=== PATIENT | male | born 1945 | race Caucasian/White ===

== ENCOUNTER 2018-05-21 17:07 | Emergency (ER) | payer MEDICARE, MEDICAID ==
[2018-05-21 17:11] VITALS: BMI 23.3
--- NOTE | 2018-05-21 18:11 | C.PDOC ---
History Of Present Illness 72yo male, comes to ER for evaluation of pain to his right anterior tibia, which he noted after dialysis. He denies any injury or contusion to the leg. Patient denies any history of DVT or a sedentary lifestyle. Patient denies any weakness, numbness, and offers no other complaints. Time Seen by Provider: 05/21/18 17:35 Chief Complaint (Nursing): Lower Extremity Problem/Injury History Per: Patient History/Exam Limitations: no limitations Additional History Per: Patient Past Medical History Reviewed: Historical Data, Nursing Documentation, Vital Signs Vital Signs: Last Vital Signs Temp 98.1 F 05/21/18 18:53 Pulse 77 05/21/18 18:53 Resp 16 05/21/18 18:53 BP 159/77 H 05/21/18 18:53 Pulse Ox 99 05/21/18 18:53 - Medical History PMH: HTN, Pneumonia, End Stage Renal Disease Surgical History: No Surg Hx Family History: States: No Known Family Hx - Social History Hx Alcohol Use: No Hx Substance Use: No - Immunization History Hx Tetanus Toxoid Vaccination: Yes Hx Influenza Vaccination: Yes Hx Pneumococcal Vaccination: Yes Review Of Systems Except As Marked, All Systems Reviewed And Found Negative. Constitutional: Negative for: Fever, Chills Cardiovascular: Negative for: Chest Pain Respiratory: Negative for: Shortness of Breath Musculoskeletal: Positive for: Leg Pain (right anterior tibia) Physical Exam - Physical Exam Appears: Non-toxic, No Acute Distress Skin: Warm, Dry, Other (superficial abrasion to superior anterior blade of tibia with mild darkening. no skin breaks or lacerations noted.) Head: Atraumatic, Normacephalic Eye(s): bilateral: Normal Inspection Neck: Normal ROM, Supple Chest: Symmetrical, No Tenderness Cardiovascular: Rhythm Regular Respiratory: Normal Breath Sounds, No Wheezing Extremity: Normal ROM, No Tenderness, No Pedal Edema, No Calf Tenderness, Capillary Refill (< 2 seconds), No Deformity, No Swelling Neurological/Psych: Oriented x3 ED Course And Treatment O2 Sat by Pulse Oximetry: 95 (RA) Pulse Ox Interpretation: Normal - Radiology CXR: Interpreted by Me CXR Interpretation: Yes: No Acute Disease - Other Rad R tib/fib X-Ray: Interpreted by Me (neg) Medical Decision Making Medical Decision Making: mild abrasion to superior anterior aspect of tibia blade with exquisite tenerness but no lac/open wound. ice and NSAIDS much improved, tib/fib film neg. normal CXR for this pt. worse sob prior to HD is typical for this pt. Disposition Doctor Will See Patient In The: Office Counseled Patient/Family Regarding: Studies Performed, Diagnosis - Disposition Referrals: Medhat Hassan [Medical Doctor] - Disposition: HOME/ ROUTINE Disposition Time: 18:11 Condition: GOOD Additional Instructions: sigue con hielo 1/2 hora por hora, nada caliente ibuprofeno 400-600 mg cada 6 horas winnie necessario para dolor Nette dolor dura 1-2 SEMANAS! Sigue con day medico winnie necessario. Instructions: Contusion (DC) Forms: [employer] (Nigerian) Print Language: TOGOLESE - Clinical Impression Clinical Impression: Contusion of tibia - Scribe Statement The provider has reviewed the documentation as recorded by the Scribe (Natalie Garcia) Provider Attestation: All medical record entries made by the Scribe were at my direction and personally dictated by me. I have reviewed the chart and agree that the record accurately reflects my personal performance of the history, physical exam, medical decision making, and the department course for this patient. I have also personally directed, reviewed, and agree with the discharge instructions and disposition.
--- NOTE | 2018-05-21 18:14 | RAD ---
PROCEDURE: Radiographs of the right tibia and fibula. HISTORY: abrasion, anterior blade area, no lac/puncture COMPARISON: None available. TECHNIQUE: Frontal and lateral views obtained. FINDINGS: BONES: No fracture or destructive lesion. JOINT SPACES: Unremarkable. OTHER FINDINGS: None. IMPRESSION: Unremarkable radiographs of the right tibia and fibula.
--- NOTE | 2018-05-21 18:49 | RAD ---
HISTORY: sob/cough COMPARISON: Chest radiograph dated 11/21/2012. TECHNIQUE: Chest PA and lateral FINDINGS: LUNGS: Basilar atelectasis. PLEURA: Small bilateral pleural effusions. No pneumothorax apparent. CARDIOVASCULAR: Normal. OSSEOUS STRUCTURES: Unchanged. VISUALIZED UPPER ABDOMEN: Normal. OTHER FINDINGS: None. IMPRESSION: Small bilateral pleural effusions with bibasilar atelectasis.
[2018-05-21 18:54] VITALS: BP 159/77; PULSE 77; RESP 16; TEMP 98.1
[2018-05-21 19:00] VITALS: O2SAT 95
== END 2018-05-21 19:09 | disposition home or self-care (01) ==
LOC: C.ER 17:07
DX: S80.11XA Contusion of right lower leg, initial encounter (principal); X58.XXXA Exposure to other specified factors, initial encounter

== ENCOUNTER 2018-07-01 07:37 | Day surgery (SDC) | payer MEDICARE, MEDICAID ==
[2018-07-01] MEDS ORDERED: cefTRIAXone 1 gm 1 GM/100 ML BAG IVPB ONE (09:21)
[2018-07-01] MEDS ORDERED: Lidocaine 2% Jelly (Uro-Jet) ONE (09:22)
[2018-07-01] MEDS ORDERED: Propofol 10 mg/ml Inj (20 ML) ONE (09:24)
[2018-07-01 09:30] LABS: CALCIUM 9.1 mg/dl (8.6-10.4)
[2018-07-01] MEDS ORDERED: Albuterol-Ipratrop 3 mg / 0.5 (3 ml) UD INH STA (12:09)
[2018-07-01 12:31] LABS: CALCIUM 8.8 mg/dl (8.6-10.4)
--- NOTE | 2018-07-01 14:03 | CP.PCM.PCO ---
Physician Communication Note - Physician Communication Note Physician Communication Note: Patient is a 73 yo male who came for catheter exchange due to ESRD
[2018-07-01 15:48] VITALS: RESP 16; TEMP 97.6; O2SAT 95
[2018-07-01 16:02] VITALS: BP 144/66; PULSE 84
--- NOTE | 2018-07-01 20:28 | OP ---
Copied To: Neeraj Elizabeth MD Attending MD: Neeraj Elizabeth MD PROCEDURE DATE: 07/01/2018 PREOPERATIVE DIAGNOSES: 1. End-stage renal disease, on dialysis. 2. Chronic indwelling suprapubic tube. 3. Microscopic hematuria. PROCEDURE: Cystoscopy, change of suprapubic tube. SURGEON: Neeraj Elizabeth MD ANESTHESIA: Local anesthesia plus laryngeal mask anesthesia. ANESTHESIOLOGIST: Mago Haas MD DESCRIPTION OF PROCEDURE: The patient's potassium was called in and elevated at 6.3 after the patient was placed under anesthesia. The procedure took less than 10 minutes. Approximately 10 mL of 2% Xylocaine jelly additionally was injected per urethral meatus which came out immediately through his hypospadiac opening just proximal to the urethral meatus on the ventral portion of his penile shaft underlying the urethra. Remaining portion of the lidocaine jelly was injected into the hypospadiac urethra and this was followed by insertion of a #22-Portuguese Storz cystoscope, which was advanced into the bladder under direct vision using the 30-degree lens. Sterile water was used as irrigating solution throughout the entire procedure. The anterior urethra from the hypospadiac meatus was completely normal without any stricture formation, foreign bodies, or suspicious lesion seen. Posterior urethra and prostatic fossa showed a total prostatic fossa measuring about 4 cm in length and the bladder neck to verumontanum measuring about 3 cm in length. The bladder was then examined in all four quadrants. The suprapubic tube was seen coming into the bladder anteriorly and the remaining portion of bladder showed no evidence of any bladder malignancy. The bladder mucosa appeared to be no more than 1+ trabeculated. Both ureteral orifices were in normal location, normal configuration on the trigone with diminished efflux bilaterally. The prostatic fossa showed minimally to moderate occlusive lateral lobe prostatic hypertrophy. At the end of the procedure, the cystoscope was removed and the 24-Portuguese suprapubic tube was changed and connected to leg bag drainage. Plan for this patient will be to maintain the suprapubic tube open while the patient's potassium remains elevated. As soon as this stabilizes, the patient can plug his suprapubic tube and see if he voids urine via his hypospadiac urethral meatus. The patient will be seen in office followup in one week. The patient will need urgent followup with a cut off sawyer regarding his hyperkalemia and elevated PSA of 6.3. Neeraj Elizabeth MD MTDD
== END 2018-07-01 15:50 | disposition home or self-care (01) ==
LOC: C.SDS 07:37 → UNDOADMIN 11:28 → C.9S 11:28 → C.SDS 15:50
PROVIDERS: ATTEND Urology
DX: E11.22 Type 2 diabetes mellitus with diabetic chronic kidney disease (principal); N18.6 End stage renal disease; Z99.2 Dependence on renal dialysis; R31.29 Other microscopic hematuria; Z53.21 Procedure and treatment not carried out due to patient leaving prior to being seen by health care provider
CPT/HCPCS: 36415; 51710; 80048; 82948; J0696

== ENCOUNTER 2018-09-10 17:18 | Inpatient (IN) | payer MEDICARE, MEDICAID ==
[2018-09-10 17:32] VITALS: BMI 24.4
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
[2018-09-10] MEDS ORDERED: cefTRIAXone IV 1 gm in Dextros 50 ML IVPB ONE (17:59)
[2018-09-10] MEDS ORDERED: Azithromycin 500 MG in Sodium Chloride 0.9% 250 ML IVPB STA (18:00)
[2018-09-10] MEDS ORDERED: cefTRIAXone 1 gm 1 GM/100 ML BAG IVPB ONE (18:09)
[2018-09-10] MEDS ORDERED: Azithromycin 500mg/250ML NS 500 MG/250 ML BAG IVPB ONE (18:09)
[2018-09-10 18:47] LABS: BASO # 0.1 K/uL (0.0-0.2); BASO % 0.8 % (0.0-2.0); EOS # 0.1 K/uL (0.0-0.7); EOS % 1.7 % (0.0-4.0); HEMOGLOBIN 11.1 g/dL (12.0-18.0); LYMPH # 1.3 K/uL (1.0-4.3); LYMPH % 17.4 % (20.0-40.0); MEAN CELL VOLUME 93.7 fL (80.0-94.0); MEAN CORPUSCULAR HEMOGLOBIN 31.9 pg (27.0-31.0); MEAN CORPUSCULAR HGB CONC 34.1 g/dL (33.0-37.0); MEAN PLATELET VOLUME 8.7 fL (7.2-11.7); MONO # 0.5 K/uL (0.0-0.8); MONO % 6.7 % (0.0-10.0); NEUT # 5.5 K/uL (1.8-7.0); NEUT % 73.4 % (50.0-75.0); RBC 3.48 Mil/uL (4.40-5.90); RED CELL DISTRIBUTION WIDTH 14.8 % (11.5-14.5); WHITE BLOOD COUNT 7.5 K/uL (4.8-10.8)
[2018-09-10] MEDS ORDERED: guaiFENesin DM 200 mg-20 mg/10 ml UD PO STA (18:48)
[2018-09-10] MEDS ORDERED: Albuterol 0.042% Inhal Sol (1.25 mg/3 mL) UD ONE (19:00)
[2018-09-10 19:13] LABS: ALB/GLOB RATIO 1.2 (1.0-2.1); ALBUMIN 4.2 g/dL (3.5-5.0)
[2018-09-10] MEDS: Albuterol 0.042% Inhal Sol (1.25 mg/3 mL) UD INH SCH (19:35)
[2018-09-10] MEDS ORDERED: guaiFENesin-Codeine 100-10mg/5ml Syrup (10ml) UD ONE (19:45)
[2018-09-10 19:50] LABS: TROPONIN I 0.059 ng/mL (0.00-0.120)
[2018-09-11] MEDS ORDERED: Albuterol-Ipratrop 3 mg / 0.5 (3 ml) UD INH STA (00:27)
[2018-09-11] MEDS: (Novolin R) Insulin Human Regular 100 units/ml vial SC SCH ×4 (08:54→21:43)
[2018-09-11] MEDS: (Lantus) Insulin Glargine, Recombinant SC SCH (09:29)
[2018-09-11] MEDS: Potassium Chloride 20 mEq ER Tab PO SCH (09:36)
--- NOTE | 2018-09-11 10:24 | RAD ---
Date of service: 09/10/2018 PROCEDURE: CHEST RADIOGRAPH, 1 VIEW HISTORY: SOB COMPARISON: Chest radiographs 05/21/2018. FINDINGS: LUNGS: No acute airspace disease bilaterally. COPD suspected. PLEURA: Chronic fibrotic changes are favored over trace pleural effusions blunting the bilateral costophrenic sulci. No pneumothorax bilaterally. CARDIOVASCULAR: Normal. OSSEOUS STRUCTURES: No significant abnormalities. VISUALIZED UPPER ABDOMEN: Normal. OTHER FINDINGS: None. IMPRESSION: No acute airspace disease bilaterally. COPD changes are suspected with fibrotic changes both the bilateral costophrenic sulci favored over trace chronic pleural effusions. No pulmonary vascular congestion appreciable.
[2018-09-11] MEDS: Cilostazol 100 mg Tab UD PO SCH ×2 (10:37→17:57)
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
[2018-09-11] MEDS: MethylPREDNISolone 40 mg Vial IVP SCH ×2 (12:00→17:58)
--- NOTE | 2018-09-11 12:58 | CT ---
Date of service: 09/11/2018 PROCEDURE: CT Chest without contrast HISTORY: persistent cough COMPARISON: None available. TECHNIQUE: Contiguous axial images were obtained through the chest without intravenous contrast enhancement. Sagittal and coronal reconstructions were performed. Radiation dose: Total exam DLP = 393.24 mGy-cm. This CT exam was performed using one or more of the following dose reduction techniques: Automated exposure control, adjustment of the mA and/or kV according to patient size, and/or use of iterative reconstruction technique. FINDINGS: LUNGS: Opacity includes air bronchograms at the right lower lobe in multiple sub segments including the superior subsegment, as well as minimally at the left lower lobe with some nodularity at the left lower lobe infiltrate associated. Linear atelectasis or fibrosis seen at both bases. Mucoid material is identified at the distal segment right mainstem bronchus partially occluding it. There is a small calcified granuloma identified at the left upper lobe subpleural in position. Restrained motion degrades quality exam. No definite COPD changes as suspected on prior chest radiograph 09/10/2018. MEDIASTINUM: Calcific atherosclerotic changes are seen related to the thoracic aorta. Borderline cardiomegaly. Coronary artery atherosclerosis identified. Main pulmonary artery unremarkable. No vascular congestion. Mild lymphadenopathy is appreciated with nearly innumerable subcentimeter no nodes identified in the pretracheal retro vascular space, aortopulmonary window and paratracheal spaces. PLEURA: No pleural fluid. No pneumothorax. BONES: No fracture. No destructive lesion. UPPER ABDOMEN: Cholelithiasis. OTHER FINDINGS: None. IMPRESSION: Findings compatible with [id number] right lower lobe pneumonitis and limited left lower lobe pneumonitis. Follow-up chest CT rim recommended following therapy given limited nodularity of left basilar pneumonitis component. Mild mediastinal lymphadenopathy identified. Incidental cholelithiasis.
[2018-09-11] MEDS: Azithromycin 500 MG in Sodium Chloride 0.9% 250 ML IVPB SCH (17:59)
[2018-09-11] MEDS: Albuterol-Ipratrop 3 mg / 0.5 (3 ml) UD INH SCH (19:24)
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
[2018-09-12] MEDS: MethylPREDNISolone 40 mg Vial IVP SCH ×4 (00:27→17:32)
[2018-09-12] MEDS: Albuterol-Ipratrop 3 mg / 0.5 (3 ml) UD INH SCH ×4 (02:10→20:04)
[2018-09-12] MEDS ORDERED: Dextrose 50% SYRINGE Inj (50 ml) IV PRN (02:27)
[2018-09-12] MEDS ORDERED: Glucagon Recombinant 1 mg Inj IM PRN (02:27)
[2018-09-12] MEDS ORDERED: (Novolin R) Insulin Human Regular 100 units/ml vial SC ONE (02:36)
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
--- NOTE | 2018-09-12 07:19 | HP ---
CHIEF COMPLAINT: Cough x3 days. HISTORY OF PRESENT ILLNESS: This is a 73-year-old male with history of endstage renal disease, on hemodialysis for two years, type 2 diabetes, hypertension, hyperlipidemia. The patient was brought into emergency room by family with two weeks' history of cough, congestion, shortness of breath, pneumonia. Along with that, he is having chest pain upon coughing. He feels chest congestion. He feels body aches, tiredness, chills, rigors. He denies any nausea, vomiting. He denies any history of polyuria, polydipsia, polyphagia. He denies any history of hematuria, pyuria. He has nasal congestion. His sputum is thick, yellow. He denies any hemoptysis. He denies any history of abdominal pain. There is no history of joint pain, hip pain. There is no history of trauma, fall, loss of consciousness. There is no history of sneezing, itchy eyes, itchy nose. PAST MEDICAL HISTORY: Type 2 diabetes, hypertension, hyperlipidemia, CKD, on hemodialysis. SOCIAL HISTORY: Nonsmoker, non-ETOH user. CURRENT MEDICATIONS: At home are Tradjenta, Lantus, Lasix, gabapentin, folic acid, Pletal, Zyrtec, calcium acetate, Tessalon, allopurinol, hydralazine, K-Dur, Singulair, Cozaar. PHYSICAL EXAMINATION: GENERAL: Elderly male, who is in distress with coughing, congestion. HEENT: Atraumatic and normocephalic. Positive pallor. Negative jaundice. Extraocular movements are intact. NECK: Supple. No JVD. No lymph node. No thyromegaly. No carotid bruits. CHEST: Chest wall with bilateral symmetrical expansion. LUNGS: Bilateral inspiratory and expiratory rales and rhonchi. Decreased air entry. CARDIOVASCULAR SYSTEM: S1, S2 plus S3 positive. ABDOMEN: Soft and nontender. Bowel sounds are positive. RECTAL: Enlarged prostate. EXTREMITIES: No clubbing, cyanosis, or edema. [employer]OR: Awake, alert, and oriented x3. Cranial nerves II through XII are normal. Power 5/5 x4. Plantars downgoing. ASSESSMENT: 1. Pneumonia. 2. Congestive heart failure due to fluid overload. 3. Chronic renal failure. 4. Hypertension. PLAN: Admit. Detailed orders written. Seen and examined. Drew Nash MD
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
[2018-09-12] MEDS: (Novolin R) Insulin Human Regular 100 units/ml vial SC SCH ×4 (08:52→21:41)
[2018-09-12] MEDS: (Lantus) Insulin Glargine, Recombinant SC SCH (09:14)
[2018-09-12] MEDS: Potassium Chloride 20 mEq ER Tab PO SCH (09:14)
[2018-09-12] MEDS: Cilostazol 100 mg Tab UD PO SCH ×2 (09:15→17:32)
--- NOTE | 2018-09-12 10:15 | CP.PCM.PN ---
Subjective - Date & Time of Evaluation Date of Evaluation: 09/12/18 Time of Evaluation: 10:10 - Subjective Subjective: Pt staes that he still has lot of cough but breathing is much better. Appears comfortsble in bed Objective - Vital Signs/Intake and Output Vital Signs (last 24 hours): Temp Pulse Resp BP Pulse Ox 97.7 F 90 20 118/60 98 09/12/18 08:14 09/12/18 08:14 09/12/18 08:14 09/12/18 09:13 09/12/18 08:14 Intake and Output: 09/12/18 09/12/18 06:59 18:59 Intake Total 540 Output Total 0 Balance 540 - Medications Medications: Current Medications Albuterol/Ipratropium (Duoneb 3 Mg/0.5 Mg (3 Ml) Ud) 3 ml INH RQ6 [facility] Last Admin: 09/12/18 08:33 Dose: 3 ml Allopurinol (Zyloprim) 100 mg PO BID [facility] Last Admin: 09/12/18 09:13 Dose: 100 mg Benzonatate (Tessalon Perles) 100 mg PO TID [facility] Last Admin: 09/12/18 09:14 Dose: 100 mg Calcium Acetate (Phoslo) 1,334 mg PO BIDCC [facility] Last Admin: 09/12/18 08:57 Dose: 1,334 mg Cilostazol (Pletal) 100 mg PO BID [facility] Last Admin: 09/12/18 09:15 Dose: 100 mg Dextrose (Dextrose 50% Inj) 0 ml IV STAT PRN; Protocol PRN Reason: Hypoglycemia Protocol Dextrose (Glutose 15) 0 gm PO ONCE PRN; Protocol PRN Reason: Hypoglycemia Protocol Folic Acid (Folic Acid) 1 mg PO DAILY [facility] Last Admin: 09/12/18 09:14 Dose: 1 mg Furosemide (Lasix) 40 mg PO DAILY [facility] Last Admin: 09/12/18 09:13 Dose: 40 mg Gabapentin (Neurontin) 300 mg PO TID [facility] Last Admin: 09/12/18 09:13 Dose: 300 mg Glucagon (Glucagen Diagnostic Kit) 0 mg IM STAT PRN; Protocol PRN Reason: Hypoglycemia Protocol Heparin Sodium (Porcine) (Heparin) 5,000 units SC Q8 [facility] Last Admin: 09/12/18 05:17 Dose: 5,000 units Hydralazine HCl (Apresoline) 25 mg PO TID [facility] Last Admin: 09/12/18 09:13 Dose: 25 mg Ceftriaxone Sodium 1 gm/ (Sodium Chloride) 100 mls @ 100 mls/hr IVPB DAILY@1800 [facility]; Protocol Last Admin: 09/11/18 17:59 Dose: 100 mls/hr Azithromycin 500 mg/ Sodium (Chloride) 250 mls @ 250 mls/hr IVPB DAILY@1800 [facility]; Protocol Last Admin: 09/11/18 17:59 Dose: 250 mls/hr Dextrose (Dextrose 5% In Water 1000 Ml) 1,000 mls @ 0 mls/hr IV .Q0M PRN; Protocol PRN Reason: Hypoglycemia Protocol Insulin Glargine (Lantus) 30 unit SC DAILY [facility] Last Admin: 09/12/18 09:14 Dose: 30 units Insulin Human Regular (Novolin R) 0 unit SC ACHS [facility]; Protocol Last Admin: 09/12/18 08:52 Dose: 4 units Methylprednisolone (Solu-Medrol) 40 mg IVP Q6 [facility] Last Admin: 09/12/18 05:17 Dose: 40 mg Montelukast Sodium (Singulair) 10 mg PO DAILY [facility] Last Admin: 09/12/18 09:14 Dose: 10 mg Potassium Chloride (K-Dur 20 Meq Er Tab) 20 meq PO DAILY [facility] Last Admin: 09/12/18 09:14 Dose: Not Given Rosuvastatin Calcium (Crestor) 10 mg PO HS [facility] Last Admin: 09/11/18 21:44 Dose: 10 mg Sevelamer Carbonate (Renvela) 800 mg PO DAILY [facility] Last Admin: 09/12/18 09:14 Dose: 800 mg - Labs Labs: 09/10/18 18:41 09/10/18 18:41 - Constitutional Appears: No Acute Distress - Head Exam Head Exam: NORMAL INSPECTION - Eye Exam Additional comments: Enucleation of lt eye No icterus - ENT Exam ENT Exam: Mucous Membranes Moist - Neck Exam Additional comments: neck is supple - Respiratory Exam Respiratory Exam: NORMAL BREATHING PATTERN Additional comments: Scattered B/L rhonchi but no rales. - Cardiovascular Exam Cardiovascular Exam: REGULAR RHYTHM, +S1, +S2 - GI/Abdominal Exam GI & Abdominal Exam: Soft, Tenderness Additional comments: No tenderness - Extremities Exam Additional comments: No edema or cyanosis + bruit over Lt arm AVF Assessment and Plan - Assessment and Plan (Free Text) Assessment: ESRD on maintenance HD, MWF No signes of fluid overload\ Bronchitis, Hx/o COPD DM with retinopathy HTN,HLD Plan: Pt is scheduled for dialysis tomorrow orders are written Labs in am.
--- NOTE | 2018-09-12 12:25 | CP.PCM.PN ---
Subjective - Date & Time of Evaluation Date of Evaluation: 09/12/18 Time of Evaluation: 12:24 - Subjective Subjective: Pulmonary Evaluation The patient was Seen/interviewed and examined by me at the bedside, Medical records reviewed and Management issues were discussed and formulated with the house staff. Events reviewed 73-year-old male with history of Chronic bronchitis, diabetes, hypertension and end-stage renal disease on dialysis who presented to emergency room with productive cough, shortness of breath and chest congestion for the past 2 weeks. Denies fever chills, denies chest pain. On admission he is Hypoxic to 93% on room air. CXR revealed small bilateral pleural effusion Labs noted for elevated proBNP [id number]. Chest CT scan with [id number] right lower lobe pneumonitis and limited left lower lobe pneumonitis. Admitted with Pneumonia, possible fluid overload, Felling better today, still with productive cough. Objective - Vital Signs/Intake and Output Vital Signs (last 24 hours): Temp Pulse Resp BP Pulse Ox 97.7 F 92 H 20 118/60 98 09/12/18 08:14 09/12/18 11:25 09/12/18 08:14 09/12/18 09:13 09/12/18 08:14 Intake and Output: 09/12/18 09/12/18 06:59 18:59 Intake Total 540 Output Total 0 Balance 540 - Medications Medications: Current Medications Albuterol/Ipratropium (Duoneb 3 Mg/0.5 Mg (3 Ml) Ud) 3 ml INH RQ6 [facility] Last Admin: 09/12/18 08:33 Dose: 3 ml Allopurinol (Zyloprim) 100 mg PO BID [facility] Last Admin: 09/12/18 09:13 Dose: 100 mg Benzonatate (Tessalon Perles) 100 mg PO TID [facility] Last Admin: 09/12/18 09:14 Dose: 100 mg Calcium Acetate (Phoslo) 1,334 mg PO BIDCC [facility] Last Admin: 09/12/18 08:57 Dose: 1,334 mg Cilostazol (Pletal) 100 mg PO BID [facility] Last Admin: 09/12/18 09:15 Dose: 100 mg Dextrose (Dextrose 50% Inj) 0 ml IV STAT PRN; Protocol PRN Reason: Hypoglycemia Protocol Dextrose (Glutose 15) 0 gm PO ONCE PRN; Protocol PRN Reason: Hypoglycemia Protocol Folic Acid (Folic Acid) 1 mg PO DAILY [facility] Last Admin: 09/12/18 09:14 Dose: 1 mg Furosemide (Lasix) 40 mg PO DAILY [facility] Last Admin: 09/12/18 09:13 Dose: 40 mg Gabapentin (Neurontin) 300 mg PO TID [facility] Last Admin: 09/12/18 09:13 Dose: 300 mg Glucagon (Glucagen Diagnostic Kit) 0 mg IM STAT PRN; Protocol PRN Reason: Hypoglycemia Protocol Heparin Sodium (Porcine) (Heparin) 5,000 units SC Q8 [facility] Last Admin: 09/12/18 05:17 Dose: 5,000 units Hydralazine HCl (Apresoline) 25 mg PO TID [facility] Last Admin: 09/12/18 09:13 Dose: 25 mg Ceftriaxone Sodium 1 gm/ (Sodium Chloride) 100 mls @ 100 mls/hr IVPB DAILY@1800 [facility]; Protocol Last Admin: 09/11/18 17:59 Dose: 100 mls/hr Azithromycin 500 mg/ Sodium (Chloride) 250 mls @ 250 mls/hr IVPB DAILY@1800 [facility]; Protocol Last Admin: 09/11/18 17:59 Dose: 250 mls/hr Dextrose (Dextrose 5% In Water 1000 Ml) 1,000 mls @ 0 mls/hr IV .Q0M PRN; Protocol PRN Reason: Hypoglycemia Protocol Insulin Glargine (Lantus) 30 unit SC DAILY [facility] Last Admin: 09/12/18 09:14 Dose: 30 units Insulin Human Regular (Novolin R) 0 unit SC ACHS [facility]; Protocol Last Admin: 09/12/18 12:24 Dose: 4 units Methylprednisolone (Solu-Medrol) 40 mg IVP Q6 [facility] Last Admin: 09/12/18 05:17 Dose: 40 mg Montelukast Sodium (Singulair) 10 mg PO DAILY [facility] Last Admin: 09/12/18 09:14 Dose: 10 mg Potassium Chloride (K-Dur 20 Meq Er Tab) 20 meq PO DAILY [facility] Last Admin: 09/12/18 09:14 Dose: Not Given Rosuvastatin Calcium (Crestor) 10 mg PO HS [facility] Last Admin: 09/11/18 21:44 Dose: 10 mg Sevelamer Carbonate (Renvela) 800 mg PO DAILY [facility] Last Admin: 09/12/18 09:14 Dose: 800 mg - Labs Labs: 09/10/18 18:41 09/12/18 11:18 - Constitutional Appears: Well, Non-toxic - Eye Exam Eye Exam: EOMI, Normal appearance. absent: Conjunctival injection - Neck Exam Neck Exam: Full ROM - Respiratory Exam Respiratory Exam: Decreased Breath Sounds, Rales, Rhonchi, NORMAL BREATHING PATTERN. absent: Accessory Muscle Use, Chest Wall Tenderness - Cardiovascular Exam Cardiovascular Exam: REGULAR RHYTHM, RRR, +S1, +S2. absent: JVD - GI/Abdominal Exam GI & Abdominal Exam: Soft, Normal Bowel Sounds. absent: Distended, Firm, Guarding, Rigid - Extremities Exam Extremities Exam: Full ROM. absent: Calf Tenderness, Normal Inspection (Rt forearm AVF ) - Back Exam Back Exam: absent: CVA tenderness (L), CVA tenderness (R) - Neurological Exam Neurological Exam: Alert, Awake, CN II-XII Intact, Normal Gait, Oriented x3. absent: Motor Sensory Deficit Assessment and Plan (1) Acute exacerbation of chronic bronchitis Status: Acute (2) Pneumonia Status: Acute (3) CHF exacerbation Status: Acute (4) ESRD (end stage renal disease) on dialysis Status: Acute (5) Hypoxia Status: Acute - Assessment and Plan (Free Text) Assessment: Acute respiratory distress from Acute bronchitis, [id number] right lower lobe pneumonitis and limited left lower lobe pneumonitis, small bilateral pleural effusion and possible fluid overload. ESRD on HD every MWF. Continue HD per Pts schedule Continue current Antibiotics Albuterol/Ipratropium (Duoneb) INH RQ6 [facility] May discontinue methylprednisolone (Solu-Medrol) Continue Singulair) 10 mg PO DAILY
[2018-09-12] MEDS: Azithromycin 500 MG in Sodium Chloride 0.9% 250 ML IVPB SCH (17:36)
--- NOTE | 2018-09-12 22:24 | CP.PCM.PN ---
Subjective - Subjective Subjective: dictated Objective - Vital Signs/Intake and Output Vital Signs (last 24 hours): Temp Pulse Resp BP Pulse Ox 97 F L 90 20 110/59 L 97 09/12/18 16:00 09/12/18 16:00 09/12/18 16:00 09/12/18 16:00 09/12/18 16:00 Intake and Output: 09/12/18 09/13/18 18:59 06:59 Intake Total 200 350 Output Total 10 200 Balance 190 150 - Medications Medications: Current Medications Albuterol/Ipratropium (Duoneb 3 Mg/0.5 Mg (3 Ml) Ud) 3 ml INH RQ6 [facility] Last Admin: 09/12/18 20:04 Dose: 3 ml Allopurinol (Zyloprim) 100 mg PO BID [facility] Last Admin: 09/12/18 17:32 Dose: 100 mg Benzonatate (Tessalon Perles) 100 mg PO TID [facility] Last Admin: 09/12/18 17:32 Dose: 100 mg Calcium Acetate (Phoslo) 1,334 mg PO BIDCC [facility] Last Admin: 09/12/18 17:32 Dose: 1,334 mg Cilostazol (Pletal) 100 mg PO BID [facility] Last Admin: 09/12/18 17:32 Dose: 100 mg Dextrose (Dextrose 50% Inj) 0 ml IV STAT PRN; Protocol PRN Reason: Hypoglycemia Protocol Dextrose (Glutose 15) 0 gm PO ONCE PRN; Protocol PRN Reason: Hypoglycemia Protocol Folic Acid (Folic Acid) 1 mg PO DAILY [facility] Last Admin: 09/12/18 09:14 Dose: 1 mg Furosemide (Lasix) 40 mg PO DAILY [facility] Last Admin: 09/12/18 09:13 Dose: 40 mg Gabapentin (Neurontin) 300 mg PO TID [facility] Last Admin: 09/12/18 17:32 Dose: 300 mg Glucagon (Glucagen Diagnostic Kit) 0 mg IM STAT PRN; Protocol PRN Reason: Hypoglycemia Protocol Heparin Sodium (Porcine) (Heparin) 5,000 units SC Q8 [facility] Last Admin: 09/12/18 21:53 Dose: 5,000 units Hydralazine HCl (Apresoline) 25 mg PO TID [facility] Last Admin: 09/12/18 17:43 Dose: Not Given Ceftriaxone Sodium 1 gm/ (Sodium Chloride) 100 mls @ 100 mls/hr IVPB DAILY@1800 [facility]; Protocol Last Admin: 09/12/18 17:33 Dose: 100 mls/hr Azithromycin 500 mg/ Sodium (Chloride) 250 mls @ 250 mls/hr IVPB DAILY@1800 [facility]; Protocol Last Admin: 09/12/18 17:36 Dose: 250 mls/hr Dextrose (Dextrose 5% In Water 1000 Ml) 1,000 mls @ 0 mls/hr IV .Q0M PRN; Protocol PRN Reason: Hypoglycemia Protocol Insulin Glargine (Lantus) 30 unit SC DAILY [facility] Last Admin: 09/12/18 09:14 Dose: 30 units Insulin Human Regular (Novolin R) 0 unit SC ACHS [facility]; Protocol Last Admin: 09/12/18 21:41 Dose: Not Given Methylprednisolone (Solu-Medrol) 40 mg IVP Q6 [facility] Last Admin: 09/12/18 17:32 Dose: 40 mg Montelukast Sodium (Singulair) 10 mg PO DAILY [facility] Last Admin: 09/12/18 09:14 Dose: 10 mg Potassium Chloride (K-Dur 20 Meq Er Tab) 20 meq PO DAILY [facility] Last Admin: 09/12/18 09:14 Dose: Not Given Rosuvastatin Calcium (Crestor) 10 mg PO HS [facility] Last Admin: 09/12/18 21:53 Dose: 10 mg Sevelamer Carbonate (Renvela) 800 mg PO DAILY [facility] Last Admin: 09/12/18 09:14 Dose: 800 mg - Labs Labs: 09/10/18 18:41 09/12/18 11:18
[2018-09-13] MEDS: MethylPREDNISolone 40 mg Vial IVP SCH ×4 (00:42→17:40)
[2018-09-13] MEDS: Albuterol-Ipratrop 3 mg / 0.5 (3 ml) UD INH SCH ×4 (01:35→20:00)
--- NOTE | 2018-09-13 03:24 | PN ---
DATE: 09/12/2018 SUBJECTIVE: The patient, Roshni, has less cough, less shortness of breath, less wheezing. He is on antibiotics. PHYSICAL EXAMINATION: VITAL SIGNS: Blood pressure 110/59, pulse 90, respiratory rate 20, temperature 97. LUNGS: Bilateral crepitations. CARDIOVASCULAR SYSTEM: S1 and S2 are regular. ABDOMEN: Soft and nontender. Bowel sounds are positive. ASSESSMENT: 1. Pneumonia. 2. Congestive heart failure. 3. Chronic kidney disease, on hemodialysis. 4. Diabetes. PLAN: Medical management. Accu-Chek. Sliding scale. Antibiotics. Pulmonary followup. Drew Nash MD
[2018-09-13] MEDS: (Novolin R) Insulin Human Regular 100 units/ml vial SC SCH ×5 (07:00→22:31)
--- NOTE | 2018-09-13 08:03 | CP.PCM.PN ---
Subjective - Date & Time of Evaluation Date of Evaluation: 09/13/18 Time of Evaluation: 08:35 - Subjective Subjective: Chris Mcgovern, PGY-1 History and Physical [address] Dr. Ro, Cardiology Patient seen and evaluated at bedside. Reports no acute events overnight. Eating comfortably, although reports shortness of breath. Denies chest pain, palpitations, leg swelling. Objective - Vital Signs/Intake and Output Vital Signs (last 24 hours): Temp Pulse Resp BP Pulse Ox 98.1 F 107 H 20 119/59 L 93 L 09/12/18 23:15 09/13/18 01:00 09/12/18 23:15 09/12/18 23:15 09/12/18 23:15 Intake and Output: 09/13/18 09/13/18 06:59 18:59 Intake Total 350 Output Total 200 Balance 150 - Medications Medications: Current Medications Albuterol/Ipratropium (Duoneb 3 Mg/0.5 Mg (3 Ml) Ud) 3 ml INH RQ6 [facility] Last Admin: 09/13/18 01:35 Dose: 3 ml Allopurinol (Zyloprim) 100 mg PO BID [facility] Last Admin: 09/12/18 17:32 Dose: 100 mg Benzonatate (Tessalon Perles) 100 mg PO TID [facility] Last Admin: 09/12/18 17:32 Dose: 100 mg Calcium Acetate (Phoslo) 1,334 mg PO BIDCC [facility] Last Admin: 09/12/18 17:32 Dose: 1,334 mg Cilostazol (Pletal) 100 mg PO BID [facility] Last Admin: 09/12/18 17:32 Dose: 100 mg Dextrose (Dextrose 50% Inj) 0 ml IV STAT PRN; Protocol PRN Reason: Hypoglycemia Protocol Dextrose (Glutose 15) 0 gm PO ONCE PRN; Protocol PRN Reason: Hypoglycemia Protocol Folic Acid (Folic Acid) 1 mg PO DAILY [facility] Last Admin: 09/12/18 09:14 Dose: 1 mg Furosemide (Lasix) 40 mg PO DAILY [facility] Last Admin: 09/12/18 09:13 Dose: 40 mg Gabapentin (Neurontin) 300 mg PO TID [facility] Last Admin: 09/12/18 17:32 Dose: 300 mg Glucagon (Glucagen Diagnostic Kit) 0 mg IM STAT PRN; Protocol PRN Reason: Hypoglycemia Protocol Heparin Sodium (Porcine) (Heparin) 5,000 units SC Q8 [facility] Last Admin: 09/13/18 05:48 Dose: 5,000 units Hydralazine HCl (Apresoline) 25 mg PO TID [facility] Last Admin: 09/12/18 17:43 Dose: Not Given Ceftriaxone Sodium 1 gm/ (Sodium Chloride) 100 mls @ 100 mls/hr IVPB DAILY@1800 [facility]; Protocol Last Admin: 09/12/18 17:33 Dose: 100 mls/hr Azithromycin 500 mg/ Sodium (Chloride) 250 mls @ 250 mls/hr IVPB DAILY@1800 [facility]; Protocol Last Admin: 09/12/18 17:36 Dose: 250 mls/hr Dextrose (Dextrose 5% In Water 1000 Ml) 1,000 mls @ 0 mls/hr IV .Q0M PRN; Protocol PRN Reason: Hypoglycemia Protocol Insulin Glargine (Lantus) 30 unit SC DAILY [facility] Last Admin: 09/12/18 09:14 Dose: 30 units Insulin Human Regular (Novolin R) 0 unit SC ACHS [facility]; Protocol Last Admin: 09/13/18 07:00 Dose: 6 units Methylprednisolone (Solu-Medrol) 40 mg IVP Q6 [facility] Last Admin: 09/13/18 05:49 Dose: 40 mg Montelukast Sodium (Singulair) 10 mg PO DAILY [facility] Last Admin: 09/12/18 09:14 Dose: 10 mg Potassium Chloride (K-Dur 20 Meq Er Tab) 20 meq PO DAILY [facility] Last Admin: 09/12/18 09:14 Dose: Not Given Rosuvastatin Calcium (Crestor) 10 mg PO HS [facility] Last Admin: 09/12/18 21:53 Dose: 10 mg Sevelamer Carbonate (Renvela) 800 mg PO DAILY [facility] Last Admin: 09/12/18 09:14 Dose: 800 mg - Labs Labs: 09/10/18 18:41 09/12/18 11:18 - Constitutional Appears: Well, Non-toxic, No Acute Distress - Head Exam Head Exam: ATRAUMATIC, NORMOCEPHALIC - Eye Exam Eye Exam: EOMI, Normal appearance - Respiratory Exam Respiratory Exam: Rales (bilateral). absent: Accessory Muscle Use, Chest Wall Tenderness, Clear to Ausculation Bilateral, Prolonged Expiratory Phase, NORMAL BREATHING PATTERN (tachypneic) - Cardiovascular Exam Cardiovascular Exam: RRR, +S1, +S2 - Extremities Exam Extremities Exam: absent: Calf Tenderness Additional comments: Fistula LUE Assessment and Plan - Assessment and Plan (Free Text) Assessment: 73 M with CHF, HTN, HLD, ESRD on HD who presents with shortness of breath. SOB 2/2 CHF exacerbation vs COPD ESRD to be performed today No LE edema, some bilateral rales Last echo 06/28. F/U repeat Echo BNP [id number] HTN c/w home management HLD c/w home management ESRD HD today Patient seen, case reviewed. Further recs per Dr. Ro. Chris Mcgovern, PGY-1
[2018-09-13 08:42] LABS: HEPATITIS B SURFACE AG Negative (NEGATIVE)
[2018-09-13] MEDS: Potassium Chloride 20 mEq ER Tab PO SCH (09:47)
[2018-09-13] MEDS: Cilostazol 100 mg Tab UD PO SCH ×2 (09:47→18:00)
[2018-09-13] MEDS: (Lantus) Insulin Glargine, Recombinant SC SCH (09:47)
[2018-09-13] MEDS ORDERED: Albumin Human 25% (12.5 gm/50 ml) IV ONE ×2 (10:25→11:32)
--- NOTE | 2018-09-13 12:21 | CP.PCM.PN ---
Subjective - Date & Time of Evaluation Date of Evaluation: 09/13/18 Time of Evaluation: 12:18 - Subjective Subjective: Patient has been followed by my group for several years. Discussed with Dr. Cee, will resume nephrology care with patient starting tod ay. Events noted- being treated for pneuninitis, mild CHF Seen at dialysis- removing 3300ml fluids labs reviewed on IV ABs Objective - Vital Signs/Intake and Output Vital Signs (last 24 hours): Temp Pulse Resp BP Pulse Ox 97.8 F 99 H 18 103/35 L 94 L 09/13/18 10:00 09/13/18 11:49 09/13/18 11:49 09/13/18 11:49 09/13/18 10:00 Intake and Output: 09/13/18 09/13/18 06:59 18:59 Intake Total 350 Output Total 200 Balance 150 - Medications Medications: Current Medications Albuterol/Ipratropium (Duoneb 3 Mg/0.5 Mg (3 Ml) Ud) 3 ml INH RQ6 [facility] Last Admin: 09/13/18 07:40 Dose: 3 ml Allopurinol (Zyloprim) 100 mg PO BID [facility] Last Admin: 09/13/18 09:47 Dose: 100 mg Benzonatate (Tessalon Perles) 100 mg PO TID [facility] Last Admin: 09/13/18 09:47 Dose: 100 mg Calcium Acetate (Phoslo) 1,334 mg PO BIDCC [facility] Last Admin: 09/13/18 08:26 Dose: 1,334 mg Cilostazol (Pletal) 100 mg PO BID [facility] Last Admin: 09/13/18 09:47 Dose: 100 mg Dextrose (Dextrose 50% Inj) 0 ml IV STAT PRN; Protocol PRN Reason: Hypoglycemia Protocol Dextrose (Glutose 15) 0 gm PO ONCE PRN; Protocol PRN Reason: Hypoglycemia Protocol Folic Acid (Folic Acid) 1 mg PO DAILY [facility] Last Admin: 09/13/18 09:47 Dose: 1 mg Furosemide (Lasix) 40 mg PO DAILY [facility] Last Admin: 09/13/18 09:54 Dose: Not Given Gabapentin (Neurontin) 300 mg PO TID [facility] Last Admin: 09/13/18 09:47 Dose: 300 mg Glucagon (Glucagen Diagnostic Kit) 0 mg IM STAT PRN; Protocol PRN Reason: Hypoglycemia Protocol Heparin Sodium (Porcine) (Heparin) 5,000 units SC Q8 [facility] Last Admin: 09/13/18 05:48 Dose: 5,000 units Hydralazine HCl (Apresoline) 25 mg PO TID [facility] Last Admin: 09/13/18 09:53 Dose: Not Given Ceftriaxone Sodium 1 gm/ (Sodium Chloride) 100 mls @ 100 mls/hr IVPB DAILY@1800 [facility]; Protocol Last Admin: 09/12/18 17:33 Dose: 100 mls/hr Azithromycin 500 mg/ Sodium (Chloride) 250 mls @ 250 mls/hr IVPB DAILY@1800 [facility]; Protocol Last Admin: 09/12/18 17:36 Dose: 250 mls/hr Dextrose (Dextrose 5% In Water 1000 Ml) 1,000 mls @ 0 mls/hr IV .Q0M PRN; Protocol PRN Reason: Hypoglycemia Protocol Insulin Glargine (Lantus) 30 unit SC DAILY [facility] Last Admin: 09/13/18 09:47 Dose: 30 units Insulin Human Regular (Novolin R) 0 unit SC ACHS [facility]; Protocol Last Admin: 09/13/18 11:45 Dose: Not Given Methylprednisolone (Solu-Medrol) 40 mg IVP Q6 [facility] Last Admin: 09/13/18 05:49 Dose: 40 mg Montelukast Sodium (Singulair) 10 mg PO DAILY [facility] Last Admin: 09/13/18 09:47 Dose: 10 mg Potassium Chloride (K-Dur 20 Meq Er Tab) 20 meq PO DAILY [facility] Last Admin: 09/13/18 09:47 Dose: 20 meq Rosuvastatin Calcium (Crestor) 10 mg PO HS [facility] Last Admin: 09/12/18 21:53 Dose: 10 mg Sevelamer Carbonate (Renvela) 800 mg PO DAILY [facility] Last Admin: 09/13/18 09:47 Dose: 800 mg - Labs Labs: 09/10/18 18:41 09/12/18 11:18 - Constitutional Appears: No Acute Distress, Chronically Ill - Head Exam Head Exam: ATRAUMATIC, NORMAL INSPECTION - Eye Exam Eye Exam: EOMI, Normal appearance - Neck Exam Neck Exam: Normal Inspection. absent: Tenderness - Respiratory Exam Respiratory Exam: Rhonchi, NORMAL BREATHING PATTERN - Cardiovascular Exam Cardiovascular Exam: REGULAR RHYTHM, +S1 - GI/Abdominal Exam GI & Abdominal Exam: Soft. absent: Tenderness - Extremities Exam Extremities Exam: Normal Inspection. absent: Tenderness - Neurological Exam Neurological Exam: Awake, CN II-XII Intact - Skin Skin Exam: Dry, Warm Assessment and Plan (1) Acute exacerbation of chronic bronchitis Status: Acute (2) Dyspnea Status: Acute (3) ESRD (end stage renal disease) on dialysis Status: Acute (4) Pneumonia Status: Acute - Assessment and Plan (Free Text) Plan: Same pulmonary care, IV ABs Dialysis MWF Increase UF goal
[2018-09-13 12:44] LABS: HEPATITIS B CORE AB NEGATIVE (NEGATIVE)
--- NOTE | 2018-09-13 15:58 | CP.PCM.PN ---
Subjective - Date & Time of Evaluation Date of Evaluation: 09/13/18 Time of Evaluation: 09:30 - Subjective Subjective: Patient was seen and examined at bedside, lying down comfortably. Afebrile and in no acute distress. States he has some chest tightness and throat congestion due to mucous; cough improving with clear phlegm; SOB improving Denies chest pain, fever. CXR (09/10): no acute airspace disease bilaterally; COPD changes are suspected with fibrotic changes both the bilateral costophrenic sulci favored over trace chronic pleural effusions; no pulmonary vascular congestion appreciable. CT chest (09/11): findings compatible with [id number] right lowe rlobe pneumonitis and limited left lower lobe pneumonitis; follow-up chest CT rim re commended following therapy given limited nodularity of left basilar pneumonitis component; mild mediastinal lymphadenopathy identified. Objective - Vital Signs/Intake and Output Vital Signs (last 24 hours): Temp Pulse Resp BP Pulse Ox 97.4 F L 81 18 134/60 96 09/13/18 13:30 09/13/18 13:30 09/13/18 13:30 09/13/18 13:30 09/13/18 13:30 Intake and Output: 09/13/18 09/13/18 06:59 18:59 Intake Total 350 240 Output Total 200 Balance 150 240 - Medications Medications: Current Medications Albuterol/Ipratropium (Duoneb 3 Mg/0.5 Mg (3 Ml) Ud) 3 ml INH RQ6 [facility] Last Admin: 09/13/18 13:35 Dose: 3 ml Allopurinol (Zyloprim) 100 mg PO BID [facility] Last Admin: 09/13/18 09:47 Dose: 100 mg Benzonatate (Tessalon Perles) 100 mg PO TID [facility] Last Admin: 09/13/18 14:24 Dose: 100 mg Calcium Acetate (Phoslo) 1,334 mg PO BIDCC [facility] Last Admin: 09/13/18 08:26 Dose: 1,334 mg Cilostazol (Pletal) 100 mg PO BID [facility] Last Admin: 09/13/18 09:47 Dose: 100 mg Dextrose (Dextrose 50% Inj) 0 ml IV STAT PRN; Protocol PRN Reason: Hypoglycemia Protocol Dextrose (Glutose 15) 0 gm PO ONCE PRN; Protocol PRN Reason: Hypoglycemia Protocol Folic Acid (Folic Acid) 1 mg PO DAILY [facility] Last Admin: 09/13/18 09:47 Dose: 1 mg Furosemide (Lasix) 40 mg PO DAILY [facility] Last Admin: 09/13/18 09:54 Dose: Not Given Gabapentin (Neurontin) 300 mg PO TID [facility] Last Admin: 09/13/18 14:24 Dose: 300 mg Glucagon (Glucagen Diagnostic Kit) 0 mg IM STAT PRN; Protocol PRN Reason: Hypoglycemia Protocol Heparin Sodium (Porcine) (Heparin) 5,000 units SC Q8 [facility] Last Admin: 09/13/18 14:24 Dose: 5,000 units Hydralazine HCl (Apresoline) 25 mg PO TID [facility] Last Admin: 09/13/18 14:23 Dose: 25 mg Ceftriaxone Sodium 1 gm/ (Sodium Chloride) 100 mls @ 100 mls/hr IVPB DAILY@1800 [facility]; Protocol Last Admin: 09/12/18 17:33 Dose: 100 mls/hr Azithromycin 500 mg/ Sodium (Chloride) 250 mls @ 250 mls/hr IVPB DAILY@1800 [facility]; Protocol Last Admin: 09/12/18 17:36 Dose: 250 mls/hr Dextrose (Dextrose 5% In Water 1000 Ml) 1,000 mls @ 0 mls/hr IV .Q0M PRN; Protocol PRN Reason: Hypoglycemia Protocol Insulin Glargine (Lantus) 30 unit SC DAILY [facility] Last Admin: 09/13/18 09:47 Dose: 30 units Insulin Human Regular (Novolin R) 0 unit SC ACHS [facility]; Protocol Last Admin: 09/13/18 11:45 Dose: Not Given Methylprednisolone (Solu-Medrol) 40 mg IVP Q6 [facility] Last Admin: 09/13/18 14:00 Dose: 40 mg Montelukast Sodium (Singulair) 10 mg PO DAILY [facility] Last Admin: 09/13/18 09:47 Dose: 10 mg Potassium Chloride (K-Dur 20 Meq Er Tab) 20 meq PO DAILY [facility] Last Admin: 09/13/18 09:47 Dose: 20 meq Rosuvastatin Calcium (Crestor) 10 mg PO HS [facility] Last Admin: 09/12/18 21:53 Dose: 10 mg Sevelamer Carbonate (Renvela) 800 mg PO DAILY [facility] Last Admin: 09/13/18 09:47 Dose: 800 mg - Labs Labs: 09/10/18 18:41 09/12/18 11:18 Assessment and Plan (1) Bronchitis Status: Acute (2) ESRD (end stage renal disease) on dialysis Status: Acute
--- NOTE | 2018-09-13 17:31 | CARD ---
APPROVED REPORT Date of service: 09/10/2018 EKG Measurement Heart [id number] <Conclusion> Normal sinus rhythm Left axis deviation Right bundle branch block Abnormal ECG
[2018-09-13] MEDS: Azithromycin 500 MG in Sodium Chloride 0.9% 250 ML IVPB SCH (17:41)
--- NOTE | 2018-09-13 22:12 | CP.PCM.PN ---
Subjective - Subjective Subjective: dictated Objective - Vital Signs/Intake and Output Vital Signs (last 24 hours): Temp Pulse Resp BP Pulse Ox 97.8 F 79 20 131/52 L 96 09/13/18 15:19 09/13/18 15:19 09/13/18 15:19 09/13/18 15:19 09/13/18 15:19 Intake and Output: 09/13/18 09/14/18 18:59 06:59 Intake Total 240 Balance 240 - Medications Medications: Current Medications Albuterol/Ipratropium (Duoneb 3 Mg/0.5 Mg (3 Ml) Ud) 3 ml INH RQ6 [facility] Last Admin: 09/13/18 20:00 Dose: 3 ml Allopurinol (Zyloprim) 100 mg PO BID [facility] Last Admin: 09/13/18 17:40 Dose: 100 mg Benzonatate (Tessalon Perles) 100 mg PO TID [facility] Last Admin: 09/13/18 17:40 Dose: 100 mg Calcium Acetate (Phoslo) 1,334 mg PO BIDCC [facility] Last Admin: 09/13/18 17:40 Dose: 1,334 mg Cilostazol (Pletal) 100 mg PO BID [facility] Last Admin: 09/13/18 18:00 Dose: 100 mg Dextrose (Dextrose 50% Inj) 0 ml IV STAT PRN; Protocol PRN Reason: Hypoglycemia Protocol Dextrose (Glutose 15) 0 gm PO ONCE PRN; Protocol PRN Reason: Hypoglycemia Protocol Folic Acid (Folic Acid) 1 mg PO DAILY [facility] Last Admin: 09/13/18 09:47 Dose: 1 mg Furosemide (Lasix) 40 mg PO DAILY [facility] Last Admin: 09/13/18 09:54 Dose: Not Given Gabapentin (Neurontin) 300 mg PO TID [facility] Last Admin: 09/13/18 17:40 Dose: 300 mg Glucagon (Glucagen Diagnostic Kit) 0 mg IM STAT PRN; Protocol PRN Reason: Hypoglycemia Protocol Heparin Sodium (Porcine) (Heparin) 5,000 units SC Q8 [facility] Last Admin: 09/13/18 21:36 Dose: 5,000 units Hydralazine HCl (Apresoline) 25 mg PO TID [facility] Last Admin: 09/13/18 17:40 Dose: 25 mg Ceftriaxone Sodium 1 gm/ (Sodium Chloride) 100 mls @ 100 mls/hr IVPB DAILY@1800 [facility]; Protocol Last Admin: 09/13/18 17:41 Dose: 100 mls/hr Azithromycin 500 mg/ Sodium (Chloride) 250 mls @ 250 mls/hr IVPB DAILY@1800 [facility]; Protocol Last Admin: 09/13/18 17:41 Dose: 250 mls/hr Dextrose (Dextrose 5% In Water 1000 Ml) 1,000 mls @ 0 mls/hr IV .Q0M PRN; Protocol PRN Reason: Hypoglycemia Protocol Insulin Glargine (Lantus) 30 unit SC DAILY [facility] Last Admin: 09/13/18 09:47 Dose: 30 units Insulin Human Regular (Novolin R) 0 unit SC ACHS [facility]; Protocol Last Admin: 09/13/18 18:00 Dose: 3 units Methylprednisolone (Solu-Medrol) 40 mg IVP Q6 [facility] Last Admin: 09/13/18 17:40 Dose: 40 mg Montelukast Sodium (Singulair) 10 mg PO DAILY [facility] Last Admin: 09/13/18 09:47 Dose: 10 mg Potassium Chloride (K-Dur 20 Meq Er Tab) 20 meq PO DAILY [facility] Last Admin: 09/13/18 09:47 Dose: 20 meq Rosuvastatin Calcium (Crestor) 10 mg PO HS [facility] Last Admin: 09/13/18 21:36 Dose: 10 mg Sevelamer Carbonate (Renvela) 800 mg PO DAILY [facility] Last Admin: 09/13/18 09:47 Dose: 800 mg - Labs Labs: 09/10/18 18:41 09/12/18 11:18
[2018-09-14] MEDS: MethylPREDNISolone 40 mg Vial IVP SCH ×3 (00:40→21:26)
[2018-09-14] MEDS: Albuterol-Ipratrop 3 mg / 0.5 (3 ml) UD INH SCH ×4 (01:38→19:21)
--- NOTE | 2018-09-14 05:00 | PN ---
DATE: 09/13/2018 SUBJECTIVE: The patient, Roshni, is feeling much better according to him. He has his cough, congestion, and fever for long time, and he is improving. He feels much better. His blood pressure and sugar are fluctuating. He has no fever. His WBC has gone down. He denies any nausea, vomiting, or diarrhea. PHYSICAL EXAMINATION VITAL SIGNS: BP 131/52, pulse 79, respiratory rate 20, and temperature 97.8. LUNGS: Bilateral basal crepitation. Decreased air entry. CARDIOVASCULAR SYSTEM: S1 and S2 regular. ABDOMEN: Soft. ASSESSMENT: 1. Bilateral pneumonia. 2. Chronic kidney disease, on hemodialysis. 3. Hypertension. 4. Type 2 diabetes. PLAN: Continue current medications and antibiotics. Monitor the patient. Drew Nash MD
[2018-09-14] MEDS: (Novolin R) Insulin Human Regular 100 units/ml vial SC SCH ×4 (07:15→21:22)
--- NOTE | 2018-09-14 08:58 | CP.PCM.PN ---
Subjective - Date & Time of Evaluation Date of Evaluation: 09/14/18 Time of Evaluation: 07:40 - Subjective Subjective: Chris Mcgovern, PGY-[address] Ro Patient seen and evaluated at bedside. States he has not moved his bowels in a few days. Reports improved SOB and productive cough for bilateral lower lobe pneumonitis. Denies CP, palpitations, leg swelling, nausea, vomiting. States tolerated HD session yesterday well. Objective - Vital Signs/Intake and Output Vital Signs (last 24 hours): Temp Pulse Resp BP Pulse Ox 98.9 F 107 H 20 139/58 L 94 L 09/14/18 07:00 09/14/18 07:44 09/14/18 07:00 09/14/18 07:00 09/14/18 07:00 Intake and Output: 09/14/18 09/14/18 06:59 18:59 Intake Total 20 Output Total 25 Balance -5 - Medications Medications: Current Medications Albuterol/Ipratropium (Duoneb 3 Mg/0.5 Mg (3 Ml) Ud) 3 ml INH RQ6 [facility] Last Admin: 09/14/18 07:11 Dose: 3 ml Allopurinol (Zyloprim) 100 mg PO BID [facility] Last Admin: 09/13/18 17:40 Dose: 100 mg Benzonatate (Tessalon Perles) 100 mg PO TID [facility] Last Admin: 09/13/18 17:40 Dose: 100 mg Calcium Acetate (Phoslo) 1,334 mg PO BIDCC [facility] Last Admin: 09/13/18 17:40 Dose: 1,334 mg Cilostazol (Pletal) 100 mg PO BID [facility] Last Admin: 09/13/18 18:00 Dose: 100 mg Dextrose (Dextrose 50% Inj) 0 ml IV STAT PRN; Protocol PRN Reason: Hypoglycemia Protocol Dextrose (Glutose 15) 0 gm PO ONCE PRN; Protocol PRN Reason: Hypoglycemia Protocol Folic Acid (Folic Acid) 1 mg PO DAILY [facility] Last Admin: 09/13/18 09:47 Dose: 1 mg Furosemide (Lasix) 40 mg PO DAILY [facility] Last Admin: 09/13/18 09:54 Dose: Not Given Gabapentin (Neurontin) 300 mg PO TID [facility] Last Admin: 09/13/18 17:40 Dose: 300 mg Glucagon (Glucagen Diagnostic Kit) 0 mg IM STAT PRN; Protocol PRN Reason: Hypoglycemia Protocol Hydralazine HCl (Apresoline) 25 mg PO TID [facility] Last Admin: 09/13/18 17:40 Dose: 25 mg Ceftriaxone Sodium 1 gm/ (Sodium Chloride) 100 mls @ 100 mls/hr IVPB DAILY@1800 [facility]; Protocol Last Admin: 09/13/18 17:41 Dose: 100 mls/hr Azithromycin 500 mg/ Sodium (Chloride) 250 mls @ 250 mls/hr IVPB DAILY@1800 [facility]; Protocol Last Admin: 09/13/18 17:41 Dose: 250 mls/hr Dextrose (Dextrose 5% In Water 1000 Ml) 1,000 mls @ 0 mls/hr IV .Q0M PRN; Protocol PRN Reason: Hypoglycemia Protocol Insulin Aspart (Novolog Mix 70/30 (70/30 Units/Ml)) 24 units SC ACB [facility] Insulin Aspart (Novolog Mix 70/30 (70/30 Units/Ml)) 16 units SC ACD [facility] Insulin Human Regular (Novolin R) 0 unit SC ACHS [facility]; Protocol Last Admin: 09/14/18 07:15 Dose: 6 units Methylprednisolone (Solu-Medrol) 40 mg IVP Q6 [facility] Last Admin: 09/14/18 05:44 Dose: 40 mg Montelukast Sodium (Singulair) 10 mg PO DAILY [facility] Last Admin: 09/13/18 09:47 Dose: 10 mg Potassium Chloride (K-Dur 20 Meq Er Tab) 20 meq PO DAILY [facility] Last Admin: 09/13/18 09:47 Dose: 20 meq Rosuvastatin Calcium (Crestor) 10 mg PO HS [facility] Last Admin: 09/13/18 21:36 Dose: 10 mg Sevelamer Carbonate (Renvela) 800 mg PO DAILY [facility] Last Admin: 09/13/18 09:47 Dose: 800 mg - Labs Labs: 09/10/18 18:41 09/12/18 11:18 - Additional Findings Additional findings: - Constitutional Appears: Well, Non-toxic, No Acute Distress - Head Exam Head Exam: ATRAUMATIC, NORMOCEPHALIC - Eye Exam Eye Exam: EOMI, Normal appearance - Respiratory Exam Respiratory Exam: Rales (bilateral). absent: Accessory Muscle Use, Chest Wall Tenderness, Clear to Ausculation Bilateral, Prolonged Expiratory Phase, NORMAL BREATHING PATTERN (tachypneic) - Cardiovascular Exam Cardiovascular Exam: RRR, +S1, +S2 - Extremities Exam Extremities Exam: absent: Calf Tenderness Additional comments: Fistula LUE Assessment and Plan - Assessment and Plan (Free Text) Assessment: Assessment: 73 M with CHF, HTN, HLD, ESRD on HD who presents with shortness of breath and bilateral pneumonitis. SOB 2/2 CHF exacerbation vs COPD ESRD - HD performed yesterday No LE edema, some bilateral rales F/U repeat Echo result- may require stress test to r/o ischemic trigger of dyspnea HTN c/w home management HLD c/w home management Patient seen, case reviewed. Further recs per Dr. Ro. Chris Mcgovern, PGY-1
[2018-09-14] MEDS: (Novolog Mix 70/30) Insulin Aspart/Insulin Aspar 100 units/ml SC SCH ×2 (09:00→17:09)
[2018-09-14] MEDS: Cilostazol 100 mg Tab UD PO SCH (10:40)
[2018-09-14] MEDS: Potassium Chloride 20 mEq ER Tab PO SCH (10:42)
--- NOTE | 2018-09-14 10:50 | CP.PCM.PN ---
Subjective - Date & Time of Evaluation Date of Evaluation: 09/14/18 Time of Evaluation: 10:47 - Subjective Subjective: seen and examined chronic cough and sob, improved. whitish phlegm chest ct w/ b/l pneumonitis pending echo report hd yesterday, unremarkable Objective - Vital Signs/Intake and Output Vital Signs (last 24 hours): Temp Pulse Resp BP Pulse Ox 98.9 F 107 H 20 124/63 94 L 09/14/18 07:00 09/14/18 07:44 09/14/18 07:00 09/14/18 10:39 09/14/18 07:00 Intake and Output: 09/14/18 09/14/18 06:59 18:59 Intake Total 20 Output Total 25 Balance -5 - Medications Medications: Current Medications Albuterol/Ipratropium (Duoneb 3 Mg/0.5 Mg (3 Ml) Ud) 3 ml INH RQ6 [facility] Last Admin: 09/14/18 07:11 Dose: 3 ml Allopurinol (Zyloprim) 100 mg PO BID [facility] Last Admin: 09/14/18 10:41 Dose: 100 mg Benzonatate (Tessalon Perles) 100 mg PO TID [facility] Last Admin: 09/14/18 10:40 Dose: 100 mg Calcium Acetate (Phoslo) 1,334 mg PO BIDCC [facility] Last Admin: 09/14/18 09:05 Dose: 1,334 mg Cilostazol (Pletal) 100 mg PO BID [facility] Last Admin: 09/14/18 10:40 Dose: 100 mg Dextrose (Dextrose 50% Inj) 0 ml IV STAT PRN; Protocol PRN Reason: Hypoglycemia Protocol Dextrose (Glutose 15) 0 gm PO ONCE PRN; Protocol PRN Reason: Hypoglycemia Protocol Folic Acid (Folic Acid) 1 mg PO DAILY [facility] Last Admin: 09/14/18 10:39 Dose: 1 mg Furosemide (Lasix) 40 mg PO DAILY [facility] Last Admin: 09/14/18 10:39 Dose: 40 mg Gabapentin (Neurontin) 300 mg PO TID [facility] Last Admin: 09/14/18 10:41 Dose: 300 mg Glucagon (Glucagen Diagnostic Kit) 0 mg IM STAT PRN; Protocol PRN Reason: Hypoglycemia Protocol Hydralazine HCl (Apresoline) 25 mg PO TID [facility] Last Admin: 09/14/18 10:38 Dose: 25 mg Ceftriaxone Sodium 1 gm/ (Sodium Chloride) 100 mls @ 100 mls/hr IVPB DAILY@1800 [facility]; Protocol Last Admin: 09/13/18 17:41 Dose: 100 mls/hr Azithromycin 500 mg/ Sodium (Chloride) 250 mls @ 250 mls/hr IVPB DAILY@1800 [facility]; Protocol Last Admin: 09/13/18 17:41 Dose: 250 mls/hr Dextrose (Dextrose 5% In Water 1000 Ml) 1,000 mls @ 0 mls/hr IV .Q0M PRN; Protocol PRN Reason: Hypoglycemia Protocol Insulin Aspart (Novolog Mix 70/30 (70/30 Units/Ml)) 24 units SC ACB [facility] Last Admin: 09/14/18 09:00 Dose: 24 units Insulin Aspart (Novolog Mix 70/30 (70/30 Units/Ml)) 16 units SC ACD [facility] Insulin Human Regular (Novolin R) 0 unit SC ACHS [facility]; Protocol Last Admin: 09/14/18 07:15 Dose: 6 units Methylprednisolone (Solu-Medrol) 40 mg IVP Q6 [facility] Last Admin: 09/14/18 05:44 Dose: 40 mg Montelukast Sodium (Singulair) 10 mg PO DAILY [facility] Last Admin: 09/14/18 10:41 Dose: 10 mg Potassium Chloride (K-Dur 20 Meq Er Tab) 20 meq PO DAILY [facility] Last Admin: 09/14/18 10:42 Dose: 20 meq Rosuvastatin Calcium (Crestor) 10 mg PO HS [facility] Last Admin: 09/13/18 21:36 Dose: 10 mg Sevelamer Carbonate (Renvela) 800 mg PO DAILY [facility] Last Admin: 09/14/18 10:42 Dose: 800 mg - Labs Labs: 09/10/18 18:41 09/12/18 11:18 - Constitutional Appears: No Acute Distress, Chronically Ill - Head Exam Head Exam: NORMAL INSPECTION, NORMOCEPHALIC - Eye Exam Eye Exam: Normal appearance, PERRL - ENT Exam ENT Exam: Mucous Membranes Moist, Normal Exam - Neck Exam Neck Exam: Full ROM, Normal Inspection - Respiratory Exam Respiratory Exam: Decreased Breath Sounds, Rhonchi (diffuse) - Cardiovascular Exam Cardiovascular Exam: REGULAR RHYTHM, RRR - GI/Abdominal Exam GI & Abdominal Exam: Distended, Soft - Extremities Exam Extremities Exam: Full ROM (lue avf), Normal Inspection - Neurological Exam Neurological Exam: Alert, Awake, Oriented x3 - Psychiatric Exam Psychiatric exam: Normal Affect, Normal Mood - Skin Skin Exam: Dry, Intact Assessment and Plan (1) Acute exacerbation of chronic bronchitis Status: Acute (2) Bronchitis Status: Acute (3) Dyspnea Status: Acute (4) ESRD (end stage renal disease) on dialysis Status: Acute - Assessment and Plan (Free Text) Assessment: hd mwf dc lasix taper gabapentin dose pulmonary management
[2018-09-14] MEDS: Metoprolol Succinate 25 mg XL Tab PO SCH (13:22)
--- NOTE | 2018-09-14 14:45 | CARD ---
APPROVED REPORT Date of service: 09/14/2018 EXAM: Two-dimensional and M-mode echocardiogram with Doppler and color Doppler. Other Information Quality : GoodRhythm : INDICATION Syncope Congestive Heart Failure COPD ERSD RISK FACTORS Hypertension Hyperlipidemia Diabetes 2D DIMENSIONS IVSd1.1 (0.7-1.1cm)LVDd5.1 (3.9-5.9cm) LVOT Diameter2.4 (1.8-2.4cm)PWd1.2 (0.7-1.1cm) LA Ndbfta74 (18-58mL)LVDs3.1 (2.5-4.0cm) FS (%) 38.8 %LVEF (%)68.9 (>50%) LVEF (Boucher's)55.47 % M-Mode DIMENSIONS Left Atrium (MM)3.69 (2.5-4.0cm)IVSd1.02 (0.7-1.1cm) Aortic Root3.22 (2.2-3.7cm)LVDd5.02 (4.0-5.6cm) Aortic Cusp Exc.1.91 (1.5-2.0cm)PWd0.73 (0.7-1.1cm) FS (%) 39 %LVDs3.07 (2.0-3.8cm) LVEF (%)69 (>50%) Aortic Valve AoV Peak Nmhtidfz761.2cm/sAoV VTI34.0cmAO Peak GR.21mmHg LVOT Peak Stfunhhq639.1cm/sLVOT VTI24.59cmAO Mean GR.13mmHg FERNANDA (VMAX)2.11dx7ENQ (VTI)3.14cm2 Mitral Valve MV E Djpdlupm503.8cm/sMV A Wjdnbpuc733.8cm/sE/A ratio0.8 TDI Lateral E' Peak V12.17cm/sMedial E' Peak V10.02cm/sE/Lateral E'10.0 E/Medial E'12.2 Tricuspid Valve TR Peak Qgtxlvxh591do/sTR Peak Gr.39aiFiFJZL45hvRf LEFT VENTRICLE The left ventricle is normal size. There is normal left ventricular wall thickness. The left ventricular function is normal. The left ventricular ejection fraction is within the normal range. No regional wall motion abnormalities noted. Transmitral Doppler flow pattern is Grade I-abnormal relaxation pattern.LV filling pressures are normal No left ventricle thrombus noted on this study. There is no ventricular septal defect visualized. There is no left ventricular aneurysm. There is no mass noted in the left ventricle. RIGHT VENTRICLE The right ventricle is normal size. There is normal right ventricular wall thickness. The right ventricular systolic function is normal. ATRIA The left atrium size is normal. The right atrium size is normal. The interatrial septum is intact with no evidence for an atrial septal defect. AORTIC VALVE The aortic valve is mildly to moderately thickened. No aortic regurgitation is present. There is mild valvular aortic stenosis. There is no aortic valvular vegetation. MITRAL VALVE The mitral valve is normal in structure and function. There is no evidence of mitral valve prolapse. There is no mitral valve stenosis. There is no mitral valve regurgitation noted. TRICUSPID VALVE The tricuspid valve is normal in structure and function. There is mild tricuspid regurgitation. Right ventricular systolic pressure is estimated at less than 30 mmHg. There is no tricuspid valve prolapse or vegetation. There is no tricuspid valve stenosis. PULMONIC VALVE The pulmonary valve is normal in structure and function. There is no pulmonic valvular regurgitation. There is no pulmonic valvular stenosis. GREAT VESSELS The aortic root is normal in size. The ascending aorta is normal in size. The pulmonary artery is normal. The IVC is normal in size and collapses >50% with inspiration. PERICARDIAL EFFUSION The pericardium appears normal. There is no pleural effusion. <Conclusion> The left ventricular function is normal. The left ventricular ejection fraction is within the normal range. No regional wall motion abnormalities noted. There is mild valvular aortic stenosis.
--- NOTE | 2018-09-14 16:53 | CP.PCM.PN ---
Subjective - Date & Time of Evaluation Date of Evaluation: 09/14/18 Time of Evaluation: 13:15 - Subjective Subjective: Patient seen and examined, family at bedside. Patient OOB and sitting comfortably in chair. Patient states that he is feeling much better today, and his shortness of breath and cough have improved a lot. Patient admits to some white phlegm production, but states that he is feeling much better today. Objective - Vital Signs/Intake and Output Vital Signs (last 24 hours): Temp Pulse Resp BP Pulse Ox 97.5 F L 90 20 132/50 L 96 09/14/18 15:00 09/14/18 15:00 09/14/18 15:00 09/14/18 15:00 09/14/18 15:00 Intake and Output: 09/14/18 09/14/18 06:59 18:59 Intake Total 20 600 Output Total 25 50 Balance -5 550 - Medications Medications: Current Medications Albuterol/Ipratropium (Duoneb 3 Mg/0.5 Mg (3 Ml) Ud) 3 ml INH RQ6 [facility] Last Admin: 09/14/18 13:10 Dose: 3 ml Allopurinol (Zyloprim) 100 mg PO BID [facility] Last Admin: 09/14/18 10:41 Dose: 100 mg Benzonatate (Tessalon Perles) 100 mg PO TID [facility] Last Admin: 09/14/18 13:04 Dose: 100 mg Calcium Acetate (Phoslo) 1,334 mg PO BIDCC [facility] Last Admin: 09/14/18 09:05 Dose: 1,334 mg Cilostazol (Pletal) 50 mg PO BID [facility] Dextrose (Dextrose 50% Inj) 0 ml IV STAT PRN; Protocol PRN Reason: Hypoglycemia Protocol Dextrose (Glutose 15) 0 gm PO ONCE PRN; Protocol PRN Reason: Hypoglycemia Protocol Folic Acid (Folic Acid) 1 mg PO DAILY [facility] Last Admin: 09/14/18 10:39 Dose: 1 mg Gabapentin (Neurontin) 300 mg PO DAILY [facility] Glucagon (Glucagen Diagnostic Kit) 0 mg IM STAT PRN; Protocol PRN Reason: Hypoglycemia Protocol Heparin Sodium (Porcine) (Heparin) 5,000 units SC Q12 [facility] Hydralazine HCl (Apresoline) 25 mg PO TID [facility] Last Admin: 09/14/18 13:04 Dose: 25 mg Ceftriaxone Sodium 1 gm/ (Sodium Chloride) 100 mls @ 100 mls/hr IVPB DAILY@1800 [facility]; Protocol Last Admin: 09/13/18 17:41 Dose: 100 mls/hr Azithromycin 500 mg/ Sodium (Chloride) 250 mls @ 250 mls/hr IVPB DAILY@1800 [facility]; Protocol Last Admin: 09/13/18 17:41 Dose: 250 mls/hr Dextrose (Dextrose 5% In Water 1000 Ml) 1,000 mls @ 0 mls/hr IV .Q0M PRN; Protocol PRN Reason: Hypoglycemia Protocol Insulin Aspart (Novolog Mix 70/30 (70/30 Units/Ml)) 24 units SC ACB [facility] Last Admin: 09/14/18 09:00 Dose: 24 units Insulin Aspart (Novolog Mix 70/30 (70/30 Units/Ml)) 16 units SC ACD [facility] Insulin Human Regular (Novolin R) 0 unit SC ACHS [facility]; Protocol Last Admin: 09/14/18 12:20 Dose: Not Given Methylprednisolone (Solu-Medrol) 40 mg IVP Q12 [facility] Metoprolol Succinate (Toprol Xl) 25 mg PO DAILY [facility] Last Admin: 09/14/18 13:22 Dose: 25 mg Montelukast Sodium (Singulair) 10 mg PO DAILY [facility] Last Admin: 09/14/18 10:41 Dose: 10 mg Potassium Chloride (K-Dur 20 Meq Er Tab) 20 meq PO DAILY [facility] Last Admin: 09/14/18 10:42 Dose: 20 meq Rosuvastatin Calcium (Crestor) 10 mg PO HS [facility] Last Admin: 09/13/18 21:36 Dose: 10 mg Sevelamer Carbonate (Renvela) 800 mg PO DAILY [facility] Last Admin: 09/14/18 10:42 Dose: 800 mg - Labs Labs: 09/10/18 18:41 09/12/18 11:18 Assessment and Plan (1) Bronchitis Status: Acute (2) ESRD (end stage renal disease) on dialysis Status: Acute
[2018-09-14] MEDS: Azithromycin 500 MG in Sodium Chloride 0.9% 250 ML IVPB SCH (17:10)
[2018-09-14] MEDS: Cilostazol 50 mg Tab UD PO SCH (17:22)
--- NOTE | 2018-09-14 22:34 | CP.PCM.PN ---
Subjective - Subjective Subjective: dictated Objective - Vital Signs/Intake and Output Vital Signs (last 24 hours): Temp Pulse Resp BP Pulse Ox 97.5 F L 90 20 132/50 L 96 09/14/18 15:00 09/14/18 15:00 09/14/18 15:00 09/14/18 15:00 09/14/18 15:00 Intake and Output: 09/14/18 09/15/18 18:59 06:59 Intake Total 600 Output Total 50 Balance 550 - Medications Medications: Current Medications Albuterol/Ipratropium (Duoneb 3 Mg/0.5 Mg (3 Ml) Ud) 3 ml INH RQ6 [facility] Last Admin: 09/14/18 19:21 Dose: 3 ml Allopurinol (Zyloprim) 100 mg PO BID [facility] Last Admin: 09/14/18 17:08 Dose: 100 mg Benzonatate (Tessalon Perles) 100 mg PO TID [facility] Last Admin: 09/14/18 17:08 Dose: 100 mg Calcium Acetate (Phoslo) 1,334 mg PO BIDCC [facility] Last Admin: 09/14/18 17:08 Dose: 1,334 mg Cilostazol (Pletal) 50 mg PO BID [facility] Last Admin: 09/14/18 17:22 Dose: 50 mg Dextrose (Dextrose 50% Inj) 0 ml IV STAT PRN; Protocol PRN Reason: Hypoglycemia Protocol Dextrose (Glutose 15) 0 gm PO ONCE PRN; Protocol PRN Reason: Hypoglycemia Protocol Folic Acid (Folic Acid) 1 mg PO DAILY [facility] Last Admin: 09/14/18 10:39 Dose: 1 mg Gabapentin (Neurontin) 300 mg PO DAILY [facility] Glucagon (Glucagen Diagnostic Kit) 0 mg IM STAT PRN; Protocol PRN Reason: Hypoglycemia Protocol Heparin Sodium (Porcine) (Heparin) 5,000 units SC Q12 [facility] Last Admin: 09/14/18 21:25 Dose: 5,000 units Hydralazine HCl (Apresoline) 25 mg PO TID [facility] Last Admin: 09/14/18 17:08 Dose: 25 mg Dextrose (Dextrose 5% In Water 1000 Ml) 1,000 mls @ 0 mls/hr IV .Q0M PRN; Protocol PRN Reason: Hypoglycemia Protocol Insulin Aspart (Novolog Mix 70/30 (70/30 Units/Ml)) 24 units SC ACB [facility] Last Admin: 09/14/18 09:00 Dose: 24 units Insulin Aspart (Novolog Mix 70/30 (70/30 Units/Ml)) 16 units SC ACD [facility] Last Admin: 09/14/18 17:09 Dose: 16 units Insulin Human Regular (Novolin R) 0 unit SC ACHS [facility]; Protocol Last Admin: 09/14/18 21:22 Dose: Not Given Methylprednisolone (Solu-Medrol) 40 mg IVP Q12 [facility] Last Admin: 09/14/18 21:26 Dose: 40 mg Metoprolol Succinate (Toprol Xl) 25 mg PO DAILY [facility] Last Admin: 09/14/18 13:22 Dose: 25 mg Montelukast Sodium (Singulair) 10 mg PO DAILY [facility] Last Admin: 09/14/18 10:41 Dose: 10 mg Potassium Chloride (K-Dur 20 Meq Er Tab) 20 meq PO DAILY [facility] Last Admin: 09/14/18 10:42 Dose: 20 meq Rosuvastatin Calcium (Crestor) 10 mg PO HS [facility] Last Admin: 09/14/18 21:25 Dose: 10 mg Sevelamer Carbonate (Renvela) 800 mg PO DAILY [facility] Last Admin: 09/14/18 10:42 Dose: 800 mg - Labs Labs: 09/10/18 18:41 09/12/18 11:18
[2018-09-15] MEDS: Albuterol-Ipratrop 3 mg / 0.5 (3 ml) UD INH SCH ×4 (01:14→19:28)
--- NOTE | 2018-09-15 03:04 | PN ---
DATE: 09/14/2018 SUBJECTIVE: The patient is less shortness of breath, less cough, less wheezing. He feels much better. Case is discussed with Cardiology. The patient is for exercise stress test. PHYSICAL EXAMINATION: VITAL SIGNS: BP 132/59, pulse 90, respiratory rate 20, temperature 97.5. LUNGS: Bilateral scattered rales. CARDIOVASCULAR SYSTEM: S1 and S2 are regular. ABDOMEN: Soft. ASSESSMENT: 1. Pneumonia. 2. Rule out coronary artery disease. 3. Congestive heart failure with fluid overload. 4. Chronic kidney disease, on hemodialysis. PLAN: Stress test. Monitor the patient. Drew Nash MD
--- NOTE | 2018-09-15 07:44 | CP.PCM.PN ---
Subjective - Date & Time of Evaluation Date of Evaluation: 09/15/18 Time of Evaluation: 07:47 - Subjective Subjective: Chris Mcgovern, PGY-[address] Ro Patient seen and evaluated at bedside. Patient reports no acute events overnight. Patient using nebulizer currently and reports improved shortness of breath with some white sputum production. Denies CP, dizziness, headaches, and palpitations. Patient NPO and set to go to stress test later this morning. Objective - Vital Signs/Intake and Output Vital Signs (last 24 hours): Temp Pulse Resp BP Pulse Ox 97.8 F 88 20 119/61 96 09/14/18 23:10 09/15/18 03:55 09/14/18 23:10 09/14/18 23:10 09/14/18 23:10 - Medications Medications: Current Medications Albuterol/Ipratropium (Duoneb 3 Mg/0.5 Mg (3 Ml) Ud) 3 ml INH RQ6 [facility] Last Admin: 09/15/18 01:14 Dose: 3 ml Allopurinol (Zyloprim) 100 mg PO BID [facility] Last Admin: 09/14/18 17:08 Dose: 100 mg Benzonatate (Tessalon Perles) 100 mg PO TID [facility] Last Admin: 09/14/18 17:08 Dose: 100 mg Calcium Acetate (Phoslo) 1,334 mg PO BIDCC [facility] Last Admin: 09/14/18 17:08 Dose: 1,334 mg Cilostazol (Pletal) 50 mg PO BID [facility] Last Admin: 09/14/18 17:22 Dose: 50 mg Dextrose (Dextrose 50% Inj) 0 ml IV STAT PRN; Protocol PRN Reason: Hypoglycemia Protocol Dextrose (Glutose 15) 0 gm PO ONCE PRN; Protocol PRN Reason: Hypoglycemia Protocol Folic Acid (Folic Acid) 1 mg PO DAILY [facility] Last Admin: 09/14/18 10:39 Dose: 1 mg Gabapentin (Neurontin) 300 mg PO DAILY [facility] Glucagon (Glucagen Diagnostic Kit) 0 mg IM STAT PRN; Protocol PRN Reason: Hypoglycemia Protocol Heparin Sodium (Porcine) (Heparin) 5,000 units SC Q12 [facility] Last Admin: 09/14/18 21:25 Dose: 5,000 units Hydralazine HCl (Apresoline) 25 mg PO TID [facility] Last Admin: 09/14/18 17:08 Dose: 25 mg Insulin Aspart (Novolog Mix 70/30 (70/30 Units/Ml)) 24 units SC ACB [facility] Last Admin: 09/14/18 09:00 Dose: 24 units Insulin Aspart (Novolog Mix 70/30 (70/30 Units/Ml)) 16 units SC ACD [facility] Last Admin: 09/14/18 17:09 Dose: 16 units Insulin Human Regular (Novolin R) 0 unit SC ACHS [facility]; Protocol Last Admin: 09/14/18 21:22 Dose: Not Given Methylprednisolone (Solu-Medrol) 40 mg IVP Q12 [facility] Last Admin: 09/14/18 21:26 Dose: 40 mg Metoprolol Succinate (Toprol Xl) 25 mg PO DAILY [facility] Last Admin: 09/14/18 13:22 Dose: 25 mg Montelukast Sodium (Singulair) 10 mg PO DAILY [facility] Last Admin: 09/14/18 10:41 Dose: 10 mg Potassium Chloride (K-Dur 20 Meq Er Tab) 20 meq PO DAILY [facility] Last Admin: 09/14/18 10:42 Dose: 20 meq Rosuvastatin Calcium (Crestor) 10 mg PO HS [facility] Last Admin: 09/14/18 21:25 Dose: 10 mg Sevelamer Carbonate (Renvela) 800 mg PO DAILY [facility] Last Admin: 09/14/18 10:42 Dose: 800 mg - Labs Labs: 09/10/18 18:41 09/12/18 11:18 - Additional Findings Additional findings: - Constitutional Appears: Well, Non-toxic, No Acute Distress - Head Exam Head Exam: ATRAUMATIC, NORMOCEPHALIC - Eye Exam Eye Exam: EOMI, Normal appearance - Respiratory Exam Respiratory Exam: Improved Rales (bilateral). absent: Accessory Muscle Use, [address] Wall Tenderness, Clear to Ausculation Bilateral, Prolonged Expiratory Phase, NORMAL BREATHING PATTERN (tachypneic) - Cardiovascular Exam Cardiovascular Exam: RRR, +S1, +S2 - Extremities Exam Extremities Exam: absent: Calf Tenderness Additional comments: Fistula LUE Assessment and Plan - Assessment and Plan (Free Text) Assessment: Assessment: 73 M with CHF, HTN, HLD, ESRD on HD who presents with shortness of breath and bi lateral pneumonitis. SOB 2/2 CHF exacerbation vs COPD No LE edema, improved bilateral rales. Pro BNP [id number] on 09/10 Echo 09/13 result: mild valvular . LVEF 65-70% F/U results of stress test this morning to r/o ischemic trigger of dyspnea. HD scheduled today after stress Heparin SC HTN c/w home management HLD c/w home management Patient seen, case reviewed. Further recs per Dr. Ro. Chris Mcgovern, PGY-1
[2018-09-15] MEDS: (Novolin R) Insulin Human Regular 100 units/ml vial SC SCH ×4 (08:23→22:08)
[2018-09-15] MEDS: (Novolog Mix 70/30) Insulin Aspart/Insulin Aspar 100 units/ml SC SCH ×2 (08:24→16:41)
[2018-09-15] MEDS: Cilostazol 50 mg Tab UD PO SCH ×2 (10:13→21:59)
[2018-09-15] MEDS: Potassium Chloride 20 mEq ER Tab PO SCH ×2 (10:13→12:05)
[2018-09-15] MEDS: MethylPREDNISolone 40 mg Vial IVP SCH ×2 (10:17→22:00)
[2018-09-15] MEDS: Metoprolol Succinate 25 mg XL Tab PO SCH (10:20)
--- NOTE | 2018-09-15 14:52 | CP.PCM.PN ---
Subjective - Date & Time of Evaluation Date of Evaluation: 09/15/18 Time of Evaluation: 14:49 - Subjective Subjective: s/p dialysis 09/14 s/o stress test now Feels better BP controlled Less cough and dyspea Objective - Vital Signs/Intake and Output Vital Signs (last 24 hours): Temp Pulse Resp BP Pulse Ox 98.7 F 96 H 20 140/67 94 L 09/15/18 07:00 09/15/18 14:38 09/15/18 07:00 09/15/18 14:39 09/15/18 07:00 - Medications Medications: Current Medications Albuterol/Ipratropium (Duoneb 3 Mg/0.5 Mg (3 Ml) Ud) 3 ml INH RQ6 [facility] Last Admin: 09/15/18 13:10 Dose: Not Given Allopurinol (Zyloprim) 100 mg PO BID [facility] Last Admin: 09/15/18 10:13 Dose: 100 mg Benzonatate (Tessalon Perles) 100 mg PO TID [facility] Last Admin: 09/15/18 14:31 Dose: 100 mg Calcium Acetate (Phoslo) 1,334 mg PO BIDCC [facility] Last Admin: 09/15/18 07:52 Dose: 1,334 mg Cilostazol (Pletal) 50 mg PO BID [facility] Last Admin: 09/15/18 10:13 Dose: 50 mg Dextrose (Dextrose 50% Inj) 0 ml IV STAT PRN; Protocol PRN Reason: Hypoglycemia Protocol Dextrose (Glutose 15) 0 gm PO ONCE PRN; Protocol PRN Reason: Hypoglycemia Protocol Folic Acid (Folic Acid) 1 mg PO DAILY [facility] Last Admin: 09/15/18 10:13 Dose: 1 mg Gabapentin (Neurontin) 300 mg PO DAILY [facility] Last Admin: 09/15/18 10:14 Dose: 300 mg Glucagon (Glucagen Diagnostic Kit) 0 mg IM STAT PRN; Protocol PRN Reason: Hypoglycemia Protocol Heparin Sodium (Porcine) (Heparin) 5,000 units SC Q12 [facility] Last Admin: 09/15/18 10:16 Dose: 5,000 units Hydralazine HCl (Apresoline) 25 mg PO TID [facility] Last Admin: 09/15/18 14:34 Dose: Not Given Insulin Aspart (Novolog Mix 70/30 (70/30 Units/Ml)) 24 units SC ACB [facility] Last Admin: 09/15/18 08:24 Dose: Not Given Insulin Aspart (Novolog Mix 70/30 (70/30 Units/Ml)) 16 units SC ACD [facility] Last Admin: 09/14/18 17:09 Dose: 16 units Insulin Human Regular (Novolin R) 0 unit SC ACHS [facility]; Protocol Last Admin: 09/15/18 14:31 Dose: 3 units Methylprednisolone (Solu-Medrol) 40 mg IVP Q12 [facility] Last Admin: 09/15/18 10:17 Dose: 40 mg Metoprolol Succinate (Toprol Xl) 25 mg PO DAILY [facility] Last Admin: 09/15/18 10:20 Dose: Not Given Montelukast Sodium (Singulair) 10 mg PO DAILY [facility] Last Admin: 09/15/18 10:13 Dose: 10 mg Potassium Chloride (K-Dur 20 Meq Er Tab) 20 meq PO DAILY [facility] Last Admin: 09/15/18 12:05 Dose: Not Given Rosuvastatin Calcium (Crestor) 10 mg PO HS [facility] Last Admin: 09/14/18 21:25 Dose: 10 mg Sevelamer Carbonate (Renvela) 800 mg PO DAILY [facility] Last Admin: 09/15/18 10:45 Dose: Not Given - Labs Labs: 09/10/18 18:41 09/12/18 11:18 - Constitutional Appears: No Acute Distress, Chronically Ill - Head Exam Head Exam: ATRAUMATIC, NORMAL INSPECTION - Eye Exam Eye Exam: EOMI, Normal appearance - Neck Exam Neck Exam: Normal Inspection. absent: Tenderness - Respiratory Exam Respiratory Exam: Clear to Ausculation Bilateral, NORMAL BREATHING PATTERN - Cardiovascular Exam Cardiovascular Exam: REGULAR RHYTHM, +S1 - GI/Abdominal Exam GI & Abdominal Exam: Soft. absent: Tenderness - Extremities Exam Extremities Exam: Normal Inspection. absent: Tenderness - Neurological Exam Neurological Exam: Awake, CN II-XII Intact - Skin Skin Exam: Dry, Warm Assessment and Plan (1) Acute exacerbation of chronic bronchitis Status: Acute (2) Dyspnea Status: Acute (3) ESRD (end stage renal disease) on dialysis Status: Acute (4) Pneumonia Status: Acute - Assessment and Plan (Free Text) Plan: IV ABs Check stress test results Increase UF goal Adjust phos binders
--- NOTE | 2018-09-15 17:07 | CP.PCM.PN ---
Objective - Vital Signs/Intake and Output Vital Signs (last 24 hours): Temp Pulse Resp BP Pulse Ox 97.3 F L 94 H 20 123/59 L 95 09/15/18 15:00 09/15/18 15:00 09/15/18 15:00 09/15/18 15:00 09/15/18 15:00 Intake and Output: 09/15/18 09/15/18 06:59 18:59 Intake Total 600 Output Total 50 Balance 550 - Medications Medications: Current Medications Albuterol/Ipratropium (Duoneb 3 Mg/0.5 Mg (3 Ml) Ud) 3 ml INH RQ6 [facility] Last Admin: 09/15/18 13:10 Dose: Not Given Allopurinol (Zyloprim) 100 mg PO BID [facility] Last Admin: 09/15/18 10:13 Dose: 100 mg Benzonatate (Tessalon Perles) 100 mg PO TID [facility] Last Admin: 09/15/18 14:31 Dose: 100 mg Calcium Acetate (Phoslo) 1,334 mg PO TIDCC [facility] Cilostazol (Pletal) 50 mg PO BID [facility] Last Admin: 09/15/18 10:13 Dose: 50 mg Dextrose (Dextrose 50% Inj) 0 ml IV STAT PRN; Protocol PRN Reason: Hypoglycemia Protocol Dextrose (Glutose 15) 0 gm PO ONCE PRN; Protocol PRN Reason: Hypoglycemia Protocol Folic Acid (Folic Acid) 1 mg PO DAILY [facility] Last Admin: 09/15/18 10:13 Dose: 1 mg Gabapentin (Neurontin) 300 mg PO DAILY [facility] Last Admin: 09/15/18 10:14 Dose: 300 mg Glucagon (Glucagen Diagnostic Kit) 0 mg IM STAT PRN; Protocol PRN Reason: Hypoglycemia Protocol Heparin Sodium (Porcine) (Heparin) 5,000 units SC Q12 [facility] Last Admin: 09/15/18 10:16 Dose: 5,000 units Hydralazine HCl (Apresoline) 25 mg PO TID [facility] Last Admin: 09/15/18 14:34 Dose: Not Given Insulin Aspart (Novolog Mix 70/30 (70/30 Units/Ml)) 24 units SC ACB [facility] Last Admin: 09/15/18 08:24 Dose: Not Given Insulin Aspart (Novolog Mix 70/30 (70/30 Units/Ml)) 16 units SC ACD [facility] Last Admin: 09/15/18 16:41 Dose: 16 units Insulin Human Regular (Novolin R) 0 unit SC ACHS [facility]; Protocol Last Admin: 09/15/18 16:42 Dose: 4 units Methylprednisolone (Solu-Medrol) 40 mg IVP Q12 [facility] Last Admin: 09/15/18 10:17 Dose: 40 mg Metoprolol Succinate (Toprol Xl) 25 mg PO DAILY [facility] Last Admin: 09/15/18 10:20 Dose: Not Given Montelukast Sodium (Singulair) 10 mg PO DAILY [facility] Last Admin: 09/15/18 10:13 Dose: 10 mg Rosuvastatin Calcium (Crestor) 10 mg PO HS [facility] Last Admin: 09/14/18 21:25 Dose: 10 mg - Labs Labs: 09/10/18 18:41 09/12/18 11:18 Assessment and Plan (1) Bronchitis Status: Acute (2) ESRD (end stage renal disease) on dialysis Status: Acute
[2018-09-15 18:18] LABS: MEAN CELL VOLUME 93.4 fL (80.0-94.0); MEAN CORPUSCULAR HEMOGLOBIN 31.3 pg (27.0-31.0); MEAN CORPUSCULAR HGB CONC 33.6 g/dL (33.0-37.0); MEAN PLATELET VOLUME 9.3 fL (7.2-11.7); RBC 2.76 Mil/uL (4.40-5.90); RED CELL DISTRIBUTION WIDTH 14.5 % (11.5-14.5); WHITE BLOOD COUNT 7.7 K/uL (4.8-10.8)
[2018-09-15 18:20] LABS: HEMOGLOBIN 8.6 g/dL (12.0-18.0)
[2018-09-15 18:49] LABS: ALB/GLOB RATIO 1.3 (1.0-2.1); ALBUMIN 3.4 g/dL (3.5-5.0); CALCIUM 8.5 mg/dl (8.6-10.4)
--- NOTE | 2018-09-15 21:34 | CP.PCM.PN ---
Subjective - Subjective Subjective: dictated Objective - Vital Signs/Intake and Output Vital Signs (last 24 hours): Temp Pulse Resp BP Pulse Ox 97.7 F 85 16 109/50 L 93 L 09/15/18 21:05 09/15/18 21:05 09/15/18 21:05 09/15/18 21:05 09/15/18 21:05 Intake and Output: 09/15/18 09/16/18 18:59 06:59 Intake Total 600 Output Total 50 Balance 550 - Medications Medications: Current Medications Albuterol/Ipratropium (Duoneb 3 Mg/0.5 Mg (3 Ml) Ud) 3 ml INH RQ6 [facility] Last Admin: 09/15/18 19:28 Dose: Not Given Allopurinol (Zyloprim) 100 mg PO BID [facility] Last Admin: 09/15/18 10:13 Dose: 100 mg Benzonatate (Tessalon Perles) 100 mg PO TID [facility] Last Admin: 09/15/18 14:31 Dose: 100 mg Calcium Acetate (Phoslo) 1,334 mg PO TIDCC [facility] Cilostazol (Pletal) 50 mg PO BID [facility] Last Admin: 09/15/18 10:13 Dose: 50 mg Dextrose (Dextrose 50% Inj) 0 ml IV STAT PRN; Protocol PRN Reason: Hypoglycemia Protocol Dextrose (Glutose 15) 0 gm PO ONCE PRN; Protocol PRN Reason: Hypoglycemia Protocol Folic Acid (Folic Acid) 1 mg PO DAILY [facility] Last Admin: 09/15/18 10:13 Dose: 1 mg Gabapentin (Neurontin) 300 mg PO DAILY [facility] Last Admin: 09/15/18 10:14 Dose: 300 mg Glucagon (Glucagen Diagnostic Kit) 0 mg IM STAT PRN; Protocol PRN Reason: Hypoglycemia Protocol Heparin Sodium (Porcine) (Heparin) 5,000 units SC Q12 [facility] Last Admin: 09/15/18 10:16 Dose: 5,000 units Hydralazine HCl (Apresoline) 25 mg PO TID [facility] Last Admin: 09/15/18 14:34 Dose: Not Given Insulin Aspart (Novolog Mix 70/30 (70/30 Units/Ml)) 24 units SC ACB [facility] Last Admin: 09/15/18 08:24 Dose: Not Given Insulin Aspart (Novolog Mix 70/30 (70/30 Units/Ml)) 16 units SC ACD [facility] Last Admin: 09/15/18 16:41 Dose: 16 units Insulin Human Regular (Novolin R) 0 unit SC ACHS [facility]; Protocol Last Admin: 09/15/18 16:42 Dose: 4 units Methylprednisolone (Solu-Medrol) 40 mg IVP Q12 [facility] Last Admin: 09/15/18 10:17 Dose: 40 mg Metoprolol Succinate (Toprol Xl) 25 mg PO DAILY [facility] Last Admin: 09/15/18 10:20 Dose: Not Given Montelukast Sodium (Singulair) 10 mg PO DAILY [facility] Last Admin: 09/15/18 10:13 Dose: 10 mg Rosuvastatin Calcium (Crestor) 10 mg PO HS [facility] Last Admin: 09/14/18 21:25 Dose: 10 mg - Labs Labs: 09/15/18 18:14 09/15/18 18:14
[2018-09-16 00:27] VITALS: RESP 20
[2018-09-16] MEDS: Albuterol-Ipratrop 3 mg / 0.5 (3 ml) UD INH SCH ×3 (01:10→13:10)
--- NOTE | 2018-09-16 02:21 | PN ---
DATE: 09/15/2018 SUBJECTIVE: The patient still with some cough. He was seen while on dialysis. He is feeling a lot better. No fever. He is on antibiotics. Seen by Pulmonary. PHYSICAL EXAMINATION VITAL SIGNS: Blood pressure 109/50, pulse 85, respiratory rate 16, temperature 97.7. LUNGS: Bilateral basal rales. Few rhonchi. CARDIOVASCULAR SYSTEM: S1 and S2, regular. ABDOMEN: Soft. ASSESSMENT: 1. Pneumonia. 2. Fluid overload with chronic kidney disease. 3. Rule out coronary artery disease. The patient's exercise stress test is negative. 4. Diabetes. The patient's blood sugars are relatively better controlled with NovoLog 70/30. PLAN: We will continue to monitor the patient. Continue current medications. Drew Nash MD
[2018-09-16] MEDS: (Novolog Mix 70/30) Insulin Aspart/Insulin Aspar 100 units/ml SC SCH (08:19)
[2018-09-16] MEDS: (Novolin R) Insulin Human Regular 100 units/ml vial SC SCH ×2 (08:20→12:14)
[2018-09-16] MEDS: Metoprolol Succinate 25 mg XL Tab PO SCH (09:37)
[2018-09-16] MEDS: MethylPREDNISolone 40 mg Vial IVP SCH (09:37)
[2018-09-16] MEDS: Cilostazol 50 mg Tab UD PO SCH (09:47)
--- NOTE | 2018-09-16 10:07 | CP.PCM.PN ---
Subjective - Date & Time of Evaluation Date of Evaluation: 09/16/18 Time of Evaluation: 10:04 - Subjective Subjective: Feels better Less cough BUN increased- due to steroids Hg dropped- 8.6 Will need to start EPO and check iron stores Objective - Vital Signs/Intake and Output Vital Signs (last 24 hours): Temp Pulse Resp BP Pulse Ox 98.1 F 88 20 143/72 97 09/16/18 08:34 09/16/18 08:34 09/16/18 08:34 09/16/18 08:34 09/16/18 08:34 Intake and Output: 09/16/18 09/16/18 06:59 18:59 Intake Total 120 Output Total 50 Balance 70 - Medications Medications: Current Medications Albuterol/Ipratropium (Duoneb 3 Mg/0.5 Mg (3 Ml) Ud) 3 ml INH RQ6 [facility] Last Admin: 09/16/18 07:10 Dose: 3 ml Allopurinol (Zyloprim) 100 mg PO BID [facility] Last Admin: 09/16/18 09:37 Dose: 100 mg Benzonatate (Tessalon Perles) 100 mg PO TID [facility] Last Admin: 09/16/18 09:37 Dose: 100 mg Calcium Acetate (Phoslo) 1,334 mg PO TIDCC [facility] Last Admin: 09/16/18 08:19 Dose: 1,334 mg Cilostazol (Pletal) 50 mg PO BID [facility] Last Admin: 09/16/18 09:47 Dose: 50 mg Dextrose (Dextrose 50% Inj) 0 ml IV STAT PRN; Protocol PRN Reason: Hypoglycemia Protocol Dextrose (Glutose 15) 0 gm PO ONCE PRN; Protocol PRN Reason: Hypoglycemia Protocol Epoetin Fredi (Procrit) 10,000 unit IV MWF [facility] Folic Acid (Folic Acid) 1 mg PO DAILY [facility] Last Admin: 09/16/18 09:37 Dose: 1 mg Gabapentin (Neurontin) 300 mg PO DAILY [facility] Last Admin: 09/16/18 09:37 Dose: 300 mg Glucagon (Glucagen Diagnostic Kit) 0 mg IM STAT PRN; Protocol PRN Reason: Hypoglycemia Protocol Heparin Sodium (Porcine) (Heparin) 5,000 units SC Q12 [facility] Last Admin: 09/16/18 09:37 Dose: 5,000 units Hydralazine HCl (Apresoline) 25 mg PO TID [facility] Last Admin: 09/16/18 09:37 Dose: 25 mg Insulin Aspart (Novolog Mix 70/30 (70/30 Units/Ml)) 24 units SC ACB [facility] Last Admin: 09/16/18 08:19 Dose: 24 units Insulin Aspart (Novolog Mix 70/30 (70/30 Units/Ml)) 16 units SC ACD [facility] Last Admin: 09/15/18 16:41 Dose: 16 units Insulin Human Regular (Novolin R) 0 unit SC ACHS [facility]; Protocol Last Admin: 09/16/18 08:20 Dose: 2 units Methylprednisolone (Solu-Medrol) 40 mg IVP Q12 [facility] Last Admin: 09/16/18 09:37 Dose: 40 mg Metoprolol Succinate (Toprol Xl) 25 mg PO DAILY [facility] Last Admin: 09/16/18 09:37 Dose: 25 mg Montelukast Sodium (Singulair) 10 mg PO DAILY [facility] Last Admin: 09/16/18 09:37 Dose: 10 mg Rosuvastatin Calcium (Crestor) 10 mg PO HS [facility] Last Admin: 09/15/18 22:11 Dose: 10 mg - Labs Labs: 09/15/18 18:14 09/15/18 18:14 - Constitutional Appears: No Acute Distress, Chronically Ill - Head Exam Head Exam: ATRAUMATIC, NORMAL INSPECTION - Eye Exam Eye Exam: EOMI, Normal appearance - Neck Exam Neck Exam: Normal Inspection. absent: Tenderness - Respiratory Exam Respiratory Exam: Clear to Ausculation Bilateral, NORMAL BREATHING PATTERN - Cardiovascular Exam Cardiovascular Exam: REGULAR RHYTHM, +S1 - GI/Abdominal Exam GI & Abdominal Exam: Soft. absent: Tenderness - Extremities Exam Extremities Exam: Normal Inspection. absent: Tenderness - Neurological Exam Neurological Exam: Alert, CN II-XII Intact - Skin Skin Exam: Dry, Warm Assessment and Plan (1) Acute exacerbation of chronic bronchitis Status: Acute (2) Dyspnea Status: Acute (3) ESRD (end stage renal disease) on dialysis Status: Acute (4) Pneumonia Status: Acute - Assessment and Plan (Free Text) Plan: Dialysis MWF Adequate UF Would taper steroids- as per medicine Add EPO Check iron stores
--- NOTE | 2018-09-16 11:29 | CP.PCM.PN ---
Subjective - Date & Time of Evaluation Date of Evaluation: 09/16/18 Time of Evaluation: 11:29 - Subjective Subjective: Chris Mcgovern, PGY-[address] Ro Patient seen and evaluated at bedside. No acute events or complaints overnight. Patient states shortness of breath has improved. No complaints of CP, SOB, palpitations, dizziness, fatigue, or leg swelling. Objective - Vital Signs/Intake and Output Vital Signs (last 24 hours): Temp Pulse Resp BP Pulse Ox 98.1 F 85 20 143/72 97 09/16/18 08:34 09/16/18 10:00 09/16/18 08:34 09/16/18 08:34 09/16/18 08:34 Intake and Output: 09/16/18 09/16/18 06:59 18:59 Intake Total 120 Output Total 50 Balance 70 - Medications Medications: Current Medications Albuterol/Ipratropium (Duoneb 3 Mg/0.5 Mg (3 Ml) Ud) 3 ml INH RQ6 [facility] Last Admin: 09/16/18 07:10 Dose: 3 ml Allopurinol (Zyloprim) 100 mg PO BID [facility] Last Admin: 09/16/18 09:37 Dose: 100 mg Benzonatate (Tessalon Perles) 100 mg PO TID [facility] Last Admin: 09/16/18 09:37 Dose: 100 mg Calcium Acetate (Phoslo) 1,334 mg PO TIDCC [facility] Last Admin: 09/16/18 08:19 Dose: 1,334 mg Cilostazol (Pletal) 50 mg PO BID [facility] Last Admin: 09/16/18 09:47 Dose: 50 mg Dextrose (Dextrose 50% Inj) 0 ml IV STAT PRN; Protocol PRN Reason: Hypoglycemia Protocol Dextrose (Glutose 15) 0 gm PO ONCE PRN; Protocol PRN Reason: Hypoglycemia Protocol Epoetin Fredi (Procrit) 10,000 unit IV MWF [facility] Folic Acid (Folic Acid) 1 mg PO DAILY [facility] Last Admin: 09/16/18 09:37 Dose: 1 mg Gabapentin (Neurontin) 300 mg PO DAILY [facility] Last Admin: 09/16/18 09:37 Dose: 300 mg Glucagon (Glucagen Diagnostic Kit) 0 mg IM STAT PRN; Protocol PRN Reason: Hypoglycemia Protocol Heparin Sodium (Porcine) (Heparin) 5,000 units SC Q12 [facility] Last Admin: 09/16/18 09:37 Dose: 5,000 units Hydralazine HCl (Apresoline) 25 mg PO TID [facility] Last Admin: 09/16/18 09:37 Dose: 25 mg Insulin Aspart (Novolog Mix 70/30 (70/30 Units/Ml)) 24 units SC ACB [facility] Last Admin: 09/16/18 08:19 Dose: 24 units Insulin Aspart (Novolog Mix 70/30 (70/30 Units/Ml)) 16 units SC ACD [facility] Last Admin: 09/15/18 16:41 Dose: 16 units Insulin Human Regular (Novolin R) 0 unit SC ACHS [facility]; Protocol Last Admin: 09/16/18 08:20 Dose: 2 units Methylprednisolone (Solu-Medrol) 40 mg IVP Q12 [facility] Last Admin: 09/16/18 09:37 Dose: 40 mg Metoprolol Succinate (Toprol Xl) 25 mg PO DAILY [facility] Last Admin: 09/16/18 09:37 Dose: 25 mg Montelukast Sodium (Singulair) 10 mg PO DAILY [facility] Last Admin: 09/16/18 09:37 Dose: 10 mg Rosuvastatin Calcium (Crestor) 10 mg PO HS [facility] Last Admin: 09/15/18 22:11 Dose: 10 mg - Labs Labs: 09/15/18 18:14 09/15/18 18:14 - Additional Findings Additional findings: - Constitutional Appears: Well, Non-toxic, No Acute Distress - Head Exam Head Exam: ATRAUMATIC, NORMOCEPHALIC - Eye Exam Eye Exam: EOMI, Normal appearance - Respiratory Exam Respiratory Exam: Improved Rales (bilateral). absent: Accessory Muscle Use, Chest Wall Tenderness, Clear to Ausculation Bilateral, Prolonged Expiratory Phase, NORMAL BREATHING PATTERN (tachypneic) - Cardiovascular Exam Cardiovascular Exam: RRR, +S1, +S2 - Extremities Exam Extremities Exam: absent: Calf Tenderness Additional comments: Fistula LUE Assessment and Plan - Assessment and Plan (Free Text) Assessment: Assessment: 73 M with CHF, HTN, HLD, ESRD on HD who presents with shortness of breath and bilateral pneumonitis. SOB 2/2 CHF exacerbation vs COPD No LE edema, improved bilateral rales. Pro BNP [id number] on 09/10 Echo 09/13 result: mild valvular . LVEF 65-70% Abnormal pharm. stress test yesterday, tolerated HD well per patient Heparin SC HTN c/w home management HLD c/w home management Dispo: Patient will be discharged and to follow up outpatient with private quality eng. Patient will continue Digoxin, Coreg, Losartan-HCTZ and Warfarin 5 mg. Patient to follow up outpatient in office next week. Patient seen, case reviewed. Further recs per Dr. Ro. Chris Mcgovern, PGY-1
--- NOTE | 2018-09-16 13:25 | CP.PCM.PN ---
Subjective - Date & Time of Evaluation Date of Evaluation: 09/16/18 Time of Evaluation: 13:10 - Subjective Subjective: [place] ATTENDANT NOTES Patient seen today denies any chest pain, sob, dizziness, oob ambulating sharath hallway without sob - spo2 96% room air Objective - Vital Signs/Intake and Output Vital Signs (last 24 hours): Temp Pulse Resp BP Pulse Ox 98.1 F 91 H 20 143/72 97 09/16/18 08:34 09/16/18 12:20 09/16/18 08:34 09/16/18 08:34 09/16/18 08:34 Intake and Output: 09/16/18 09/16/18 06:59 18:59 Intake Total 120 Output Total 50 Balance 70 - Medications Medications: Current Medications Albuterol/Ipratropium (Duoneb 3 Mg/0.5 Mg (3 Ml) Ud) 3 ml INH RQ6 [facility] Last Admin: 09/16/18 13:10 Dose: 3 ml Allopurinol (Zyloprim) 100 mg PO BID [facility] Last Admin: 09/16/18 09:37 Dose: 100 mg Benzonatate (Tessalon Perles) 100 mg PO TID [facility] Last Admin: 09/16/18 09:37 Dose: 100 mg Calcium Acetate (Phoslo) 1,334 mg PO TIDCC [facility] Last Admin: 09/16/18 12:32 Dose: 1,334 mg Cilostazol (Pletal) 50 mg PO BID [facility] Last Admin: 09/16/18 09:47 Dose: 50 mg Dextrose (Dextrose 50% Inj) 0 ml IV STAT PRN; Protocol PRN Reason: Hypoglycemia Protocol Dextrose (Glutose 15) 0 gm PO ONCE PRN; Protocol PRN Reason: Hypoglycemia Protocol Epoetin Fredi (Procrit) 10,000 unit IV MWF [facility] Folic Acid (Folic Acid) 1 mg PO DAILY [facility] Last Admin: 09/16/18 09:37 Dose: 1 mg Gabapentin (Neurontin) 300 mg PO DAILY [facility] Last Admin: 09/16/18 09:37 Dose: 300 mg Glucagon (Glucagen Diagnostic Kit) 0 mg IM STAT PRN; Protocol PRN Reason: Hypoglycemia Protocol Heparin Sodium (Porcine) (Heparin) 5,000 units SC Q12 [facility] Last Admin: 09/16/18 09:37 Dose: 5,000 units Hydralazine HCl (Apresoline) 25 mg PO TID [facility] Last Admin: 09/16/18 09:37 Dose: 25 mg Insulin Aspart (Novolog Mix 70/30 (70/30 Units/Ml)) 24 units SC ACB [facility] Last Admin: 09/16/18 08:19 Dose: 24 units Insulin Aspart (Novolog Mix 70/30 (70/30 Units/Ml)) 16 units SC ACD [facility] Last Admin: 09/15/18 16:41 Dose: 16 units Insulin Human Regular (Novolin R) 0 unit SC ACHS [facility]; Protocol Last Admin: 09/16/18 12:14 Dose: Not Given Methylprednisolone (Solu-Medrol) 40 mg IVP Q12 [facility] Last Admin: 09/16/18 09:37 Dose: 40 mg Metoprolol Succinate (Toprol Xl) 25 mg PO DAILY [facility] Last Admin: 09/16/18 09:37 Dose: 25 mg Montelukast Sodium (Singulair) 10 mg PO DAILY [facility] Last Admin: 09/16/18 09:37 Dose: 10 mg Rosuvastatin Calcium (Crestor) 10 mg PO HS [facility] Last Admin: 09/15/18 22:11 Dose: 10 mg - Labs Labs: 09/15/18 18:14 09/15/18 18:14 Assessment and Plan - Assessment and Plan (Free Text) Assessment: A/P 73 y/o male with pmhx of DM, ESRD on dialysis (MWF)and HTN presents to ED with c/o white phlegm productive cough, sob and congestion for 2 weeks abd admitted with
[2018-09-16 15:35] VITALS: BP 134/58; PULSE 90; TEMP 97.9; O2SAT 96
--- NOTE | 2018-09-16 22:09 | CP.PCM.DIS ---
Provider - Provider Date of Admission: 09/10/18 20:59 Attending physician: Drew Nash MD Hospital Course - Lab Results Lab Results: Micro Results 09/10/18 18:41 Blood Blood Culture - Final NO GROWTH AFTER 5 DAYS 09/10/18 18:41 Blood Gram Stain - Final TEST NOT PERFORMED 09/10/18 18:41 Blood Blood Culture - Final NO GROWTH AFTER 5 DAYS 09/10/18 18:41 Blood Gram Stain - Final TEST NOT PERFORMED Most Recent Lab Values WBC 7.7 K/uL (4.8-10.8) 09/15/18 18:14 RBC 2.76 Mil/uL (4.40-5.90) L 09/15/18 18:14 Hgb 8.6 g/dL (12.0-18.0) L D 09/15/18 18:14 Hct 25.8 % (35.0-51.0) L 09/15/18 18:14 MCV 93.4 fL (80.0-94.0) 09/15/18 18:14 MCH 31.3 pg (27.0-31.0) H 09/15/18 18:14 MCHC 33.6 g/dL (33.0-37.0) 09/15/18 18:14 RDW 14.5 % (11.5-14.5) 09/15/18 18:14 Plt Count 211 K/uL (130-400) 09/15/18 18:14 MPV 9.3 fL (7.2-11.7) 09/15/18 18:14 Neut % (Auto) 73.4 % (50.0-75.0) 09/10/18 18:41 Lymph % (Auto) 17.4 % (20.0-40.0) L 09/10/18 18:41 [place] % (Auto) 6.7 % (0.0-10.0) 09/10/18 18:41 Eos % (Auto) 1.7 % (0.0-4.0) 09/10/18 18:41 Baso % (Auto) 0.8 % (0.0-2.0) 09/10/18 18:41 Neut # (Auto) 5.5 K/uL (1.8-7.0) 09/10/18 18:41 Lymph # (Auto) 1.3 K/uL (1.0-4.3) 09/10/18 18:41 [place] # (Auto) 0.5 K/uL (0.0-0.8) 09/10/18 18:41 Eos # (Auto) 0.1 K/uL (0.0-0.7) 09/10/18 18:41 Baso # (Auto) 0.1 K/uL (0.0-0.2) 09/10/18 18:41 Sodium 134 mmol/L (132-148) 09/15/18 18:14 Potassium 5.2 mmol/L (3.6-5.2) 09/15/18 18:14 Chloride 94 mmol/L (98-107) L 09/15/18 18:14 Carbon Dioxide 20 mmol/L (22-30) L 09/15/18 18:14 Anion Gap 25 (10-20) H 09/15/18 18:14 BUN 125 mg/dL (9-20) H* D 09/15/18 18:14 Creatinine 8.4 mg/dL (0.8-1.5) H* 09/15/18 18:14 Est GFR ( Amer) 8 09/15/18 18:14 Est GFR (Non-Af Amer) 6 09/15/18 18:14 POC Glucose (mg/dL) 129 mg/dL (65-110) H 09/16/18 12:10 Random Glucose 275 mg/dL (75-110) H 09/15/18 18:14 Calcium 8.5 mg/dl (8.6-10.4) L 09/15/18 18:14 Phosphorus 4.9 mg/dL (2.5-4.5) H 09/11/18 13:42 % Saturation 84 (20-55) H 09/16/18 12:16 Ferritin 786.0 ng/mL 09/16/18 12:17 Total Bilirubin 0.4 mg/dL (0.2-1.3) 09/15/18 18:14 AST 19 U/L (17-59) 09/15/18 18:14 ALT 27 U/L (21-72) 09/15/18 18:14 Alkaline Phosphatase 84 U/L (38-126) 09/15/18 18:14 Troponin I 0.0590 ng/mL (0.00-0.120) 09/10/18 18:41 NT-Pro-B Natriuret Pep 68512 pg/mL (0-900) H 09/16/18 07:56 Total Protein 6.0 g/dL (6.3-8.3) L 09/15/18 18:14 Albumin 3.4 g/dL (3.5-5.0) L 09/15/18 18:14 Globulin 2.6 gm/dL (2.2-3.9) 09/15/18 18:14 Albumin/Globulin Ratio 1.3 (1.0-2.1) 09/15/18 18:14 Hep Bs Antigen Negative (NEGATIVE) 09/13/18 06:58 Hep Bs Antibody Positive (NEGATIVE) 09/13/18 06:58 Hep B Core IgM Ab Negative (NEGATIVE) 09/13/18 06:58 Influenza Typ A,B (EIA) Negative for flu a/b (NEGATIVE) 09/10/18 18:41 Discharge Exam - Head Exam Head Exam: ATRAUMATIC, NORMAL INSPECTION Discharge Plan - Discharge Medications Prescriptions: hydrALAZINE [Apresoline] 25 mg PO TID #90 tab Rosuvastatin Calcium 2.5 [Crestor] 5 mg PO HS #30 tab Gabapentin [Neurontin] 300 mg PO DAILY #30 cap Calcium Acetate [Phoslo] 1,334 mg PO TIDCC #90 tab Cilostazol [Pletal] 50 mg PO BID #60 tab predniSONE [Prednisone] 30 mg PO DAILY #18 tab predniSONE [predniSONE Tab] 5 mg PO DAILY #3 tab Montelukast [Singulair] 10 mg PO DAILY #30 tab Metoprolol Succinate XL [Toprol XL] 25 mg PO DAILY #30 tab - Follow Up Plan Condition: GUARDED Disposition: HOME/ ROUTINE Instructions: Dialysis Diet , Acute Bronchitis, Adult (DC), Heart Failure, Adult (DC), Cilostazol, Gabapentin, Montelukast, Prednisone, Rosuvastatin, End Stage Kidney Disease (DC) Additional Instructions: Please follow up with Dr. Nash office in 1 week Please continue HD as scheduled MWF Continue medication as per Med. rec. PLEASE HEALTH THERAPIST MEDICATION FROM [facility] Referrals: Drew Nash MD [Staff Provider] -
--- NOTE | 2018-09-17 08:26 | DS ---
DISCHARGE DIAGNOSES: 1. Pneumonia. 2. Acute exacerbation of bronchial asthma. 3. Chronic renal failure, on hemodialysis. 4. Hypertension. 5. Type 2 diabetes. HISTORY OF PRESENT ILLNESS: This is a 73-year-old male with history of cough, congestion, shortness of breath, wheezing. On chest x-ray, he had pneumonia, had fluid overload. He had cough, fever, chills, rigors. He responded to antibiotics, steroids and his condition improved and he got discharged. His condition upon discharge was stable. His cough improved substantially. The patient's insulin regimen was tested. The patient was given antibiotics. He underwent a stress test, which was negative for ischemia. PHYSICAL EXAMINATION: VITAL SIGNS: Blood pressure 134/50, pulse 90, respiratory rate 20, temperature 97.9. LUNGS: Bilateral inspiratory and expiratory rhonchi. CVS: S1, S2 regular. ABDOMEN: Soft, nontender. LABORATORY DATA: WBC 7.7, hemoglobin 8.6, hematocrit 25.8, platelets 211. Sodium 134, potassium 4.2, chloride 94, bicarb 20, BUN , creatinine 0.4. Glucose is 332. CONDITION UPON DISCHARGE: Stable. Drew Nash MD
[2018-09-17] MEDS ORDERED: EPOETIN ALFA 10,000 UNIT/ML ML IV SCH (09:00)
== END 2018-09-16 15:35 | disposition home or self-care (01) | DRG 291 ==
LOC: C.ER 17:18 → C.6T 20:59
PROVIDERS: ADMIT Internal Medicine; ATTEND Internal Medicine
PROC: 5A1D70Z Performance of Urinary Filtration, Intermittent, Less than 6 Hours Per Day (ICD-10-PCS; principal; 2018-09-12)
DX: I13.2 Hypertensive heart and chronic kidney disease with heart failure and with stage 5 chronic kidney disease, or end stage renal disease (principal); J18.9 Pneumonia, unspecified organism; N18.6 End stage renal disease; J44.0 Chronic obstructive pulmonary disease with (acute) lower respiratory infection; J44.1 Chronic obstructive pulmonary disease with (acute) exacerbation; J45.901 Unspecified asthma with (acute) exacerbation; N25.81 Secondary hyperparathyroidism of renal origin; J20.9 Acute bronchitis, unspecified; D64.9 Anemia, unspecified; N40.1 Benign prostatic hyperplasia with lower urinary tract symptoms; R33.8 Other retention of urine; N31.9 Neuromuscular dysfunction of bladder, unspecified; R09.02 Hypoxemia; T38.0X5A Adverse effect of glucocorticoids and synthetic analogues, initial encounter; Z87.01 Personal history of pneumonia (recurrent); Z99.2 Dependence on renal dialysis; E11.22 Type 2 diabetes mellitus with diabetic chronic kidney disease; E11.319 Type 2 diabetes mellitus with unspecified diabetic retinopathy without macular edema; E78.00 Pure hypercholesterolemia, unspecified; E78.5 Hyperlipidemia, unspecified; I50.9 Heart failure, unspecified

== ENCOUNTER 2018-10-05 10:45 | Inpatient (IN) | payer MEDICARE, MEDICAID ==
[2018-10-05 10:46] VITALS: BMI 24.4
[2018-10-05] MEDS ORDERED: Albuterol-Ipratrop 3 mg / 0.5 (3 ml) UD ONE (11:28)
[2018-10-05 11:47] LABS: BASO # 0.1 K/uL (0.0-0.2); BASO % 1.2 % (0.0-2.0); EOS # 0.1 K/uL (0.0-0.7); EOS % 2.2 % (0.0-4.0); LYMPH # 0.7 K/uL (1.0-4.3); LYMPH % 13.7 % (20.0-40.0); MEAN CORPUSCULAR HEMOGLOBIN 32.4 pg (27.0-31.0); MEAN CORPUSCULAR HGB CONC 33.7 g/dL (33.0-37.0); MONO # 0.5 K/uL (0.0-0.8); MONO % 8.8 % (0.0-10.0); NEUT # 4.1 K/uL (1.8-7.0); NEUT % 74.1 % (50.0-75.0); RBC 3.3 Mil/uL (4.40-5.90); RED CELL DISTRIBUTION WIDTH 19.5 % (11.5-14.5); WHITE BLOOD COUNT 5.5 K/uL (4.8-10.8)
[2018-10-05 11:55] LABS: INR 1.1; PROTHROMBIN TIME 11.7 SECONDS (9.7-12.2)
[2018-10-05] MEDS ORDERED: Moxifloxacin IV 400mg/250ml NS 400 MG/250 ML BAG IV ONE (11:57)
[2018-10-05 12:00] LABS: HEMOGLOBIN 10.7 g/dL (12.0-18.0)
[2018-10-05 12:01] LABS: MEAN CELL VOLUME 96.3 fL (80.0-94.0)
[2018-10-05 12:16] LABS: TROPONIN I 0.048 ng/mL (0.00-0.120)
[2018-10-05] MEDS ORDERED: Albuterol-Ipratrop 3 mg / 0.5 (3 ml) UD INH STA (12:20)
--- NOTE | 2018-10-05 12:21 | C.PDOC ---
History Of Present Illness 73 y/o male,w/PMhx of ESRD, presents to the ER complaining of cough and congestion which has been present for the past 1 week. Patient states that he was recently admitted for pneumonia and asthma from 09/12/18- 09/16/18.Denies having fever, chills, nausea,vomiting, and abdominal pain. Of note, patient has dialysis on Mondays, Wednesdays, and Fridays. He went to his last dialysis appointment yesterday. Time Seen by Provider: 10/05/18 11:07 Chief Complaint (Nursing): Shortness Of Breath History Per: Patient History/Exam Limitations: no limitations Onset/Duration Of Symptoms: Days Current Symptoms Are (Timing): Still Present Severity: Moderate Past Medical History Reviewed: Historical Data, Nursing Documentation, Vital Signs Vital Signs: Last Vital Signs Temp 100.2 F H 10/05/18 12:11 Pulse 96 H 10/05/18 12:11 Resp 22 10/05/18 12:11 BP 135/53 L 10/05/18 12:11 Pulse Ox 90 L 10/05/18 12:11 - Medical History PMH: Anemia, Arthritis, COPD, HTN, Hypercholesterolemia, Kidney Stones, Pneumonia, End Stage Renal Disease, Chronic Kidney Disease Other Surgeries: Hx of surgeries - [facility] (09/10/18) Family History: States: No Known Family Hx - Social History Hx Alcohol Use: No Hx Substance Use: No - Immunization History Hx Tetanus Toxoid Vaccination: Yes Hx Influenza Vaccination: Yes Hx Pneumococcal Vaccination: Yes Review Of Systems Except As Marked, All Systems Reviewed And Found Negative. Constitutional: Negative for: Fever, Chills ENT: Positive for: Nose Congestion Cardiovascular: Negative for: Chest Pain Respiratory: Positive for: Cough. Negative for: Shortness of Breath Gastrointestinal: Negative for: Nausea, Vomiting Physical Exam - Physical Exam Appears: No Acute Distress Skin: Normal Color, Warm, Dry Head: Atraumatic, Normacephalic Eye(s): bilateral: Normal Inspection Ear(s): Bilateral: Normal Nose: Normal Oral Mucosa: Moist Throat: Normal, No Erythema, No Exudate Neck: Supple Chest: Symmetrical Cardiovascular: Rhythm Regular Respiratory: No Rales, Rhonchi (scattered rhonchi), Wheezing (scattered wheezing), Other (no egophony) Gastrointestinal/Abdominal: Normal Exam, Soft, No Tenderness, No Guarding, No R ebound Extremity: Normal ROM, Other (no edema to bilateral lower extrremities) Neurological/Psych: Oriented x3, Normal Speech ED Course And Treatment - Laboratory Results Result Diagrams: 10/05/18 11:41 10/05/18 11:41 Lab Interpretation: Abnormal (UA 24 WBC's, flu swab neg. renal c/w ESRD on HD, K+ wnl) O2 Sat by Pulse Oximetry: 90 Pulse Ox Interpretation: Abnormal (baseline) Progress Note: Labs, ECG, CXR and UA ordered. Patient treated with Dunoeb and Solu-Medrol IV. Reevaluation Time: 13:09 Reassessment Condition: Improved - Physician Consult Information Outcome Of Conversation: 1200: d/w Dr. Nash, ok to admit. Medical Decision Making Medical Decision Making: cough, congestion ? COPD Vs asthma nebs/steroids ? PNA resolving RLL PNA vs fluid overload ESRD on HD M/W/F, went yesterday, pending HD tomorrow Disposition Doctor Will See Patient In The: Hospital Counseled Patient/Family Regarding: Studies Performed, Diagnosis - Disposition Disposition: HOSPITALIZED Disposition Time: 13:10 Condition: GOOD Forms: NCR (Congolese) - Clinical Impression Clinical Impression: Chronic congestive heart failure, ESRD (end stage renal disease) on dialysis, Reactive airway disease with acute exacerbation - Scribe Statement The provider has reviewed the documentation as recorded by the Nataliia Walters Provider Attestation: All medical record entries made by the Scribe were at my direction and personally dictated by me. I have reviewed the chart and agree that the record accurately reflects my personal performance of the history, physical exam, medical decision making, and the department course for this patient. I have also personally directed, reviewed, and agree with the discharge instructions and disposition.
[2018-10-05 12:23] LABS: ALB/GLOB RATIO 1.2 (1.0-2.1); ALBUMIN 3.6 g/dL (3.5-5.0); CALCIUM 8.4 mg/dl (8.6-10.4)
[2018-10-05] MEDS ORDERED: Moxifloxacin IV 400mg/250ml NS 400 MG/250 ML BAG IVPB ONE (12:24)
[2018-10-05 12:42] LABS: URINE AMORPHOUS SEDIMENT OCC /ul (<OCC); URINE BACTERIA OCC (<OCC); URINE BILIRUBIN NEGATIVE (NEGATIVE); URINE BLOOD 1+ (NEGATIVE); URINE CLARITY Hazy (Clear); URINE COLOR Yellow (YELLOW); URINE GLUCOSE (UA) NORMAL (Normal); URINE LEUKOCYTE ESTERASE 3+ Leu/uL (Negative); URINE PROTEIN 2+ mg/dL (NEGATIVE); URINE UROBILINOGEN NORMAL mg/dL (0.2-1.0)
--- NOTE | 2018-10-05 13:28 | RAD ---
Date of service: 10/05/2018 PROCEDURE: CHEST RADIOGRAPH, 1 VIEW HISTORY: SOB COMPARISON: 09/10/2018 FINDINGS: LUNGS: Interval increased bibasilar opacities-increasing bibasilar pleural effusions with associated compressive atelectasis inferred. Concomitant patchy infiltrates here-not excluded. PLEURA: No pneumothorax or pleural fluid seen. CARDIOVASCULAR: No aortic atherosclerotic calcification present. Cardiomegaly-similar Mild pulmonary venous congestion-an interval slight increase is suspect. OSSEOUS STRUCTURES: No significant abnormalities. VISUALIZED UPPER ABDOMEN: Normal. OTHER FINDINGS: None. IMPRESSION: Interval bibasilar pleural effusions with interval inferred associated compressive atelectasis. Concomitant infiltrates here not excluded. Follow-up recommended Cardiomegaly-similar. Probable slight interval increased pulmonary venous congestion
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
[2018-10-05] MEDS: Albuterol-Ipratrop 3 mg / 0.5 (3 ml) UD INH SCH (19:21)
[2018-10-05] MEDS ORDERED: Dextrose 50% SYRINGE Inj (50 ml) IV PRN (21:22)
[2018-10-05] MEDS ORDERED: Glucagon Recombinant 1 mg Inj IM PRN (21:22)
[2018-10-05] MEDS: Rosuvastatin Calcium 2.5 mg Tab PO SCH (21:42)
[2018-10-05] MEDS: MethylPREDNISolone 40 mg Vial IVP SCH (21:43)
[2018-10-05] MEDS: (Novolin R) Insulin Human Regular 100 units/ml vial SC SCH (21:50)
[2018-10-06] MEDS: Albuterol-Ipratrop 3 mg / 0.5 (3 ml) UD INH SCH ×3 (01:23→19:45)
[2018-10-06] MEDS: MethylPREDNISolone 40 mg Vial IVP SCH ×3 (07:36→21:00)
[2018-10-06] MEDS: (Novolin R) Insulin Human Regular 100 units/ml vial SC SCH ×4 (08:09→21:12)
[2018-10-06] MEDS: Cilostazol 50 mg Tab UD PO SCH ×2 (09:06→17:31)
[2018-10-06] MEDS ORDERED: Home Med 1 UNIT (Linagliptin [Tradjenta] 5 MG) PO SCH (10:00)
[2018-10-06] MEDS: Metoprolol Succinate 25 mg XL Tab PO SCH (13:35)
[2018-10-06] MEDS: (Lantus) Insulin Glargine, Recombinant SC SCH (13:36)
[2018-10-06] MEDS: Azithromycin 500 MG in Sodium Chloride 0.9% 250 ML IVPB SCH (13:36)
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
--- NOTE | 2018-10-06 16:02 | CP.PCM.PN ---
Subjective - Date & Time of Evaluation Date of Evaluation: 10/06/18 Time of Evaluation: 15:40 - Subjective Subjective: patient seen and examined Status post hemodialysis Complaining of shortness of breath and cough/wheezing Afebrile Patient states steroids causes eye problem and elevated sugar Objective - Vital Signs/Intake and Output Vital Signs (last 24 hours): Temp Pulse Resp BP Pulse Ox 98 F 109 H 18 146/57 L 96 10/06/18 09:05 10/06/18 13:34 10/06/18 10:08 10/06/18 13:34 10/06/18 09:05 Intake and Output: 10/06/18 10/06/18 06:59 18:59 Intake Total 650 Output Total 25 Balance 625 - Medications Medications: Current Medications Albuterol/Ipratropium (Duoneb 3 Mg/0.5 Mg (3 Ml) Ud) 3 ml INH RQ6 [facility] Last Admin: 10/06/18 07:52 Dose: 3 ml Allopurinol (Zyloprim) 100 mg PO BID [facility] Last Admin: 10/06/18 09:07 Dose: Not Given Benzonatate (Tessalon Perles) 100 mg PO TID [facility] Last Admin: 10/06/18 13:35 Dose: 100 mg Cilostazol (Pletal) 50 mg PO BID [facility] Last Admin: 10/06/18 09:06 Dose: Not Given Dextrose (Dextrose 50% Inj) 0 ml IV STAT PRN; Protocol PRN Reason: Hypoglycemia Protocol Dextrose (Glutose 15) 0 gm PO ONCE PRN; Protocol PRN Reason: Hypoglycemia Protocol Folic Acid (Folic Acid) 1 mg PO DAILY [facility] Last Admin: 10/06/18 13:35 Dose: 1 mg Gabapentin (Neurontin) 300 mg PO DAILY [facility] Last Admin: 10/06/18 13:35 Dose: 300 mg Glucagon (Glucagen Diagnostic Kit) 0 mg IM STAT PRN; Protocol PRN Reason: Hypoglycemia Protocol Guaifenesin (Robitussin) 100 mg PO Q4H PRN PRN Reason: Cough Heparin Sodium (Porcine) (Heparin) 5,000 units SC Q12H [facility] Last Admin: 10/06/18 13:37 Dose: 5,000 units Home Med (Linagliptin [Tradjenta]) 5 mg PO DAILY [facility] Hydralazine HCl (Apresoline) 25 mg PO TID [facility] Last Admin: 10/06/18 13:35 Dose: 25 mg Azithromycin 500 mg/ Sodium (Chloride) 250 mls @ 250 mls/hr IVPB DAILY [facility]; Protocol Last Admin: 10/06/18 13:36 Dose: 250 mls/hr Dextrose (Dextrose 5% In Water 1000 Ml) 1,000 mls @ 0 mls/hr IV .Q0M PRN; Katie col PRN Reason: Hypoglycemia Protocol Ceftriaxone Sodium (Rocephin Iv 1 Gm Duplex) 50 mls @ 100 mls/hr IVPB Q24H [facility]; Protocol Influenza Virus Vaccine (Fluzone Quad [id number]) 60 mcg IM .ONCE ONE Stop: 10/07/18 12:01 Insulin Glargine (Lantus) 30 unit SC DAILY [facility] Last Admin: 10/06/18 13:36 Dose: 30 units Insulin Human Regular (Novolin R) 0 unit SC ACHS [facility]; Protocol Last Admin: 10/06/18 13:35 Dose: 2 units Methylprednisolone (Solu-Medrol) 40 mg IVP Q8 [facility] Last Admin: 10/06/18 13:37 Dose: 40 mg Metoprolol Succinate (Toprol Xl) 25 mg PO DAILY [facility] Last Admin: 10/06/18 13:35 Dose: 25 mg Montelukast Sodium (Singulair) 10 mg PO DAILY [facility] Last Admin: 10/06/18 13:35 Dose: 10 mg Pneumococcal Polyvalent Vaccine (Pneumovax 23 Vaccine) 0.5 ml IM .ONCE ONE Stop: 10/07/18 10:01 Rosuvastatin Calcium (Crestor) 5 mg PO HS [facility] Last Admin: 10/05/18 21:42 Dose: 5 mg Sevelamer Carbonate (Renvela) 1,600 mg PO DAILY [facility] Sitagliptin Phosphate (Januvia) 25 mg PO DAILY [facility] Last Admin: 10/06/18 13:35 Dose: 25 mg - Labs Labs: 10/05/18 11:41 10/05/18 11:41 PT 11.7 SECONDS (9.7-12.2) 10/05/18 11:41 INR 1.1 10/05/18 11:41 APTT 29 SECONDS (21-34) 10/05/18 11:41 - Head Exam Head Exam: ATRAUMATIC, NORMOCEPHALIC - ENT Exam ENT Exam: Mucous Membranes Moist - Neck Exam Neck Exam: Normal Inspection - Respiratory Exam Respiratory Exam: Clear to Ausculation Bilateral - Cardiovascular Exam Cardiovascular Exam: REGULAR RHYTHM - GI/Abdominal Exam GI & Abdominal Exam: Soft, Normal Bowel Sounds - Extremities Exam Extremities Exam: Normal Inspection - Neurological Exam Neurological Exam: Alert Assessment and Plan (1) Acute exacerbation of chronic bronchitis Assessment & Plan: taper Steroids nebulizer treatment On antibiotics Singulair cont dialysis Status: Acute (2) ESRD (end stage renal disease) on dialysis Status: Acute (3) CHF exacerbation Status: Acute
[2018-10-06] MEDS: cefTRIAXone IV 1 gm in Dextros 50 ML IVPB SCH (17:34)
--- NOTE | 2018-10-06 18:16 | PN ---
DATE: 10/06/2018 COVERING FOR: Drew Nash MD SUBJECTIVE: The patient is currently undergoing hemodialysis. He is complaining of productive cough since last night. He denies any retrosternal chest pain. PHYSICAL EXAMINATION: VITAL SIGNS: Blood pressure 146/57, heart rate 109, temperature 98, and respirations 18. HEENT: Pale conjunctivae. CHEST: Bilateral rhonchi. HEART: S1 and S2 regular. EXTREMITIES: Trace leg edema. LABORATORY DATA: Chest x-ray revealed right lower lobe infiltrate, left lower lobe infiltrate with left pleural effusion. Hemoglobin and hematocrit 10.7 and 31.7. White count and platelet count are within normal limit. Today's BUN and creatinine 41 and 6.4, glucose 211. ProBNP is 32,300. PT, PTT, and INR are within normal limit. EKG revealed sinus rhythm, , occasional PVCs, and right bundle-branch block. Echocardiographic study performed about three weeks ago revealed normal ejection fraction and mild valvular aortic stenosis. Myoview stress test was consistent with inferior septal wall defect and cardiac catheterization was recommended by Dr. Ro. ASSESSMENT: 1. Pneumonia. 2. End-stage renal disease, on hemodialysis. 3. Positive recent Myoview stress test. 4. Anemia. PLAN: Continue hydralazine 25 mg t.i.d., IV Zithromax 500 mg daily, Crestor 5 mg once a day, albuterol inhaler every 6 hours, heparin 5000 units subcutaneously every 12 hours, Pletal 50 mg b.i.d., Rocephin 1 g intravenously daily, and Toprol XL 25 mg once a day. Continue albuterol inhaler. I will start Robitussin at one teaspoon t.i.d. Obtain chest CT scan without contrast and pulmonary evaluation by Dr. Spaulding. Florentin Pascual MD
[2018-10-06] MEDS: Rosuvastatin Calcium 2.5 mg Tab PO SCH (21:03)
[2018-10-06] MEDS: guaiFENesin 100 mg/5 ml Syrup UD PO PRN (21:03)
[2018-10-07] MEDS: (Novolin R) Insulin Human Regular 100 units/ml vial SC SCH ×5 (00:33→21:41)
[2018-10-07] MEDS: Albuterol-Ipratrop 3 mg / 0.5 (3 ml) UD INH SCH ×4 (02:30→19:20)
[2018-10-07] MEDS: MethylPREDNISolone 40 mg Vial IVP SCH ×3 (06:14→21:57)
--- NOTE | 2018-10-07 07:38 | CARD ---
APPROVED REPORT Date of service: 10/05/2018 EKG Measurement Heart [id number] <Conclusion> Sinus rhythm with occasional premature atrial complexes Possible Left atrial enlargement Left axis deviation Right bundle branch block Abnormal ECG
--- NOTE | 2018-10-07 09:02 | CP.PCM.PN ---
Subjective - Date & Time of Evaluation Date of Evaluation: 10/07/18 Time of Evaluation: 08:59 - Subjective Subjective: Still with cough but better Stable HD 10/06- UF goal increased O steroids and ABs for bronchitis Stable HD, BP Objective - Vital Signs/Intake and Output Vital Signs (last 24 hours): Temp Pulse Resp BP Pulse Ox 97.9 F 101 H 20 146/63 95 10/06/18 23:10 10/07/18 00:00 10/06/18 23:10 10/06/18 23:10 10/06/18 23:10 - Medications Medications: Current Medications Albuterol/Ipratropium (Duoneb 3 Mg/0.5 Mg (3 Ml) Ud) 3 ml INH RQ6 [facility] Last Admin: 10/07/18 07:46 Dose: 3 ml Allopurinol (Zyloprim) 100 mg PO BID [facility] Last Admin: 10/06/18 17:32 Dose: 100 mg Benzonatate (Tessalon Perles) 100 mg PO TID [facility] Last Admin: 10/06/18 17:31 Dose: 100 mg Cilostazol (Pletal) 50 mg PO BID [facility] Last Admin: 10/06/18 17:31 Dose: 50 mg Dextrose (Dextrose 50% Inj) 0 ml IV STAT PRN; Protocol PRN Reason: Hypoglycemia Protocol Dextrose (Glutose 15) 0 gm PO ONCE PRN; Protocol PRN Reason: Hypoglycemia Protocol Folic Acid (Folic Acid) 1 mg PO DAILY [facility] Last Admin: 10/06/18 13:35 Dose: 1 mg Gabapentin (Neurontin) 300 mg PO DAILY [facility] Last Admin: 10/06/18 13:35 Dose: 300 mg Glucagon (Glucagen Diagnostic Kit) 0 mg IM STAT PRN; Protocol PRN Reason: Hypoglycemia Protocol Guaifenesin (Robitussin) 100 mg PO Q4H PRN PRN Reason: Cough Last Admin: 10/06/18 21:03 Dose: 100 mg Heparin Sodium (Porcine) (Heparin) 5,000 units SC Q12H [facility] Last Admin: 10/06/18 21:03 Dose: 5,000 units Home Med (Linagliptin [Tradjenta]) 5 mg PO DAILY [facility] Hydralazine HCl (Apresoline) 25 mg PO TID [facility] Last Admin: 10/06/18 17:31 Dose: 25 mg Azithromycin 500 mg/ Sodium (Chloride) 250 mls @ 250 mls/hr IVPB DAILY [facility]; Protocol Last Admin: 10/06/18 13:36 Dose: 250 mls/hr Dextrose (Dextrose 5% In Water 1000 Ml) 1,000 mls @ 0 mls/hr IV .Q0M PRN; Protocol PRN Reason: Hypoglycemia Protocol Ceftriaxone Sodium (Rocephin Iv 1 Gm Duplex) 50 mls @ 100 mls/hr IVPB Q24H [facility]; Protocol Last Admin: 10/06/18 17:34 Dose: 100 mls/hr Influenza Virus Vaccine (Fluzone Quad [id number]) 60 mcg IM .ONCE ONE Stop: 10/07/18 12:01 Insulin Glargine (Lantus) 30 unit SC DAILY [facility] Last Admin: 10/06/18 13:36 Dose: 30 units Insulin Human Regular (Novolin R) 0 unit SC ACHS [facility]; Protocol Last Admin: 10/07/18 08:28 Dose: 4 units Methylprednisolone (Solu-Medrol) 40 mg IVP Q8 [facility] Last Admin: 10/07/18 06:14 Dose: 40 mg Metoprolol Succinate (Toprol Xl) 25 mg PO DAILY [facility] Last Admin: 10/06/18 13:35 Dose: 25 mg Montelukast Sodium (Singulair) 10 mg PO DAILY [facility] Last Admin: 10/06/18 13:35 Dose: 10 mg Pneumococcal Polyvalent Vaccine (Pneumovax 23 Vaccine) 0.5 ml IM .ONCE ONE Stop: 10/07/18 10:01 Rosuvastatin Calcium (Crestor) 5 mg PO HS [facility] Last Admin: 10/06/18 21:03 Dose: 5 mg Sevelamer Carbonate (Renvela) 1,600 mg PO TID [facility] Sitagliptin Phosphate (Januvia) 25 mg PO DAILY [facility] Last Admin: 10/06/18 13:35 Dose: 25 mg - Labs Labs: 10/05/18 11:41 10/05/18 11:41 PT 11.7 SECONDS (9.7-12.2) 10/05/18 11:41 INR 1.1 10/05/18 11:41 APTT 29 SECONDS (21-34) 10/05/18 11:41 - Constitutional Appears: No Acute Distress, Chronically Ill - Head Exam Head Exam: ATRAUMATIC, NORMAL INSPECTION - Eye Exam Eye Exam: EOMI, Normal appearance - Respiratory Exam Respiratory Exam: Rhonchi, NORMAL BREATHING PATTERN - Cardiovascular Exam Cardiovascular Exam: REGULAR RHYTHM, +S1 - GI/Abdominal Exam GI & Abdominal Exam: Soft. absent: Tenderness - Extremities Exam Extremities Exam: Normal Inspection. absent: Tenderness - Neurological Exam Neurological Exam: Awake, CN II-XII Intact - Skin Skin Exam: Dry, Warm Assessment and Plan (1) Chronic congestive heart failure Status: Acute (2) ESRD (end stage renal disease) on dialysis Status: Acute (3) Acute exacerbation of chronic bronchitis Status: Acute (4) CHF exacerbation Status: Acute - Assessment and Plan (Free Text) Plan: Same aggressive UF with HD Steroids, ABs Repeat labs
[2018-10-07] MEDS: Metoprolol Succinate 25 mg XL Tab PO SCH (09:52)
[2018-10-07] MEDS: Cilostazol 50 mg Tab UD PO SCH ×2 (09:55→18:05)
--- NOTE | 2018-10-07 09:55 | CP.PCM.PN ---
Subjective - Date & Time of Evaluation Date of Evaluation: 10/07/18 Time of Evaluation: 08:50 - Subjective Subjective: patient seen and examined Patient states cough, wheezing and shortness of breath much better Afebrile Status post hemodialysis yesterday No chest pain Awake and responsive Objective - Vital Signs/Intake and Output Vital Signs (last 24 hours): Temp Pulse Resp BP Pulse Ox 97.9 F 101 H 20 146/63 95 10/06/18 23:10 10/07/18 00:00 10/06/18 23:10 10/06/18 23:10 10/06/18 23:10 - Medications Medications: Current Medications Albuterol/Ipratropium (Duoneb 3 Mg/0.5 Mg (3 Ml) Ud) 3 ml INH RQ6 [facility] Last Admin: 10/07/18 07:46 Dose: 3 ml Allopurinol (Zyloprim) 100 mg PO BID [facility] Last Admin: 10/06/18 17:32 Dose: 100 mg Benzonatate (Tessalon Perles) 100 mg PO TID [facility] Last Admin: 10/07/18 09:53 Dose: 100 mg Cilostazol (Pletal) 50 mg PO BID [facility] Last Admin: 10/06/18 17:31 Dose: 50 mg Dextrose (Dextrose 50% Inj) 0 ml IV STAT PRN; Protocol PRN Reason: Hypoglycemia Protocol Dextrose (Glutose 15) 0 gm PO ONCE PRN; Protocol PRN Reason: Hypoglycemia Protocol Folic Acid (Folic Acid) 1 mg PO DAILY [facility] Last Admin: 10/07/18 09:52 Dose: 1 mg Gabapentin (Neurontin) 300 mg PO DAILY [facility] Last Admin: 10/06/18 13:35 Dose: 300 mg Glucagon (Glucagen Diagnostic Kit) 0 mg IM STAT PRN; Protocol PRN Reason: Hypoglycemia Protocol Guaifenesin (Robitussin) 100 mg PO Q4H PRN PRN Reason: Cough Last Admin: 10/06/18 21:03 Dose: 100 mg Heparin Sodium (Porcine) (Heparin) 5,000 units SC Q12H [facility] Last Admin: 10/06/18 21:03 Dose: 5,000 units Home Med (Linagliptin [Tradjenta]) 5 mg PO DAILY [facility] Hydralazine HCl (Apresoline) 25 mg PO TID [facility] Last Admin: 10/06/18 17:31 Dose: 25 mg Azithromycin 500 mg/ Sodium (Chloride) 250 mls @ 250 mls/hr IVPB DAILY [facility]; Protocol Last Admin: 10/06/18 13:36 Dose: 250 mls/hr Dextrose (Dextrose 5% In Water 1000 Ml) 1,000 mls @ 0 mls/hr IV .Q0M PRN; Protocol PRN Reason: Hypoglycemia Protocol Ceftriaxone Sodium (Rocephin Iv 1 Gm Duplex) 50 mls @ 100 mls/hr IVPB Q24H [facility]; Protocol Last Admin: 10/06/18 17:34 Dose: 100 mls/hr Influenza Virus Vaccine (Fluzone Quad [id number]) 60 mcg IM .ONCE ONE Stop: 10/07/18 12:01 Insulin Glargine (Lantus) 30 unit SC DAILY [facility] Last Admin: 10/06/18 13:36 Dose: 30 units Insulin Human Regular (Novolin R) 0 unit SC ACHS [facility]; Protocol Last Admin: 10/07/18 08:28 Dose: 4 units Methylprednisolone (Solu-Medrol) 40 mg IVP Q8 [facility] Last Admin: 10/07/18 06:14 Dose: 40 mg Metoprolol Succinate (Toprol Xl) 25 mg PO DAILY [facility] Last Admin: 10/07/18 09:52 Dose: 25 mg Montelukast Sodium (Singulair) 10 mg PO DAILY [facility] Last Admin: 10/07/18 09:52 Dose: 10 mg Pneumococcal Polyvalent Vaccine (Pneumovax 23 Vaccine) 0.5 ml IM .ONCE ONE Stop: 10/07/18 10:01 Rosuvastatin Calcium (Crestor) 5 mg PO HS [facility] Last Admin: 10/06/18 21:03 Dose: 5 mg Sevelamer Carbonate (Renvela) 1,600 mg PO TIDCC [facility] Sitagliptin Phosphate (Januvia) 25 mg PO DAILY [facility] Last Admin: 10/07/18 09:52 Dose: 25 mg - Labs Labs: 10/05/18 11:41 10/05/18 11:41 PT 11.7 SECONDS (9.7-12.2) 10/05/18 11:41 INR 1.1 10/05/18 11:41 APTT 29 SECONDS (21-34) 10/05/18 11:41 Assessment and Plan (1) Acute exacerbation of chronic bronchitis Status: Acute (2) ESRD (end stage renal disease) on dialysis Status: Acute (3) CHF exacerbation Status: Acute
[2018-10-07] MEDS ORDERED: Pneumococcal 23-Valent Vaccine IM ONE (10:00)
[2018-10-07] MEDS: (Lantus) Insulin Glargine, Recombinant SC SCH (10:02)
--- NOTE | 2018-10-07 10:35 | CT ---
Date of service: 10/07/2018 PROCEDURE: CT Chest without contrast HISTORY: PNEUMONIA COMPARISON: Comparison is made to the previous study dated 09/11/2018 TECHNIQUE: Contiguous axial images were obtained through the chest without intravenous contrast enhancement. Sagittal and coronal reconstructions were performed. Radiation dose: Total exam DLP = 383.59 mGy-cm. This CT exam was performed using one or more of the following dose reduction techniques: Automated exposure control, adjustment of the mA and/or kV according to patient size, and/or use of iterative reconstruction technique. FINDINGS: LUNGS: There are bilateral lower lobe airspace consolidation associated with air bronchogram. The right lower lobe airspace consolidation appears larger compared to the previous exam. The left lower lobe consolidation is significantly larger compared to the previous study. Mild emphysematous changes in the upper lobes are again noted. MEDIASTINUM: Unremarkable thoracic aorta. No aneurysm. The heart is a enlarged. The main pulmonary artery is mildly enlarged. There are mild lymphadenopathy in the mediastinum. Punctate aortic atherosclerotic calcification. PLEURA: There are bilateral small to moderate pleural effusions. BONES: No fracture. No destructive lesion. UPPER ABDOMEN: Grossly unremarkable. OTHER FINDINGS: None. IMPRESSION: Worsening bilateral airspace consolidation at the lower lobes since the previous exam. Bilateral small to moderate size pleural effusions.
[2018-10-07] MEDS: Azithromycin 500 MG in Sodium Chloride 0.9% 250 ML IVPB SCH (11:03)
[2018-10-07] MEDS ORDERED: Influenza Vaccine 60 MCG/0.5 ML SYR (3 yr & up) IM ONE (12:00)
[2018-10-07] MEDS: cefTRIAXone IV 1 gm in Dextros 50 ML IVPB SCH (16:08)
--- NOTE | 2018-10-07 16:27 | PN ---
DATE: 10/07/2018 SUBJECTIVE: The patient's productive cough has improved. He slept well last night. No retrosternal chest pain. PHYSICAL EXAMINATION: VITAL SIGNS: Blood pressure 146/86, heart rate 101, temperature 97.9, and respirations 20. HEENT: Left eye blindness. NECK: No JVD. CHEST: Bibasilar rhonchi. HEART: S1 and S2 regular. EXTREMITIES: No edema. LABORATORY DATA: Today's blood sugars are 365, 393, and [address] scan without contrast showed worsening bilateral airspace consolidation at the lower lobes since previous exam and bilateral [id number] pleural effusion. ASSESSMENT: 1. Bilateral pneumonia. 2. End-stage renal disease, on hemodialysis. 3. Positive recent Myoview stress test. 3. Anemia. PLAN: Continue IV Zithromax 500 mg daily, IV Rocephin 1 g daily, Solu-Medrol 20 mg intravenously every 8 hours, Toprol XL 25 mg once a day, Pletal 50 mg twice a day, heparin 5000 units subcutaneously every 12 hours, and hydralazine 25 mg t.i.d. The patient will be started on aspirin 81 mg daily. Florentin Pascual MD
[2018-10-07] MEDS: Rosuvastatin Calcium 2.5 mg Tab PO SCH (21:57)
[2018-10-07] MEDS: guaiFENesin 100 mg/5 ml Syrup UD PO PRN (21:59)
[2018-10-08] MEDS: Albuterol-Ipratrop 3 mg / 0.5 (3 ml) UD INH SCH ×4 (02:04→19:10)
[2018-10-08] MEDS: MethylPREDNISolone 40 mg Vial IVP SCH ×3 (05:26→21:58)
[2018-10-08 06:56] LABS: HEMOGLOBIN 10.2 g/dL (12.0-18.0); MEAN CELL VOLUME 96.6 fL (80.0-94.0); MEAN CORPUSCULAR HEMOGLOBIN 32.2 pg (27.0-31.0); MEAN CORPUSCULAR HGB CONC 33.3 g/dL (33.0-37.0); MEAN PLATELET VOLUME 8.4 fL (7.2-11.7); RBC 3.16 Mil/uL (4.40-5.90); RED CELL DISTRIBUTION WIDTH 18.8 % (11.5-14.5)
[2018-10-08 07:15] LABS: WHITE BLOOD COUNT 8.9 K/uL (4.8-10.8)
[2018-10-08 07:20] LABS: ALB/GLOB RATIO 1.2 (1.0-2.1); ALBUMIN 3.3 g/dL (3.5-5.0); CALCIUM 7.8 mg/dl (8.6-10.4)
[2018-10-08] MEDS: (Novolin R) Insulin Human Regular 100 units/ml vial SC SCH ×4 (07:30→22:11)
[2018-10-08] MEDS: guaiFENesin 100 mg/5 ml Syrup UD PO PRN (08:04)
[2018-10-08] MEDS: Cilostazol 50 mg Tab UD PO SCH ×2 (09:15→18:40)
--- NOTE | 2018-10-08 10:37 | CP.PCM.PN ---
Subjective - Date & Time of Evaluation Date of Evaluation: 10/08/18 Time of Evaluation: 10:34 - Subjective Subjective: Seen at dialysis To UF 3000ml Feels much better Labs reviewed Remains on steroids- taper as per pulmonary Will continue increased UF rate for CHF treatment Objective - Vital Signs/Intake and Output Vital Signs (last 24 hours): Temp Pulse Resp BP Pulse Ox 97.5 F L 87 16 119/56 L 96 10/08/18 09:30 10/08/18 09:30 10/08/18 09:30 10/08/18 09:45 10/08/18 09:30 Intake and Output: 10/08/18 10/08/18 06:59 18:59 Intake Total 570 Output Total 100 Balance 470 - Medications Medications: Current Medications Albuterol/Ipratropium (Duoneb 3 Mg/0.5 Mg (3 Ml) Ud) 3 ml INH RQ6 [facility] Last Admin: 10/08/18 07:54 Dose: 3 ml Allopurinol (Zyloprim) 100 mg PO BID [facility] Last Admin: 10/08/18 09:15 Dose: Not Given Aspirin (Aspirin Chewable) 81 mg PO DAILY [facility] Last Admin: 10/07/18 12:57 Dose: 81 mg Benzonatate (Tessalon Perles) 100 mg PO TID [facility] Last Admin: 10/08/18 09:15 Dose: Not Given Cilostazol (Pletal) 50 mg PO BID [facility] Last Admin: 10/08/18 09:15 Dose: Not Given Dextrose (Dextrose 50% Inj) 0 ml IV STAT PRN; Protocol PRN Reason: Hypoglycemia Protocol Dextrose (Glutose 15) 0 gm PO ONCE PRN; Protocol PRN Reason: Hypoglycemia Protocol Folic Acid (Folic Acid) 1 mg PO DAILY [facility] Last Admin: 10/07/18 09:52 Dose: 1 mg Gabapentin (Neurontin) 300 mg PO DAILY [facility] Last Admin: 10/07/18 10:01 Dose: 300 mg Glucagon (Glucagen Diagnostic Kit) 0 mg IM STAT PRN; Protocol PRN Reason: Hypoglycemia Protocol Guaifenesin (Robitussin) 100 mg PO Q4H PRN PRN Reason: Cough Last Admin: 10/08/18 08:04 Dose: 100 mg Heparin Sodium (Porcine) (Heparin) 5,000 units SC Q12H [facility] Last Admin: 10/07/18 21:58 Dose: 5,000 units Hydralazine HCl (Apresoline) 25 mg PO TID [facility] Last Admin: 10/08/18 09:15 Dose: Not Given Azithromycin 500 mg/ Sodium (Chloride) 250 mls @ 250 mls/hr IVPB DAILY [facility]; Protocol Last Admin: 10/07/18 11:03 Dose: 250 mls/hr Dextrose (Dextrose 5% In Water 1000 Ml) 1,000 mls @ 0 mls/hr IV .Q0M PRN; Protocol PRN Reason: Hypoglycemia Protocol Ceftriaxone Sodium (Rocephin Iv 1 Gm Duplex) 50 mls @ 100 mls/hr IVPB Q24H [facility]; Protocol Last Admin: 10/07/18 16:08 Dose: 100 mls/hr Insulin Glargine (Lantus) 30 unit SC DAILY [facility] Last Admin: 10/07/18 10:02 Dose: 30 units Insulin Human Regular (Novolin R) 0 unit SC ACHS [facility]; Protocol Last Admin: 10/08/18 07:30 Dose: Not Given Methylprednisolone (Solu-Medrol) 40 mg IVP Q8 [facility] Last Admin: 10/08/18 05:26 Dose: 40 mg Metoprolol Succinate (Toprol Xl) 25 mg PO DAILY [facility] Last Admin: 10/07/18 09:52 Dose: 25 mg Montelukast Sodium (Singulair) 10 mg PO DAILY [facility] Last Admin: 10/07/18 09:52 Dose: 10 mg Rosuvastatin Calcium (Crestor) 5 mg PO HS [facility] Last Admin: 10/07/18 21:57 Dose: 5 mg Sevelamer Carbonate (Renvela) 1,600 mg PO TIDCC [facility] Last Admin: 10/08/18 08:04 Dose: 1,600 mg Sitagliptin Phosphate (Januvia) 25 mg PO DAILY [facility] Last Admin: 10/07/18 09:52 Dose: 25 mg - Labs Labs: 10/08/18 06:43 10/08/18 06:43 PT 11.7 SECONDS (9.7-12.2) 10/05/18 11:41 INR 1.1 10/05/18 11:41 APTT 29 SECONDS (21-34) 10/05/18 11:41 - Constitutional Appears: No Acute Distress, Chronically Ill - Head Exam Head Exam: ATRAUMATIC, NORMAL INSPECTION - Eye Exam Eye Exam: EOMI, Normal appearance - Neck Exam Neck Exam: Normal Inspection. absent: Tenderness - Respiratory Exam Respiratory Exam: Clear to Ausculation Bilateral, NORMAL BREATHING PATTERN - Cardiovascular Exam Cardiovascular Exam: REGULAR RHYTHM, +S1 - GI/Abdominal Exam GI & Abdominal Exam: Soft. absent: Tenderness - Extremities Exam Extremities Exam: Normal Inspection. absent: Tenderness - Neurological Exam Neurological Exam: Awake, CN II-XII Intact - Skin Skin Exam: Dry, Warm Assessment and Plan (1) Chronic congestive heart failure Status: Acute (2) ESRD (end stage renal disease) on dialysis Status: Acute (3) Acute exacerbation of chronic bronchitis Status: Acute (4) CHF exacerbation Status: Acute - Assessment and Plan (Free Text) Plan: Same dialysis Monitor BP Steroid taper, IV ABs as per pulmonary
[2018-10-08] MEDS: Azithromycin 500 MG in Sodium Chloride 0.9% 250 ML IVPB SCH (13:46)
[2018-10-08] MEDS: Metoprolol Succinate 25 mg XL Tab PO SCH (13:47)
[2018-10-08] MEDS: (Lantus) Insulin Glargine, Recombinant SC SCH (13:48)
[2018-10-08] MEDS: cefTRIAXone IV 1 gm in Dextros 50 ML IVPB SCH (16:12)
--- NOTE | 2018-10-08 18:06 | PN ---
DATE: 10/08/2018 SUBJECTIVE: The patient's cough and shortness of breath have improved. PHYSICAL EXAMINATION: VITAL SIGNS: Blood pressure 133/67, heart rate 83, temperature 97.5, and respirations 16. HEENT: Pale conjunctivae, left eye blindness. CHEST: Bibasilar rhonchi. HEART: S1 and S2 regular. EXTREMITIES: No edema. LABORATORY DATA: Hemoglobin and hematocrit 10.1 and 30.5, white count 8.9, and platelet count 288,000. SMA-7: Sodium 139, potassium 4.5, chloride 94, CO2 is 28, glucose 123, BUN 86, and creatinine is 7.6. ASSESSMENT: 1. End-stage renal disease, on hemodialysis. 2. Improving bilateral pneumonia clinically. 3. Positive recent Myoview stress test. 4. Anemia. PLAN: Continue aspirin at 81 mg once a day and Zithromax 500 mg intravenously daily, Crestor at 5 mg once a day, folic acid 1 mg daily, heparin 5000 units subcutaneously every 12 hours, Pletal 50 mg daily, Rocephin 1 g intravenously daily, Solu-Medrol 40 mg intravenously every 8 hours, Toprol-XL 25 mg once a day, and Zyloprim at 100 mg twice a day. Florentin Pascual MD
--- NOTE | 2018-10-08 19:30 | CP.PCM.PN ---
Subjective - Date & Time of Evaluation Date of Evaluation: 10/08/18 Time of Evaluation: 18:00 - Subjective Subjective: patient seen and examined And breathing much improved Afebrile Sitting comfortably Continue nebulizer treatment Taper steroids Stable from pulmonary standpoint Continue hemodialysis Objective - Vital Signs/Intake and Output Vital Signs (last 24 hours): Temp Pulse Resp BP Pulse Ox 97.3 F L 86 20 121/63 95 10/08/18 15:00 10/08/18 18:46 10/08/18 15:00 10/08/18 18:46 10/08/18 15:00 Intake and Output: 10/08/18 10/09/18 18:59 06:59 Intake Total 550 Output Total 50 Balance 500 - Medications Medications: Current Medications Albuterol/Ipratropium (Duoneb 3 Mg/0.5 Mg (3 Ml) Ud) 3 ml INH RQ6 [facility] Last Admin: 10/08/18 14:47 Dose: Not Given Allopurinol (Zyloprim) 100 mg PO BID [facility] Last Admin: 10/08/18 18:33 Dose: 100 mg Aspirin (Aspirin Chewable) 81 mg PO DAILY [facility] Last Admin: 10/08/18 13:47 Dose: 81 mg Benzonatate (Tessalon Perles) 100 mg PO TID [facility] Last Admin: 10/08/18 18:33 Dose: 100 mg Cilostazol (Pletal) 50 mg PO BID [facility] Last Admin: 10/08/18 18:40 Dose: 50 mg Dextrose (Dextrose 50% Inj) 0 ml IV STAT PRN; Protocol PRN Reason: Hypoglycemia Protocol Dextrose (Glutose 15) 0 gm PO ONCE PRN; Protocol PRN Reason: Hypoglycemia Protocol Folic Acid (Folic Acid) 1 mg PO DAILY [facility] Last Admin: 10/08/18 13:46 Dose: 1 mg Gabapentin (Neurontin) 300 mg PO DAILY [facility] Last Admin: 10/08/18 13:46 Dose: 300 mg Glucagon (Glucagen Diagnostic Kit) 0 mg IM STAT PRN; Protocol PRN Reason: Hypoglycemia Protocol Guaifenesin (Robitussin) 100 mg PO Q4H PRN PRN Reason: Cough Last Admin: 10/08/18 08:04 Dose: 100 mg Heparin Sodium (Porcine) (Heparin) 5,000 units SC Q12H [facility] Last Admin: 10/08/18 13:47 Dose: 5,000 units Hydralazine HCl (Apresoline) 25 mg PO TID [facility] Last Admin: 10/08/18 18:33 Dose: 25 mg Azithromycin 500 mg/ Sodium (Chloride) 250 mls @ 250 mls/hr IVPB DAILY [facility]; Protocol Last Admin: 10/08/18 13:46 Dose: 250 mls/hr Dextrose (Dextrose 5% In Water 1000 Ml) 1,000 mls @ 0 mls/hr IV .Q0M PRN; Protocol PRN Reason: Hypoglycemia Protocol Ceftriaxone Sodium (Rocephin Iv 1 Gm Duplex) 50 mls @ 100 mls/hr IVPB Q24H [facility]; Protocol Last Admin: 10/08/18 16:12 Dose: 100 mls/hr Insulin Glargine (Lantus) 30 unit SC DAILY [facility] Last Admin: 10/08/18 13:48 Dose: 30 units Insulin Human Regular (Novolin R) 0 unit SC ACHS [facility]; Protocol Last Admin: 10/08/18 18:39 Dose: 2 units Methylprednisolone (Solu-Medrol) 40 mg IVP Q8 [facility] Last Admin: 10/08/18 13:47 Dose: 40 mg Metoprolol Succinate (Toprol Xl) 25 mg PO DAILY [facility] Last Admin: 10/08/18 13:47 Dose: 25 mg Montelukast Sodium (Singulair) 10 mg PO DAILY [facility] Last Admin: 10/08/18 13:46 Dose: 10 mg Rosuvastatin Calcium (Crestor) 5 mg PO HS [facility] Last Admin: 10/07/18 21:57 Dose: 5 mg Sevelamer Carbonate (Renvela) 1,600 mg PO TIDCC [facility] Last Admin: 10/08/18 18:32 Dose: 1,600 mg Sitagliptin Phosphate (Januvia) 25 mg PO DAILY [facility] Last Admin: 10/08/18 13:46 Dose: 25 mg - Labs Labs: 10/08/18 06:43 10/08/18 06:43 PT 11.7 SECONDS (9.7-12.2) 10/05/18 11:41 INR 1.1 10/05/18 11:41 APTT 29 SECONDS (21-34) 10/05/18 11:41 Assessment and Plan (1) Acute exacerbation of chronic bronchitis Status: Acute (2) ESRD (end stage renal disease) on dialysis Status: Acute (3) CHF exacerbation Status: Acute
[2018-10-08] MEDS: Rosuvastatin Calcium 2.5 mg Tab PO SCH (21:58)
[2018-10-09] MEDS: Albuterol-Ipratrop 3 mg / 0.5 (3 ml) UD INH SCH ×3 (01:30→13:38)
[2018-10-09] MEDS: guaiFENesin 100 mg/5 ml Syrup UD PO PRN (02:16)
[2018-10-09] MEDS: MethylPREDNISolone 40 mg Vial IVP SCH (05:53)
[2018-10-09] MEDS: (Novolin R) Insulin Human Regular 100 units/ml vial SC SCH ×2 (07:44→12:21)
[2018-10-09 08:26] VITALS: PULSE 86
[2018-10-09 08:34] VITALS: BP 130/72; RESP 18; TEMP 97.9; O2SAT 97
[2018-10-09] MEDS: Metoprolol Succinate 25 mg XL Tab PO SCH (09:34)
[2018-10-09] MEDS: (Lantus) Insulin Glargine, Recombinant SC SCH (10:14)
--- NOTE | 2018-10-09 11:02 | CP.PCM.PN ---
Subjective - Date & Time of Evaluation Date of Evaluation: 10/09/18 Time of Evaluation: 11:01 - Subjective Subjective: breathing better no fever no chest pain chronic cough no abdominal pain no vomiting no rash no headache no arthralgias no sinus tenderness Objective - Vital Signs/Intake and Output Vital Signs (last 24 hours): Temp Pulse Resp BP Pulse Ox 97.9 F 86 18 130/72 97 10/09/18 07:00 10/09/18 08:18 10/09/18 07:00 10/09/18 07:00 10/09/18 07:00 Intake and Output: 10/09/18 10/09/18 06:59 18:59 Intake Total 410 Output Total 150 Balance 260 - Medications Medications: Current Medications Albuterol/Ipratropium (Duoneb 3 Mg/0.5 Mg (3 Ml) Ud) 3 ml INH RQ6 [facility] Last Admin: 10/09/18 01:30 Dose: 3 ml Allopurinol (Zyloprim) 100 mg PO BID [facility] Last Admin: 10/09/18 09:34 Dose: 100 mg Aspirin (Aspirin Chewable) 81 mg PO DAILY [facility] Last Admin: 10/09/18 09:33 Dose: 81 mg Benzonatate (Tessalon Perles) 100 mg PO TID [facility] Last Admin: 10/09/18 09:34 Dose: 100 mg Cilostazol (Pletal) 50 mg PO BID [facility] Last Admin: 10/08/18 18:40 Dose: 50 mg Dextrose (Dextrose 50% Inj) 0 ml IV STAT PRN; Protocol PRN Reason: Hypoglycemia Protocol Dextrose (Glutose 15) 0 gm PO ONCE PRN; Protocol PRN Reason: Hypoglycemia Protocol Folic Acid (Folic Acid) 1 mg PO DAILY [facility] Last Admin: 10/09/18 09:36 Dose: 1 mg Gabapentin (Neurontin) 300 mg PO DAILY [facility] Last Admin: 10/09/18 09:36 Dose: 300 mg Glucagon (Glucagen Diagnostic Kit) 0 mg IM STAT PRN; Protocol PRN Reason: Hypoglycemia Protocol Guaifenesin (Robitussin) 100 mg PO Q4H PRN PRN Reason: Cough Last Admin: 10/09/18 02:16 Dose: 100 mg Hydralazine HCl (Apresoline) 25 mg PO TID [facility] Last Admin: 10/09/18 09:33 Dose: 25 mg Azithromycin 500 mg/ Sodium (Chloride) 250 mls @ 250 mls/hr IVPB DAILY [facility]; Protocol Last Admin: 10/08/18 13:46 Dose: 250 mls/hr Ceftriaxone Sodium (Rocephin Iv 1 Gm Duplex) 50 mls @ 100 mls/hr IVPB Q24H [facility]; Protocol Last Admin: 10/08/18 16:12 Dose: 100 mls/hr Insulin Glargine (Lantus) 30 unit SC DAILY [facility] Last Admin: 10/08/18 13:48 Dose: 30 units Insulin Human Regular (Novolin R) 0 unit SC ACHS [facility]; Protocol Last Admin: 10/09/18 07:44 Dose: 2 units Methylprednisolone (Solu-Medrol) 40 mg IVP Q12H [facility] Metoprolol Succinate (Toprol Xl) 25 mg PO DAILY [facility] Last Admin: 10/09/18 09:34 Dose: 25 mg Montelukast Sodium (Singulair) 10 mg PO DAILY [facility] Last Admin: 10/09/18 09:34 Dose: 10 mg Rosuvastatin Calcium (Crestor) 5 mg PO HS [facility] Last Admin: 10/08/18 21:58 Dose: 5 mg Sevelamer Carbonate (Renvela) 1,600 mg PO TIDCC [facility] Last Admin: 10/09/18 09:35 Dose: 1,600 mg Sitagliptin Phosphate (Januvia) 25 mg PO DAILY [facility] Last Admin: 10/09/18 09:36 Dose: 25 mg - Labs Labs: 10/08/18 06:43 10/08/18 06:43 PT 11.7 SECONDS (9.7-12.2) 10/05/18 11:41 INR 1.1 10/05/18 11:41 APTT 29 SECONDS (21-34) 10/05/18 11:41 - Constitutional Appears: Non-toxic, Chronically Ill - Head Exam Head Exam: ATRAUMATIC, NORMAL INSPECTION - Eye Exam Eye Exam: EOMI - ENT Exam ENT Exam: Mucous Membranes Moist - Neck Exam Neck Exam: Full ROM. absent: Lymphadenopathy - Respiratory Exam Respiratory Exam: Rhonchi - Cardiovascular Exam Cardiovascular Exam: REGULAR RHYTHM. absent: Rubs - Neurological Exam Neurological Exam: Alert, Awake, Oriented x3 Assessment and Plan - Assessment and Plan (Free Text) Assessment: continue treatment of bronchitis maint HD
[2018-10-09] MEDS: Cilostazol 50 mg Tab UD PO SCH (12:17)
--- NOTE | 2018-10-09 14:35 | PCM.HF ---
Heart Failure Core Measure - Heart Failure Ejection Fraction: 40 % or Greater XUAN Inhibitor Prescribed: No Contraindication/Reason for not providing: esrd/ ef>45 Beta-Letitia Prescribed: Metoprolol Succinate Angiotensin II Receptor Letitia Prescribed: No Contraindication/Reason for not providing: ESRD/ ef>45 AnticoagulationTherapy for Atrial Fibrillation/Atrialflutter: No Contraindication/Reason for not providing: no hx of a fib Aldosterone Antagonist Prescribed: No Contraindication/Reason for not providing: ef>45 Hydralazine Nitrate Prescribed: Yes Implantable Cardioverter Defibrillator Therapy: No Contraindication/Reason for not providing: ef>45 Cardiac Resynchronization Therapy Prescribed: No Contraindication/Reason for not providing: ef>45 - Follow up Will be discharged to: Home Follow Up Date (must be within 7 days from discharge): 10/12/18
[2018-10-09] MEDS: Azithromycin 500 MG in Sodium Chloride 0.9% 250 ML IVPB SCH (14:39)
--- NOTE | 2018-10-09 16:28 | CP.PCM.PN ---
Subjective - Date & Time of Evaluation Date of Evaluation: 10/09/18 Time of Evaluation: 11:00 - Subjective Subjective: Patient seen today, states feels much better today , denies any chest pain, sob, dizziness, palpitations, headache, abdominal pain, vss and labs reviewed- stable , a febrile oob ambulating the hallway without sob no overnigh t events reported by RN Objective - Vital Signs/Intake and Output Vital Signs (last 24 hours): Temp Pulse Resp BP Pulse Ox 97.9 F 86 18 130/72 97 10/09/18 07:00 10/09/18 08:18 10/09/18 07:00 10/09/18 07:00 10/09/18 07:00 Intake and Output: 10/09/18 10/09/18 06:59 18:59 Intake Total 410 Output Total 150 Balance 260 - Medications Medications: Current Medications Albuterol/Ipratropium (Duoneb 3 Mg/0.5 Mg (3 Ml) Ud) 3 ml INH RQ6 [facility] Last Admin: 10/09/18 13:38 Dose: Not Given Allopurinol (Zyloprim) 100 mg PO BID [facility] Last Admin: 10/09/18 09:34 Dose: 100 mg Aspirin (Aspirin Chewable) 81 mg PO DAILY [facility] Last Admin: 10/09/18 09:33 Dose: 81 mg Benzonatate (Tessalon Perles) 100 mg PO TID [facility] Last Admin: 10/09/18 14:34 Dose: 100 mg Cilostazol (Pletal) 50 mg PO BID [facility] Last Admin: 10/09/18 12:17 Dose: 50 mg Dextrose (Dextrose 50% Inj) 0 ml IV STAT PRN; Protocol PRN Reason: Hypoglycemia Protocol Dextrose (Glutose 15) 0 gm PO ONCE PRN; Protocol PRN Reason: Hypoglycemia Protocol Folic Acid (Folic Acid) 1 mg PO DAILY [facility] Last Admin: 10/09/18 09:36 Dose: 1 mg Gabapentin (Neurontin) 300 mg PO DAILY [facility] Last Admin: 10/09/18 09:36 Dose: 300 mg Glucagon (Glucagen Diagnostic Kit) 0 mg IM STAT PRN; Protocol PRN Reason: Hypoglycemia Protocol Guaifenesin (Robitussin) 100 mg PO Q4H PRN PRN Reason: Cough Last Admin: 10/09/18 02:16 Dose: 100 mg Hydralazine HCl (Apresoline) 25 mg PO TID [facility] Last Admin: 10/09/18 14:34 Dose: 25 mg Azithromycin 500 mg/ Sodium (Chloride) 250 mls @ 250 mls/hr IVPB DAILY [facility]; Protocol Last Admin: 10/09/18 14:39 Dose: Not Given Ceftriaxone Sodium (Rocephin Iv 1 Gm Duplex) 50 mls @ 100 mls/hr IVPB Q24H [facility]; Protocol Last Admin: 10/08/18 16:12 Dose: 100 mls/hr Insulin Glargine (Lantus) 30 unit SC DAILY [facility] Last Admin: 10/09/18 10:14 Dose: 30 units Insulin Human Regular (Novolin R) 0 unit SC ACHS [facility]; Protocol Last Admin: 10/09/18 12:21 Dose: 5 units Methylprednisolone (Solu-Medrol) 40 mg IVP Q12H [facility] Metoprolol Succinate (Toprol Xl) 25 mg PO DAILY [facility] Last Admin: 10/09/18 09:34 Dose: 25 mg Montelukast Sodium (Singulair) 10 mg PO DAILY [facility] Last Admin: 10/09/18 09:34 Dose: 10 mg Rosuvastatin Calcium (Crestor) 5 mg PO HS [facility] Last Admin: 10/08/18 21:58 Dose: 5 mg Sevelamer Carbonate (Renvela) 1,600 mg PO TIDCC [facility] Last Admin: 10/09/18 12:16 Dose: 1,600 mg Sitagliptin Phosphate (Januvia) 25 mg PO DAILY [facility] Last Admin: 10/09/18 09:36 Dose: 25 mg - Labs Labs: 10/08/18 06:43 10/08/18 06:43 PT 11.7 SECONDS (9.7-12.2) 10/05/18 11:41 INR 1.1 10/05/18 11:41 APTT 29 SECONDS (21-34) 10/05/18 11:41 - Constitutional Appears: Well, Non-toxic, No Acute Distress - Respiratory Exam Respiratory Exam: Rhonchi, NORMAL BREATHING PATTERN - Cardiovascular Exam Cardiovascular Exam: REGULAR RHYTHM, +S1 - Neurological Exam Neurological Exam: Alert, Awake, Oriented x3 Assessment and Plan - Assessment and Plan (Free Text) Assessment: A/P 73 y/o male,w/PMhx of HTN, DM, ESRD, on HD admitted with cough and congestion/pneumonia/ acute bronchitis started on steroids and antibiotics and patient clinically improved seen by Dr. Spaulding cleared for discharge from pulmonary stand point seen by Dr. Pascual today D/w Dr. Pascual ( covering for Dr. Nash) cleared for discharge home today and f/u with Dr. Nash and and continue HD as scheduled discharge plan discussed with patient via ladies locker room attendant , who understands and agrees with plan
[2018-10-09] MEDS ORDERED: MethylPREDNISolone 40 mg Vial IVP SCH (18:00)
--- NOTE | 2018-10-09 22:19 | PN ---
DATE: 10/09/2018 FOLLOWUP SUBJECTIVE: The patient is still experiencing productive cough, but he is ambulating with a walking cane. He denies any chest pain or dizziness. PHYSICAL EXAMINATION: VITAL SIGNS: Blood pressure 138/72, heart rate 89, temperature 97.9, respirations 18. HEENT: Pale conjunctivae. CHEST: Minimal basilar rhonchi. HEART: S1 and S2 are regular. EXTREMITIES: No edema. LABORATORY DATA: Today's blood sugars are 207 and 358 respectively. ASSESSMENT: 1. End-stage renal disease, on hemodialysis. 2. Improved pneumonia. 3. Coronary artery disease with positive recent Myoview stress test. 4. Anemia. PLAN: The patient will be discharged on hydralazine 25 mg t.i.d., aspirin 81 mg once a day, Pletal 50 mg twice a day, Toprol-XL 25 mg once a day, Zyloprim 100 mg once a day. The patient will follow up with his engineering documentation specialist as an outpatient for his positive Lexiscan. The patient was offered to have a wheelchair taken to the front door awaiting to [place], but he declined that he wanted to go on his own with walking cane and his . Florentin Pascual MD
== END 2018-10-09 17:15 | disposition home or self-care (01) | DRG 193 ==
LOC: C.ER 10:45 → C.6T 13:11
PROVIDERS: ADMIT Internal Medicine; ATTEND Internal Medicine
PROC: 5A1D70Z Performance of Urinary Filtration, Intermittent, Less than 6 Hours Per Day (ICD-10-PCS; principal; 2018-10-06)
PROC: 5A1D70Z Performance of Urinary Filtration, Intermittent, Less than 6 Hours Per Day (ICD-10-PCS; 2018-10-08)
DX: J18.9 Pneumonia, unspecified organism (principal); N18.6 End stage renal disease; J44.0 Chronic obstructive pulmonary disease with (acute) lower respiratory infection; J44.1 Chronic obstructive pulmonary disease with (acute) exacerbation; I13.2 Hypertensive heart and chronic kidney disease with heart failure and with stage 5 chronic kidney disease, or end stage renal disease; J45.901 Unspecified asthma with (acute) exacerbation; E11.22 Type 2 diabetes mellitus with diabetic chronic kidney disease; E87.5 Hyperkalemia; I50.9 Heart failure, unspecified; D64.9 Anemia, unspecified; I25.10 Atherosclerotic heart disease of native coronary artery without angina pectoris; E11.319 Type 2 diabetes mellitus with unspecified diabetic retinopathy without macular edema; E78.00 Pure hypercholesterolemia, unspecified; Z99.2 Dependence on renal dialysis; Z87.01 Personal history of pneumonia (recurrent); Z87.442 Personal history of urinary calculi

== ENCOUNTER 2018-10-10 12:50 | Emergency (ER) | payer MEDICARE, MEDICAID ==
[2018-10-10 12:51] VITALS: BMI 24.4
[2018-10-10 13:35] VITALS: BP 157/87; PULSE 76; RESP 18; TEMP 98.9; O2SAT 94
--- NOTE | 2018-10-10 13:50 | C.PDOC ---
History Of Present Illness 73 year old male, with PMHx of diabetes on Lantus, ESRD, last hemodialysis was yesterday, presents to ED for evaluation of low blood sugar levels today. As per family, pt took extra Lantus last night after his blood sugar level was found to be high. Family states it was difficult to arouse pt this morning, and blood sugar was found to be 26. Dextrose was given prior to arrival. Pt had prolonged hospital stay, he was discharged yesterday. Upon my assessment, pt is requesting to be discharged immediately. Denies any other associated symptoms at this time. Time Seen by Provider: 10/10/18 13:29 Chief Complaint (Nursing): Altered Mental Status History Per: Patient, Family History/Exam Limitations: None Past Medical History Reviewed: Historical Data, Nursing Documentation, Vital Signs Vital Signs: Last Vital Signs Temp 98.9 F 10/10/18 13:10 Pulse 76 10/10/18 13:10 Resp 18 10/10/18 13:10 BP 157/87 H 10/10/18 13:10 Pulse Ox 94 L 10/10/18 13:10 - Medical History PMH: Anemia, Arthritis, COPD, HTN, Hypercholesterolemia, Kidney Stones, Pneumonia, End Stage Renal Disease, Chronic Kidney Disease - [facility] Procedures (09/10/18) Family History: States: Unknown Family Hx - Social History Hx Alcohol Use: No Hx Substance Use: No - Immunization History Hx Tetanus Toxoid Vaccination: Yes Hx Influenza Vaccination: Yes Hx Pneumococcal Vaccination: Yes Review Of Systems Except As Marked, All Systems Reviewed And Found Negative. Constitutional: Positive for: Other (low blood sugar levels). Negative for: Fever, Chills Cardiovascular: Negative for: Chest Pain, Palpitations, Light Headedness Respiratory: Negative for: Cough, Shortness of Breath Gastrointestinal: Negative for: Nausea, Vomiting, Abdominal Pain Neurological: Negative for: Headache, Dizziness Physical Exam - Physical Exam Appears: Non-toxic, No Acute Distress Skin: Normal Color, Warm, Dry Head: Atraumatic, Normacephalic Eye(s): bilateral: Normal Inspection Oral Mucosa: Moist Neck: Normal ROM, Supple Chest: Symmetrical Cardiovascular: Rhythm Regular, No Murmur Respiratory: Normal Breath Sounds, No Rales, No Rhonchi, No Wheezing Gastrointestinal/Abdominal: Soft, No Tenderness Extremity: Normal ROM, No Pedal Edema, No Deformity Neurological/Psych: Oriented x3, Normal Speech ED Course And Treatment O2 Sat by Pulse Oximetry: 94 Against Medical Advice - AMA Patient Left Against Medical Advice: The patient declines admission to the hospital and wishes to leave the Emergency Department. This action is against my medical advice. This decision was made with informed refusal. The patient was told that admission to the hospital is necessary. Explanation of the reasons why were discussed. The risks of leaving were explained to the patient and include, but are not limited to, worsening of known or currently unknown conditions, permanent disability and from undiagnosed or untreated conditions. The patient has the capacity to make this informed decision and understands my explanation of the current medical problem and risks of leaving. The patient voluntarily accepts these risks and signed an AMA form documenting our conversation. The patient was given the opportunity to ask questions and reconsider. The patient was encouraged to return to the Emergency Department at any time for further care. Medical Decision Making Medical Decision Making: Pt is requesting to be discharged home, declines any further work up. I explained to patient and family members multiple times the possibility of reoccurring hypoglycemia. However, pt declines to be admitted for further evaluation. I advised to check blood sugar repeatedly after being discharged from here and to increase food intake. Instructed to return to ER for worsening symptoms. pt signs ama. Disposition - Disposition Disposition: AGAINST MEDICAL ADVICE Disposition Time: 13:50 Condition: UNKNOWN Additional Instructions: please return to er with worsening. Instructions: Low Blood Sugar, Adult (DC), Leaving Against Medical Advice Forms: [email or web address] (Azeri) Print Language: MACANESE - Clinical Impression Clinical Impression: Left against medical advice, Hypoglycemia - Scribe Statement The provider has reviewed the documentation as recorded by the Scribe KP All medical record entries made by the Scribe were at my direction and personally dictated by me. I have reviewed the chart and agree that the record accurately reflects my personal performance of the history, physical exam, medical decision making, and the department course for this patient. I have also personally directed, reviewed, and agree with the discharge instructions and disposition.
== END 2018-10-10 14:15 | disposition left against medical advice (07) ==
LOC: C.ER 12:50
DX: E11.649 Type 2 diabetes mellitus with hypoglycemia without coma (principal); E78.00 Pure hypercholesterolemia, unspecified; I12.0 Hypertensive chronic kidney disease with stage 5 chronic kidney disease or end stage renal disease; N18.6 End stage renal disease; Z79.4 Long term (current) use of insulin; Z99.2 Dependence on renal dialysis

== ENCOUNTER 2018-12-20 03:01 | Inpatient (IN) | payer MEDICARE, MEDICAID ==
[2018-12-20 03:01] VITALS: BMI 24.4
[2018-12-20] MEDS ORDERED: Albuterol-Ipratrop 3 mg / 0.5 (3 ml) UD ONE (03:23)
[2018-12-20 03:56] LABS: BASO # 0.1 K/uL (0.0-0.2); BASO % 1.4 % (0.0-2.0); EOS # 0.4 K/uL (0.0-0.7); EOS % 4.2 % (0.0-4.0); LYMPH # 2.6 K/uL (1.0-4.3); LYMPH % 29.6 % (20.0-40.0); MEAN CORPUSCULAR HEMOGLOBIN 30.6 pg (27.0-31.0); MEAN PLATELET VOLUME 9.1 fL (7.2-11.7); MONO # 0.5 K/uL (0.0-0.8); MONO % 5.2 % (0.0-10.0); NEUT # 5.3 K/uL (1.8-7.0); NEUT % 59.6 % (50.0-75.0); RBC 4.65 Mil/uL (4.40-5.90)
[2018-12-20 04:02] LABS: HEMOGLOBIN 14.2 g/dL (12.0-18.0); MEAN CELL VOLUME 92.8 fL (80.0-94.0)
[2018-12-20 04:16] LABS: ABG ALLEN TEST YES; ARTERIAL BLOOD GAS HCO3 23.5 mmol/L (21-28); ARTERIAL BLOOD GAS O2 SAT 99.7 % (95-98); ARTERIAL BLOOD GAS PCO2 84 mm/Hg (35-45); ARTERIAL BLOOD GAS PH 7.15 (7.35-7.45); ARTERIAL BLOOD GAS PO2 263 mm/Hg (80-100); ARTERIAL BLOOD GAS TCO2 31.9 mmol/L (22-28)
[2018-12-20 04:25] LABS: TROPONIN I 0.08 ng/mL (0.00-0.120)
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
[2018-12-20 05:01] LABS: ALB/GLOB RATIO 1.4 (1.0-2.1); CALCIUM 9.4 mg/dl (8.6-10.4)
[2018-12-20 06:20] LABS: ABG ALLEN TEST YES; ARTERIAL BLOOD GAS HCO3 22.3 mmol/L (21-28); ARTERIAL BLOOD GAS O2 SAT 94.8 % (95-98); ARTERIAL BLOOD GAS PCO2 57 mm/Hg (35-45); ARTERIAL BLOOD GAS PH 7.25 (7.35-7.45); ARTERIAL BLOOD GAS PO2 72 mm/Hg (80-100); ARTERIAL BLOOD GAS TCO2 26.7 mmol/L (22-28)
--- NOTE | 2018-12-20 06:21 | C.PDOC ---
History Of Present Illness 73 year old male with PMHx of CHF, COPD, and ESRD is brought to the ED by EMS for evaluation of SOB for the past couple of hours [employer]. Patient is a Thursday, Thursday, Thursday dialysis patient, due for dialysis today and his last one was on Thursday. Patient denies fever, chills, headache, CP, nausea, vomit, weakness, numbness, recent travel, sick contacts. Chief Complaint (Nursing): Shortness Of Breath History Per: Patient, EMS, Family History/Exam Limitations: no limitations Onset/Duration Of Symptoms: Hrs Current Symptoms Are (Timing): Still Present Initiating Event: Upper Respiratory Illness Quality: Tightness Current Respiratory Medications: See Home Med List Recent travel outside of the [place]: No Additional History Per: Patient, Family Past Medical History Reviewed: Historical Data, Nursing Documentation, Vital Signs Vital Signs: Last Vital Signs Temp 96.5 F L 12/20/18 04:00 Pulse 93 H 12/20/18 05:25 Resp 14 12/20/18 05:43 BP 123/80 12/20/18 05:25 Pulse Ox 98 12/20/18 05:43 - Medical History PMH: Anemia, Arthritis, COPD, HTN, Hypercholesterolemia, Kidney Stones, Pneumonia, End Stage Renal Disease, Chronic Kidney Disease Surgical History: No Surg Hx - [facility] Procedures (10/05/18) Family History: States: Unknown Family Hx - Social History Hx Alcohol Use: No Hx Substance Use: No - Immunization History Hx Tetanus Toxoid Vaccination: Yes Hx Influenza Vaccination: Yes Hx Pneumococcal Vaccination: Yes Review Of Systems Constitutional: Negative for: Fever, Chills Cardiovascular: Negative for: Chest Pain, Palpitations Respiratory: Positive for: Cough, Shortness of Breath, Wheezing Gastrointestinal: Negative for: Nausea, Vomiting, Abdominal Pain Skin: Negative for: Rash Neurological: Negative for: Weakness, Numbness, Headache, Dizziness Physical Exam - Physical Exam Appears: Non-toxic, In Acute Distress (moderate ) Skin: Normal Color, Warm, Diaphoretic (upon arrival) Head: Atraumatic, Normacephalic Eye(s): bilateral: Normal Inspection Neck: Normal ROM, Supple Chest: Symmetrical Cardiovascular: Rhythm Regular Respiratory: Decreased Breath Sounds (bilaterally at the bases), Rales, No Rhonchi, No Wheezing Gastrointestinal/Abdominal: Soft, No Tenderness, No Guarding, No Rebound Male Genital: Other (suprapubic tube in place) Extremity: Normal ROM, Pedal Edema (trace bilaterally), Capillary Refill (< 2 seconds), Other (AV graft left upper extremity) Pulses: Left Dorsalis Pedis: Normal, Right Dorsalis Pedis: Normal Neurological/Psych: Oriented x3, Normal Speech, Normal Cognition Gait: Unable To Assess ED Course And Treatment - Laboratory Results Result Diagrams: 12/20/18 03:48 12/20/18 03:48 Lab Results: Puncture Site Rr 12/20/18 05:50 pCO2 57 mm/Hg (35-45) H 12/20/18 05:50 pO2 72 mm/Hg (80-100) L 12/20/18 05:50 HCO3 22.3 mmol/L (21-28) 12/20/18 05:50 ABG pH 7.25 (7.35-7.45) L 12/20/18 05:50 ABG Total CO2 26.7 mmol/L (22-28) 12/20/18 05:50 ABG O2 Saturation 94.8 % (95-98) L 12/20/18 05:50 ABG Base Excess -3.1 mmol/L (-2.0-3.0) L 12/20/18 05:50 Kun Test Yes 12/20/18 05:50 ABG Potassium 4.4 mmol/L (3.6-5.2) 12/20/18 05:50 A-a O2 Difference 106.0 mm/Hg 12/20/18 05:50 Respiratory Index 1.5 12/20/18 05:50 Sodium 139.0 mmol/l (132-148) 12/20/18 05:50 Chloride 102.0 mmol/L (98-107) 12/20/18 05:50 Glucose 269 mg/dl (75-110) H 12/20/18 05:50 Lactate 1.3 mmol/L (0.7-2.1) 12/20/18 05:50 FiO2 35.0 % 12/20/18 05:50 Crit Value Called To Tracey rn 12/20/18 03:54 Crit Value Called By Asad rt 12/20/18 03:54 Crit Value Read Back Y 12/20/18 03:54 Blood Gas Notified Time 415 12/20/18 03:54 Troponin I 0.0800 ng/mL (0.00-0.120) 12/20/18 03:48 NT-Pro-B Natriuret Pep 81226 pg/mL (0-900) H 12/20/18 03:48 Total Bilirubin 0.7 mg/dL (0.2-1.3) 12/20/18 03:48 AST 41 U/L (17-59) 12/20/18 03:48 ALT 41 U/L (21-72) 12/20/18 03:48 Alkaline Phosphatase 158 U/L (38-126) H D 12/20/18 03:48 Total Protein 8.5 g/dL (6.3-8.3) H 12/20/18 03:48 Albumin 5.0 g/dL (3.5-5.0) D 12/20/18 03:48 Globulin 3.5 gm/dL (2.2-3.9) 12/20/18 03:48 Albumin/Globulin Ratio 1.4 (1.0-2.1) 12/20/18 03:48 ECG: Interpreted By Me, Viewed By Me ECG Rhythm: Sinus Rhythm Interpretation Of ECG: Left atrial enlargement, left axis deviation Rate From EC (BPM) O2 Sat by Pulse Oximetry: 98 (ON BIPAP) Pulse Ox Interpretation: Normal Critical Care Time - Critical Care Note Total Time (in mins): 90 Documented critical care: time excludes all time spent performing seperately billable procedures. Medical Decision Making Medical Decision Making: Plan: * ABG * EKG * Labs * CXR * Blood culture * Influenza A B Patient was placed on BIPAP, ICU supervisor irrigation came down and evaluated the patient at beside does not think patient requires ICU admission at this time. Hospitalist supervisor irrigation pages, reviewed the case and patient is accepted for admission under the Hospitalist service. Patient remains on BIPAP Disposition - Disposition Disposition Time: 05:00 Condition: FAIR - Clinical Impression Clinical Impression: CHF exacerbation, ESRD (end stage renal disease) on dialysis, Respiratory distress - Scribe Statement The provider has reviewed the documentation as recorded by the Scribe Beau Adhikari All medical record entries made by the Scribe were at my direction and personally dictated by me. I have reviewed the chart and agree that the record accurately reflects my personal performance of the history, physical exam, medical decision making, and the department course for this patient. I have also personally directed, reviewed, and agree with the discharge instructions and disposition.
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
[2018-12-20] MEDS ORDERED: Dextrose 50% SYRINGE Inj (50 ml) IV PRN (06:55)
[2018-12-20] MEDS ORDERED: Glucagon Recombinant 1 mg Inj IM PRN (06:55)
--- NOTE | 2018-12-20 08:14 | CP.CCUPN ---
CCU Subjective - Physician Review Events Since Last Encounter (Free Text): 12/20/18 08:13 Patient is still using the BiPAP at this time. But he is much comfortable. He is not in any distress at this time. Patient is a end-stage renal disease patient. He needs to get the dialysis today. We will continue the BiPAP at this time. Patient will be closely monitored in the intensive care unit. Glucose control. And DVT and GI prophylaxis. We will continue to monitor in the ICU CCU Objective - Vital Signs / Intake & Output Vital Signs (Last 4 hours): Vital Signs Temp Pulse Resp BP Pulse Ox 12/20/18 07:22 86 15 128/58 L 93 L 12/20/18 06:55 98 12/20/18 06:42 97.9 F 79 14 124/59 L 97 12/20/18 05:43 14 98 12/20/18 05:25 93 H 14 123/80 98 12/20/18 04:50 26 H 100 Intake and Output (Last 8hrs): Intake & Output 12/19/18 12/20/18 12/20/18 22:59 06:59 14:59 Weight 150 lb - Medications Active Medications: Active Medications Generic Name Dose Route Start Last Admin Trade Name Freq PRN Reason Stop Dose Admin Albuterol/Ipratropium 3 ml 12/20/18 05:56 Duoneb 3 Mg/0.5 Mg (3 Ml) Ud INH RQ2 PRN Shortness of Breath Allopurinol 100 mg 12/20/18 10:00 Zyloprim PO BID [facility] Aspirin 81 mg 12/20/18 10:00 Aspirin Chewable PO DAILY [facility] Benzonatate 100 mg 12/20/18 10:00 Tessalon Perles PO TID [facility] Cilostazol 50 mg 12/20/18 10:00 Pletal PO BID [facility] Dextrose 0 gm 12/20/18 06:55 Glutose 15 PO ONCE PRN Hypoglycemia Protocol Protocol Dextrose 0 ml 12/20/18 06:55 Dextrose 50% Inj IV STAT PRN Hypoglycemia Protocol Protocol Folic Acid 1 mg 12/20/18 10:00 Folic Acid PO DAILY [facility] Gabapentin 300 mg 12/20/18 10:00 Neurontin PO DAILY [facility] Glucagon 0 mg 12/20/18 06:55 Glucagen Diagnostic Kit IM STAT PRN Hypoglycemia Protocol Protocol Heparin Sodium (Porcine) 5,000 units 12/20/18 14:00 Heparin SC Q8 [facility] Hydralazine HCl 25 mg 12/20/18 10:00 Apresoline PO TID [facility] Dextrose 1,000 mls @ 0 mls/hr 12/20/18 06:55 Dextrose 5% In Water 1000 Ml IV .Q0M PRN Hypoglycemia Protocol Protocol Per Protocol Insulin Glargine 30 unit 12/20/18 10:00 Lantus SC DAILY [facility] Insulin Human Regular 0 unit 12/20/18 07:30 Novolin R SC ACHS [facility] Protocol Metoprolol Succinate 25 mg 12/20/18 10:00 Toprol Xl PO DAILY [facility] Montelukast Sodium 10 mg 12/20/18 10:00 Singulair PO DAILY [facility] Pantoprazole Sodium 40 mg 12/20/18 10:00 Protonix Inj IVP DAILY [facility] Rosuvastatin Calcium 5 mg 12/20/18 22:00 Crestor PO HS [facility] Sevelamer Carbonate 1,600 mg 12/20/18 08:00 Renvela PO TIDCC [facility] - Patient Studies Lab Studies: Lab Studies 12/20/18 12/20/18 12/20/18 Range/Units 07:35 05:50 04:29 WBC (4.8-10.8) K/uL RBC (4.40-5.90) Mil/uL Hgb (12.0-18.0) g/dL Hct (35.0-51.0) % MCV (80.0-94.0) fL MCH (27.0-31.0) pg MCHC (33.0-37.0) g/dL RDW (11.5-14.5) % Plt Count (130-400) K/uL MPV (7.2-11.7) fL Neut % (Auto) (50.0-75.0) % Lymph % (Auto) (20.0-40.0) % [place] % (Auto) (0.0-10.0) % Eos % (Auto) (0.0-4.0) % Baso % (Auto) (0.0-2.0) % Neut # (Auto) (1.8-7.0) K/uL Lymph # (Auto) (1.0-4.3) K/uL [place] # (Auto) (0.0-0.8) K/uL Eos # (Auto) (0.0-0.7) K/uL Baso # (Auto) (0.0-0.2) K/uL Puncture Site Rr pCO2 57 H (35-45) mm/Hg pO2 72 L (80-100) mm/Hg HCO3 22.3 (21-28) mmol/L ABG pH 7.25 L (7.35-7.45) ABG Total CO2 26.7 (22-28) mmol/L ABG O2 Saturation 94.8 L (95-98) % ABG Base Excess -3.1 L (-2.0-3.0) mmol/L Kun Test Yes ABG Potassium 4.4 (3.6-5.2) mmol/L A-a O2 Difference 106.0 mm/Hg Respiratory Index 1.5 Glucose 269 H (75-110) mg/dl Lactate 1.3 (0.7-2.1) mmol/L FiO2 35.0 % Crit Value Called To Crit Value Called By Crit Value Read Back Blood Gas Notified Time Sodium 139.0 (132-148) mmol/L Potassium (3.6-5.2) mmol/L Chloride 102.0 (98-107) mmol/L Carbon Dioxide (22-30) mmol/L Anion Gap (10-20) BUN (9-20) mg/dL Creatinine (0.8-1.5) mg/dL Est GFR ( Amer) Est GFR (Non-Af Amer) POC Glucose (mg/dL) 304 H (65-110) mg/dL Random Glucose (75-110) mg/dL Lactic Acid 1.1 (0.7-2.1) mmol/L Calcium (8.6-10.4) mg/dl Total Bilirubin (0.2-1.3) mg/dL AST (17-59) U/L ALT (21-72) U/L Alkaline Phosphatase (38-126) U/L Troponin I (0.00-0.120) ng/mL NT-Pro-B Natriuret Pep (0-900) pg/mL Total Protein (6.3-8.3) g/dL Albumin (3.5-5.0) g/dL Globulin (2.2-3.9) gm/dL Albumin/Globulin Ratio (1.0-2.1) Arterial Blood Potassium 4.4 (3.6-5.2) mmol/L Influenza Typ A,B (EIA) (NEGATIVE) 12/20/18 12/20/18 12/20/18 Range/Units 03:54 03:48 03:48 WBC 9.0 (4.8-10.8) K/uL RBC 4.65 (4.40-5.90) Mil/uL Hgb 14.2 D (12.0-18.0) g/dL Hct 43.2 (35.0-51.0) % MCV 92.8 D (80.0-94.0) fL MCH 30.6 (27.0-31.0) pg MCHC 33.0 (33.0-37.0) g/dL RDW 16.0 H (11.5-14.5) % Plt Count 159 D (130-400) K/uL MPV 9.1 (7.2-11.7) fL Neut % (Auto) 59.6 (50.0-75.0) % Lymph % (Auto) 29.6 (20.0-40.0) % [place] % (Auto) 5.2 (0.0-10.0) % Eos % (Auto) 4.2 H (0.0-4.0) % Baso % (Auto) 1.4 (0.0-2.0) % Neut # (Auto) 5.3 (1.8-7.0) K/uL Lymph # (Auto) 2.6 (1.0-4.3) K/uL [place] # (Auto) 0.5 (0.0-0.8) K/uL Eos # (Auto) 0.4 (0.0-0.7) K/uL Baso # (Auto) 0.1 (0.0-0.2) K/uL Puncture Site Rr pCO2 84 H* (35-45) mm/Hg pO2 263 H (80-100) mm/Hg HCO3 23.5 (21-28) mmol/L ABG pH 7.15 L* (7.35-7.45) ABG Total CO2 31.9 H (22-28) mmol/L ABG O2 Saturation 99.7 H (95-98) % ABG Base Excess -1.9 (-2.0-3.0) mmol/L Kun Test Yes ABG Potassium 4.7 (3.6-5.2) mmol/L A-a O2 Difference 345.0 mm/Hg Respiratory Index 1.3 Glucose 242 H (75-110) mg/dl Lactate 0.7 (0.7-2.1) mmol/L FiO2 100.0 % Crit Value Called To Tracey rn Crit Value Called By Asad rt Crit Value Read Back Y Blood Gas Notified Time 415 Sodium 139.0 144 (132-148) mmol/L Potassium 4.8 (3.6-5.2) mmol/L Chloride 103.0 96 L (98-107) mmol/L Carbon Dioxide 31 H (22-30) mmol/L Anion Gap 21 H (10-20) BUN 96 H (9-20) mg/dL Creatinine 9.5 H* D (0.8-1.5) mg/dL Est GFR ( Amer) 7 Est GFR (Non-Af Amer) 5 POC Glucose (mg/dL) (65-110) mg/dL Random Glucose 199 H D (75-110) mg/dL Lactic Acid (0.7-2.1) mmol/L Calcium 9.4 (8.6-10.4) mg/dl Total Bilirubin 0.7 (0.2-1.3) mg/dL AST 41 (17-59) U/L ALT 41 (21-72) U/L Alkaline Phosphatase 158 H D (38-126) U/L Troponin I 0.0800 (0.00-0.120) ng/mL NT-Pro-B Natriuret Pep 02673 H (0-900) pg/mL Total Protein 8.5 H (6.3-8.3) g/dL Albumin 5.0 D (3.5-5.0) g/dL Globulin 3.5 (2.2-3.9) gm/dL Albumin/Globulin Ratio 1.4 (1.0-2.1) Arterial Blood Potassium 4.7 (3.6-5.2) mmol/L Influenza Typ A,B (EIA) (NEGATIVE) 12/20/18 Range/Units 03:00 WBC (4.8-10.8) K/uL RBC (4.40-5.90) Mil/uL Hgb (12.0-18.0) g/dL Hct (35.0-51.0) % MCV (80.0-94.0) fL MCH (27.0-31.0) pg MCHC (33.0-37.0) g/dL RDW (11.5-14.5) % Plt Count (130-400) K/uL MPV (7.2-11.7) fL Neut % (Auto) (50.0-75.0) % Lymph % (Auto) (20.0-40.0) % [place] % (Auto) (0.0-10.0) % Eos % (Auto) (0.0-4.0) % Baso % (Auto) (0.0-2.0) % Neut # (Auto) (1.8-7.0) K/uL Lymph # (Auto) (1.0-4.3) K/uL [place] # (Auto) (0.0-0.8) K/uL Eos # (Auto) (0.0-0.7) K/uL Baso # (Auto) (0.0-0.2) K/uL Puncture Site pCO2 (35-45) mm/Hg pO2 (80-100) mm/Hg HCO3 (21-28) mmol/L ABG pH (7.35-7.45) ABG Total CO2 (22-28) mmol/L ABG O2 Saturation (95-98) % ABG Base Excess (-2.0-3.0) mmol/L Kun Test ABG Potassium (3.6-5.2) mmol/L A-a O2 Difference mm/Hg Respiratory Index Glucose (75-110) mg/dl Lactate (0.7-2.1) mmol/L FiO2 % Crit Value Called To Crit Value Called By Crit Value Read Back Blood Gas Notified Time Sodium (132-148) mmol/L Potassium (3.6-5.2) mmol/L Chloride (98-107) mmol/L Carbon Dioxide (22-30) mmol/L Anion Gap (10-20) BUN (9-20) mg/dL Creatinine (0.8-1.5) mg/dL Est GFR ( Amer) Est GFR (Non-Af Amer) POC Glucose (mg/dL) (65-110) mg/dL Random Glucose (75-110) mg/dL Lactic Acid (0.7-2.1) mmol/L Calcium (8.6-10.4) mg/dl Total Bilirubin (0.2-1.3) mg/dL AST (17-59) U/L ALT (21-72) U/L Alkaline Phosphatase (38-126) U/L Troponin I (0.00-0.120) ng/mL NT-Pro-B Natriuret Pep (0-900) pg/mL Total Protein (6.3-8.3) g/dL Albumin (3.5-5.0) g/dL Globulin (2.2-3.9) gm/dL Albumin/Globulin Ratio (1.0-2.1) Arterial Blood Potassium (3.6-5.2) mmol/L Influenza Typ A,B (EIA) Negative for flu a/b (NEGATIVE) Laboratory Results - last 24 hr 12/20/18 12/20/18 12/20/18 03:00 03:48 03:48 WBC 9.0 RBC 4.65 Hgb 14.2 D Hct 43.2 MCV 92.8 D MCH 30.6 MCHC 33.0 RDW 16.0 H Plt Count 159 D MPV 9.1 Neut % (Auto) 59.6 Lymph % (Auto) 29.6 [place] % (Auto) 5.2 Eos % (Auto) 4.2 H Baso % (Auto) 1.4 Neut # (Auto) 5.3 Lymph # (Auto) 2.6 [place] # (Auto) 0.5 Eos # (Auto) 0.4 Baso # (Auto) 0.1 Puncture Site pCO2 pO2 HCO3 ABG pH ABG Total CO2 ABG O2 Saturation ABG Base Excess Kun Test ABG Potassium A-a O2 Difference Respiratory Index Glucose Lactate FiO2 Crit Value Called To Crit Value Called By Crit Value Read Back Blood Gas Notified Time Sodium 144 Potassium 4.8 Chloride 96 L Carbon Dioxide 31 H Anion Gap 21 H BUN 96 H Creatinine 9.5 H* D Est GFR ( Amer) 7 Est GFR (Non-Af Amer) 5 POC Glucose (mg/dL) Random Glucose 199 H D Lactic Acid Calcium 9.4 Total Bilirubin 0.7 AST 41 ALT 41 Alkaline Phosphatase 158 H D Troponin I 0.0800 NT-Pro-B Natriuret Pep 09671 H Total Protein 8.5 H Albumin 5.0 D Globulin 3.5 Albumin/Globulin Ratio 1.4 Arterial Blood Potassium Influenza Typ A,B (EIA) Negative for flu a/b 12/20/18 12/20/18 12/20/18 03:54 04:29 05:50 WBC RBC Hgb Hct MCV MCH MCHC RDW Plt Count MPV Neut % (Auto) Lymph % (Auto) [place] % (Auto) Eos % (Auto) Baso % (Auto) Neut # (Auto) Lymph # (Auto) [place] # (Auto) Eos # (Auto) Baso # (Auto) Puncture Site Rr Rr pCO2 84 H* 57 H pO2 263 H 72 L HCO3 23.5 22.3 ABG pH 7.15 L* 7.25 L ABG Total CO2 31.9 H 26.7 ABG O2 Saturation 99.7 H 94.8 L ABG Base Excess -1.9 -3.1 L Kun Test Yes Yes ABG Potassium 4.7 4.4 A-a O2 Difference 345.0 106.0 Respiratory Index 1.3 1.5 Glucose 242 H 269 H Lactate 0.7 1.3 FiO2 100.0 35.0 Crit Value Called To Tracey rehman Crit Value Called By Asad rt Crit Value Read Back Y Blood Gas Notified Time 415 Sodium 139.0 139.0 Potassium Chloride 103.0 102.0 Carbon Dioxide Anion Gap BUN Creatinine Est GFR ( Amer) Est GFR (Non-Af Amer) POC Glucose (mg/dL) Random Glucose Lactic Acid 1.1 Calcium Total Bilirubin AST ALT Alkaline Phosphatase Troponin I NT-Pro-B Natriuret Pep Total Protein Albumin Globulin Albumin/Globulin Ratio Arterial Blood Potassium 4.7 4.4 Influenza Typ A,B (EIA) 12/20/18 07:35 WBC RBC Hgb Hct MCV MCH MCHC RDW Plt Count MPV Neut % (Auto) Lymph % (Auto) [place] % (Auto) Eos % (Auto) Baso % (Auto) Neut # (Auto) Lymph # (Auto) [place] # (Auto) Eos # (Auto) Baso # (Auto) Puncture Site pCO2 pO2 HCO3 ABG pH ABG Total CO2 ABG O2 Saturation ABG Base Excess Kun Test ABG Potassium A-a O2 Difference Respiratory Index Glucose Lactate FiO2 Crit Value Called To Crit Value Called By Crit Value Read Back Blood Gas Notified Time Sodium Potassium Chloride Carbon Dioxide Anion Gap BUN Creatinine Est GFR ( Amer) Est GFR (Non-Af Amer) POC Glucose (mg/dL) 304 H Random Glucose Lactic Acid Calcium Total Bilirubin AST ALT Alkaline Phosphatase Troponin I NT-Pro-B Natriuret Pep Total Protein Albumin Globulin Albumin/Globulin Ratio Arterial Blood Potassium Influenza Typ A,B (EIA) EKG/Cardiology Studies: Cardiology / EKG Studies 12/20/18 03:31 ELECTROCARDIOGRAM Stat Comment: Mode Of Transportation: BED Reason For Exam: chest pain 12/20/18 09:00 EKG [ELECTROCARDIOGRAM] Q6H Comment: Mode Of Transportation: Reason For Exam: f/u 12/20/18 15:00 EKG [ELECTROCARDIOGRAM] Q6H Comment: Mode Of Transportation: Reason For Exam: f/u Fingerstick Blood Sugar Results: 308
[2018-12-20] MEDS: (Novolin R) Insulin Human Regular 100 units/ml vial SC SCH ×4 (08:35→21:37)
[2018-12-20] MEDS ORDERED: (Novolin R) Insulin Human Regular 100 units/ml vial ONE (08:36)
--- NOTE | 2018-12-20 09:30 | RAD ---
Chest x-ray single frontal view HISTORY: Congestive heart failure. COMPARISON: 10/05/2018 Findings: Moderate venous congestion with bibasilar airspace opacities and bilateral pleural effusions. Bilateral hilar prominence. Biapical pleural thickening with upper lobe granulomatous changes. Diffuse increased interstitial lung markings. Patchy consolidative opacity in the right midlung zone laterally. Enlarged ectatic aorta. Cardiomegaly. Degenerative changes in the spine and shoulders. Impression: Moderate venous congestion with bibasilar airspace opacities and bilateral pleural effusions. Bilateral hilar prominence. Biapical pleural thickening with upper lobe granulomatous changes. Diffuse increased interstitial lung markings. Patchy consolidative opacity in the right midlung zone laterally. Enlarged ectatic aorta. Cardiomegaly.
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
[2018-12-20] MEDS: Metoprolol Succinate 25 mg XL Tab PO SCH (09:48)
[2018-12-20] MEDS: Azithromycin 500 MG in Sodium Chloride 0.9% 250 ML IVPB SCH (09:59)
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
[2018-12-20] MEDS ORDERED: Iodixanol 320 MG/ML 100 ML BOTTLE IV ONE (11:24)
[2018-12-20 11:33] LABS: CK-MB 5.94 ng/mL (0.0-3.38); TROPONIN I 0.202 ng/mL (0.00-0.120)
[2018-12-20] MEDS: (Lantus) Insulin Glargine, Recombinant SC SCH (13:02)
--- NOTE | 2018-12-20 13:12 | CT ---
Date of service: 12/20/2018 CTA chest PE protocol Indication: r/o PE Technique: Contiguous axial images were obtained through the chest with intravenous contrast enhancement. Sagittal and coronal reconstructions were generated and reviewed. This CT exam was performed using 1 or more of the following dose reduction techniques: Automated exposure control, adjustment of the MAA and/or kV according to patient size, and/or use of iterative reconstruction technique. IV contrast: 100 mL Visipaque 320 IV Radiation dose (DLP): 588.35 MGy-cm. Comparison: Chest x-ray performed 12/20/18, CT chest without IV contrast performed 10/07/18 Findings: Visualized portions of the inferior thyroid gland appear unremarkable. The mediastinal and hilar vascular structures appear within normal limits. Cardiomegaly. Prevascular/mediastinal adenopathy. No large central or segmental pulmonary embolus evident. Moderate bilateral pleural effusions with possible loculated components. Associated bilateral dependent consolidations. No pneumothorax. Small hiatal hernia/thick walled distal esophagus. Limited visualized portions of the upper abdomen appear: Partially imaged 4.6 x 2.8 cm and 1.1 x 1.8 cm left renal hypodense lesions measuring approximately 25-27 HU, indeterminate. Cholelithiasis. Pericholecystic edema/wall thickening. Bilateral adrenal gland hypertrophy. Osseous demineralization. Kyphosis. Multilevel degenerative changes. Impression: Large central or segmental pulmonary embolus identified. Moderate bilateral pleural effusions with small loculated components. Associated bilateral dependent consolidations. Cardiomegaly. Prominent subcentimeter prevascular/mediastinal adenopathy, nonspecific. Small hiatal hernia/thick-walled distal esophagus. Limited visualized portions of the upper abdomen appear: Partially imaged 4.6 x 2.8 cm and 1.1 x 1.8 cm left renal hypodense lesions measuring approximately 25-27 HU, indeterminate. Cholelithiasis. Pericholecystic edema/wall thickening. Bilateral adrenal gland hypertrophy.
[2018-12-20] MEDS: Cilostazol 50 mg Tab UD PO SCH ×2 (13:35→18:14)
[2018-12-20] MEDS: Albuterol-Ipratrop 3 mg / 0.5 (3 ml) UD INH PRN (14:12)
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
[2018-12-20 20:11] LABS: CK-MB 7.23 ng/mL (0.0-3.38); TROPONIN I 0.281 ng/mL (0.00-0.120)
[2018-12-20 20:30] LABS: BASO % 0.3 % (0.0-2.0); HEMOGLOBIN 12.3 g/dL (12.0-18.0); LYMPH # 0.4 K/uL (1.0-4.3); LYMPH % 5.2 % (20.0-40.0); MEAN CELL VOLUME 91.7 fL (80.0-94.0); MEAN CORPUSCULAR HEMOGLOBIN 29.7 pg (27.0-31.0); MEAN CORPUSCULAR HGB CONC 32.4 g/dL (33.0-37.0); MEAN PLATELET VOLUME 9.2 fL (7.2-11.7); MONO # 0.1 K/uL (0.0-0.8); MONO % 1.2 % (0.0-10.0); NEUT # 7.8 K/uL (1.8-7.0); NEUT % 93.3 % (50.0-75.0); PLATELET COUNT 138 K/uL (130-400); RBC 4.13 Mil/uL (4.40-5.90); RED CELL DISTRIBUTION WIDTH 15.4 % (11.5-14.5); WHITE BLOOD COUNT 8.4 K/uL (4.8-10.8)
[2018-12-20 20:46] LABS: ALB/GLOB RATIO 1.7 (1.0-2.1); ALBUMIN 4.3 g/dL (3.5-5.0); CALCIUM 8.8 mg/dl (8.6-10.4)
[2018-12-20 21:23] LABS: ANISOCYTOSIS SLIGHT; BANDS 1 % (0-2); HYPOCHROMIC SLIGHT; LYMPHOCYTE 7 % (20-40); MONOCYTE 2 % (0-10); NEUTROPHIL 90 % (50-75); PLATELET ESTIMATE NORMAL (NORMAL); POIKILOCYTOSIS SLIGHT; TARGET CELLS SLIGHT; TEARDROP CELLS SLIGHT; TOTAL CELLS COUNTED 100
[2018-12-20 21:24] LABS: LARGE PLATELETS PRESENT
[2018-12-21] MEDS: Albuterol-Ipratrop 3 mg / 0.5 (3 ml) UD INH PRN ×3 (01:03→19:50)
[2018-12-21 06:29] LABS: BASO % 0.2 % (0.0-2.0); HEMOGLOBIN 12.1 g/dL (12.0-18.0); LYMPH # 0.8 K/uL (1.0-4.3); LYMPH % 6.5 % (20.0-40.0); MEAN CELL VOLUME 91.5 fL (80.0-94.0); MEAN CORPUSCULAR HEMOGLOBIN 30.3 pg (27.0-31.0); MEAN CORPUSCULAR HGB CONC 33.1 g/dL (33.0-37.0); MEAN PLATELET VOLUME 9.5 fL (7.2-11.7); MONO # 0.3 K/uL (0.0-0.8); MONO % 2.8 % (0.0-10.0); NEUT # 10.7 K/uL (1.8-7.0); NEUT % 90.5 % (50.0-75.0); PLATELET COUNT 141 K/uL (130-400); RED CELL DISTRIBUTION WIDTH 15.7 % (11.5-14.5); WHITE BLOOD COUNT 11.9 K/uL (4.8-10.8)
[2018-12-21 06:53] LABS: ALB/GLOB RATIO 1.7 (1.0-2.1); ALBUMIN 4.2 g/dL (3.5-5.0); CALCIUM 8.7 mg/dl (8.6-10.4)
[2018-12-21] MEDS: (Novolin R) Insulin Human Regular 100 units/ml vial SC SCH ×4 (07:29→22:05)
[2018-12-21 08:31] LABS: LYMPHOCYTE 2 % (20-40); MONOCYTE 3 % (0-10); NEUTROPHIL 95 % (50-75); PLATELET ESTIMATE NORMAL (NORMAL); TOTAL CELLS COUNTED 100
[2018-12-21] MEDS: Azithromycin 500 MG in Sodium Chloride 0.9% 250 ML IVPB SCH (09:18)
[2018-12-21] MEDS: (Lantus) Insulin Glargine, Recombinant SC SCH (09:19)
[2018-12-21] MEDS: Metoprolol Succinate 25 mg XL Tab PO SCH (09:19)
--- NOTE | 2018-12-21 09:35 | CP.PCM.PN ---
Subjective - Date & Time of Evaluation Date of Evaluation: 12/21/18 Time of Evaluation: 09:32 - Subjective Subjective: seen and examined ct scan noted, pleural effusions, ?new PE breathing improved Objective - Vital Signs/Intake and Output Vital Signs (last 24 hours): Temp Pulse Resp BP Pulse Ox 97.1 F L 85 17 122/50 L 96 12/21/18 08:02 12/21/18 08:00 12/21/18 08:00 12/21/18 08:00 12/21/18 08:00 Intake and Output: 12/21/18 12/21/18 06:59 18:59 Intake Total 300 100 Output Total 3020 0 Balance -2720 100 - Medications Medications: Current Medications Albuterol/Ipratropium (Duoneb 3 Mg/0.5 Mg (3 Ml) Ud) 3 ml INH RQ2 PRN PRN Reason: Shortness of Breath Last Admin: 12/21/18 01:03 Dose: 3 ml Allopurinol (Zyloprim) 100 mg PO BID [facility] Last Admin: 12/20/18 18:15 Dose: 100 mg Aspirin (Aspirin Chewable) 81 mg PO DAILY [facility] Last Admin: 12/21/18 09:20 Dose: 81 mg Benzonatate (Tessalon Perles) 100 mg PO TID [facility] Last Admin: 12/20/18 18:15 Dose: 100 mg Cilostazol (Pletal) 50 mg PO BID [facility] Last Admin: 12/20/18 18:14 Dose: 50 mg Dextrose (Glutose 15) 0 gm PO ONCE PRN; Protocol PRN Reason: Hypoglycemia Protocol Dextrose (Dextrose 50% Inj) 0 ml IV STAT PRN; Protocol PRN Reason: Hypoglycemia Protocol Folic Acid (Folic Acid) 1 mg PO DAILY [facility] Last Admin: 12/21/18 09:19 Dose: 1 mg Gabapentin (Neurontin) 300 mg PO DAILY [facility] Last Admin: 12/21/18 09:19 Dose: 300 mg Glucagon (Glucagen Diagnostic Kit) 0 mg IM STAT PRN; Protocol PRN Reason: Hypoglycemia Protocol Heparin Sodium (Porcine) (Heparin) 5,000 units SC Q8 [facility] Last Admin: 12/21/18 06:42 Dose: 5,000 units Hydralazine HCl (Apresoline) 25 mg PO TID [facility] Last Admin: 12/21/18 09:19 Dose: 25 mg Dextrose (Dextrose 5% In Water 1000 Ml) 1,000 mls @ 0 mls/hr IV .Q0M PRN; Protocol PRN Reason: Hypoglycemia Protocol Azithromycin 500 mg/ Sodium (Chloride) 250 mls @ 250 mls/hr IVPB DAILY [facility]; Protocol Last Admin: 12/21/18 09:18 Dose: 250 mls/hr Piperacillin Sod/Tazobactam Sod (Zosyn 2.25 Gm Iv Premix) 2.25 gm in 50 mls @ 100 mls/hr IVPB Q8H [facility]; Protocol Insulin Glargine (Lantus) 30 unit SC DAILY [facility] Last Admin: 12/21/18 09:19 Dose: 30 u Insulin Human Regular (Novolin R) 0 unit SC ACHS [facility]; Protocol Last Admin: 12/21/18 07:29 Dose: 1 unit Metoprolol Succinate (Toprol Xl) 25 mg PO DAILY [facility] Last Admin: 12/21/18 09:19 Dose: 25 mg Montelukast Sodium (Singulair) 10 mg PO DAILY [facility] Last Admin: 12/21/18 09:19 Dose: 10 mg Pantoprazole Sodium (Protonix Ec Tab) 40 mg PO DAILY [facility] Last Admin: 12/21/18 09:19 Dose: 40 mg Rosuvastatin Calcium (Crestor) 5 mg PO HS [facility] Last Admin: 12/20/18 21:52 Dose: 5 mg Sevelamer Carbonate (Renvela) 1,600 mg PO TIDCC [facility] Last Admin: 12/21/18 07:29 Dose: 1,600 mg - Labs Labs: 12/21/18 06:19 12/21/18 06:19 - Constitutional Appears: No Acute Distress, Chronically Ill - Head Exam Head Exam: NORMAL INSPECTION, NORMOCEPHALIC - Eye Exam Eye Exam: Normal appearance, PERRL - ENT Exam ENT Exam: Mucous Membranes Moist, Normal Exam - Neck Exam Neck Exam: Full ROM, Normal Inspection - Respiratory Exam Respiratory Exam: Rhonchi (b/l rhonchi) - Cardiovascular Exam Cardiovascular Exam: RRR - GI/Abdominal Exam GI & Abdominal Exam: Distended, Soft - Extremities Exam Extremities Exam: Full ROM, Normal Inspection, Pedal Edema - Neurological Exam Neurological Exam: Alert, Awake, Oriented x3 - Skin Skin Exam: Dry, Intact Assessment and Plan (1) CHF exacerbation Status: Acute (2) ESRD (end stage renal disease) on dialysis Status: Acute (3) Pleural effusion Status: Acute (4) Pulmonary fibrosis Status: Acute (5) Respiratory distress Status: Acute - Assessment and Plan (Free Text) Assessment: maintain hd aggressive uf as tolerated pulmonary management
[2018-12-21] MEDS ORDERED: Pantoprazole 40 mg EC Tab PO SCH (10:00)
[2018-12-21] MEDS: Cilostazol 50 mg Tab UD PO SCH ×2 (10:10→17:01)
[2018-12-21] MEDS: Piperacill/Tazo 2.25gm in Dex 2.25 GM/50 ML BAG IVPB SCH ×2 (10:11→17:05)
[2018-12-21 10:50] LABS: ABG ALLEN TEST POS; ARTERIAL BLOOD GAS HCO3 23.3 mmol/L (21-28); ARTERIAL BLOOD GAS O2 SAT 97.2 % (95-98); ARTERIAL BLOOD GAS PCO2 36 mm/Hg (35-45); ARTERIAL BLOOD GAS PO2 76 mm/Hg (80-100); ARTERIAL BLOOD GAS TCO2 23.4 mmol/L (22-28)
[2018-12-21] MEDS ORDERED: Influenza Vaccine 60 mcg/0.5 mL SYR (4YR UP) IM ONE (12:18)
[2018-12-21] MEDS ORDERED: Aritificial Tears (15ml) OU PRN (15:12)
--- NOTE | 2018-12-21 16:59 | CP.PCM.PN ---
<Sofia Fatima - Last Filed: 12/21/18 16:57> Subjective - Date & Time of Evaluation Date of Evaluation: 12/21/18 Time of Evaluation: 10:00 - Subjective Subjective: Cardiology Progress note for Dr. Deleon: Patient was seen and examined at bedside. Patient states he feels like his breathing has significantly improved since he arrived to the hospital. Patient also states for the past 2 days he has been having jerking movements of his body which is new. Patient denies other complaints at this time. Objective - Vital Signs/Intake and Output Vital Signs (last 24 hours): Temp Pulse Resp BP Pulse Ox 97.1 F L 86 14 96/43 L 96 12/21/18 08:02 12/21/18 13:00 12/21/18 13:00 12/21/18 12:38 12/21/18 12:38 Intake and Output: 12/21/18 12/21/18 06:59 18:59 Intake Total 300 1110 Output Total 3020 0 Balance -2720 1110 - Medications Medications: Current Medications Albuterol/Ipratropium (Duoneb 3 Mg/0.5 Mg (3 Ml) Ud) 3 ml INH RQ2 PRN PRN Reason: Shortness of Breath Last Admin: 12/21/18 08:30 Dose: 3 ml Allopurinol (Zyloprim) 100 mg PO BID [facility] Last Admin: 12/21/18 11:00 Dose: 100 mg Artificial Tears (Artificial Tears) 1 ml OU Q6H PRN PRN Reason: Dry eyes Aspirin (Aspirin Chewable) 81 mg PO DAILY [facility] Last Admin: 12/21/18 09:20 Dose: 81 mg Bacitracin (Bacitracin Opht Oint) 1 applic OS HS [facility] Benzonatate (Tessalon Perles) 100 mg PO TID [facility] Last Admin: 12/21/18 14:34 Dose: 100 mg Cilostazol (Pletal) 50 mg PO BID [facility] Last Admin: 12/21/18 10:10 Dose: 50 mg Clopidogrel Bisulfate (Plavix) 75 mg PO DAILY [facility] Dextrose (Glutose 15) 0 gm PO ONCE PRN; Protocol PRN Reason: Hypoglycemia Protocol Dextrose (Dextrose 50% Inj) 0 ml IV STAT PRN; Protocol PRN Reason: Hypoglycemia Protocol Famotidine (Pepcid) 20 mg PO DAILY [facility] Folic Acid (Folic Acid) 1 mg PO DAILY [facility] Last Admin: 12/21/18 09:19 Dose: 1 mg Gabapentin (Neurontin) 300 mg PO DAILY [facility] Last Admin: 12/21/18 09:19 Dose: 300 mg Glucagon (Glucagen Diagnostic Kit) 0 mg IM STAT PRN; Protocol PRN Reason: Hypoglycemia Protocol Heparin Sodium (Porcine) (Heparin) 5,000 units SC Q8 [facility] Last Admin: 12/21/18 14:34 Dose: 5,000 units Hydralazine HCl (Apresoline) 25 mg PO TID [facility] Last Admin: 12/21/18 14:35 Dose: 25 mg Dextrose (Dextrose 5% In Water 1000 Ml) 1,000 mls @ 0 mls/hr IV .Q0M PRN; Protocol PRN Reason: Hypoglycemia Protocol Azithromycin 500 mg/ Sodium (Chloride) 250 mls @ 250 mls/hr IVPB DAILY [facility]; Protocol Last Admin: 12/21/18 09:18 Dose: 250 mls/hr Piperacillin Sod/Tazobactam Sod (Zosyn 2.25 Gm Iv Premix) 2.25 gm in 50 mls @ 100 mls/hr IVPB Q8H [facility]; Protocol Last Admin: 12/21/18 10:11 Dose: 100 mls/hr Influenza Virus Vaccine (Flucelvax Quad [id number] Syr) 60 mcg IM .ONCE ONE Stop: 12/22/18 10:01 Insulin Glargine (Lantus) 30 unit SC DAILY [facility] Last Admin: 12/21/18 09:19 Dose: 30 u Insulin Human Regular (Novolin R) 0 unit SC ACHS [facility]; Protocol Last Admin: 12/21/18 11:44 Dose: 2 unit Lorazepam (Ativan) 0.5 mg IVP ONCE PRN PRN Reason: ANXIETY - BEFORE MRI Metoprolol Succinate (Toprol Xl) 25 mg PO DAILY [facility] Last Admin: 12/21/18 09:19 Dose: 25 mg Montelukast Sodium (Singulair) 10 mg PO DAILY [facility] Last Admin: 12/21/18 09:19 Dose: 10 mg Rosuvastatin Calcium (Crestor) 5 mg PO HS [facility] Last Admin: 12/20/18 21:52 Dose: 5 mg Sevelamer Carbonate (Renvela) 1,600 mg PO TIDCC [facility] Last Admin: 12/21/18 11:14 Dose: 1,600 mg - Labs Labs: 12/21/18 06:19 12/21/18 06:19 - Constitutional Appears: No Acute Distress, Chronically Ill - Head Exam Head Exam: ATRAUMATIC, NORMAL INSPECTION - Eye Exam Eye Exam: EOMI Additional comments: Left eye is closed - 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 absent: Tenderness - Extremities Exam Additional comments: left arm- hemodialysis cath - Neurological Exam Neurological Exam: Alert, Awake, Oriented x3 - Psychiatric Exam Psychiatric exam: Normal Affect Assessment and Plan - Assessment and Plan (Free Text) Assessment: Pulmonary Effusion - secondary to Fluid Overload - proBNP 13150 - Decrease fluid intake - patient currently having dialysis - removal of 3L - Chest CT: consistent with bilateral pleural effusion and no pulmonary embolism. - Pulm Consult: Dr. Spaulding --> help appreciated History of CHF - ECHO (09/13/18): Mild valvular aortic stenosis. EF 55% - Aspirin 81mg daily; Metoprolol Succinate 25mg po daily; Crestor 5mg po HS, Plavix 75mg po daily ESRD - Dialysis (MWF) Case discussed with Dr. Pancho Fatima PGY-2 <Mauricio Deleon - Last Filed: 12/21/18 22:58> Objective - Vital Signs/Intake and Output Vital Signs (last 24 hours): Temp Pulse Resp BP Pulse Ox 98 F 76 20 112/45 L 93 L 12/21/18 21:50 12/21/18 21:50 12/21/18 21:50 12/21/18 21:50 12/21/18 21:50 Intake and Output: 12/21/18 12/22/18 18:59 06:59 Intake Total 1650 50 Output Total 5 Balance 1645 50 - Medications Medications: Current Medications Albuterol/Ipratropium (Duoneb 3 Mg/0.5 Mg (3 Ml) Ud) 3 ml INH RQ2 PRN PRN Reason: Shortness of Breath Last Admin: 12/21/18 19:50 Dose: 3 ml Allopurinol (Zyloprim) 100 mg PO BID [facility] Last Admin: 12/21/18 17:02 Dose: 100 mg Artificial Tears (Artificial Tears) 1 ml OU Q6H PRN PRN Reason: Dry eyes Aspirin (Aspirin Chewable) 81 mg PO DAILY [facility] Last Admin: 12/21/18 09:20 Dose: 81 mg Bacitracin (Bacitracin Opht Oint) 1 applic OS MWF@HS [facility] Benzonatate (Tessalon Perles) 100 mg PO TID [facility] Last Admin: 12/21/18 17:02 Dose: 100 mg Cilostazol (Pletal) 50 mg PO BID [facility] Last Admin: 12/21/18 17:01 Dose: 50 mg Clopidogrel Bisulfate (Plavix) 75 mg PO DAILY [facility] Last Admin: 12/21/18 17:03 Dose: 75 mg Dextrose (Glutose 15) 0 gm PO ONCE PRN; Protocol PRN Reason: Hypoglycemia Protocol Dextrose (Dextrose 50% Inj) 0 ml IV STAT PRN; Protocol PRN Reason: Hypoglycemia Protocol Famotidine (Pepcid) 20 mg PO DAILY [facility] Folic Acid (Folic Acid) 1 mg PO DAILY [facility] Last Admin: 12/21/18 09:19 Dose: 1 mg Glucagon (Glucagen Diagnostic Kit) 0 mg IM STAT PRN; Protocol PRN Reason: Hypoglycemia Protocol Heparin Sodium (Porcine) (Heparin) 5,000 units SC Q8 [facility] Last Admin: 12/21/18 22:11 Dose: 5,000 units Hydralazine HCl (Apresoline) 25 mg PO TID [facility] Last Admin: 12/21/18 17:01 Dose: 25 mg Dextrose (Dextrose 5% In Water 1000 Ml) 1,000 mls @ 0 mls/hr IV .Q0M PRN; Protocol PRN Reason: Hypoglycemia Protocol Azithromycin 500 mg/ Sodium (Chloride) 250 mls @ 250 mls/hr IVPB DAILY [facility]; Protocol Last Admin: 12/21/18 09:18 Dose: 250 mls/hr Piperacillin Sod/Tazobactam Sod (Zosyn 2.25 Gm Iv Premix) 2.25 gm in 50 mls @ 100 mls/hr IVPB Q8H [facility]; Protocol Last Admin: 12/21/18 17:05 Dose: 100 mls/hr Influenza Virus Vaccine (Flucelvax Quad [id number] Syr) 60 mcg IM .ONCE ONE Stop: 12/22/18 10:01 Insulin Glargine (Lantus) 30 unit SC DAILY [facility] Last Admin: 12/21/18 09:19 Dose: 30 u Insulin Human Regular (Novolin R) 0 unit SC [facility]; Protocol Last Admin: 12/21/18 22:05 Dose: Not Given Lorazepam (Ativan) 0.5 mg IVP ONCE PRN PRN Reason: ANXIETY - BEFORE MRI Metoprolol Succinate (Toprol Xl) 25 mg PO DAILY [facility] Last Admin: 12/21/18 09:19 Dose: 25 mg Montelukast Sodium (Singulair) 10 mg PO DAILY [facility] Last Admin: 12/21/18 09:19 Dose: 10 mg Rosuvastatin Calcium (Crestor) 5 mg PO HS [facility] Last Admin: 12/21/18 22:11 Dose: 5 mg Sevelamer Carbonate (Renvela) 1,600 mg PO TIDCC [facility] Last Admin: 12/21/18 17:01 Dose: 1,600 mg - Labs Labs: 12/21/18 06:19 12/21/18 06:19 Assessment and Plan - Assessment and Plan (Free Text) Assessment: Patient seen and evaluated personally by me. Plan of care d/w the resident and as documented
--- NOTE | 2018-12-21 17:40 | CP.PCM.PN ---
Subjective - Date & Time of Evaluation Date of Evaluation: 12/21/18 Time of Evaluation: 14:00 - Subjective Subjective: Patient seen and examined Breathing much improved Jerking movement of the upper body noted Afebrile Status post hemodialysis Awake and responsive Objective - Vital Signs/Intake and Output Vital Signs (last 24 hours): Temp Pulse Resp BP Pulse Ox 97.1 F L 86 14 96/43 L 96 12/21/18 08:02 12/21/18 13:00 12/21/18 13:00 12/21/18 12:38 12/21/18 12:38 Intake and Output: 12/21/18 12/21/18 06:59 18:59 Intake Total 300 1110 Output Total 3020 0 Balance -2720 1110 - Medications Medications: Current Medications Albuterol/Ipratropium (Duoneb 3 Mg/0.5 Mg (3 Ml) Ud) 3 ml INH RQ2 PRN PRN Reason: Shortness of Breath Last Admin: 12/21/18 08:30 Dose: 3 ml Allopurinol (Zyloprim) 100 mg PO BID [facility] Last Admin: 12/21/18 17:02 Dose: 100 mg Artificial Tears (Artificial Tears) 1 ml OU Q6H PRN PRN Reason: Dry eyes Aspirin (Aspirin Chewable) 81 mg PO DAILY [facility] Last Admin: 12/21/18 09:20 Dose: 81 mg Bacitracin (Bacitracin Opht Oint) 1 applic OS MWF@HS [facility] Benzonatate (Tessalon Perles) 100 mg PO TID [facility] Last Admin: 12/21/18 17:02 Dose: 100 mg Cilostazol (Pletal) 50 mg PO BID [facility] Last Admin: 12/21/18 17:01 Dose: 50 mg Clopidogrel Bisulfate (Plavix) 75 mg PO DAILY [facility] Last Admin: 12/21/18 17:03 Dose: 75 mg Dextrose (Glutose 15) 0 gm PO ONCE PRN; Protocol PRN Reason: Hypoglycemia Protocol Dextrose (Dextrose 50% Inj) 0 ml IV STAT PRN; Protocol PRN Reason: Hypoglycemia Protocol Famotidine (Pepcid) 20 mg PO DAILY [facility] Folic Acid (Folic Acid) 1 mg PO DAILY [facility] Last Admin: 12/21/18 09:19 Dose: 1 mg Gabapentin (Neurontin) 300 mg PO DAILY [facility] Last Admin: 02/05/19 09:19 Dose: 300 mg Glucagon (Glucagen Diagnostic Kit) 0 mg IM STAT PRN; Protocol PRN Reason: Hypoglycemia Protocol Heparin Sodium (Porcine) (Heparin) 5,000 units SC Q8 [facility] Last Admin: 12/21/18 14:34 Dose: 5,000 units Hydralazine HCl (Apresoline) 25 mg PO TID [facility] Last Admin: 12/21/18 17:01 Dose: 25 mg Dextrose (Dextrose 5% In Water 1000 Ml) 1,000 mls @ 0 mls/hr IV .Q0M PRN; Protocol PRN Reason: Hypoglycemia Protocol Azithromycin 500 mg/ Sodium (Chloride) 250 mls @ 250 mls/hr IVPB DAILY [facility]; Protocol Last Admin: 12/21/18 09:18 Dose: 250 mls/hr Piperacillin Sod/Tazobactam Sod (Zosyn 2.25 Gm Iv Premix) 2.25 gm in 50 mls @ 100 mls/hr IVPB Q8H [facility]; Protocol Last Admin: 12/21/18 17:05 Dose: 100 mls/hr Influenza Virus Vaccine (Flucelvax Quad [id number] Syr) 60 mcg IM .ONCE ONE Stop: 12/22/18 10:01 Insulin Glargine (Lantus) 30 unit SC DAILY [facility] Last Admin: 12/21/18 09:19 Dose: 30 u Insulin Human Regular (Novolin R) 0 unit SC ACHS [facility]; Protocol Last Admin: 12/21/18 16:30 Dose: Not Given Lorazepam (Ativan) 0.5 mg IVP ONCE PRN PRN Reason: ANXIETY - BEFORE MRI Metoprolol Succinate (Toprol Xl) 25 mg PO DAILY [facility] Last Admin: 12/21/18 09:19 Dose: 25 mg Montelukast Sodium (Singulair) 10 mg PO DAILY [facility] Last Admin: 12/21/18 09:19 Dose: 10 mg Rosuvastatin Calcium (Crestor) 5 mg PO HS [facility] Last Admin: 12/20/18 21:52 Dose: 5 mg Sevelamer Carbonate (Renvela) 1,600 mg PO TIDCC [facility] Last Admin: 12/21/18 17:01 Dose: 1,600 mg - Labs Labs: 12/21/18 06:19 12/21/18 06:19 - Head Exam Head Exam: ATRAUMATIC, NORMOCEPHALIC - ENT Exam ENT Exam: Mucous Membranes Moist - Neck Exam Neck Exam: Normal Inspection - Respiratory Exam Respiratory Exam: Decreased Breath Sounds - Cardiovascular Exam Cardiovascular Exam: REGULAR RHYTHM - GI/Abdominal Exam GI & Abdominal Exam: Soft Assessment and Plan (1) Pleural effusion Assessment & Plan: Bilateral pleural effusion secondary to end-stage renal disease and CHF Continue hemodialysis Cardiac follow-up Continue present treatment for now Transfer to floor Status: Acute (2) CHF exacerbation Status: Acute (3) ESRD (end stage renal disease) on dialysis Status: Acute
--- NOTE | 2018-12-21 19:57 | CP.PCM.PN ---
Subjective - Date & Time of Evaluation Date of Evaluation: 12/21/18 Time of Evaluation: 18:45 - Subjective Subjective: Hospitalist Progress Note 73 year old male (PMHx: ESRD on HD, HTN, HLD, IDDM, Gout, PAD) who was admitted on 12/20/18 for evaluation of of 1 week history of worsening of SOB with cough productive of white phlegm. Presenting Chest X Ray indicated likely pulmonary vascular congestion likely secondary to fluid overload. Ermegent HD was pe rformed and patient was subsequently admitted to the ICU for further management. Currently upon FULL ROS: States that his breathing is much better than when he first came in Moving his bowels NO chest pain NO cough NO abdominal pain NO n/v/d/c NO burning/pain with urination General: AAOx3, NAD breathing comfortably on O2 via NC HEENT: NCA, Right Pupil is round and reactive to light and accomodation, Left Pupil is nor visible as left eye is covered in a white film that is chronic in nature, NO lymphadenopathy, NO thyromegaly, NO pharyngeal erythema/exudate Cardio: NS1 and NS2, NO M/R/G Resp: Bibasilar inspiratory crackles GI: BSx4, Soft, Central Obesity, NO HSM, NO guarding/rebound tenderness Extremities: NO edema, Capillary refill is 2 seconds, Pulses are strong and equal Neuro: CN II through XII are grossly intact Assessment and Plan: 1). Pulmonary Edema Likely secondary to fluid overload secondary to ESRD on HD Symptoms improved after emergent HD on 12/20/18 Could there be an underlying infiltrate? CT Angio Chest does indicate consolidation and bilateral pleural effusions (see full report) Zosyn 2.25 gm IV Q8H Azithromycin 500 mg IV Q24H F/U Blood Culture F/U Urine Legionella F/U Urine Strep pneumoniae F/U Mycoplasma IgG and IgM F/U repeat Chest X Ray morning 12/22/18 2). Elevated ProBNP Likley secondary to ESRD Echo 09/03/18 showed LVSF that is normal, EF is normal, mild aortic stenosis (see full report) 3). RBBB with Left [place] Deviation on EKG Unchanged from August 2018 4). Hx ESRD on HD M-- Sevelamer 1,600 mg PO TID Nephrology Dr. Gordillo 5). Hx COPD Douneb Q2H Tessalon Pearls 100 mg PO 2x/day Singulair 10 mg PO 1x/day F/U further recommendation Production Assistant Dr. Spaulding 6). Hx HTN Hydralazine 25 mg PO 3x/day Metoprolol Succinate 25 mg PO 1x/day 7). Hx HLD Crestor 5 mg PO HS 8). Hx IDDM Hypoglycemic Protocol Lantus 30 Units SC 1x/day [facility] ACHS 9). Hx Gout Allopurinol 100 mg PO 2x/day 10). Hx PAD ASA 81 mg PO 1x/day Pletal 50 mg PO 2x/day Gabapentin 300 mg PO 1x/day 11). Prophylaxis Folic Acid 1 mg PO 1x/day Heparin 5,000 Units SC Q8H Protonix 40 mg IV 1x/day Spoke with ICU Resident Dr. Marii Castellon. Patient had an episode of rigors night of 12/20/18 after HD. ICU Team requested Consultation from Neurologist Dr. Burton and workup with MRI Brain is in progress. Updated Son who was at bedside. Zaki Hernández D.O. Objective - Vital Signs/Intake and Output Vital Signs (last 24 hours): Temp Pulse Resp BP Pulse Ox 98.1 F 82 13 103/45 L 95 12/21/18 18:00 12/21/18 19:00 12/21/18 19:00 12/21/18 18:39 12/21/18 19:00 Intake and Output: 12/21/18 12/22/18 18:59 06:59 Intake Total 1650 50 Output Total 5 Balance 1645 50 - Medications Medications: Current Medications Albuterol/Ipratropium (Duoneb 3 Mg/0.5 Mg (3 Ml) Ud) 3 ml INH RQ2 PRN PRN Reason: Shortness of Breath Last Admin: 12/21/18 08:30 Dose: 3 ml Allopurinol (Zyloprim) 100 mg PO BID [facility] Last Admin: 12/21/18 17:02 Dose: 100 mg Artificial Tears (Artificial Tears) 1 ml OU Q6H PRN PRN Reason: Dry eyes Aspirin (Aspirin Chewable) 81 mg PO DAILY [facility] Last Admin: 12/21/18 09:20 Dose: 81 mg Bacitracin (Bacitracin Opht Oint) 1 applic OS MWF@HS [facility] Benzonatate (Tessalon Perles) 100 mg PO TID [facility] Last Admin: 12/21/18 17:02 Dose: 100 mg Cilostazol (Pletal) 50 mg PO BID [facility] Last Admin: 12/21/18 17:01 Dose: 50 mg Clopidogrel Bisulfate (Plavix) 75 mg PO DAILY [facility] Last Admin: 12/21/18 17:03 Dose: 75 mg Dextrose (Glutose 15) 0 gm PO ONCE PRN; Protocol PRN Reason: Hypoglycemia Protocol Dextrose (Dextrose 50% Inj) 0 ml IV STAT PRN; Protocol PRN Reason: Hypoglycemia Protocol Famotidine (Pepcid) 20 mg PO DAILY [facility] Folic Acid (Folic Acid) 1 mg PO DAILY [facility] Last Admin: 12/21/18 09:19 Dose: 1 mg Gabapentin (Neurontin) 300 mg PO DAILY [facility] Last Admin: 12/21/18 09:19 Dose: 300 mg Glucagon (Glucagen Diagnostic Kit) 0 mg IM STAT PRN; Protocol PRN Reason: Hypoglycemia Protocol Heparin Sodium (Porcine) (Heparin) 5,000 units SC Q8 [facility] Last Admin: 12/21/18 14:34 Dose: 5,000 units Hydralazine HCl (Apresoline) 25 mg PO TID [facility] Last Admin: 12/21/18 17:01 Dose: 25 mg Dextrose (Dextrose 5% In Water 1000 Ml) 1,000 mls @ 0 mls/hr IV .Q0M PRN; Protocol PRN Reason: Hypoglycemia Protocol Azithromycin 500 mg/ Sodium (Chloride) 250 mls @ 250 mls/hr IVPB DAILY [facility]; Protocol Last Admin: 12/21/18 09:18 Dose: 250 mls/hr Piperacillin Sod/Tazobactam Sod (Zosyn 2.25 Gm Iv Premix) 2.25 gm in 50 mls @ 100 mls/hr IVPB Q8H [facility]; Protocol Last Admin: 12/21/18 17:05 Dose: 100 mls/hr Influenza Virus Vaccine (Flucelvax Quad [id number] Syr) 60 mcg IM .ONCE ONE Stop: 12/22/18 10:01 Insulin Glargine (Lantus) 30 unit SC DAILY [facility] Last Admin: 12/21/18 09:19 Dose: 30 u Insulin Human Regular (Novolin R) 0 unit SC ACHS [facility]; Protocol Last Admin: 12/21/18 16:30 Dose: Not Given Lorazepam (Ativan) 0.5 mg IVP ONCE PRN PRN Reason: ANXIETY - BEFORE MRI Metoprolol Succinate (Toprol Xl) 25 mg PO DAILY [facility] Last Admin: 12/21/18 09:19 Dose: 25 mg Montelukast Sodium (Singulair) 10 mg PO DAILY [facility] Last Admin: 12/21/18 09:19 Dose: 10 mg Rosuvastatin Calcium (Crestor) 5 mg PO HS [facility] Last Admin: 12/20/18 21:52 Dose: 5 mg Sevelamer Carbonate (Renvela) 1,600 mg PO TIDCC [facility] Last Admin: 12/21/18 17:01 Dose: 1,600 mg - Labs Labs: 12/21/18 06:19 12/21/18 06:19
[2018-12-22] MEDS: Piperacill/Tazo 2.25gm in Dex 2.25 GM/50 ML BAG IVPB SCH ×3 (02:30→17:50)
[2018-12-22] MEDS ORDERED: Dextrose 50% VIAL Inj (50 ml) IV ONE (06:51)
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
[2018-12-22] MEDS: (Novolin R) Insulin Human Regular 100 units/ml vial SC SCH ×4 (08:31→21:44)
[2018-12-22] MEDS: Cilostazol 50 mg Tab UD PO SCH ×2 (10:00→17:49)
[2018-12-22] MEDS ORDERED: Influenza Vaccine 60 mcg/0.5 mL SYR (4YR UP) IM ONE (10:00)
[2018-12-22 10:03] LABS: BASO # 0.1 K/uL (0.0-0.2); BASO % 0.9 % (0.0-2.0); EOS # 0.1 K/uL (0.0-0.7); EOS % 0.9 % (0.0-4.0); HEMOGLOBIN 12.8 g/dL (12.0-18.0); LYMPH # 1.1 K/uL (1.0-4.3); LYMPH % 12.3 % (20.0-40.0); MEAN CELL VOLUME 91.6 fL (80.0-94.0); MEAN CORPUSCULAR HEMOGLOBIN 30.6 pg (27.0-31.0); MEAN CORPUSCULAR HGB CONC 33.4 g/dL (33.0-37.0); MEAN PLATELET VOLUME 9.3 fL (7.2-11.7); MONO # 0.3 K/uL (0.0-0.8); MONO % 3.6 % (0.0-10.0); NEUT # 7.1 K/uL (1.8-7.0); NEUT % 82.3 % (50.0-75.0); RBC 4.18 Mil/uL (4.40-5.90); RED CELL DISTRIBUTION WIDTH 15.8 % (11.5-14.5); WHITE BLOOD COUNT 8.6 K/uL (4.8-10.8)
[2018-12-22 10:31] LABS: ALB/GLOB RATIO 1.8 (1.0-2.1); ALBUMIN 4.2 g/dL (3.5-5.0); CALCIUM 8.5 mg/dl (8.6-10.4)
--- NOTE | 2018-12-22 10:34 | CP.PCM.PN ---
Subjective - Date & Time of Evaluation Date of Evaluation: 12/22/18 Time of Evaluation: 10:33 - Subjective Subjective: PGY-1 Yodit Dudley D.O. Medicine progress note for Dr. Zaki Hernández's service: Patient was seen and examined this morning. Objective - Vital Signs/Intake and Output Vital Signs (last 24 hours): Temp Pulse Resp BP Pulse Ox 97.8 F 76 19 126/60 98 12/22/18 09:30 12/22/18 09:30 12/22/18 09:30 12/22/18 09:30 12/22/18 07:15 Intake and Output: 12/22/18 12/22/18 06:59 18:59 Intake Total 100 Balance 100 - Medications Medications: Current Medications Albuterol/Ipratropium (Duoneb 3 Mg/0.5 Mg (3 Ml) Ud) 3 ml INH RQ2 PRN PRN Reason: Shortness of Breath Last Admin: 12/21/18 19:50 Dose: 3 ml Allopurinol (Zyloprim) 100 mg PO BID [facility] Last Admin: 12/21/18 17:02 Dose: 100 mg Artificial Tears (Artificial Tears) 1 ml OU Q6H PRN PRN Reason: Dry eyes Aspirin (Aspirin Chewable) 81 mg PO DAILY [facility] Last Admin: 12/21/18 09:20 Dose: 81 mg Bacitracin (Bacitracin Opht Oint) 1 applic OS MWF@HS [facility] Benzonatate (Tessalon Perles) 100 mg PO TID [facility] Last Admin: 12/21/18 17:02 Dose: 100 mg Cilostazol (Pletal) 50 mg PO BID [facility] Last Admin: 12/21/18 17:01 Dose: 50 mg Clopidogrel Bisulfate (Plavix) 75 mg PO DAILY [facility] Last Admin: 12/21/18 17:03 Dose: 75 mg Dextrose (Glutose 15) 0 gm PO ONCE PRN; Protocol PRN Reason: Hypoglycemia Protocol Dextrose (Dextrose 50% Inj) 0 ml IV STAT PRN; Protocol PRN Reason: Hypoglycemia Protocol Last Admin: 12/22/18 06:49 Dose: 50 ml Famotidine (Pepcid) 20 mg PO DAILY [facility] Folic Acid (Folic Acid) 1 mg PO DAILY [facility] Last Admin: 12/21/18 09:19 Dose: 1 mg Glucagon (Glucagen Diagnostic Kit) 0 mg IM STAT PRN; Protocol PRN Reason: Hypoglycemia Protocol Heparin Sodium (Porcine) (Heparin) 5,000 units SC Q8 [facility] Last Admin: 12/22/18 05:28 Dose: 5,000 units Hydralazine HCl (Apresoline) 25 mg PO TID [facility] Last Admin: 12/21/18 17:01 Dose: 25 mg Dextrose (Dextrose 5% In Water 1000 Ml) 1,000 mls @ 0 mls/hr IV .Q0M PRN; Protocol PRN Reason: Hypoglycemia Protocol Azithromycin 500 mg/ Sodium (Chloride) 250 mls @ 250 mls/hr IVPB DAILY [facility]; Protocol Last Admin: 12/21/18 09:18 Dose: 250 mls/hr Piperacillin Sod/Tazobactam Sod (Zosyn 2.25 Gm Iv Premix) 2.25 gm in 50 mls @ 100 mls/hr IVPB Q8H [facility]; Protocol Last Admin: 12/22/18 02:30 Dose: 100 mls/hr Insulin Glargine (Lantus) 30 unit SC DAILY [facility] Last Admin: 12/21/18 09:19 Dose: 30 u Insulin Human Regular (Novolin R) 0 unit SC ACHS [facility]; Protocol Last Admin: 12/22/18 08:31 Dose: Not Given Lorazepam (Ativan) 0.5 mg IVP ONCE PRN PRN Reason: ANXIETY - BEFORE MRI Metoprolol Succinate (Toprol Xl) 25 mg PO DAILY [facility] Last Admin: 12/21/18 09:19 Dose: 25 mg Montelukast Sodium (Singulair) 10 mg PO DAILY [facility] Last Admin: 12/21/18 09:19 Dose: 10 mg Rosuvastatin Calcium (Crestor) 5 mg PO HS [facility] Last Admin: 12/21/18 22:11 Dose: 5 mg Sevelamer Carbonate (Renvela) 1,600 mg PO TIDCC [facility] Last Admin: 12/22/18 08:58 Dose: 1,600 mg - Labs Labs: 12/22/18 09:59 12/22/18 09:59
[2018-12-22] MEDS: (Lantus) Insulin Glargine, Recombinant SC SCH (11:00)
[2018-12-22 11:13] LABS: FREE T4 1.31 ng/dL (0.78-2.19)
[2018-12-22] MEDS: Metoprolol Succinate 25 mg XL Tab PO SCH (13:47)
--- NOTE | 2018-12-22 14:40 | CON ---
DATE: 12/22/2018 ATTENDING PHYSICIAN: . LOCATION: Room 558, bed B. REASON FOR CONSULTATION: Abnormal movement. CHIEF COMPLAINT. The patient was admitted with progression of shortness of breath, productive cough. From neurological point of view, I was called in to evaluate him because of his abnormal movement while he was in the ICU. HISTORY OF PRESENT ILLNESS: Mr. Dion Randhawa is a 73-year-old right-handed male presenting with shortness of breath with productive cough. From neurological point of view, I was called in to evaluate his abnormal movement. He claims of no focal weakness. No involuntary movements. No loss of consciousness. He uses a cane or a walker for assistance while walking. PAST MEDICAL HISTORY: COPD, renal stone, diabetes mellitus, hypertension, end-stage renal disease with dialysis on Thursday, Thursday and Thursday. PAST SURGICAL HISTORY: History of respiratory failure, tracheostomy, PEG and suprapubic catheter insertion. PERSONAL HISTORY: Denies smoking or alcohol use. ALLERGIES: NO KNOWN ALLERGIES. REVIEW OF SYSTEM: A 12-point system being reviewed, from neuro abnormal movements. MEDICATIONS: Apresoline, aspirin, Ativan p.r.n., Crestor, IV fluids, folic acid supplement. Insulin slow to dissolve, Renvela, Singular, Toprol. PHYSICAL EXAMINATION: VITAL SIGNS: Blood pressure 115/62, mean artery pressure 79, respiratory rate 18, temperature 97.3 with a pulse rate of 78, regular. NECK: Supple. No carotid bruits. HEART: Sounds regular. CHEST: Fair air entry. EXTREMITIES: No edema in legs. Significant distal as well as proximal muscle groups atrophy. NEUROLOGIC: Mental status examination: The patient is communicable only in Indonesian. He is awake, alert and oriented to person, place and time. There is no retrograde or antegrade amnesia. No hallucination. No suicidal ideation. Speech is clear. Cranial nerve examination, respond to visual threat. Pupils reactive to light. Extraocular movement markedly decreased in all direction. No facial sensory deficit. No facial asymmetry. Hearing is normal. Tongue is midline. Good gag. Motor examination, outstretched hand with eyes closed, mild tremor noted with eyes closed. No asterixis. Tone is normal. Deep tendon reflexes, biceps and brachialis 2+ on either side. Both knees are 1+. Both ankles are absent. Plantars are withdrawal response on both sides. Sensory: Significant distal sensory motor neuropathy. Coordination: Finger-nose test is dysmetria on both sides. The patient also showed a sensory tremor on outstretched hand with eyes closed. Gait is deferred at this time. CONCLUSION: As per my neurological examination, Mr. Dion Randhawa has been presenting with, 1. Possible appendicular dysmetria which is probably posterior cerebral artery distribution ischemic process versus space-occupying lesion. Considering his risk factors, probably favoring ischemic process should be ruled out. 2. Significant sensory tremor which is probably secondary to his underlying diabetes mellitus as well as renal disease. 3. His workup CT of the head reviewed, no acute pathology except atrophy and small vessel disease. BLOOD WORKUP: WBC 11.9, hemoglobin 12.1, hematocrit 36.6, platelet 141. Sodium 137, potassium 4.9, chloride 96, bicarbonate 28, BUN 64, creatinine 6.5, glucose is 169, calcium 8.7 with a phosphorus 5.1. RECOMMENDATIONS: 1. MRI of the brain to rule out intracranial pathology that could explain his appendicular dysmetria. 2. Carotid Doppler to rule out any significant stenosis. 3. Blood workup to rule out any metabolic causes for his abnormal movement. 4. The patient definitely need electromyography and nerve conduction study that can be done as outpatient to study the extent of his neuropathy. While he is in the hospital, the patient should get an electroencephalogram to rule out any subclinical or nonconvulsive seizures. The patient will be followed closely while he is in the hospital. Brayan Burton MD
--- NOTE | 2018-12-22 14:46 | CARD ---
APPROVED REPORT Date of service: 12/20/2018 EKG Measurement Heart [id number] <Conclusion> Normal sinus rhythm Possible Left atrial enlargement Left anterior hemiblock Right bundle branch block Abnormal ECG
--- NOTE | 2018-12-22 14:52 | CP.PCM.PN ---
Subjective - Date & Time of Evaluation Date of Evaluation: 12/22/18 Time of Evaluation: 14:49 - Subjective Subjective: less dyspneic, still limited by CHRISTOPHER stable dialysis 2/4- due today BP low lytes stable Objective - Vital Signs/Intake and Output Vital Signs (last 24 hours): Temp Pulse Resp BP Pulse Ox 97.8 F 78 19 107/53 L 98 12/22/18 09:30 12/22/18 09:30 12/22/18 09:30 12/22/18 12:30 12/22/18 09:30 Intake and Output: 12/22/18 12/22/18 06:59 18:59 Intake Total 100 Balance 100 - Medications Medications: Current Medications Albuterol/Ipratropium (Duoneb 3 Mg/0.5 Mg (3 Ml) Ud) 3 ml INH RQ2 PRN PRN Reason: Shortness of Breath Last Admin: 12/21/18 19:50 Dose: 3 ml Allopurinol (Zyloprim) 100 mg PO BID [facility] Last Admin: 12/22/18 10:00 Dose: Not Given Artificial Tears (Artificial Tears) 1 ml OU Q6H PRN PRN Reason: Dry eyes Aspirin (Aspirin Chewable) 81 mg PO DAILY [facility] Last Admin: 12/22/18 13:47 Dose: 81 mg Bacitracin (Bacitracin Opht Oint) 1 applic OS MWF@HS [facility] Benzonatate (Tessalon Perles) 100 mg PO TID [facility] Last Admin: 12/22/18 13:49 Dose: 100 mg Cilostazol (Pletal) 50 mg PO BID [facility] Last Admin: 12/22/18 10:00 Dose: Not Given Clopidogrel Bisulfate (Plavix) 75 mg PO DAILY [facility] Last Admin: 12/22/18 13:48 Dose: 75 mg Dextrose (Glutose 15) 0 gm PO ONCE PRN; Protocol PRN Reason: Hypoglycemia Protocol Dextrose (Dextrose 50% Inj) 0 ml IV STAT PRN; Protocol PRN Reason: Hypoglycemia Protocol Last Admin: 12/22/18 06:49 Dose: 50 ml Famotidine (Pepcid) 20 mg PO DAILY [facility] Last Admin: 12/22/18 13:49 Dose: 20 mg Folic Acid (Folic Acid) 1 mg PO DAILY [facility] Last Admin: 12/22/18 13:49 Dose: 1 mg Glucagon (Glucagen Diagnostic Kit) 0 mg IM STAT PRN; Protocol PRN Reason: Hypoglycemia Protocol Heparin Sodium (Porcine) (Heparin) 5,000 units SC Q8 [facility] Last Admin: 12/22/18 13:47 Dose: 5,000 units Hydralazine HCl (Apresoline) 25 mg PO TID [facility] Last Admin: 12/22/18 13:48 Dose: 25 mg Dextrose (Dextrose 5% In Water 1000 Ml) 1,000 mls @ 0 mls/hr IV .Q0M PRN; Protocol PRN Reason: Hypoglycemia Protocol Azithromycin 500 mg/ Sodium (Chloride) 250 mls @ 250 mls/hr IVPB DAILY [facility]; Protocol Last Admin: 12/21/18 09:18 Dose: 250 mls/hr Piperacillin Sod/Tazobactam Sod (Zosyn 2.25 Gm Iv Premix) 2.25 gm in 50 mls @ 100 mls/hr IVPB Q8H [facility]; Protocol Last Admin: 12/22/18 10:00 Dose: Not Given Insulin Glargine (Lantus) 30 unit SC DAILY [facility] Last Admin: 12/21/18 09:19 Dose: 30 u Insulin Human Regular (Novolin R) 0 unit SC ACHS [facility]; Protocol Last Admin: 12/22/18 08:31 Dose: Not Given Lorazepam (Ativan) 0.5 mg IVP ONCE PRN PRN Reason: ANXIETY - BEFORE MRI Metoprolol Succinate (Toprol Xl) 25 mg PO DAILY [facility] Last Admin: 12/22/18 13:47 Dose: 25 mg Montelukast Sodium (Singulair) 10 mg PO DAILY [facility] Last Admin: 12/22/18 13:48 Dose: 10 mg Rosuvastatin Calcium (Crestor) 5 mg PO HS [facility] Last Admin: 12/21/18 22:11 Dose: 5 mg Sevelamer Carbonate (Renvela) 1,600 mg PO TIDCC [facility] Last Admin: 12/22/18 13:48 Dose: 1,600 mg - Labs Labs: 12/22/18 09:59 12/22/18 09:59 - Constitutional Appears: No Acute Distress, Chronically Ill - Head Exam Head Exam: ATRAUMATIC, NORMAL INSPECTION - Eye Exam Eye Exam: EOMI, Normal appearance - Neck Exam Neck Exam: Normal Inspection. absent: Tenderness - Respiratory Exam Respiratory Exam: Rhonchi, NORMAL BREATHING PATTERN - Cardiovascular Exam Cardiovascular Exam: REGULAR RHYTHM, +S1 - GI/Abdominal Exam GI & Abdominal Exam: Soft. absent: Tenderness - Extremities Exam Extremities Exam: Normal Inspection. absent: Tenderness - Neurological Exam Neurological Exam: Awake, CN II-XII Intact - Skin Skin Exam: Warm. absent: Dry Assessment and Plan (1) Type 2 diabetes mellitus with diabetic nephropathy Status: Acute (2) Pulmonary fibrosis Status: Acute (3) CHF exacerbation Status: Acute (4) ESRD (end stage renal disease) on dialysis Status: Acute (5) Acute exacerbation of chronic bronchitis Status: Acute - Assessment and Plan (Free Text) Plan: dialysis today and MWF increase UF goal decrease BP meds
--- NOTE | 2018-12-22 15:30 | CP.PCM.PN ---
<Sofia Fatima - Last Filed: 12/22/18 17:08> Subjective - Date & Time of Evaluation Date of Evaluation: 12/22/18 Time of Evaluation: 08:00 - Subjective Subjective: Cardiology Progress note for Dr. Deleon: Patient was seen and examined at bedside. Patient states he was able to sleep better last night. He states his body tremors have improved since yesterday. Patient denies other complaints at this time. Objective - Vital Signs/Intake and Output Vital Signs (last 24 hours): Temp Pulse Resp BP Pulse Ox 97.5 F L 75 16 105/57 L 97 12/22/18 13:00 12/22/18 13:00 12/22/18 13:00 12/22/18 13:00 12/22/18 13:00 Intake and Output: 12/22/18 12/22/18 06:59 18:59 Intake Total 100 Balance 100 - Medications Medications: Current Medications Albuterol/Ipratropium (Duoneb 3 Mg/0.5 Mg (3 Ml) Ud) 3 ml INH RQ2 PRN PRN Reason: Shortness of Breath Last Admin: 12/21/18 19:50 Dose: 3 ml Allopurinol (Zyloprim) 100 mg PO BID [facility] Last Admin: 12/22/18 10:00 Dose: Not Given Artificial Tears (Artificial Tears) 1 ml OU Q6H PRN PRN Reason: Dry eyes Aspirin (Aspirin Chewable) 81 mg PO DAILY [facility] Last Admin: 12/22/18 13:47 Dose: 81 mg Bacitracin (Bacitracin Opht Oint) 1 applic OS MWF@HS [facility] Benzonatate (Tessalon Perles) 100 mg PO TID [facility] Last Admin: 12/22/18 13:49 Dose: 100 mg Cilostazol (Pletal) 50 mg PO BID [facility] Last Admin: 12/22/18 10:00 Dose: Not Given Clopidogrel Bisulfate (Plavix) 75 mg PO DAILY [facility] Last Admin: 12/22/18 13:48 Dose: 75 mg Dextrose (Glutose 15) 0 gm PO ONCE PRN; Protocol PRN Reason: Hypoglycemia Protocol Dextrose (Dextrose 50% Inj) 0 ml IV STAT PRN; Protocol PRN Reason: Hypoglycemia Protocol Last Admin: 12/22/18 06:49 Dose: 50 ml Famotidine (Pepcid) 20 mg PO DAILY [facility] Last Admin: 12/22/18 13:49 Dose: 20 mg Folic Acid (Folic Acid) 1 mg PO DAILY [facility] Last Admin: 12/22/18 13:49 Dose: 1 mg Glucagon (Glucagen Diagnostic Kit) 0 mg IM STAT PRN; Protocol PRN Reason: Hypoglycemia Protocol Heparin Sodium (Porcine) (Heparin) 5,000 units SC Q8 [facility] Last Admin: 12/22/18 13:47 Dose: 5,000 units Hydralazine HCl (Apresoline) 10 mg PO TID [facility] Dextrose (Dextrose 5% In Water 1000 Ml) 1,000 mls @ 0 mls/hr IV .Q0M PRN; Protocol PRN Reason: Hypoglycemia Protocol Azithromycin 500 mg/ Sodium (Chloride) 250 mls @ 250 mls/hr IVPB DAILY [facility]; Protocol Last Admin: 12/21/18 09:18 Dose: 250 mls/hr Piperacillin Sod/Tazobactam Sod (Zosyn 2.25 Gm Iv Premix) 2.25 gm in 50 mls @ 100 mls/hr IVPB Q8H [facility]; Protocol Last Admin: 12/22/18 10:00 Dose: Not Given Insulin Glargine (Lantus) 30 unit SC DAILY [facility] Last Admin: 12/21/18 09:19 Dose: 30 u Insulin Human Regular (Novolin R) 0 unit SC ACHS [facility]; Protocol Last Admin: 12/22/18 08:31 Dose: Not Given Lorazepam (Ativan) 0.5 mg IVP ONCE PRN PRN Reason: ANXIETY - BEFORE MRI Metoprolol Succinate (Toprol Xl) 25 mg PO DAILY [facility] Last Admin: 12/22/18 13:47 Dose: 25 mg Montelukast Sodium (Singulair) 10 mg PO DAILY [facility] Last Admin: 12/22/18 13:48 Dose: 10 mg Rosuvastatin Calcium (Crestor) 5 mg PO HS [facility] Last Admin: 12/21/18 22:11 Dose: 5 mg Sevelamer Carbonate (Renvela) 1,600 mg PO TIDCC [facility] Last Admin: 12/22/18 13:48 Dose: 1,600 mg - Labs Labs: 12/22/18 09:59 12/22/18 09:59 - Constitutional Appears: Chronically Ill - Head Exam Head Exam: ATRAUMATIC, NORMAL INSPECTION - Eye Exam Eye Exam: EOMI Additional comments: Left eye is closed - 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 absent: Tenderness - Extremities Exam Additional comments: left arm- hemodialysis cath - Neurological Exam Neurological Exam: Alert, Awake, Oriented x3 - Psychiatric Exam Psychiatric exam: Anxious Assessment and Plan - Assessment and Plan (Free Text) Assessment: Pulmonary Effusion - secondary to Fluid Overload - proBNP 86506 - Decrease fluid intake - patient currently having dialysis - removal of 3L - Chest CT: consistent with bilateral pleural effusion and no pulmonary embolism. - Pulm Consult: Dr. Spaulding --> help appreciated History of CHF - ECHO (09/13/18): Mild valvular aortic stenosis. EF 55% - Aspirin 81mg daily; Metoprolol Succinate 25mg po daily; Crestor 5mg po HS, Plavix 75mg po daily ESRD - Dialysis (MWF) Case discussed with Dr. Pancho Fatima PGY-2 <Mauricio Deleon - Last Filed: 12/22/18 22:15> Objective - Vital Signs/Intake and Output Vital Signs (last 24 hours): Temp Pulse Resp BP Pulse Ox 97.8 F 77 20 113/68 95 12/22/18 16:20 12/22/18 16:20 12/22/18 16:20 12/22/18 17:53 12/22/18 16:20 - Medications Medications: Current Medications Albuterol/Ipratropium (Duoneb 3 Mg/0.5 Mg (3 Ml) Ud) 3 ml INH RQ2 PRN PRN Reason: Shortness of Breath Last Admin: 12/21/18 19:50 Dose: 3 ml Allopurinol (Zyloprim) 100 mg PO BID [facility] Last Admin: 12/22/18 17:50 Dose: 100 mg Artificial Tears (Artificial Tears) 1 ml OU Q6H PRN PRN Reason: Dry eyes Aspirin (Aspirin Chewable) 81 mg PO DAILY [facility] Last Admin: 12/22/18 13:47 Dose: 81 mg Bacitracin (Bacitracin Opht Oint) 1 applic OS MWF@HS [facility] Benzonatate (Tessalon Perles) 100 mg PO TID [facility] Last Admin: 12/22/18 17:49 Dose: 100 mg Cilostazol (Pletal) 50 mg PO BID [facility] Last Admin: 12/22/18 17:49 Dose: 50 mg Clopidogrel Bisulfate (Plavix) 75 mg PO DAILY [facility] Last Admin: 12/22/18 13:48 Dose: 75 mg Dextrose (Glutose 15) 0 gm PO ONCE PRN; Protocol PRN Reason: Hypoglycemia Protocol Dextrose (Dextrose 50% Inj) 0 ml IV STAT PRN; Protocol PRN Reason: Hypoglycemia Protocol Last Admin: 12/22/18 06:49 Dose: 50 ml Famotidine (Pepcid) 20 mg PO DAILY [facility] Last Admin: 12/22/18 13:49 Dose: 20 mg Folic Acid (Folic Acid) 1 mg PO DAILY [facility] Last Admin: 12/22/18 13:49 Dose: 1 mg Glucagon (Glucagen Diagnostic Kit) 0 mg IM STAT PRN; Protocol PRN Reason: Hypoglycemia Protocol Heparin Sodium (Porcine) (Heparin) 5,000 units SC Q8 [facility] Last Admin: 12/22/18 21:43 Dose: 5,000 units Hydralazine HCl (Apresoline) 10 mg PO TID [facility] Last Admin: 12/22/18 17:53 Dose: Not Given Dextrose (Dextrose 5% In Water 1000 Ml) 1,000 mls @ 0 mls/hr IV .Q0M PRN; Protocol PRN Reason: Hypoglycemia Protocol Azithromycin 500 mg/ Sodium (Chloride) 250 mls @ 250 mls/hr IVPB DAILY [facility]; Protocol Last Admin: 12/22/18 15:44 Dose: 250 mls/hr Piperacillin Sod/Tazobactam Sod (Zosyn 2.25 Gm Iv Premix) 2.25 gm in 50 mls @ 1 00 mls/hr IVPB Q8H [facility]; Protocol Last Admin: 12/22/18 17:50 Dose: 100 mls/hr Influenza Virus Vaccine (Flucelvax Quad 5826-1674 Syr) 60 mcg IM .ONCE ONE Stop: 12/24/18 10:01 Insulin Glargine (Lantus) 30 unit SC DAILY [facility] Last Admin: 12/22/18 11:00 Dose: Not Given Insulin Human Regular (Novolin R) 0 unit SC ACHS [facility]; Protocol Last Admin: 12/22/18 21:44 Dose: Not Given Lorazepam (Ativan) 0.5 mg IVP ONCE PRN PRN Reason: ANXIETY - BEFORE MRI Metoprolol Succinate (Toprol Xl) 25 mg PO DAILY [facility] Last Admin: 12/22/18 13:47 Dose: 25 mg Montelukast Sodium (Singulair) 10 mg PO DAILY [facility] Last Admin: 12/22/18 13:48 Dose: 10 mg Rosuvastatin Calcium (Crestor) 5 mg PO HS [facility] Last Admin: 12/22/18 21:43 Dose: 5 mg Sevelamer Carbonate (Renvela) 1,600 mg PO TIDCC [facility] Last Admin: 12/22/18 17:52 Dose: 1,600 mg - Labs Labs: 12/22/18 09:59 12/22/18 09:59 Assessment and Plan - Assessment and Plan (Free Text) Assessment: Patient seen and evaluated personally by me. Plan of care d/w the medical geneticist and as documented
[2018-12-22] MEDS: Azithromycin 500 MG in Sodium Chloride 0.9% 250 ML IVPB SCH (15:44)
--- NOTE | 2018-12-22 15:52 | CP.PCM.PN ---
Subjective - Date & Time of Evaluation Date of Evaluation: 12/22/18 Time of Evaluation: 13:45 - Subjective Subjective: Patient seen and examined Still having cough but much improved Afebrile Denies any chest pain Objective - Vital Signs/Intake and Output Vital Signs (last 24 hours): Temp Pulse Resp BP Pulse Ox 97.5 F L 75 16 105/57 L 97 12/22/18 13:00 12/22/18 13:00 12/22/18 13:00 12/22/18 13:00 12/22/18 13:00 Intake and Output: 12/22/18 12/22/18 06:59 18:59 Intake Total 100 Balance 100 - Medications Medications: Current Medications Albuterol/Ipratropium (Duoneb 3 Mg/0.5 Mg (3 Ml) Ud) 3 ml INH RQ2 PRN PRN Reason: Shortness of Breath Last Admin: 12/21/18 19:50 Dose: 3 ml Allopurinol (Zyloprim) 100 mg PO BID [facility] Last Admin: 12/22/18 10:00 Dose: Not Given Artificial Tears (Artificial Tears) 1 ml OU Q6H PRN PRN Reason: Dry eyes Aspirin (Aspirin Chewable) 81 mg PO DAILY [facility] Last Admin: 12/22/18 13:47 Dose: 81 mg Bacitracin (Bacitracin Opht Oint) 1 applic OS [facility] Benzonatate (Tessalon Perles) 100 mg PO TID [facility] Last Admin: 12/22/18 13:49 Dose: 100 mg Cilostazol (Pletal) 50 mg PO BID [facility] Last Admin: 12/22/18 10:00 Dose: Not Given Clopidogrel Bisulfate (Plavix) 75 mg PO DAILY [facility] Last Admin: 12/22/18 13:48 Dose: 75 mg Dextrose (Glutose 15) 0 gm PO ONCE PRN; Protocol PRN Reason: Hypoglycemia Protocol Dextrose (Dextrose 50% Inj) 0 ml IV STAT PRN; Protocol PRN Reason: Hypoglycemia Protocol Last Admin: 12/22/18 06:49 Dose: 50 ml Famotidine (Pepcid) 20 mg PO DAILY [facility] Last Admin: 12/22/18 13:49 Dose: 20 mg Folic Acid (Folic Acid) 1 mg PO DAILY [facility] Last Admin: 12/22/18 13:49 Dose: 1 mg Glucagon (Glucagen Diagnostic Kit) 0 mg IM STAT PRN; Protocol PRN Reason: Hypoglycemia Protocol Heparin Sodium (Porcine) (Heparin) 5,000 units SC Q8 [facility] Last Admin: 12/22/18 13:47 Dose: 5,000 units Hydralazine HCl (Apresoline) 10 mg PO TID [facility] Dextrose (Dextrose 5% In Water 1000 Ml) 1,000 mls @ 0 mls/hr IV .Q0M PRN; Protocol PRN Reason: Hypoglycemia Protocol Azithromycin 500 mg/ Sodium (Chloride) 250 mls @ 250 mls/hr IVPB DAILY [facility]; Protocol Last Admin: 12/22/18 15:44 Dose: 250 mls/hr Piperacillin Sod/Tazobactam Sod (Zosyn 2.25 Gm Iv Premix) 2.25 gm in 50 mls @ 100 mls/hr IVPB Q8H [facility]; Protocol Last Admin: 12/22/18 10:00 Dose: Not Given Influenza Virus Vaccine (Flucelvax Quad [id number] Syr) 60 mcg IM .ONCE ONE Stop: 12/24/18 10:01 Insulin Glargine (Lantus) 30 unit SC DAILY [facility] Last Admin: 12/22/18 11:00 Dose: Not Given Insulin Human Regular (Novolin R) 0 unit SC ACHS [facility]; Protocol Last Admin: 12/22/18 13:00 Dose: Not Given Lorazepam (Ativan) 0.5 mg IVP ONCE PRN PRN Reason: ANXIETY - BEFORE MRI Metoprolol Succinate (Toprol Xl) 25 mg PO DAILY [facility] Last Admin: 12/22/18 13:47 Dose: 25 mg Montelukast Sodium (Singulair) 10 mg PO DAILY [facility] Last Admin: 12/22/18 13:48 Dose: 10 mg Rosuvastatin Calcium (Crestor) 5 mg PO HS [facility] Last Admin: 12/21/18 22:11 Dose: 5 mg Sevelamer Carbonate (Renvela) 1,600 mg PO TIDCC [facility] Last Admin: 12/22/18 13:48 Dose: 1,600 mg - Labs Labs: 12/22/18 09:59 12/22/18 09:59 - Head Exam Head Exam: ATRAUMATIC, NORMOCEPHALIC - ENT Exam ENT Exam: Mucous Membranes Moist - Neck Exam Neck Exam: Normal Inspection - Respiratory Exam Respiratory Exam: Decreased Breath Sounds - Cardiovascular Exam Cardiovascular Exam: REGULAR RHYTHM - GI/Abdominal Exam GI & Abdominal Exam: Soft, Normal Bowel Sounds Assessment and Plan (1) Pleural effusion Assessment & Plan: Secondary to CHF and renal failure Continue hemodialysis Breathing and cough improved Follow-up chest x-ray Status: Acute (2) CHF exacerbation Status: Acute (3) ESRD (end stage renal disease) on dialysis Status: Acute
--- NOTE | 2018-12-22 16:11 | RAD ---
Date of service: 12/22/2018 HISTORY: Venous congestion COMPARISON: 10/05/2018. TECHNIQUE: Chest PA and lateral FINDINGS: LINES AND TUBES: None. LUNG AND PLEURA: The lungs are well inflated. There is multifocal linear atelectasis/scarring in the lower lobes. No pneumothorax. There is blunting of both costophrenic angles. HEART AND MEDIASTINUM: The heart is not enlarged. No aortic atherosclerotic calcifications present. The hilar and mediastinal contours are within normal limits. SKELETAL STRUCTURES: The bony structures are within normal limits for the patient's age. VISUALIZED UPPER ABDOMEN: Normal. OTHER FINDINGS: None. IMPRESSION: Multifocal linear atelectasis/scarring in the lower lobes. Blunting of both costophrenic angles may represent pleural thickening or small effusions.
--- NOTE | 2018-12-22 17:25 | CP.PCM.PN ---
Subjective - Date & Time of Evaluation Date of Evaluation: 12/22/18 Time of Evaluation: 17:15 - Subjective Subjective: Hospitalist Progress Note Patient was seen and examined at 5:15 PM 558 B 73 year old male (PMHx: ESRD on HD, HTN, HLD, IDDM, Gout, PAD) who was admitted on 12/20/18 for evaluation of of 1 week history of worsening of SOB with cough productive of white phlegm. Presenting Chest X Ray indicated likely pulmonary vascular congestion likely secondary to fluid overload. Ermegent HD was performed and patient was subsequently admitted to the ICU for further management. Currently upon FULL ROS: States that his breathing is much better than when he first came in Moving his bowels NO chest pain NO cough NO abdominal pain NO n/v/d/c NO burning/pain with urination General: AAOx3, NAD breathing comfortably on O2 via NC HEENT: NCA, Right Pupil is round and reactive to light and accomodation, Left Pupil is nor visible as left eye is covered in a white film that is chronic in nature, NO lymphadenopathy, NO thyromegaly, NO pharyngeal erythema/exudate Cardio: NS1 and NS2, NO M/R/G Resp: Bibasilar inspiratory crackles GI: BSx4, Soft, Central Obesity, NO HSM, NO guarding/rebound tenderness Extremities: NO edema, Capillary refill is 2 seconds, Pulses are strong and equal Neuro: CN II through XII are grossly intact Assessment and Plan: 1). Pulmonary Edema Likely secondary to fluid overload secondary to ESRD on HD Symptoms improved after emergent HD on 12/20/18 Could there be an underlying infiltrate? CT Angio Chest does indicate con solidation and bilateral pleural effusions (see full report) Zosyn 2.25 gm IV Q8H Azithromycin 500 mg IV Q24H Blood Culture is negative to date Urine Legionella is negative F/U Urine Strep pneumoniae F/U Mycoplasma IgG and IgM Repeat Chest X Ray morning 12/22/18: multifocal linear atelectasis/scarring in the bilateral lower lobes may represent pleural thickening or small effusions 2). Elevated ProBNP Likley secondary to ESRD Echo 09/03/18 showed LVSF that is normal, EF is normal, mild aortic stenosis (see full report) 3). RBBB with Left [place] Deviation on EKG Unchanged from August 2018 4). Hx ESRD on HD M-W-F Sevelamer 1,600 mg PO TID Nephrology Dr. Gordillo 5). Hx COPD Douneb Q2H Tessalon Pearls 100 mg PO 2x/day Singulair 10 mg PO 1x/day F/U further recommendation Band Sewer Dr. Spaulding 6). Hx HTN Hydralazine 25 mg PO 3x/day Metoprolol Succinate 25 mg PO 1x/day 7). Hx HLD Crestor 5 mg PO HS 8). Hx IDDM Hypoglycemic Protocol Lantus 30 Units SC 1x/day [facility] ACHS 9). Hx Gout Allopurinol 100 mg PO 2x/day 10). Hx PAD ASA 81 mg PO 1x/day Pletal 50 mg PO 2x/day Gabapentin 300 mg PO 1x/day 11). Prophylaxis Folic Acid 1 mg PO 1x/day Heparin 5,000 Units SC Q8H Protonix 40 mg IV 1x/day MRI Brain without contrast is pending as ordered by Neurology Dr. Burton who was consulted by the ICU Team on 12/21/18 status post rigors. If there are no issues with the MRI and if cleared by Neurology, the Medicine Team plans to discharge patient 12/23/18. PT/OT evaluation is still pending NO family at bedside today and will reach out to patient son on 12/23/18. Zaki Hernández D.O. Objective - Vital Signs/Intake and Output Vital Signs (last 24 hours): Temp Pulse Resp BP Pulse Ox 97.8 F 77 20 140/61 95 12/22/18 16:20 12/22/18 16:20 12/22/18 16:20 12/22/18 16:20 12/22/18 16:20 Intake and Output: 12/22/18 12/22/18 06:59 18:59 Intake Total 100 Balance 100 - Medications Medications: Current Medications Albuterol/Ipratropium (Duoneb 3 Mg/0.5 Mg (3 Ml) Ud) 3 ml INH RQ2 PRN PRN Reason: Shortness of Breath Last Admin: 12/21/18 19:50 Dose: 3 ml Allopurinol (Zyloprim) 100 mg PO BID [facility] Last Admin: 12/22/18 10:00 Dose: Not Given Artificial Tears (Artificial Tears) 1 ml OU Q6H PRN PRN Reason: Dry eyes Aspirin (Aspirin Chewable) 81 mg PO DAILY [facility] Last Admin: 12/22/18 13:47 Dose: 81 mg Bacitracin (Bacitracin Opht Oint) 1 applic OS MWF@HS [facility] Benzonatate (Tessalon Perles) 100 mg PO TID [facility] Last Admin: 12/22/18 13:49 Dose: 100 mg Cilostazol (Pletal) 50 mg PO BID [facility] Last Admin: 12/22/18 10:00 Dose: Not Given Clopidogrel Bisulfate (Plavix) 75 mg PO DAILY [facility] Last Admin: 12/22/18 13:48 Dose: 75 mg Dextrose (Glutose 15) 0 gm PO ONCE PRN; Protocol PRN Reason: Hypoglycemia Protocol Dextrose (Dextrose 50% Inj) 0 ml IV STAT PRN; Protocol PRN Reason: Hypoglycemia Protocol Last Admin: 12/22/18 06:49 Dose: 50 ml Famotidine (Pepcid) 20 mg PO DAILY [facility] Last Admin: 12/22/18 13:49 Dose: 20 mg Folic Acid (Folic Acid) 1 mg PO DAILY [facility] Last Admin: 12/22/18 13:49 Dose: 1 mg Glucagon (Glucagen Diagnostic Kit) 0 mg IM STAT PRN; Protocol PRN Reason: Hypoglycemia Protocol Heparin Sodium (Porcine) (Heparin) 5,000 units SC Q8 [facility] Last Admin: 12/22/18 13:47 Dose: 5,000 units Hydralazine HCl (Apresoline) 10 mg PO TID [facility] Dextrose (Dextrose 5% In Water 1000 Ml) 1,000 mls @ 0 mls/hr IV .Q0M PRN; Protocol PRN Reason: Hypoglycemia Protocol Azithromycin 500 mg/ Sodium (Chloride) 250 mls @ 250 mls/hr IVPB DAILY [facility]; Protocol Last Admin: 12/22/18 15:44 Dose: 250 mls/hr Piperacillin Sod/Tazobactam Sod (Zosyn 2.25 Gm Iv Premix) 2.25 gm in 50 mls @ 100 mls/hr IVPB Q8H [facility]; Protocol Last Admin: 12/22/18 10:00 Dose: Not Given Influenza Virus Vaccine (Flucelvax Quad [id number] Syr) 60 mcg IM .ONCE ONE Stop: 12/24/18 10:01 Insulin Glargine (Lantus) 30 unit SC DAILY [facility] Last Admin: 12/22/18 11:00 Dose: Not Given Insulin Human Regular (Novolin R) 0 unit SC ACHS [facility]; Protocol Last Admin: 12/22/18 13:00 Dose: Not Given Lorazepam (Ativan) 0.5 mg IVP ONCE PRN PRN Reason: ANXIETY - BEFORE MRI Metoprolol Succinate (Toprol Xl) 25 mg PO DAILY [facility] Last Admin: 12/22/18 13:47 Dose: 25 mg Montelukast Sodium (Singulair) 10 mg PO DAILY [facility] Last Admin: 12/22/18 13:48 Dose: 10 mg Rosuvastatin Calcium (Crestor) 5 mg PO HS [facility] Last Admin: 12/21/18 22:11 Dose: 5 mg Sevelamer Carbonate (Renvela) 1,600 mg PO TIDCC [facility] Last Admin: 12/22/18 13:48 Dose: 1,600 mg - Labs Labs: 12/22/18 09:59 12/22/18 09:59
[2018-12-22] MEDS: Bacitracin Opht OINT 3.5GM OS SCH (22:17)
[2018-12-23] MEDS: Piperacill/Tazo 2.25gm in Dex 2.25 GM/50 ML BAG IVPB SCH ×3 (01:05→17:32)
[2018-12-23 09:16] LABS: BASO # 0.1 K/uL (0.0-0.2); BASO % 1.5 % (0.0-2.0); EOS # 0.4 K/uL (0.0-0.7); EOS % 5.8 % (0.0-4.0); LYMPH # 1.3 K/uL (1.0-4.3); LYMPH % 20.2 % (20.0-40.0); MEAN CELL VOLUME 91.7 fL (80.0-94.0); MEAN CORPUSCULAR HEMOGLOBIN 30.9 pg (27.0-31.0); MEAN CORPUSCULAR HGB CONC 33.7 g/dL (33.0-37.0); MEAN PLATELET VOLUME 9.3 fL (7.2-11.7); MONO # 0.4 K/uL (0.0-0.8); MONO % 6.2 % (0.0-10.0); NEUT # 4.4 K/uL (1.8-7.0); NEUT % 66.3 % (50.0-75.0); RBC 4.21 Mil/uL (4.40-5.90); RED CELL DISTRIBUTION WIDTH 15.7 % (11.5-14.5); WHITE BLOOD COUNT 6.6 K/uL (4.8-10.8)
[2018-12-23] MEDS: Cilostazol 50 mg Tab UD PO SCH ×2 (09:24→17:32)
[2018-12-23] MEDS: Azithromycin 500 MG in Sodium Chloride 0.9% 250 ML IVPB SCH (09:27)
[2018-12-23] MEDS: (Novolin R) Insulin Human Regular 100 units/ml vial SC SCH ×4 (09:28→21:49)
[2018-12-23] MEDS: (Lantus) Insulin Glargine, Recombinant SC SCH (09:29)
[2018-12-23 09:30] LABS: ALB/GLOB RATIO 1.5 (1.0-2.1); ALBUMIN 4.1 g/dL (3.5-5.0); CALCIUM 8.8 mg/dl (8.6-10.4)
--- NOTE | 2018-12-23 10:48 | RAD ---
Date of service: 12/23/2018 HISTORY: chest tightness, compare to admission cxr COMPARISON: Chest radiograph 12/22/2018. TECHNIQUE: Chest PA and lateral FINDINGS: LUNGS: Hazy airspace disease seen at the inferior lung zones, right greater than left once again, not significantly changed in time. Air bronchograms are not clearly identified however consolidation remains in the differential diagnosis as well as atelectasis. Linear atelectasis or fibrosis in the bilateral bases. PLEURA: Diminishing left pleural effusion with trace residual at the left. Minimal right pleural effusion unchanged. CARDIOVASCULAR: No aortic atherosclerotic calcification present. Cardiac size stable. No pulmonary vascular congestion. No pulmonary vascular congestion. OSSEOUS STRUCTURES: No significant abnormalities. VISUALIZED UPPER ABDOMEN: Normal. OTHER FINDINGS: None. IMPRESSION: Trace left residual pleural effusion with exam otherwise unchanged including right greater than left basilar airspace disease and limited right pleural effusion. Linear atelectasis or fibrosis again noted bilateral bases as well.
--- NOTE | 2018-12-23 11:13 | CP.PCM.PN ---
Subjective - Date & Time of Evaluation Date of Evaluation: 12/23/18 Time of Evaluation: 11:11 - Subjective Subjective: Less dyspneic CXR same considering technique mild cough stable dialysis- tolerating UF 3000ml Objective - Vital Signs/Intake and Output Vital Signs (last 24 hours): Temp Pulse Resp BP Pulse Ox 98.4 F 79 20 132/61 95 12/23/18 08:00 12/23/18 08:00 12/23/18 08:00 12/23/18 08:00 12/23/18 08:00 Intake and Output: 12/23/18 12/23/18 06:59 18:59 Output Total 50 Balance -50 - Medications Medications: Current Medications Albuterol/Ipratropium (Duoneb 3 Mg/0.5 Mg (3 Ml) Ud) 3 ml INH RQ2 PRN PRN Reason: Shortness of Breath Last Admin: 12/21/18 19:50 Dose: 3 ml Allopurinol (Zyloprim) 100 mg PO BID [facility] Last Admin: 12/23/18 09:25 Dose: 100 mg Artificial Tears (Artificial Tears) 1 ml OU Q6H PRN PRN Reason: Dry eyes Aspirin (Aspirin Chewable) 81 mg PO DAILY [facility] Last Admin: 12/23/18 09:24 Dose: 81 mg Bacitracin (Bacitracin Opht Oint) 1 applic OS MWF@HS [facility] Last Admin: 12/22/18 22:17 Dose: 1 applic Benzonatate (Tessalon Perles) 100 mg PO TID [facility] Last Admin: 12/23/18 09:24 Dose: 100 mg Cilostazol (Pletal) 50 mg PO BID [facility] Last Admin: 12/23/18 09:24 Dose: 50 mg Clopidogrel Bisulfate (Plavix) 75 mg PO DAILY [facility] Last Admin: 12/23/18 09:25 Dose: 75 mg Dextrose (Glutose 15) 0 gm PO ONCE PRN; Protocol PRN Reason: Hypoglycemia Protocol Dextrose (Dextrose 50% Inj) 0 ml IV STAT PRN; Protocol PRN Reason: Hypoglycemia Protocol Last Admin: 12/22/18 06:49 Dose: 50 ml Famotidine (Pepcid) 20 mg PO DAILY [facility] Last Admin: 12/23/18 09:24 Dose: 20 mg Folic Acid (Folic Acid) 1 mg PO DAILY [facility] Last Admin: 12/23/18 09:24 Dose: 1 mg Glucagon (Glucagen Diagnostic Kit) 0 mg IM STAT PRN; Protocol PRN Reason: Hypoglycemia Protocol Heparin Sodium (Porcine) (Heparin) 5,000 units SC Q8 [facility] Last Admin: 12/23/18 06:31 Dose: 5,000 units Hydralazine HCl (Apresoline) 10 mg PO TID [facility] Last Admin: 12/23/18 09:24 Dose: 10 mg Dextrose (Dextrose 5% In Water 1000 Ml) 1,000 mls @ 0 mls/hr IV .Q0M PRN; Protocol PRN Reason: Hypoglycemia Protocol Azithromycin 500 mg/ Sodium (Chloride) 250 mls @ 250 mls/hr IVPB DAILY [facility]; Protocol Last Admin: 12/23/18 09:27 Dose: 250 mls/hr Piperacillin Sod/Tazobactam Sod (Zosyn 2.25 Gm Iv Premix) 2.25 gm in 50 mls @ 100 mls/hr IVPB Q8H [facility]; Protocol Last Admin: 12/23/18 09:30 Dose: 100 mls/hr Influenza Virus Vaccine (Flucelvax Quad [id number] Syr) 60 mcg IM .ONCE ONE Stop: 12/24/18 10:01 Insulin Glargine (Lantus) 30 unit SC DAILY [facility] Last Admin: 12/23/18 09:29 Dose: 30 u Insulin Human Regular (Novolin R) 0 unit SC ACHS [facility]; Protocol Last Admin: 12/23/18 09:28 Dose: Not Given Lorazepam (Ativan) 0.5 mg IVP ONCE PRN PRN Reason: ANXIETY - BEFORE MRI Metoprolol Succinate (Toprol Xl) 25 mg PO DAILY [facility] Last Admin: 12/22/18 13:47 Dose: 25 mg Montelukast Sodium (Singulair) 10 mg PO DAILY [facility] Last Admin: 12/23/18 09:24 Dose: 10 mg Rosuvastatin Calcium (Crestor) 5 mg PO HS [facility] Last Admin: 12/22/18 21:43 Dose: 5 mg Sevelamer Carbonate (Renvela) 1,600 mg PO TIDCC [facility] Last Admin: 12/22/18 17:52 Dose: 1,600 mg - Labs Labs: 12/23/18 09:00 12/23/18 09:00 - Constitutional Appears: No Acute Distress, Chronically Ill - Head Exam Head Exam: ATRAUMATIC, NORMAL INSPECTION - Eye Exam Eye Exam: EOMI, Normal appearance - Respiratory Exam Respiratory Exam: Rhonchi, NORMAL BREATHING PATTERN - Cardiovascular Exam Cardiovascular Exam: REGULAR RHYTHM, +S1 - GI/Abdominal Exam GI & Abdominal Exam: Soft. absent: Tenderness - Extremities Exam Extremities Exam: Normal Inspection. absent: Tenderness - Neurological Exam Neurological Exam: Awake, CN II-XII Intact - Skin Skin Exam: Dry, Warm Assessment and Plan (1) Type 2 diabetes mellitus with diabetic nephropathy Status: Acute (2) Pulmonary fibrosis Status: Acute (3) CHF exacerbation Status: Acute (4) ESRD (end stage renal disease) on dialysis Status: Acute (5) Acute exacerbation of chronic bronchitis Status: Acute - Assessment and Plan (Free Text) Plan: same dialysis - MWF monitor BP at dialysis neuro eval
--- NOTE | 2018-12-23 11:51 | PN ---
DATE: 12/23/2018 TIME OF EVALUATION: 07:30 a.m. NEUROLOGICAL PROBLEM: Abnormal movements, probable subcortical dysfunction with his neuropathy. PHYSICAL EXAMINATION: GENERAL: The patient is awake, communicable in [place]. No new symptoms. VITAL SIGNS: Blood pressure 119/60, mean arterial pressure of 79, respiratory rate 18, pulse rate 77, and temperature 97.5. 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 No asterixis. LABORATORY DATA: The patient's new blood workup; glucose 112. ASSESSMENT AND PLAN: Recommended MRI is still pending. Prolactin is 12.1, TSH is 2.58, and RPR was nonreactive. Continue present management. The patient will be followed closely with you. Brayan Burton MD
[2018-12-23] MEDS: Metoprolol Succinate 12.5 mg XL Tab PO SCH (12:32)
--- NOTE | 2018-12-23 12:57 | MRI ---
Date of service: 12/23/2018 PROCEDURE: MRI BRAIN WITHOUT CONTRAST HISTORY: basal ganglia lesion COMPARISON: None available. TECHNIQUE: Multiplanar, multisequence MR images of the brain were obtained without intravenous contrast enhancement. FINDINGS: HEMORRHAGE: Small area of hemosiderin is identified dephasing signal in the right parietal lobe potentially reflecting a cavernous hemangioma or possibly prior hemorrhage. Follow-up CT is advised. Acute hemorrhage is not felt to be present here. No prominent signal abnormality is seen here in all other sequences. DWI: No evidence of an acute or early subacute infarction. BRAIN PARENCHYMA: The key-white matter differentiation is well preserved. There is no mass effect or definitive edema pattern appreciated including the cortex. There is proportional expansion of the ventriculosulcal and cisternal spaces however in a pattern most compatible with diffuse cerebral atrophy. No suspicious extra-axial fluid collection is identified in the midline brain anatomy appears grossly nonfocal as imaged. VENTRICLES: Unremarkable. No hydrocephalus. CRANIUM: Unremarkable. ORBITS: Grossly unremarkable. PARANASAL SINUSES/MASTOIDS: Clear VASCULAR SYSTEM: Skull base flow voids intact. OTHER FINDINGS: None. IMPRESSION: Focal hemosiderin at the right parietal lobe may reflect cavernoma or posttraumatic or even post ischemic sequelae. Follow-up head CT is advised for this small sub cm area of signal abnormality. Otherwise diffuse cerebral atrophy chronic microangiopathy are identified. No acute separate brain infarction. The bilateral basal ganglia appear unremarkable as imaged.
[2018-12-23] MEDS: Metoprolol Succinate 25 mg XL Tab PO SCH (13:46)
--- NOTE | 2018-12-23 14:07 | CP.PCM.PN ---
<Alfonso Avalos - Last Filed: 12/23/18 17:11> Subjective - Date & Time of Evaluation Date of Evaluation: 12/23/18 Time of Evaluation: 14:03 - Subjective Subjective: HOSPITALIST SERVICE Pt seen and examined at bedside, complains of chest tightness however improving since yesterday, pt says hes not short of breath but rather just feels tight. Pt denies Chest Pain fevers, chills, nausea, vomiting. Objective - Vital Signs/Intake and Output Vital Signs (last 24 hours): Temp Pulse Resp BP Pulse Ox 98.4 F 79 20 132/61 95 12/23/18 08:00 12/23/18 08:00 12/23/18 08:00 12/23/18 08:00 12/23/18 08:00 Intake and Output: 12/23/18 12/23/18 06:59 18:59 Output Total 50 Balance -50 - Medications Medications: Current Medications Albuterol/Ipratropium (Duoneb 3 Mg/0.5 Mg (3 Ml) Ud) 3 ml INH RQ2 PRN PRN Reason: Shortness of Breath Last Admin: 12/21/18 19:50 Dose: 3 ml Allopurinol (Zyloprim) 100 mg PO BID [facility] Last Admin: 12/23/18 09:25 Dose: 100 mg Artificial Tears (Artificial Tears) 1 ml OU Q6H PRN PRN Reason: Dry eyes Aspirin (Aspirin Chewable) 81 mg PO DAILY [facility] Last Admin: 12/23/18 09:24 Dose: 81 mg Bacitracin (Bacitracin Opht Oint) 1 applic OS MWF@HS [facility] Last Admin: 12/22/18 22:17 Dose: 1 applic Benzonatate (Tessalon Perles) 100 mg PO TID [facility] Last Admin: 12/23/18 13:48 Dose: 100 mg Cilostazol (Pletal) 50 mg PO BID [facility] Last Admin: 12/23/18 09:24 Dose: 50 mg Clopidogrel Bisulfate (Plavix) 75 mg PO DAILY [facility] Last Admin: 12/23/18 09:25 Dose: 75 mg Dextrose (Glutose 15) 0 gm PO ONCE PRN; Protocol PRN Reason: Hypoglycemia Protocol Dextrose (Dextrose 50% Inj) 0 ml IV STAT PRN; Protocol PRN Reason: Hypoglycemia Protocol Last Admin: 12/22/18 06:49 Dose: 50 ml Famotidine (Pepcid) 20 mg PO DAILY [facility] Last Admin: 12/23/18 09:24 Dose: 20 mg Folic Acid (Folic Acid) 1 mg PO DAILY [facility] Last Admin: 12/23/18 09:24 Dose: 1 mg Glucagon (Glucagen Diagnostic Kit) 0 mg IM STAT PRN; Protocol PRN Reason: Hypoglycemia Protocol Heparin Sodium (Porcine) (Heparin) 5,000 units SC Q8 [facility] Last Admin: 12/23/18 13:33 Dose: 5,000 units Hydralazine HCl (Apresoline) 10 mg PO TID [facility] Last Admin: 12/23/18 09:24 Dose: 10 mg Dextrose (Dextrose 5% In Water 1000 Ml) 1,000 mls @ 0 mls/hr IV .Q0M PRN; Protocol PRN Reason: Hypoglycemia Protocol Azithromycin 500 mg/ Sodium (Chloride) 250 mls @ 250 mls/hr IVPB DAILY [facility]; Protocol Last Admin: 12/23/18 09:27 Dose: 250 mls/hr Piperacillin Sod/Tazobactam Sod (Zosyn 2.25 Gm Iv Premix) 2.25 gm in 50 mls @ 100 mls/hr IVPB Q8H [facility]; Protocol Last Admin: 12/23/18 09:30 Dose: 100 mls/hr Influenza Virus Vaccine (Flucelvax Quad [id number] Syr) 60 mcg IM .ONCE ONE Stop: 12/24/18 10:01 Insulin Glargine (Lantus) 30 unit SC DAILY [facility] Last Admin: 12/23/18 09:29 Dose: 30 u Insulin Human Regular (Novolin R) 0 unit SC ACHS [facility]; Protocol Last Admin: 12/23/18 13:34 Dose: 1 unit Lorazepam (Ativan) 0.5 mg IVP ONCE PRN PRN Reason: ANXIETY - BEFORE MRI Metoprolol Succinate (Toprol Xl) 25 mg PO DAILY [facility] Last Admin: 12/23/18 12:32 Dose: 25 mg Montelukast Sodium (Singulair) 10 mg PO DAILY [facility] Last Admin: 12/23/18 09:24 Dose: 10 mg Rosuvastatin Calcium (Crestor) 5 mg PO HS [facility] Last Admin: 12/22/18 21:43 Dose: 5 mg Sevelamer Carbonate (Renvela) 1,600 mg PO TIDCC [facility] Last Admin: 12/23/18 12:32 Dose: 1,600 mg - Labs Labs: 12/23/18 09:00 12/23/18 09:00 - Constitutional Appears: Non-toxic, Confused, Chronically Ill - Additional Findings Additional findings: General: AAOx3, NAD breathing comfortably on O2 via NC HEENT: NCA, Right Pupil is round and reactive to light and accomodation, Left Pupil is nor visible as left eye is covered in a white film that is chronic in nature, NO lymphadenopathy, NO thyromegaly, NO pharyngeal erythema/exudate Cardio: NS1 and NS2, NO M/R/G Resp: Bibasilar inspiratory rales GI: BSx4, Soft, Central Obesity, NO HSM, NO guarding/rebound tenderness Extremities: NO edema, Capillary refill is 2 seconds, Pulses are strong and equal Neuro: CN II through XII are grossly intact Assessment and Plan - Assessment and Plan (Free Text) Assessment: Assessment and Plan: Pulmonary Edema Likely secondary to fluid overload secondary to ESRD on HD Symptoms improved after emergent HD on 12/20/18 Could there be an underlying infiltrate? CT Angio Chest does indicate consolidation and bilateral pleural effusions (see full report) Zosyn 2.25 gm IV Q8H Azithromycin 500 mg IV Q24H Blood Culture is negative to date Urine Legionella is negative F/U Urine Strep pneumoniae F/U Mycoplasma IgG and IgM Repeat PA LAT Chest X Ray morning 12/23/18: trace residual L pleural effusions, bibasilar disease, linear atelectasis/fibrosis, stable Elevated ProBNP Likley secondary to ESRD Echo 09/03/18 showed LVSF that is normal, EF is normal, mild aortic stenosis (see full report) POSTURAL TREMOR w/ APPENDICULAR DYSMETRIA Dr Burton Neuro consulted -MRI 12/23: hemosderin deposit R pariteal, cavernoma/Post trauma or ichemic. diffuse cerebral atrophy and microangiopathy, chronic -Recommending outpt EMG/NCV RBBB with Left [place] Deviation on EKG Unchanged from August 2018 Hx ESRD on HD M-- Sevelamer 1,600 mg PO TID Nephrology Dr. Howell seen at bedside w/ Dr Howell, plan for one more day of HD tmrw Hx COPD Douneb Q2H Tessalon Pearls 100 mg PO 2x/day Singulair 10 mg PO 1x/day F/U further recommendation Desktop Support Engineer Dr. Spaulding Hx HTN Hydralazine 25 mg PO 3x/day Metoprolol Succinate 25 mg PO 1x/day Hx HLD Crestor 5 mg PO HS Hx IDDM Hypoglycemic Protocol Lantus 30 Units SC 1x/day RISS ACHS Hx Gout Allopurinol 100 mg PO 2x/day Hx PAD ASA 81 mg PO 1x/day Pletal 50 mg PO 2x/day Gabapentin 300 mg PO 1x/day Prophylaxis Folic Acid 1 mg PO 1x/day Heparin 5,000 Units SC Q8H Protonix 40 mg IV 1x/day Possible d/c tmrw <Zaki Hernández - Last Filed: 12/24/18 19:39> Objective - Vital Signs/Intake and Output Vital Signs (last 24 hours): Temp Pulse Resp BP Pulse Ox 97.5 F L 84 20 126/65 95 12/24/18 15:48 12/24/18 15:48 12/24/18 15:48 12/24/18 15:48 12/24/18 15:48 - Medications Medications: Current Medications Albuterol/Ipratropium (Duoneb 3 Mg/0.5 Mg (3 Ml) Ud) 3 ml INH RQ2 PRN PRN Reason: Shortness of Breath Last Admin: 12/24/18 19:32 Dose: 3 ml Allopurinol (Zyloprim) 100 mg PO BID [facility] Last Admin: 12/24/18 18:04 Dose: 100 mg Artificial Tears (Artificial Tears) 1 ml OU Q6H PRN PRN Reason: Dry eyes Aspirin (Aspirin Chewable) 81 mg PO DAILY [facility] Last Admin: 12/24/18 09:06 Dose: 81 mg Bacitracin (Bacitracin Opht Oint) 1 applic OS MWF@HS [facility] Last Admin: 12/22/18 22:17 Dose: 1 applic Benzonatate (Tessalon Perles) 100 mg PO TID [facility] Last Admin: 12/24/18 18:03 Dose: 100 mg Cilostazol (Pletal) 50 mg PO BID [facility] Last Admin: 12/24/18 18:03 Dose: 50 mg Clopidogrel Bisulfate (Plavix) 75 mg PO DAILY [facility] Last Admin: 12/24/18 09:06 Dose: 75 mg Dextrose (Glutose 15) 0 gm PO ONCE PRN; Protocol PRN Reason: Hypoglycemia Protocol Dextrose (Dextrose 50% Inj) 0 ml IV STAT PRN; Protocol PRN Reason: Hypoglycemia Protocol Last Admin: 12/22/18 06:49 Dose: 50 ml Famotidine (Pepcid) 20 mg PO DAILY [facility] Last Admin: 12/24/18 09:06 Dose: 20 mg Folic Acid (Folic Acid) 1 mg PO DAILY [facility] Last Admin: 12/24/18 09:04 Dose: 1 mg Glucagon (Glucagen Diagnostic Kit) 0 mg IM STAT PRN; Protocol PRN Reason: Hypoglycemia Protocol Heparin Sodium (Porcine) (Heparin) 5,000 units SC Q8 [facility] Last Admin: 12/24/18 14:28 Dose: 5,000 units Hydralazine HCl (Apresoline) 10 mg PO TID [facility] Last Admin: 12/24/18 18:04 Dose: 10 mg Dextrose (Dextrose 5% In Water 1000 Ml) 1,000 mls @ 0 mls/hr IV .Q0M PRN; Protocol PRN Reason: Hypoglycemia Protocol Azithromycin 500 mg/ Sodium (Chloride) 250 mls @ 250 mls/hr IVPB DAILY [facility]; Protocol Last Admin: 12/24/18 14:31 Dose: 250 mls/hr Piperacillin Sod/Tazobactam Sod (Zosyn 2.25 Gm Iv Premix) 2.25 gm in 50 mls @ 100 mls/hr IVPB Q8H [facility]; Protocol Last Admin: 12/24/18 18:02 Dose: 100 mls/hr Insulin Glargine (Lantus) 30 unit SC DAILY [facility] Last Admin: 12/24/18 09:07 Dose: Not Given Insulin Human Regular (Novolin R) 0 unit SC ACHS [facility]; Protocol Last Admin: 12/24/18 18:04 Dose: 1 unit Lorazepam (Ativan) 0.5 mg IVP ONCE PRN PRN Reason: ANXIETY - BEFORE MRI Metoprolol Succinate (Toprol Xl) 25 mg PO DAILY [facility] Montelukast Sodium (Singulair) 10 mg PO DAILY [facility] Last Admin: 12/24/18 09:04 Dose: 10 mg Rosuvastatin Calcium (Crestor) 5 mg PO HS [facility] Last Admin: 12/23/18 21:48 Dose: 5 mg Sevelamer Carbonate (Renvela) 1,600 mg PO TIDCC [facility] Last Admin: 12/24/18 18:03 Dose: 1,600 mg - Labs Labs: 12/24/18 16:25 12/24/18 16:25 Attending/Attestation - Attestation I have personally seen and examined this patient.: Yes I have fully participated in the care of the patient.: Yes I have reviewed all pertinent clinical information, including history, physical exam and plan: Yes Notes (Text): 12/24/18 19:38 This is a late entry. Care of this patient was gone over in detail with resident. Zaki Hernández D.O.
[2018-12-24] MEDS: Piperacill/Tazo 2.25gm in Dex 2.25 GM/50 ML BAG IVPB SCH ×3 (02:24→18:02)
--- NOTE | 2018-12-24 05:14 | CP.PCM.PN ---
Subjective - Date & Time of Evaluation Date of Evaluation: 12/23/18 Time of Evaluation: 18:00 - Subjective Subjective: Patient was seen and examined at bedside. 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 absent: Tenderness - Extremities Exam Additional comments: left arm- hemodialysis cath - Neurological Exam Neurological Exam: Alert, Awake, Oriented x3 - Psychiatric Exam Psychiatric exam: Anxious Objective - Vital Signs/Intake and Output Vital Signs (last 24 hours): Temp Pulse Resp BP Pulse Ox 97.7 F 80 20 131/67 92 L 12/23/18 23:50 12/23/18 23:50 12/23/18 23:50 12/23/18 23:50 12/23/18 23:50 Intake and Output: 12/23/18 12/24/18 18:59 06:59 Intake Total 250 Output Total 0 Balance 250 - Medications Medications: Current Medications Albuterol/Ipratropium (Duoneb 3 Mg/0.5 Mg (3 Ml) Ud) 3 ml INH RQ2 PRN PRN Reason: Shortness of Breath Last Admin: 12/21/18 19:50 Dose: 3 ml Allopurinol (Zyloprim) 100 mg PO BID [facility] Last Admin: 12/23/18 17:32 Dose: 100 mg Artificial Tears (Artificial Tears) 1 ml OU Q6H PRN PRN Reason: Dry eyes Aspirin (Aspirin Chewable) 81 mg PO DAILY [facility] Last Admin: 12/23/18 09:24 Dose: 81 mg Bacitracin (Bacitracin Opht Oint) 1 applic OS MWF@HS [facility] Last Admin: 12/22/18 22:17 Dose: 1 applic Benzonatate (Tessalon Perles) 100 mg PO TID [facility] Last Admin: 12/23/18 17:32 Dose: 100 mg Cilostazol (Pletal) 50 mg PO BID [facility] Last Admin: 12/23/18 17:32 Dose: 50 mg Clopidogrel Bisulfate (Plavix) 75 mg PO DAILY [facility] Last Admin: 12/23/18 09:25 Dose: 75 mg Dextrose (Glutose 15) 0 gm PO ONCE PRN; Protocol PRN Reason: Hypoglycemia Protocol Dextrose (Dextrose 50% Inj) 0 ml IV STAT PRN; Protocol PRN Reason: Hypoglycemia Protocol Last Admin: 12/22/18 06:49 Dose: 50 ml Famotidine (Pepcid) 20 mg PO DAILY [facility] Last Admin: 12/23/18 09:24 Dose: 20 mg Folic Acid (Folic Acid) 1 mg PO DAILY [facility] Last Admin: 12/23/18 09:24 Dose: 1 mg Glucagon (Glucagen Diagnostic Kit) 0 mg IM STAT PRN; Protocol PRN Reason: Hypoglycemia Protocol Heparin Sodium (Porcine) (Heparin) 5,000 units SC Q8 [facility] Last Admin: 12/23/18 21:49 Dose: 5,000 units Hydralazine HCl (Apresoline) 10 mg PO TID [facility] Last Admin: 12/23/18 17:12 Dose: Not Given Dextrose (Dextrose 5% In Water 1000 Ml) 1,000 mls @ 0 mls/hr IV .Q0M PRN; Protocol PRN Reason: Hypoglycemia Protocol Azithromycin 500 mg/ Sodium (Chloride) 250 mls @ 250 mls/hr IVPB DAILY [facility]; Protocol Last Admin: 12/23/18 09:27 Dose: 250 mls/hr Piperacillin Sod/Tazobactam Sod (Zosyn 2.25 Gm Iv Premix) 2.25 gm in 50 mls @ 100 mls/hr IVPB Q8H [facility]; Protocol Last Admin: 12/24/18 02:24 Dose: 100 mls/hr Influenza Virus Vaccine (Flucelvax Quad [id number] Syr) 60 mcg IM .ONCE ONE Stop: 12/24/18 10:01 Insulin Glargine (Lantus) 30 unit SC DAILY [facility] Last Admin: 12/23/18 09:29 Dose: 30 u Insulin Human Regular (Novolin R) 0 unit SC ACHS [facility]; Protocol Last Admin: 12/23/18 21:49 Dose: Not Given Lorazepam (Ativan) 0.5 mg IVP ONCE PRN PRN Reason: ANXIETY - BEFORE MRI Metoprolol Succinate (Toprol Xl) 25 mg PO DAILY [facility] Last Admin: 12/23/18 12:32 Dose: 25 mg Montelukast Sodium (Singulair) 10 mg PO DAILY [facility] Last Admin: 12/23/18 09:24 Dose: 10 mg Rosuvastatin Calcium (Crestor) 5 mg PO HS [facility] Last Admin: 12/23/18 21:48 Dose: 5 mg Sevelamer Carbonate (Renvela) 1,600 mg PO TIDCC [facility] Last Admin: 12/23/18 17:31 Dose: 1,600 mg - Labs Labs: 12/23/18 09:00 12/23/18 09:00 Assessment and Plan - Assessment and Plan (Free Text) Assessment: Assessment and Plan - Assessment and Plan (Free Text) Assessment: Assessment and Plan: Pulmonary Edema Likely secondary to fluid overload secondary to ESRD on HD Symptoms improved after emergent HD on 12/20/18 Could there be an underlying infiltrate? CT Angio Chest does indicate co nsolidation and bilateral pleural effusions (see full report) Zosyn 2.25 gm IV Q8H Azithromycin 500 mg IV Q24H Blood Culture is negative to date Urine Legionella is negative F/U Urine Strep pneumoniae F/U Mycoplasma IgG and IgM Repeat PA LAT Chest X Ray morning 12/23/18: trace residual L pleural effusions, bibasilar disease, linear atelectasis/fibrosis, stable Elevated ProBNP Likley secondary to ESRD Echo 09/03/18 showed LVSF that is normal, EF is normal, mild aortic stenosis (see full report) POSTURAL TREMOR w/ APPENDICULAR DYSMETRIA Dr Burton Neuro consulted -MRI 12/23: hemosderin deposit R pariteal, cavernoma/Post trauma or ichemic. diffuse cerebral atrophy and microangiopathy, chronic -Recommending outpt EMG/NCV RBBB with Left [place] Deviation on EKG Unchanged from August 2018 Hx ESRD on HD -- Sevelamer 1,600 mg PO TID Nephrology Dr. Howell seen at bedside w/ Dr Howell, plan for one more day of HD tmrw Hx COPD Douneb Q2H Tessalon Pearls 100 mg PO 2x/day Singulair 10 mg PO 1x/day F/U further recommendation Web Design Specialist Dr. Spaulding Hx HTN Hydralazine 25 mg PO 3x/day Metoprolol Succinate 25 mg PO 1x/day Hx HLD Crestor 5 mg PO HS Hx IDDM Hypoglycemic Protocol Lantus 30 Units SC 1x/day RISS ACHS Hx Gout Allopurinol 100 mg PO 2x/day Hx PAD ASA 81 mg PO 1x/day Pletal 50 mg PO 2x/day Gabapentin 300 mg PO 1x/day Prophylaxis Folic Acid 1 mg PO 1x/day Heparin 5,000 Units SC Q8H Protonix 40 mg IV 1x/day
[2018-12-24 05:57] LABS: CERULOPLASMIN 31 mg/dL (18-36)
[2018-12-24] MEDS: (Novolin R) Insulin Human Regular 100 units/ml vial SC SCH ×4 (07:36→21:40)
[2018-12-24] MEDS: Cilostazol 50 mg Tab UD PO SCH ×2 (09:04→18:03)
[2018-12-24] MEDS: (Lantus) Insulin Glargine, Recombinant SC SCH (09:07)
[2018-12-24] MEDS ORDERED: Influenza Vaccine 60 mcg/0.5 mL SYR (4YR UP) IM ONE (10:00)
--- NOTE | 2018-12-24 10:55 | CP.PCM.PN ---
Subjective - Date & Time of Evaluation Date of Evaluation: 12/24/18 Time of Evaluation: 08:40 - Subjective Subjective: Patient seen and examined lying comfortably in no distress Clinically much improved Slight cough Objective - Vital Signs/Intake and Output Vital Signs (last 24 hours): Temp Pulse Resp BP Pulse Ox 97.6 F 86 17 133/64 90 L 12/24/18 09:40 12/24/18 09:40 12/24/18 09:40 12/24/18 09:40 12/24/18 08:40 Intake and Output: 12/24/18 12/24/18 06:59 18:59 Intake Total 250 Output Total 0 Balance 250 - Medications Medications: Current Medications Albuterol/Ipratropium (Duoneb 3 Mg/0.5 Mg (3 Ml) Ud) 3 ml INH RQ2 PRN PRN Reason: Shortness of Breath Last Admin: 12/21/18 19:50 Dose: 3 ml Allopurinol (Zyloprim) 100 mg PO BID [facility] Last Admin: 12/24/18 09:04 Dose: 100 mg Artificial Tears (Artificial Tears) 1 ml OU Q6H PRN PRN Reason: Dry eyes Aspirin (Aspirin Chewable) 81 mg PO DAILY [facility] Last Admin: 12/24/18 09:06 Dose: 81 mg Bacitracin (Bacitracin Opht Oint) 1 applic OS MWF@HS [facility] Last Admin: 12/22/18 22:17 Dose: 1 applic Benzonatate (Tessalon Perles) 100 mg PO TID [facility] Last Admin: 12/24/18 09:06 Dose: 100 mg Cilostazol (Pletal) 50 mg PO BID [facility] Last Admin: 12/24/18 09:04 Dose: 50 mg Clopidogrel Bisulfate (Plavix) 75 mg PO DAILY [facility] Last Admin: 12/24/18 09:06 Dose: 75 mg Dextrose (Glutose 15) 0 gm PO ONCE PRN; Protocol PRN Reason: Hypoglycemia Protocol Dextrose (Dextrose 50% Inj) 0 ml IV STAT PRN; Protocol PRN Reason: Hypoglycemia Protocol Last Admin: 12/22/18 06:49 Dose: 50 ml Famotidine (Pepcid) 20 mg PO DAILY [facility] Last Admin: 12/24/18 09:06 Dose: 20 mg Folic Acid (Folic Acid) 1 mg PO DAILY [facility] Last Admin: 12/24/18 09:04 Dose: 1 mg Glucagon (Glucagen Diagnostic Kit) 0 mg IM STAT PRN; Protocol PRN Reason: Hypoglycemia Protocol Heparin Sodium (Porcine) (Heparin) 5,000 units SC Q8 [facility] Last Admin: 12/24/18 06:31 Dose: 5,000 units Hydralazine HCl (Apresoline) 10 mg PO TID [facility] Last Admin: 12/24/18 09:07 Dose: Not Given Dextrose (Dextrose 5% In Water 1000 Ml) 1,000 mls @ 0 mls/hr IV .Q0M PRN; Protocol PRN Reason: Hypoglycemia Protocol Azithromycin 500 mg/ Sodium (Chloride) 250 mls @ 250 mls/hr IVPB DAILY [facility]; Protocol Last Admin: 12/23/18 09:27 Dose: 250 mls/hr Piperacillin Sod/Tazobactam Sod (Zosyn 2.25 Gm Iv Premix) 2.25 gm in 50 mls @ 100 mls/hr IVPB Q8H [facility]; Protocol Last Admin: 12/24/18 02:24 Dose: 100 mls/hr Insulin Glargine (Lantus) 30 unit SC DAILY [facility] Last Admin: 12/24/18 09:07 Dose: Not Given Insulin Human Regular (Novolin R) 0 unit SC ACHS [facility]; Protocol Last Admin: 12/24/18 07:36 Dose: Not Given Lorazepam (Ativan) 0.5 mg IVP ONCE PRN PRN Reason: ANXIETY - BEFORE MRI Metoprolol Succinate (Toprol Xl) 25 mg PO DAILY [facility] Last Admin: 12/23/18 12:32 Dose: 25 mg Montelukast Sodium (Singulair) 10 mg PO DAILY [facility] Last Admin: 12/24/18 09:04 Dose: 10 mg Rosuvastatin Calcium (Crestor) 5 mg PO HS [facility] Last Admin: 12/23/18 21:48 Dose: 5 mg Sevelamer Carbonate (Renvela) 1,600 mg PO TIDCC [facility] Last Admin: 12/24/18 09:05 Dose: 1,600 mg - Labs Labs: 12/23/18 09:00 12/23/18 09:00 - Head Exam Head Exam: ATRAUMATIC, NORMOCEPHALIC - ENT Exam ENT Exam: Mucous Membranes Moist - Neck Exam Neck Exam: Normal Inspection - Respiratory Exam Respiratory Exam: Decreased Breath Sounds - Cardiovascular Exam Cardiovascular Exam: REGULAR RHYTHM - GI/Abdominal Exam GI & Abdominal Exam: Soft Assessment and Plan (1) Pleural effusion Assessment & Plan: Secondary to CHF and fluid overload On antibiotics for possible pneumonia Cultures negative Clinically much improved Continue nebulizer treatment and hemodialysis Status: Acute (2) CHF exacerbation Status: Acute (3) ESRD (end stage renal disease) on dialysis Status: Acute
--- NOTE | 2018-12-24 12:48 | CP.PCM.DIS ---
Provider - Provider Date of Admission: 12/20/18 06:21 Attending physician: Zaki Hernández MD Consults: 12/20/18 06:13 Nephrology Consult Stat Comment: Consulting Provider: Jose Enrique Gordillo Consulting Physician: Jose Enrique Gordillo Reason for Consult: ESRD, sob, pulmonary edema 12/20/18 07:04 Cardiology Consult Routine Comment: Consulting Provider: Mauricio Deleon Consulting Physician: Mauricio Deleon Reason for Consult: pulm edema, sob Pulmonology Consult Routine Comment: Consulting Provider: Speedy Sanders Consulting Physician: Speedy Sanders Reason for Consult: copd exacer 12/21/18 11:27 Neurology Consult Routine Comment: Consulting Provider: Brayan Burton Consulting Physician: Brayan Burton Reason for Consult: rigors Time Spent in preparation of Discharge (in minutes): 45 Diagnosis - Discharge Diagnosis (1) ESRD (end stage renal disease) on dialysis Status: Chronic (2) Pulmonary edema Status: Resolved (3) Gout Status: Chronic (4) Diabetes Status: Chronic (5) HTN (hypertension) Status: Chronic (6) PAD (peripheral artery disease) Status: Chronic Hospital Course - Lab Results Lab Results: Micro Results 12/20/18 03:30 Blood Blood Culture - Preliminary NO GROWTH AFTER 4 DAYS 12/20/18 03:00 Blood Blood Culture - Preliminary NO GROWTH AFTER 4 DAYS 12/21/18 00:05 Naris MRSA Culture - Final MRSA NOT DETECTED 12/20/18 10:11 Nose MRSA Culture (Admit) - Final MRSA NOT DETECTED Most Recent Lab Values WBC 6.6 K/uL (4.8-10.8) 12/23/18 09:00 RBC 4.21 Mil/uL (4.40-5.90) L 12/23/18 09:00 Hgb 13.0 g/dL (12.0-18.0) 12/23/18 09:00 Hct 38.6 % (35.0-51.0) 12/23/18 09:00 MCV 91.7 fL (80.0-94.0) 12/23/18 09:00 MCH 30.9 pg (27.0-31.0) 12/23/18 09:00 MCHC 33.7 g/dL (33.0-37.0) 12/23/18 09:00 RDW 15.7 % (11.5-14.5) H 12/23/18 09:00 Plt Count 150 K/uL (130-400) 12/23/18 09:00 MPV 9.3 fL (7.2-11.7) 12/23/18 09:00 Neut % (Auto) 66.3 % (50.0-75.0) 12/23/18 09:00 Lymph % (Auto) 20.2 % (20.0-40.0) 12/23/18 09:00 [place] % (Auto) 6.2 % (0.0-10.0) 12/23/18 09:00 Eos % (Auto) 5.8 % (0.0-4.0) H 12/23/18 09:00 Baso % (Auto) 1.5 % (0.0-2.0) 12/23/18 09:00 Neut # (Auto) 4.4 K/uL (1.8-7.0) 12/23/18 09:00 Lymph # (Auto) 1.3 K/uL (1.0-4.3) 12/23/18 09:00 [place] # (Auto) 0.4 K/uL (0.0-0.8) 12/23/18 09:00 Eos # (Auto) 0.4 K/uL (0.0-0.7) 12/23/18 09:00 Baso # (Auto) 0.1 K/uL (0.0-0.2) 12/23/18 09:00 Neutrophils % (Manual) 95 % (50-75) H 12/21/18 06:19 Band Neutrophils % 1 % (0-2) 12/20/18 20:25 Lymphocytes % (Manual) 2 % (20-40) L 12/21/18 06:19 Monocytes % (Manual) 3 % (0-10) 12/21/18 06:19 Platelet Estimate Normal (NORMAL) 12/21/18 06:19 Large Platelets Present 12/20/18 20:25 Hypochromasia (manual) Slight 12/20/18 20:25 Poikilocytosis (manual Slight 12/20/18 20:25 Anisocytosis (manual) Slight 12/20/18 20:25 Target Cells Slight 12/20/18 20:25 Tear Drop Cells Slight 12/20/18 20:25 ESR 20 mm/hr (0-15) H 12/22/18 10:34 Puncture Site R/rad 12/21/18 10:46 pCO2 36 mm/Hg (35-45) 12/21/18 10:46 pO2 76 mm/Hg (80-100) L 12/21/18 10:46 HCO3 23.3 mmol/L (21-28) 12/21/18 10:46 ABG pH 7.40 (7.35-7.45) 12/21/18 10:46 ABG Total CO2 23.4 mmol/L (22-28) 12/21/18 10:46 ABG O2 Saturation 97.2 % (95-98) 12/21/18 10:46 ABG Base Excess -2.0 mmol/L (-2.0-3.0) 12/21/18 10:46 Kun Test Pos 12/21/18 10:46 ABG Potassium 3.8 mmol/L (3.6-5.2) 12/21/18 10:46 A-a O2 Difference 106.0 mm/Hg 12/20/18 05:50 Respiratory Index 1.5 12/20/18 05:50 Sodium 141.0 mmol/l (132-148) 12/21/18 10:46 Chloride 107.0 mmol/L (98-107) 12/21/18 10:46 Glucose 205 mg/dl (75-110) H 12/21/18 10:46 Lactate 1.7 mmol/L (0.7-2.1) 12/21/18 10:46 Liter Flow 4.0 12/21/18 10:46 FiO2 35.0 % 12/20/18 05:50 Crit Value Called To Dr sanders 12/21/18 10:46 Crit Value Called By Rolly sauer 12/21/18 10:46 Crit Value Read Back Y 12/21/18 10:46 Blood Gas Notified Time 1050 12/21/18 10:46 Sodium 141 mmol/L (132-148) 12/23/18 09:00 Potassium 5.2 mmol/L (3.6-5.2) 12/23/18 09:00 Chloride 101 mmol/L (98-107) 12/23/18 09:00 Carbon Dioxide 27 mmol/L (22-30) 12/23/18 09:00 Anion Gap 17 (10-20) 12/23/18 09:00 BUN 56 mg/dL (9-20) H 12/23/18 09:00 Creatinine 6.0 mg/dL (0.8-1.5) H 12/23/18 09:00 Est GFR ( Amer) 11 12/23/18 09:00 Est GFR (Non-Af Amer) 9 12/23/18 09:00 POC Glucose (mg/dL) 122 mg/dL (65-110) H 12/24/18 11:32 Random Glucose 89 mg/dL (75-110) D 12/23/18 09:00 Lactic Acid 1.1 mmol/L (0.7-2.1) 12/20/18 04:29 Calcium 8.8 mg/dl (8.6-10.4) 12/23/18 09:00 Phosphorus 4.5 mg/dL (2.5-4.5) 12/23/18 09:00 Magnesium 2.1 mg/dL (1.6-2.3) 12/23/18 09:00 Total Bilirubin 0.7 mg/dL (0.2-1.3) 12/23/18 09:00 AST 29 U/L (17-59) 12/23/18 09:00 ALT 22 U/L (21-72) 12/23/18 09:00 Alkaline Phosphatase 86 U/L (38-126) 12/23/18 09:00 Ammonia 18 umol/L (9-33) 12/22/18 10:34 Total Creatine Kinase 110 U/L (55-170) 12/20/18 19:31 CK-MB (Mass) 7.23 ng/mL (0.0-3.38) H 12/20/18 19:31 Troponin I 0.2810 ng/mL (0.00-0.120) H* 12/20/18 19:31 NT-Pro-B Natriuret Pep 88002 pg/mL (0-900) H 12/20/18 03:48 Total Protein 6.8 g/dL (6.3-8.3) 12/23/18 09:00 Albumin 4.1 g/dL (3.5-5.0) 12/23/18 09:00 Globulin 2.7 gm/dL (2.2-3.9) 12/23/18 09:00 Albumin/Globulin Ratio 1.5 (1.0-2.1) 12/23/18 09:00 Ceruloplasmin 31 mg/dL (18-36) 12/22/18 10:34 Free T4 1.31 ng/dL (0.78-2.19) 12/22/18 10:34 TSH 3rd Generation 2.58 mIU/L (0.46-4.68) 12/22/18 10:34 Prolactin 12.1 ng/mL (3.7-17.9) 12/22/18 10:34 Arterial Blood Potassium 3.8 mmol/L (3.6-5.2) 12/21/18 10:46 RPR Nonreactive (NONREACTIVE) 12/22/18 10:34 Hep Bs Antigen Negative (NEGATIVE) 12/20/18 18:39 Influenza Typ A,B (EIA) Negative for flu a/b (NEGATIVE) 12/20/18 03:00 Ur L.pneumophila Ag Negative (NEGATIVE) 12/20/18 14:36 - Hospital Course Hospital Course: This is a 73 year old male with PMH of COPD, kidney stones, IDDM, HTN, hypercholesterolemia, ESRD (dialysis MWF) who presents with a 1 week history of worsening sob, associated with cough productive of white phlegm. Pt states that his SOB was worse today, and awoke him from sleep. Pt denies fever, chills, chest pain, hemoptysis, headache, dizziness, lightheadeness, abdominal pain, n/v/d, syncope. PMD: Mo PMH: COPD, kidney stones, IDDM, HTN, ESRD (dialysis MWF) PSH: suprapubic catheter Meds: see JAN, pt unsure of meds Allx: NKDA FHx: denies SHx: Former smoker, ex EtOH user Pt was admitted for Pulmonary Edema, -Elevated ProBNP, -Hx ESRD on HD --, -Hx COPD, -POSTURAL TREMOR , -RBBB with Left Horton Deviation on EKG, -Hx HTN, an -Hx HLD, -Hx Gout,-Hx PAD CONSULTED Actor Understudy Dr. Sanders Nephrology Dr. Howell Neurologist Dr Burton -Recommending outpt EMG/NCV Symptoms improved after emergent HD on 12/20/18 Was started on Zosyn 2.25 gm IV Q8H Azithromycin 500 mg IV Q24H Sevelamer 1,600 mg PO TID Douneb Q2H Tessalon Pearls 100 mg PO 2x/day Singulair 10 mg PO 1x/day Hydralazine 25 mg PO 3x/day Metoprolol Succinate 25 mg PO 1x/day Crestor 5 mg PO HS Hypoglycemic Protocol Lantus 30 Units SC 1x/day RISS ACHS Allopurinol 100 mg PO 2x/day ASA 81 mg PO 1x/day Pletal 50 mg PO 2x/day Gabapentin 300 mg PO 1x/day Symptoms of SOB resolved after thursday HD, d/c home, Pt wanted new PMD- we recommended Dr Castillo Prophylaxis Folic Acid 1 mg PO 1x/day Heparin 5,000 Units SC Q8H Protonix 40 mg IV 1x/day Imaging/Diagnostics EKG : RBBB Unchanged from August 2018 CT Angio Chest does indicate consolidation and bilateral pleural effusions (see full report) MRI 12/23: hemosderin deposit R pariteal, cavernoma/Post trauma or ichemic. diffuse cerebral atrophy and microangiopathy, chronic Cultures Blood Culture is negative to date Urine Legionella is negative Neg Urine Strep pneumoniae Neg Mycoplasma IgG and IgM PA LAT Chest X Ray morning 12/23/18: trace residual L pleural effusions, bibasilar disease, linear atelectasis/fibrosis, stable Echo 09/03/18 showed LVSF that is normal, EF is normal, mild aortic stenosis (see full report) INSTRUCTIONS: Patient is to take the following medications as prescribed Acidoph/L.bulg/Bif.b/S.thermop [Bacid Caplet] 1 each PO BID #66 tablet Aspirin [Aspirin Chewable] 81 mg PO DAILY #30 chew Benzonatate [Tessalon Perles] 100 mg PO BID #60 sgl Cilostazol [Pletal] 50 mg PO BID #60 tab Doxycycline Hyclate 100 mg PO BID #6 capsule Gabapentin [Neurontin] 300 mg PO DAILY #30 cap hydrALAZINE [Apresoline] 25 mg PO TID #90 tab Insulin Glargine, Recombina [Lantus] 30 unit SC DAILY #30 unit Linagliptin [Tradjenta] 5 mg PO DAILY #30 tablet Metoprolol Succinate XL [Toprol XL] 25 mg PO DAILY #30 tab Montelukast [Singulair] 10 mg PO DAILY #30 tab Rosuvastatin Calcium 2.5 [Crestor] 5 mg PO HS #30 tab Sevelamer Carbonate [Renvela] 1,600 mg PO TIDCC 30 Days #160 tab Instructions for Discharge 1- follow your hemodialysis schedule Thursday 2- make an appointment with Dr Corby Castillo by calling his office [phone] for an appointment in 7 days. You requested a new primary care doctor and we recommend Dr Castillo 3- schedule follow up with Neurologist Dr Burton by calling his office [phone] for further workup of your rigors, you may need EMG/NCV studies. THIS IS A SUMMARY, PLEASE REFER TO Praccel FOR COMPLETE RECORDS Discharge Exam - Head Exam Head Exam: ATRAUMATIC, NORMOCEPHALIC - Additional Findings Additional findings: General: AAOx3, NAD breathing comfortably on O2 via NC HEENT: NCA, Right Pupil is round and reactive to light and accomodation, Left Pupil is nor visible as left eye is covered in a white film that is chronic in nature, NO lymphadenopathy, NO thyromegaly, NO pharyngeal erythema/exudate Cardio: NS1 and NS2, NO M/R/G Resp: Bibasilar inspiratory rales GI: BSx4, Soft, Central Obesity, NO HSM, NO guarding/rebound tenderness Extremities: NO edema, Capillary refill is 2 seconds, Pulses are strong and equal Neuro: CN II through XII are grossly intact Discharge Plan - Discharge Medications Prescriptions: Acidoph/L.bulg/Bif.b/S.thermop [Bacid Caplet] 1 each PO BID #66 tablet Aspirin [Aspirin Chewable] 81 mg PO DAILY #30 chew Benzonatate [Tessalon Perles] 100 mg PO BID #60 sgl Cilostazol [Pletal] 50 mg PO BID #60 tab Doxycycline Hyclate 100 mg PO BID #6 capsule Gabapentin [Neurontin] 300 mg PO DAILY #30 cap hydrALAZINE [Apresoline] 25 mg PO TID #90 tab Insulin Glargine, Recombina [Lantus] 30 unit SC DAILY #30 unit Linagliptin [Tradjenta] 5 mg PO DAILY #30 tablet Metoprolol Succinate XL [Toprol XL] 25 mg PO DAILY #30 tab Montelukast [Singulair] 10 mg PO DAILY #30 tab Rosuvastatin Calcium 2.5 [Crestor] 5 mg PO HS #30 tab Sevelamer Carbonate [Renvela] 1,600 mg PO TIDCC 30 Days #160 tab - Follow Up Plan Condition: FAIR Disposition: HOME/ ROUTINE Instructions: Heart Failure, Adult (DC), Diabetes Type 2 (DC), Pleural Effusion (DC), Dialysis and Diet Additional Instructions: Patient is to take the following medications as prescribed Acidoph/L.bulg/Bif.b/S.thermop [Bacid Caplet] 1 each PO BID #66 tablet Aspirin [Aspirin Chewable] 81 mg PO DAILY #30 chew Benzonatate [Tessalon Perles] 100 mg PO BID #60 sgl Cilostazol [Pletal] 50 mg PO BID #60 tab Doxycycline Hyclate 100 mg PO BID #6 capsule Gabapentin [Neurontin] 300 mg PO DAILY #30 cap hydrALAZINE [Apresoline] 25 mg PO TID #90 tab Insulin Glargine, Recombina [Lantus] 30 unit SC DAILY #30 unit Linagliptin [Tradjenta] 5 mg PO DAILY #30 tablet Metoprolol Succinate XL [Toprol XL] 25 mg PO DAILY #30 tab Montelukast [Singulair] 10 mg PO DAILY #30 tab Rosuvastatin Calcium 2.5 [Crestor] 5 mg PO HS #30 tab Sevelamer Carbonate [Renvela] 1,600 mg PO TIDCC 30 Days #160 tab Instructions for Discharge 1- follow your hemodialysis schedule Thursday 2- make an appointment with Dr Corby Castillo by calling his office [phone] for an appointment in 7 days. You requested a new primary care doctor and we recommend Dr Castillo 3- schedule follow up with Neurologist Dr Burton by calling his office [phone] for further workup of your rigors, you may need EMG/NCV studies. El paciente debe margy los siguientes medicamentos segn lo prescrito Acidoph / L.bulg / Bif.b / S.thermop [Bacid Caplet] 1 cada tableta PO BID # 66 Aspirina [Aspirina masticable] 81 mg PO DAILY # 30 masticable Benzonatate [Tessalon Perles] 100 mg PO BID # 60 sgl Cilostazol [Pletal] 50 mg PO BID # 60 tab Doxycycline Hyclate 100 mg PO BID # 6 cpsula Gabapentina [Neurontin] 300 mg PO DAILY # 30 cap hidralazina [apresolina] 25 mg TOP # 90 PO TID Insulina Glargine, Recombina [Lantus] 30 unidades SC DAILY # 30 unidades Linagliptina [Tradjenta] 5 mg PO DAILY # 30 comprimido Metoprolol Succinate XL [Toprol XL] 25 mg PO DAILY # 30 tab Montelukast [Singulair] 10 mg PO DAILY # 30 tab Rosuvastatin Calcium 2.5 [Crestor] 5 mg PO HS # 30 tab Sevelamer Carbonate [Renvela] 1,600 mg PO TIDCC 30 mcmillan # 160 tab Instrucciones para el krysta 1- Siga day horario de hemodilisis lunes mircoles viernes 2- Denise becka milka con el Dr. Corby Castillo lltommydo a day oficina al [phone] para becka milka en 7 mcmillan. Solicit un nuevo mdico de atencin primaria y le recomendamos al Dr. Castillo. 3- Programe un seguimiento con el neurlogo Dr Micheal valencia a day oficina al [phone] para un mayor anlisis de jeannette rigores, es posible que necesite estudios de EMG / NCV. Referrals: Speedy Sanders MD [Staff Provider] - Mauricio Deleon MD [Staff Provider] - Brayan Burton MD [Staff Provider] - Jose Enrique Gordillo MD [Staff Provider] - Corby Castillo Jr., MD [Medical Doctor] -
[2018-12-24] MEDS: Azithromycin 500 MG in Sodium Chloride 0.9% 250 ML IVPB SCH ×2 (13:13→14:31)
[2018-12-24] MEDS: Metoprolol Succinate 12.5 mg XL Tab PO SCH (13:13)
--- NOTE | 2018-12-24 13:19 | CP.PCM.PN ---
Subjective - Date & Time of Evaluation Date of Evaluation: 12/24/18 Time of Evaluation: 13:16 - Subjective Subjective: seen at dialysis UF 2500ml BP controlled labs acceptable; dysnea improved Objective - Vital Signs/Intake and Output Vital Signs (last 24 hours): Temp Pulse Resp BP Pulse Ox 97.6 F 86 20 133/69 96 12/24/18 09:45 12/24/18 09:45 12/24/18 09:45 12/24/18 12:45 12/24/18 09:45 Intake and Output: 12/24/18 12/24/18 06:59 18:59 Intake Total 250 Output Total 0 Balance 250 - Medications Medications: Current Medications Albuterol/Ipratropium (Duoneb 3 Mg/0.5 Mg (3 Ml) Ud) 3 ml INH RQ2 PRN PRN Reason: Shortness of Breath Last Admin: 12/21/18 19:50 Dose: 3 ml Allopurinol (Zyloprim) 100 mg PO BID [facility] Last Admin: 12/24/18 09:04 Dose: 100 mg Artificial Tears (Artificial Tears) 1 ml OU Q6H PRN PRN Reason: Dry eyes Aspirin (Aspirin Chewable) 81 mg PO DAILY [facility] Last Admin: 12/24/18 09:06 Dose: 81 mg Bacitracin (Bacitracin Opht Oint) 1 applic OS MWF@HS [facility] Last Admin: 12/22/18 22:17 Dose: 1 applic Benzonatate (Tessalon Perles) 100 mg PO TID [facility] Last Admin: 12/24/18 09:06 Dose: 100 mg Cilostazol (Pletal) 50 mg PO BID [facility] Last Admin: 12/24/18 09:04 Dose: 50 mg Clopidogrel Bisulfate (Plavix) 75 mg PO DAILY [facility] Last Admin: 12/24/18 09:06 Dose: 75 mg Dextrose (Glutose 15) 0 gm PO ONCE PRN; Protocol PRN Reason: Hypoglycemia Protocol Dextrose (Dextrose 50% Inj) 0 ml IV STAT PRN; Protocol PRN Reason: Hypoglycemia Protocol Last Admin: 12/22/18 06:49 Dose: 50 ml Famotidine (Pepcid) 20 mg PO DAILY [facility] Last Admin: 12/24/18 09:06 Dose: 20 mg Folic Acid (Folic Acid) 1 mg PO DAILY [facility] Last Admin: 12/24/18 09:04 Dose: 1 mg Glucagon (Glucagen Diagnostic Kit) 0 mg IM STAT PRN; Protocol PRN Reason: Hypoglycemia Protocol Heparin Sodium (Porcine) (Heparin) 5,000 units SC Q8 [facility] Last Admin: 12/24/18 06:31 Dose: 5,000 units Hydralazine HCl (Apresoline) 10 mg PO TID [facility] Last Admin: 12/24/18 09:07 Dose: Not Given Dextrose (Dextrose 5% In Water 1000 Ml) 1,000 mls @ 0 mls/hr IV .Q0M PRN; Protocol PRN Reason: Hypoglycemia Protocol Azithromycin 500 mg/ Sodium (Chloride) 250 mls @ 250 mls/hr IVPB DAILY [facility]; Protocol Last Admin: 12/24/18 13:13 Dose: Not Given Piperacillin Sod/Tazobactam Sod (Zosyn 2.25 Gm Iv Premix) 2.25 gm in 50 mls @ 100 mls/hr IVPB Q8H [facility]; Protocol Last Admin: 12/24/18 13:14 Dose: Not Given Insulin Glargine (Lantus) 30 unit SC DAILY [facility] Last Admin: 12/24/18 09:07 Dose: Not Given Insulin Human Regular (Novolin R) 0 unit SC ACHS [facility]; Protocol Last Admin: 12/24/18 13:12 Dose: Not Given Lorazepam (Ativan) 0.5 mg IVP ONCE PRN PRN Reason: ANXIETY - BEFORE MRI Metoprolol Succinate (Toprol Xl) 25 mg PO DAILY [facility] Montelukast Sodium (Singulair) 10 mg PO DAILY [facility] Last Admin: 12/24/18 09:04 Dose: 10 mg Rosuvastatin Calcium (Crestor) 5 mg PO HS [facility] Last Admin: 12/23/18 21:48 Dose: 5 mg Sevelamer Carbonate (Renvela) 1,600 mg PO TIDCC [facility] Last Admin: 12/24/18 09:05 Dose: 1,600 mg - Labs Labs: 12/23/18 09:00 12/23/18 09:00 - Constitutional Appears: No Acute Distress, Chronically Ill - Head Exam Head Exam: ATRAUMATIC, NORMAL INSPECTION - Eye Exam Eye Exam: EOMI, Normal appearance - Neck Exam Neck Exam: Normal Inspection. absent: Tenderness - Respiratory Exam Respiratory Exam: Clear to Ausculation Bilateral, NORMAL BREATHING PATTERN - Cardiovascular Exam Cardiovascular Exam: REGULAR RHYTHM, +S1 - GI/Abdominal Exam GI & Abdominal Exam: Soft. absent: Tenderness - Extremities Exam Extremities Exam: Normal Inspection. 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
[2018-12-24 16:36] LABS: BASO # 0.1 K/uL (0.0-0.2); BASO % 1.5 % (0.0-2.0); EOS # 0.6 K/uL (0.0-0.7); EOS % 10.4 % (0.0-4.0); HEMOGLOBIN 11.7 g/dL (12.0-18.0); LYMPH # 0.8 K/uL (1.0-4.3); LYMPH % 13.3 % (20.0-40.0); MEAN CELL VOLUME 90.6 fL (80.0-94.0); MEAN CORPUSCULAR HEMOGLOBIN 29.9 pg (27.0-31.0); MEAN PLATELET VOLUME 9.1 fL (7.2-11.7); MONO # 0.4 K/uL (0.0-0.8); MONO % 6.6 % (0.0-10.0); NEUT # 4.1 K/uL (1.8-7.0); NEUT % 68.2 % (50.0-75.0); RBC 3.91 Mil/uL (4.40-5.90); RED CELL DISTRIBUTION WIDTH 15.4 % (11.5-14.5)
[2018-12-24 17:12] LABS: ALB/GLOB RATIO 1.4 (1.0-2.1); ALBUMIN 3.6 g/dL (3.5-5.0); CALCIUM 8.3 mg/dl (8.6-10.4)
[2018-12-24] MEDS: Albuterol-Ipratrop 3 mg / 0.5 (3 ml) UD INH PRN (19:32)
[2018-12-24] MEDS: Bacitracin Opht OINT 3.5GM OS SCH (21:44)
[2018-12-25] MEDS: Piperacill/Tazo 2.25gm in Dex 2.25 GM/50 ML BAG IVPB SCH ×2 (02:16→09:04)
[2018-12-25] MEDS: Albuterol-Ipratrop 3 mg / 0.5 (3 ml) UD INH PRN (07:15)
[2018-12-25 07:31] LABS: BASO # 0.1 K/uL (0.0-0.2); BASO % 1.6 % (0.0-2.0); EOS # 0.4 K/uL (0.0-0.7); EOS % 7.8 % (0.0-4.0); HEMOGLOBIN 11.7 g/dL (12.0-18.0); LYMPH # 1.2 K/uL (1.0-4.3); LYMPH % 24.2 % (20.0-40.0); MEAN CELL VOLUME 90.1 fL (80.0-94.0); MEAN CORPUSCULAR HEMOGLOBIN 30.2 pg (27.0-31.0); MEAN CORPUSCULAR HGB CONC 33.6 g/dL (33.0-37.0); MEAN PLATELET VOLUME 9.5 fL (7.2-11.7); MONO # 0.4 K/uL (0.0-0.8); MONO % 8.1 % (0.0-10.0); NEUT # 2.9 K/uL (1.8-7.0); NEUT % 58.3 % (50.0-75.0); RBC 3.88 Mil/uL (4.40-5.90); RED CELL DISTRIBUTION WIDTH 15.4 % (11.5-14.5); WHITE BLOOD COUNT 4.9 K/uL (4.8-10.8)
[2018-12-25] MEDS: (Novolin R) Insulin Human Regular 100 units/ml vial SC SCH ×2 (07:39→11:47)
[2018-12-25 07:42] LABS: ALB/GLOB RATIO 1.5 (1.0-2.1); ALBUMIN 3.6 g/dL (3.5-5.0); CALCIUM 8.6 mg/dl (8.6-10.4)
--- NOTE | 2018-12-25 08:27 | CP.PCM.PN ---
Subjective - Date & Time of Evaluation Date of Evaluation: 12/24/18 Time of Evaluation: 10:30 - Subjective Subjective: Patient was seen and examined. 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 absent: Tenderness - Extremities Exam Additional comments: left arm- hemodialysis cath - Neurological Exam Neurological Exam: Alert, Awake, Oriented x3 - Psychiatric Exam Psychiatric exam: Anxious Assessment and Plan - Assessment and Plan (Free Text) Assessment: Assessment and Plan: Pulmonary Edema Likely secondary to fluid overload secondary to ESRD on HD Symptoms improved after emergent HD on 12/20/18 Could there be an underlying infiltrate? CT Angio Chest does indicate consolidation and bilateral pleural effusions (see full report) Zosyn 2.25 gm IV Q8H Azithromycin 500 mg IV Q24H Blood Culture is negative to date Urine Legionella is negative F/U Urine Strep pneumoniae F/U Mycoplasma IgG and IgM Repeat PA LAT Chest X Ray morning 12/23/18: trace residual L pleural effusions, bibasilar disease, linear atelectasis/fibrosis, stable Elevated ProBNP Likley secondary to ESRD Echo 09/03/18 showed LVSF that is normal, EF is normal, mild aortic stenosis (see full report) POSTURAL TREMOR w/ APPENDICULAR DYSMETRIA Dr Burton Neuro consulted -MRI 12/23: hemosderin deposit R pariteal, cavernoma/Post trauma or ichemic. diffuse cerebral atrophy and microangiopathy, chronic -Recommending outpt EMG/NCV RBBB with Left Avinger Deviation on EKG Unchanged from August 2018 Hx ESRD on HD -- Sevelamer 1,600 mg PO TID Nephrology Dr. Howell seen at bedside w/ Dr Howell, plan for one more day of HD tmrw Hx COPD Douneb Q2H Tessalon Pearls 100 mg PO 2x/day Singulair 10 mg PO 1x/day F/U further recommendation [employer] Officer Dr. Spaulding Hx HTN Hydralazine 25 mg PO 3x/day Metoprolol Succinate 25 mg PO 1x/day Hx HLD Crestor 5 mg PO HS Hx IDDM Hypoglycemic Protocol Lantus 30 Units SC 1x/day RISS ACHS Hx Gout Allopurinol 100 mg PO 2x/day Hx PAD ASA 81 mg PO 1x/day Pletal 50 mg PO 2x/day Gabapentin 300 mg PO 1x/day Prophylaxis Folic Acid 1 mg PO 1x/day Heparin 5,000 Units SC Q8H Protonix 40 mg IV 1x/day Objective - Vital Signs/Intake and Output Vital Signs (last 24 hours): Temp Pulse Resp BP Pulse Ox 98.0 F 88 20 128/67 95 12/25/18 00:00 12/25/18 00:00 12/25/18 00:00 12/25/18 00:00 12/25/18 00:00 Intake and Output: 12/25/18 12/25/18 06:59 18:59 Intake Total 250 Output Total 50 Balance 200 - Medications Medications: Current Medications Allopurinol (Zyloprim) 100 mg PO BID [facility] Last Admin: 12/24/18 18:04 Dose: 100 mg Artificial Tears (Artificial Tears) 1 ml OU Q6H PRN PRN Reason: Dry eyes Aspirin (Aspirin Chewable) 81 mg PO DAILY [facility] Last Admin: 12/24/18 09:06 Dose: 81 mg Bacitracin (Bacitracin Opht Oint) 1 applic OS MWF@HS [facility] Last Admin: 12/24/18 21:44 Dose: 1 applic Benzonatate (Tessalon Perles) 100 mg PO TID [facility] Last Admin: 12/24/18 18:03 Dose: 100 mg Cilostazol (Pletal) 50 mg PO BID [facility] Last Admin: 12/24/18 18:03 Dose: 50 mg Clopidogrel Bisulfate (Plavix) 75 mg PO DAILY [facility] Last Admin: 12/24/18 09:06 Dose: 75 mg Dextrose (Glutose 15) 0 gm PO ONCE PRN; Protocol PRN Reason: Hypoglycemia Protocol Dextrose (Dextrose 50% Inj) 0 ml IV STAT PRN; Protocol PRN Reason: Hypoglycemia Protocol Last Admin: 12/22/18 06:49 Dose: 50 ml Famotidine (Pepcid) 20 mg PO DAILY [facility] Last Admin: 12/24/18 09:06 Dose: 20 mg Folic Acid (Folic Acid) 1 mg PO DAILY [facility] Last Admin: 12/24/18 09:04 Dose: 1 mg Glucagon (Glucagen Diagnostic Kit) 0 mg IM STAT PRN; Protocol PRN Reason: Hypoglycemia Protocol Heparin Sodium (Porcine) (Heparin) 5,000 units SC Q8 [facility] Last Admin: 12/25/18 06:07 Dose: 5,000 units Hydralazine HCl (Apresoline) 10 mg PO TID [facility] Last Admin: 12/24/18 18:04 Dose: 10 mg Dextrose (Dextrose 5% In Water 1000 Ml) 1,000 mls @ 0 mls/hr IV .Q0M PRN; Prot ocol PRN Reason: Hypoglycemia Protocol Azithromycin 500 mg/ Sodium (Chloride) 250 mls @ 250 mls/hr IVPB DAILY [facility]; Protocol Last Admin: 12/24/18 14:31 Dose: 250 mls/hr Piperacillin Sod/Tazobactam Sod (Zosyn 2.25 Gm Iv Premix) 2.25 gm in 50 mls @ 100 mls/hr IVPB Q8H [facility]; Protocol Last Admin: 12/25/18 02:16 Dose: 100 mls/hr Insulin Glargine (Lantus) 30 unit SC DAILY [facility] Last Admin: 12/24/18 09:07 Dose: Not Given Insulin Human Regular (Novolin R) 0 unit SC ACHS [facility]; Protocol Last Admin: 12/25/18 07:39 Dose: Not Given Lorazepam (Ativan) 0.5 mg IVP ONCE PRN PRN Reason: ANXIETY - BEFORE MRI Metoprolol Succinate (Toprol Xl) 25 mg PO DAILY [facility] Montelukast Sodium (Singulair) 10 mg PO DAILY [facility] Last Admin: 12/24/18 09:04 Dose: 10 mg Rosuvastatin Calcium (Crestor) 5 mg PO HS [facility] Last Admin: 12/24/18 21:43 Dose: 5 mg Sevelamer Carbonate (Renvela) 1,600 mg PO TIDCC [facility] Last Admin: 12/25/18 08:10 Dose: 1,600 mg - Labs Labs: 12/25/18 07:01 12/25/18 07:01
[2018-12-25 08:50] VITALS: RESP 18; TEMP 98.1; O2SAT 93
[2018-12-25 08:58] VITALS: BP 148/64; PULSE 91
[2018-12-25] MEDS: (Lantus) Insulin Glargine, Recombinant SC SCH (09:06)
[2018-12-25] MEDS: Cilostazol 50 mg Tab UD PO SCH (09:07)
[2018-12-25] MEDS ORDERED: Metoprolol Succinate 25 mg XL Tab PO SCH (10:00)
[2018-12-25] MEDS: Azithromycin 500 MG in Sodium Chloride 0.9% 250 ML IVPB SCH (10:11)
--- NOTE | 2018-12-25 11:08 | CP.PCM.PN ---
Subjective - Date & Time of Evaluation Date of Evaluation: 12/25/18 Time of Evaluation: 11:05 - Subjective Subjective: Notes reviewed Comfortable sitting up in bed No distress No sob or cough No cp or palp Received dialysis yesterday without difficulty 10 point ros negative d/c planning noted Objective - Vital Signs/Intake and Output Vital Signs (last 24 hours): Temp Pulse Resp BP Pulse Ox 98.1 F 91 H 18 148/64 93 L 12/25/18 07:30 12/25/18 08:57 12/25/18 07:30 12/25/18 08:57 12/25/18 07:30 Intake and Output: 12/25/18 12/25/18 06:59 18:59 Intake Total 250 Output Total 50 Balance 200 - Medications Medications: Current Medications Allopurinol (Zyloprim) 100 mg PO BID [facility] Last Admin: 12/25/18 09:07 Dose: 100 mg Artificial Tears (Artificial Tears) 1 ml OU Q6H PRN PRN Reason: Dry eyes Aspirin (Aspirin Chewable) 81 mg PO DAILY [facility] Last Admin: 12/25/18 09:07 Dose: 81 mg Bacitracin (Bacitracin Opht Oint) 1 applic OS MWF@HS [facility] Last Admin: 12/24/18 21:44 Dose: 1 applic Benzonatate (Tessalon Perles) 100 mg PO TID [facility] Last Admin: 12/25/18 09:07 Dose: 100 mg Cilostazol (Pletal) 50 mg PO BID [facility] Last Admin: 12/25/18 09:07 Dose: 50 mg Clopidogrel Bisulfate (Plavix) 75 mg PO DAILY [facility] Last Admin: 12/25/18 09:07 Dose: 75 mg Dextrose (Glutose 15) 0 gm PO ONCE PRN; Protocol PRN Reason: Hypoglycemia Protocol Dextrose (Dextrose 50% Inj) 0 ml IV STAT PRN; Protocol PRN Reason: Hypoglycemia Protocol Last Admin: 12/22/18 06:49 Dose: 50 ml Famotidine (Pepcid) 20 mg PO DAILY [facility] Last Admin: 12/25/18 09:07 Dose: 20 mg Folic Acid (Folic Acid) 1 mg PO DAILY [facility] Last Admin: 12/25/18 09:07 Dose: 1 mg Glucagon (Glucagen Diagnostic Kit) 0 mg IM STAT PRN; Protocol PRN Reason: Hypoglycemia Protocol Heparin Sodium (Porcine) (Heparin) 5,000 units SC Q8 [facility] Last Admin: 12/25/18 06:07 Dose: 5,000 units Hydralazine HCl (Apresoline) 10 mg PO TID [facility] Last Admin: 12/25/18 09:07 Dose: 10 mg Dextrose (Dextrose 5% In Water 1000 Ml) 1,000 mls @ 0 mls/hr IV .Q0M PRN; Protocol PRN Reason: Hypoglycemia Protocol Piperacillin Sod/Tazobactam Sod (Zosyn 2.25 Gm Iv Premix) 2.25 gm in 50 mls @ 100 mls/hr IVPB Q8H [facility]; Protocol Last Admin: 12/25/18 09:04 Dose: 100 mls/hr Insulin Glargine (Lantus) 30 unit SC DAILY [facility] Last Admin: 12/25/18 09:06 Dose: 30 units Insulin Human Regular (Novolin R) 0 unit SC ACHS [facility]; Protocol Last Admin: 12/25/18 07:39 Dose: Not Given Lorazepam (Ativan) 0.5 mg IVP ONCE PRN PRN Reason: ANXIETY - BEFORE MRI Metoprolol Succinate (Toprol Xl) 25 mg PO DAILY [facility] Last Admin: 12/25/18 09:07 Dose: 25 mg Montelukast Sodium (Singulair) 10 mg PO DAILY [facility] Last Admin: 12/25/18 09:07 Dose: 10 mg Rosuvastatin Calcium (Crestor) 5 mg PO HS [facility] Last Admin: 12/24/18 21:43 Dose: 5 mg Sevelamer Carbonate (Renvela) 1,600 mg PO TIDCC [facility] Last Admin: 12/25/18 08:10 Dose: 1,600 mg - Labs Labs: 12/25/18 07:01 12/25/18 07:01 - Constitutional Appears: Non-toxic, Older Than Stated Age - Head Exam Head Exam: ATRAUMATIC, NORMAL INSPECTION - Eye Exam Eye Exam: EOMI, Normal appearance - ENT Exam ENT Exam: Mucous Membranes Moist, Normal Exam - Neck Exam Neck Exam: absent: Lymphadenopathy, Thyromegaly - Respiratory Exam Respiratory Exam: absent: Rales, Rhonchi - Cardiovascular Exam Cardiovascular Exam: +S1, +S2, Murmur - GI/Abdominal Exam GI & Abdominal Exam: Soft, Normal Bowel Sounds - Extremities Exam Extremities Exam: absent: Pedal Edema, Tenderness - Neurological Exam Neurological Exam: Alert, Awake - Skin Skin Exam: Dry, Intact Assessment and Plan (1) CHF exacerbation Status: Acute (2) ESRD (end stage renal disease) on dialysis Status: Acute (3) Chronic congestive heart failure Status: Acute - Assessment and Plan (Free Text) Assessment: Volume status acceptable Respiratory status stable Maintain dialysis schedule Monitor bp Labs on dialysis Stable renal ng
== END 2018-12-25 12:00 | disposition home or self-care (01) | DRG 291 ==
LOC: C.ER 03:01 → C.9E 06:21 → OBSVTOIN 06:21 → C.9I 08:10 → C.5S 12-21 21:57
PROVIDERS: ADMIT Family Medicine; ATTEND Family Medicine
PROC: 5A1D70Z Performance of Urinary Filtration, Intermittent, Less than 6 Hours Per Day (ICD-10-PCS; principal; 2018-12-22)
PROC: 5A1D70Z Performance of Urinary Filtration, Intermittent, Less than 6 Hours Per Day (ICD-10-PCS; 2018-12-24)
DX: I13.2 Hypertensive heart and chronic kidney disease with heart failure and with stage 5 chronic kidney disease, or end stage renal disease (principal); N18.6 End stage renal disease; E78.5 Hyperlipidemia, unspecified; I35.0 Nonrheumatic aortic (valve) stenosis; I45.10 Unspecified right bundle-branch block; J44.9 Chronic obstructive pulmonary disease, unspecified; I50.9 Heart failure, unspecified; E11.21 Type 2 diabetes mellitus with diabetic nephropathy; E11.319 Type 2 diabetes mellitus with unspecified diabetic retinopathy without macular edema; E11.51 Type 2 diabetes mellitus with diabetic peripheral angiopathy without gangrene; M10.9 Gout, unspecified; Z79.4 Long term (current) use of insulin; Z87.891 Personal history of nicotine dependence; Z99.2 Dependence on renal dialysis

== ENCOUNTER 2018-12-30 08:34 | Inpatient (IN) | payer MEDICARE, MEDICAID ==
[2018-12-30 08:34] VITALS: BMI 24.4
--- NOTE | 2018-12-30 08:50 | C.PDOC ---
History Of Present Illness 73 year old male presents to ED with complaint of fever and SOB since yesterday. Patient was discharged on 12/25 s/p pneumonia and treated with Zosyn. He has a past medical history of COPD, kidney stones, IDDM, HTN, and hypercholestero lemia. Patient has end-stage renal disease and had his last hemodialysis session yesterday. Patient's current PMD is Dr. Hassan. He is an ex-smoker and ex-EtOH user. He denies any chills and nausea. STATES DID NOT TAKE PRESCRIPTIONS GIVEN SINCE DC DUE TO UNABLE TO GET TO PHARMACY FEVER, SOB SINCE YEST. DC 12/25 SP PNEUMONIA TX ZOSYN. S/P HD YESTERDAY. PMH of COPD, kidney stones, IDDM, HTN, hypercholesterolemia, ESRD (dialysis MWF) PMD: Mo PMH: COPD, kidney stones, IDDM, HTN, ESRD (dialysis MWF) PSH: suprapubic catheter Meds: see MAR, pt unsure of meds Allx: NKDA FHx: denies SHx: Former smoker, ex EtOH user EKG : RBBB Unchanged from August 2018 CT Angio Chest does indicate consolidation and bilateral pleural effusions (see full report) MRI 12/23: hemosderin deposit R pariteal, cavernoma/Post trauma or ichemic. diffuse cerebral atrophy and microangiopathy, chronic Cultures Blood Culture is negative to date Urine Legionella is negative Neg Urine Strep pneumoniae Neg Mycoplasma IgG and IgM PA LAT Chest X Ray morning 12/23/18: trace residual L pleural effusions, bibasilar disease, linear atelectasis/fibrosis, stable Echo 09/03/18 showed LVSF that is normal, EF is normal, mild aortic stenosis (see full report) EXAM MILD DIST B/L RHONCHI TACHYPNEA CV RRR NO EDEMA MDM PER OLD RECORD, PT NEW PMD = DR REYES DEFER IVF SEPSIS PROTOCOL DUE TO HO CHF, ESRD ON HD Time Seen by Provider: 12/30/18 08:39 Chief Complaint (Nursing): Fever History Per: Patient History/Exam Limitations: no limitations Onset/Duration Of Symptoms: Days (1) Current Symptoms Are (Timing): Still Present Associated Symptoms: Fever, Other (SOB). denies: Chills, Nausea Past Medical History Reviewed: Historical Data, Nursing Documentation, Vital Signs - Medical History PMH: Anemia, Arthritis, COPD, HTN, Hypercholesterolemia, Kidney Stones, Pneumonia, End Stage Renal Disease, Chronic Kidney Disease Other Surgeries: suprapubic catheter - [facility] (12/20/18) Family History: States: Unknown Family Hx - Social History Hx Alcohol Use: No Hx Substance Use: No - Immunization History Hx Tetanus Toxoid Vaccination: Yes Hx Influenza Vaccination: Yes Hx Pneumococcal Vaccination: Yes Review Of Systems Constitutional: Positive for: Fever. Negative for: Chills, Weakness Cardiovascular: Negative for: Chest Pain, Palpitations Respiratory: Positive for: Shortness of Breath. Negative for: Cough Gastrointestinal: Negative for: Nausea, Vomiting, Abdominal Pain Neurological: Negative for: Weakness, Numbness, Dizziness Physical Exam - Physical Exam Appears: Other (mild distress) Skin: Normal Color, Warm, Dry Head: Atraumatic, Normacephalic Neck: Normal ROM, Supple Chest: Symmetrical, No Deformity Cardiovascular: Rhythm Regular, No Murmur Respiratory: Rhonchi (bilateral), Other (tachypnea) Gastrointestinal/Abdominal: Soft, No Tenderness Extremity: Capillary Refill (<2 seconds), No Swelling Extremity: Bilateral: Atraumatic, Normal Color And Temperature Pulses: Left Radial: Normal, Right Radial: Normal Neurological/Psych: Oriented x3, Normal Speech, Normal Cognition ED Course And Treatment - Laboratory Results Result Diagrams: 12/30/18 09:19 12/30/18 09:19 ECG: Interpreted By Me ECG Rhythm: Sinus Tachycardia, R BBB ECG Interpretation: No Changes From Prior Rate From EC - Other Rad CXR X-Ray: Interpreted by Me, Viewed By Me Interpretation: IMPRESSION: Progressive consolidative change in increasing pleural effusions. - CT Scan/US CTA Chest Other Rad Studies (CT/US): Interpreted By Me, Read By Radiologist CT/US Interpretation: CT Angio Chest does indicate consolidation and bilateral pleural effusions (see full report). Progress Note: EKG and CXR ordered for patient. Labs orderes with UA and VBG. Patient given Zosyn IV, Tamiflu PO, Tylenol PO, and Vancomycin IVPB. Progress - Re-Evaluation Re-evaluation Note: 12/30/18 10:13 UNABLE TO LOWER FIO2 BELOW 100%. IMPROVED ON VAPOTHERM 12/30/18 10:14 D/W DR AMY SAMUEL HAND ALTERATIONS SEAMSTRESS WILL ADMIT 12/30/18 10:16 TROP C/W PRIOR RESULTS ON RECENT ADMISSION. - Data Reviewed Data Reviewed: Lab, Diagnostic imaging, EKG, Old records Medical Decision Making Medical Decision Making: PER OLD RECORD, PT NEW PMD = DR REYES DEFER IVF SEPSIS PROTOCOL DUE TO HO CHF, ESRD ON HD MRI 12/23: hemosderin deposit R pariteal, cavernoma/Post trauma or ichemic. diffuse cerebral atrophy and microangiopathy, chronic Cultures Blood Culture is negative to date Urine Legionella is negative Neg Urine Strep pneumonia Neg Mycoplasma IgG and IgM PA LAT Chest X Ray morning 12/23/18: trace residual L pleural effusions, bibasilar disease, linear atelectasis/fibrosis, stable Echo 09/03/18 showed LVSF that is normal, EF is normal, mild aortic stenosis (see full report) Disposition Counseled Patient/Family Regarding: Studies Performed, Diagnosis - Disposition Disposition: HOSPITALIZED Disposition Time: 10:15 Condition: STABLE - POA Present On Arrival: Poor Glycemic Control - Clinical Impression Clinical Impression: Pleural effusion, Influenza, Hypoxia, ESRD (end stage renal disease) on dialysis - Scribe Statement The provider has reviewed the documentation as recorded by the Scribe (Kenia Giles) All medical record entries made by the Scribe were at my direction and per sonally dictated by me. I have reviewed the chart and agree that the record accurately reflects my personal performance of the history, physical exam, medical decision making, and the department course for this patient. I have also personally directed, reviewed, and agree with the discharge instructions and disposition.
[2018-12-30] MEDS ORDERED: Piperacill/Tazo 3.375gm in Dex 3.375 GM/50 ML BAG IV STA (09:24)
[2018-12-30] MEDS ORDERED: Vancomycin 1 gm/NS 200 ml 1 GM/200 ML BAG IVPB STA (09:24)
[2018-12-30 09:31] LABS: BASO # 0.1 K/uL (0.0-0.2); BASO % 1.3 % (0.0-2.0); EOS % 0.1 % (0.0-4.0); HEMOGLOBIN 13.1 g/dL (12.0-18.0); LYMPH # 1.3 K/uL (1.0-4.3); LYMPH % 20.7 % (20.0-40.0); MEAN CELL VOLUME 91.4 fL (80.0-94.0); MEAN CORPUSCULAR HEMOGLOBIN 29.9 pg (27.0-31.0); MEAN CORPUSCULAR HGB CONC 32.7 g/dL (33.0-37.0); MEAN PLATELET VOLUME 8.3 fL (7.2-11.7); MONO # 0.4 K/uL (0.0-0.8); MONO % 6.5 % (0.0-10.0); NEUT # 4.4 K/uL (1.8-7.0); NEUT % 71.4 % (50.0-75.0); NRBC % 0.1 % (0.0-2.0); RBC 4.4 Mil/uL (4.40-5.90); RED CELL DISTRIBUTION WIDTH 16.1 % (11.5-14.5); WHITE BLOOD COUNT 6.2 K/uL (4.8-10.8)
[2018-12-30 09:32] LABS: VENOUS BLOOD GAS BASE EXCESS 5.4 mmol/L (0.0-2.0); VENOUS BLOOD GAS PCO2 81 mmHg (40-60); VENOUS BLOOD GAS PO2 23 mm/Hg (30-55); VENOUS BLOOD PH 7.25 (7.32-7.43)
[2018-12-30 09:38] LABS: PROTHROMBIN TIME 11.2 SECONDS (9.7-12.2)
[2018-12-30 09:44] LABS: ALB/GLOB RATIO 1.5 (1.0-2.1)
[2018-12-30] MEDS ORDERED: Piperacillin/Tazobact 3.375 gm 100 ML IVPB ONE (09:44)
[2018-12-30] MEDS ORDERED: Vancomycin 1 GM 1 GM/250 ML BAG IVPB ONE (09:45)
[2018-12-30 09:56] LABS: SQUAMOUS EPITHIAL 1 /hpf (0-5); URINE BACTERIA OCC (<OCC); URINE BILIRUBIN NEGATIVE (NEGATIVE); URINE BLOOD NEGATIVE (NEGATIVE); URINE CLARITY Hazy (Clear); URINE COLOR Amber (YELLOW); URINE GLUCOSE (UA) NORMAL (Normal); URINE LEUKOCYTE ESTERASE 1+ Leu/uL (Negative); URINE PROTEIN 3+ mg/dL (NEGATIVE); URINE UROBILINOGEN NORMAL mg/dL (0.2-1.0)
[2018-12-30 10:06] LABS: TROPONIN I 0.27 ng/mL (0.00-0.120)
[2018-12-30] MEDS ORDERED: Vancomycin 1 GM 1 GM/250 ML BAG IVPB STA (10:08)
--- NOTE | 2018-12-30 10:45 | RAD ---
Date of service: 12/30/2018 HISTORY: Sepsis Patient COMPARISON: 12/23/2018 FINDINGS: LUNGS: Progressive consolidative changes particularly right lower lobe. PLEURA: Increasing bilateral pleural effusions. CARDIOVASCULAR: Cardiomegaly unchanged. Atherosclerotic calcifications identified primarily aortic arch. OSSEOUS STRUCTURES: No significant abnormalities. VISUALIZED UPPER ABDOMEN: Normal. OTHER FINDINGS: None. IMPRESSION: Progressive consolidative change in increasing pleural effusions.
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
[2018-12-30 12:36] LABS: VENOUS BLOOD GAS BASE EXCESS 5.6 mmol/L (0.0-2.0); VENOUS BLOOD GAS PCO2 62 mmHg (40-60); VENOUS BLOOD GAS PO2 83 mm/Hg (30-55); VENOUS BLOOD PH 7.34 (7.32-7.43)
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
[2018-12-30 13:57] LABS: BARBITURATES, UR NEGATIVE (NEGATIVE); BENZODIAZEPINES, UR NEGATIVE (NEGATIVE); OPIATES, UR NEGATIVE (NEGATIVE); PHENCYCLIDINE, UR NEGATIVE (NEGATIVE)
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
[2018-12-30] MEDS ORDERED: Piperacill/Tazo 2.25gm in Dex 2.25 GM/50 ML BAG IVPB SCH (15:45)
[2018-12-30] MEDS: (Novolog) Insulin Aspart, Recombinant 100 u/ml 10 ml vial SC SCH (17:11)
[2018-12-30] MEDS ORDERED: Dextrose 50% SYRINGE Inj (50 ml) IV PRN (17:47)
[2018-12-30] MEDS ORDERED: Glucagon Recombinant 1 mg Inj IM PRN (17:47)
[2018-12-30] MEDS: Cilostazol 50 mg Tab UD PO SCH (18:49)
[2018-12-30] MEDS: (Lantus) Insulin Glargine, Recombinant SC SCH (20:41)
[2018-12-30] MEDS: Piperacill/Tazo 2.25gm in Dex 2.25 GM/50 ML BAG IVPB SCH (20:46)
[2018-12-31] MEDS: Piperacill/Tazo 2.25gm in Dex 2.25 GM/50 ML BAG IVPB SCH ×3 (03:30→19:56)
[2018-12-31 06:10] LABS: BASO # 0.1 K/uL (0.0-0.2); BASO % 0.9 % (0.0-2.0); EOS # 0.1 K/uL (0.0-0.7); EOS % 1.5 % (0.0-4.0); HEMOGLOBIN 11.6 g/dL (12.0-18.0); LYMPH # 0.9 K/uL (1.0-4.3); MEAN CELL VOLUME 91.4 fL (80.0-94.0); MEAN CORPUSCULAR HEMOGLOBIN 29.6 pg (27.0-31.0); MEAN CORPUSCULAR HGB CONC 32.4 g/dL (33.0-37.0); MEAN PLATELET VOLUME 8.6 fL (7.2-11.7); MONO # 0.5 K/uL (0.0-0.8); MONO % 7.2 % (0.0-10.0); NEUT # 5.1 K/uL (1.8-7.0); NEUT % 77.4 % (50.0-75.0); NRBC % 0.1 % (0.0-2.0); RBC 3.91 Mil/uL (4.40-5.90); RED CELL DISTRIBUTION WIDTH 15.7 % (11.5-14.5); WHITE BLOOD COUNT 6.6 K/uL (4.8-10.8)
[2018-12-31 06:24] LABS: ALB/GLOB RATIO 1.5 (1.0-2.1); ALBUMIN 4.1 g/dL (3.5-5.0); CALCIUM 8.5 mg/dl (8.6-10.4)
--- NOTE | 2018-12-31 07:11 | CP.CCUPN ---
<Speedy Spaulding - Last Filed: 12/31/18 18:13> CCU Subjective - Physician Review Critical Care Time Spent (in minutes): 40 CCU Objective - Vital Signs / Intake & Output Vital Signs (Last 4 hours): Vital Signs Temp Pulse Resp BP Pulse Ox 12/31/18 17:03 75 21 101/51 L 92 L 12/31/18 17:00 76 20 87 L 12/31/18 16:03 72 16 103/55 L 96 12/31/18 16:00 97.9 F 72 16 97 12/31/18 15:52 74 12/31/18 15:03 75 22 108/59 L 12/31/18 15:00 76 24 97 12/31/18 14:38 75 17 104/66 97 Intake and Output (Last 8hrs): Intake & Output 12/31/18 12/31/18 12/31/18 06:59 14:59 22:59 Intake Total 233 250 200 Balance 233 250 200 Weight 127 lb Intake: Intake, IV Amount 133 50 0 Right Forearm 133 50 0 Oral 100 200 200 Other: # Voids Suprapubic 0 0 0 # Bowel Movements 0 0 0 - Medications Active Medications: Active Medications Generic Name Dose Route Start Last Admin Trade Name Freq PRN Reason Stop Dose Admin Acetaminophen 650 mg 12/30/18 12:34 Tylenol 325mg Tab PO Q6 PRN Fever >100.4 F Aspirin 81 mg 12/31/18 10:00 12/31/18 09:34 Aspirin Chewable PO 81 mg DAILY [facility] Administration Benzonatate 100 mg 12/30/18 20:00 12/31/18 08:00 Tessalon Perles PO 100 mg Q12H [facility] Administration Cilostazol 50 mg 12/30/18 18:00 12/31/18 17:13 Pletal PO 50 mg BID [facility] Administration Dextrose 0 ml 12/30/18 17:47 Dextrose 50% Inj IV STAT PRN Hypoglycemia Protocol Protocol Dextrose 0 gm 12/30/18 17:47 Glutose 15 PO ONCE PRN Hypoglycemia Protocol Protocol Famotidine 20 mg 12/31/18 10:00 12/31/18 09:34 Pepcid PO 20 mg DAILY [facility] Administration Glucagon 0 mg 12/30/18 17:47 Glucagen Diagnostic Kit IM STAT PRN Hypoglycemia Protocol Protocol Heparin Sodium (Porcine) 5,000 units 12/30/18 22:00 12/31/18 13:46 Heparin SC 5,000 units Q8 [facility] Administration Hydralazine HCl 25 mg 12/30/18 14:00 12/31/18 17:12 Apresoline PO Not Given TID [facility] Piperacillin Sod/Tazobactam Sod 2.25 gm in 50 mls @ 100 mls/hr 12/30/18 20:00 12/31/18 12:15 Zosyn 2.25 Gm Iv Premix IVPB 100 mls/hr Q8H [facility] Administration Protocol Dextrose 1,000 mls @ 0 mls/hr 12/30/18 17:47 Dextrose 5% In Water 1000 Ml IV .Q0M PRN Hypoglycemia Protocol Protocol Per Protocol Insulin Aspart 0 unit 12/30/18 16:30 12/31/18 16:28 Novolog SC Not Given AC [facility] Protocol Insulin Glargine 30 unit 12/30/18 20:00 12/30/18 20:41 Lantus SC Not Given 2000 [facility] Metoprolol Succinate 25 mg 12/31/18 10:00 12/31/18 09:34 Toprol Xl PO 25 mg DAILY [facility] Administration Montelukast Sodium 10 mg 12/31/18 10:00 12/31/18 09:34 Singulair PO 10 mg DAILY [facility] Administration Oseltamivir Phosphate 30 mg 01/01/19 18:00 Tamiflu Susp PO 01/07/19 18:01 Q2D [facility] Protocol Rosuvastatin Calcium 5 mg 12/30/18 22:00 12/30/18 21:16 Crestor PO 5 mg HS [facility] Administration Sevelamer Carbonate 1,600 mg 12/30/18 17:00 12/31/18 16:28 Renvela PO 1,600 mg TIDCC [facility] Administration - Patient Studies Lab Studies: Microbiology Studies 12/30/18 09:30 Blood Culture - Preliminary Blood NO GROWTH AFTER 24 HOURS 12/30/18 09:35 Urine Culture - Preliminary Urine,Catheterized Gram Positive Cocci 12/30/18 09:26 Blood Culture - Preliminary Blood NO GROWTH AFTER 24 HOURS Lab Studies 12/31/18 12/31/18 12/31/18 Range/Units 16:20 13:40 11:25 WBC (4.8-10.8) K/uL RBC (4.40-5.90) Mil/uL Hgb (12.0-18.0) g/dL Hct (35.0-51.0) % MCV (80.0-94.0) fL MCH (27.0-31.0) pg MCHC (33.0-37.0) g/dL RDW (11.5-14.5) % Plt Count (130-400) K/uL MPV (7.2-11.7) fL Neut % (Auto) (50.0-75.0) % Lymph % (Auto) (20.0-40.0) % [place] % (Auto) (0.0-10.0) % Eos % (Auto) (0.0-4.0) % Baso % (Auto) (0.0-2.0) % Neut # (Auto) (1.8-7.0) K/uL Lymph # (Auto) (1.0-4.3) K/uL [place] # (Auto) (0.0-0.8) K/uL Eos # (Auto) (0.0-0.7) K/uL Baso # (Auto) (0.0-0.2) K/uL Puncture Site Rra pCO2 58 H (35-45) mm/Hg pO2 185 H (80-100) mm/Hg HCO3 27.1 (21-28) mmol/L ABG pH 7.32 L (7.35-7.45) ABG Total CO2 31.7 H (22-28) mmol/L ABG O2 Saturation 98.5 H (95-98) % ABG Base Excess 2.8 (-2.0-3.0) mmol/L ABG Hemoglobin 10.8 L (11.7-17.4) g/dL ABG Carboxyhemoglobin 0.5 (0.5-1.5) % POC ABG HHb (Measured) 1.5 (0.0-5.0) % ABG Methemoglobin 0.6 (0.0-3.0) % Kun Test Po A-a O2 Difference 456.0 mm/Hg Respiratory Index 2.5 Hgb O2 Saturation 97.4 (95.0-98.0) % Vent Mode Bipap FiO2 100.0 % Inspiratory BiPAP 14 Expiratory BiPAP 6 Sodium (132-148) mmol/L Potassium (3.6-5.2) mmol/L Chloride (98-107) mmol/L Carbon Dioxide (22-30) mmol/L Anion Gap (10-20) BUN (9-20) mg/dL Creatinine (0.8-1.5) mg/dL Est GFR ( Amer) Est GFR (Non-Af Amer) POC Glucose (mg/dL) 111 H 110 (65-110) mg/dL Random Glucose (75-110) mg/dL Calcium (8.6-10.4) mg/dl Phosphorus (2.5-4.5) mg/dL Magnesium (1.6-2.3) mg/dL Total Bilirubin (0.2-1.3) mg/dL AST (17-59) U/L ALT (21-72) U/L Alkaline Phosphatase (38-126) U/L Total Protein (6.3-8.3) g/dL Albumin (3.5-5.0) g/dL Globulin (2.2-3.9) gm/dL Albumin/Globulin Ratio (1.0-2.1) Random Vancomycin ug/mL 12/31/18 12/31/18 12/31/18 Range/Units 07:46 05:58 05:58 WBC 6.6 (4.8-10.8) K/uL RBC 3.91 L (4.40-5.90) Mil/uL Hgb 11.6 L (12.0-18.0) g/dL Hct 35.7 (35.0-51.0) % MCV 91.4 (80.0-94.0) fL MCH 29.6 (27.0-31.0) pg MCHC 32.4 L (33.0-37.0) g/dL RDW 15.7 H (11.5-14.5) % Plt Count 161 (130-400) K/uL MPV 8.6 (7.2-11.7) fL Neut % (Auto) 77.4 H (50.0-75.0) % Lymph % (Auto) 13.0 L (20.0-40.0) % [place] % (Auto) 7.2 (0.0-10.0) % Eos % (Auto) 1.5 (0.0-4.0) % Baso % (Auto) 0.9 (0.0-2.0) % Neut # (Auto) 5.1 (1.8-7.0) K/uL Lymph # (Auto) 0.9 L (1.0-4.3) K/uL [place] # (Auto) 0.5 (0.0-0.8) K/uL Eos # (Auto) 0.1 (0.0-0.7) K/uL Baso # (Auto) 0.1 (0.0-0.2) K/uL Puncture Site pCO2 (35-45) mm/Hg pO2 (80-100) mm/Hg HCO3 (21-28) mmol/L ABG pH (7.35-7.45) ABG Total CO2 (22-28) mmol/L ABG O2 Saturation (95-98) % ABG Base Excess (-2.0-3.0) mmol/L ABG Hemoglobin (11.7-17.4) g/dL ABG Carboxyhemoglobin (0.5-1.5) % POC ABG HHb (Measured) (0.0-5.0) % ABG Methemoglobin (0.0-3.0) % Kun Test A-a O2 Difference mm/Hg Respiratory Index Hgb O2 Saturation (95.0-98.0) % Vent Mode FiO2 % Inspiratory BiPAP Expiratory BiPAP Sodium 138 (132-148) mmol/L Potassium 5.2 (3.6-5.2) mmol/L Chloride 96 L (98-107) mmol/L Carbon Dioxide 30 (22-30) mmol/L Anion Gap 17 (10-20) BUN 41 H (9-20) mg/dL Creatinine 4.8 H (0.8-1.5) mg/dL Est GFR ( Amer) 15 Est GFR (Non-Af Amer) 12 POC Glucose (mg/dL) 153 H (65-110) mg/dL Random Glucose 85 D (75-110) mg/dL Calcium 8.5 L (8.6-10.4) mg/dl Phosphorus 5.3 H (2.5-4.5) mg/dL Magnesium 2.0 (1.6-2.3) mg/dL Total Bilirubin 0.6 (0.2-1.3) mg/dL AST 73 H D (17-59) U/L ALT 46 (21-72) U/L Alkaline Phosphatase 81 (38-126) U/L Total Protein 6.9 (6.3-8.3) g/dL Albumin 4.1 (3.5-5.0) g/dL Globulin 2.8 (2.2-3.9) gm/dL Albumin/Globulin Ratio 1.5 (1.0-2.1) Random Vancomycin ug/mL 12/30/18 Range/Units 20:12 WBC (4.8-10.8) K/uL RBC (4.40-5.90) Mil/uL Hgb (12.0-18.0) g/dL Hct (35.0-51.0) % MCV (80.0-94.0) fL MCH (27.0-31.0) pg MCHC (33.0-37.0) g/dL RDW (11.5-14.5) % Plt Count (130-400) K/uL MPV (7.2-11.7) fL Neut % (Auto) (50.0-75.0) % Lymph % (Auto) (20.0-40.0) % [place] % (Auto) (0.0-10.0) % Eos % (Auto) (0.0-4.0) % Baso % (Auto) (0.0-2.0) % Neut # (Auto) (1.8-7.0) K/uL Lymph # (Auto) (1.0-4.3) K/uL [place] # (Auto) (0.0-0.8) K/uL Eos # (Auto) (0.0-0.7) K/uL Baso # (Auto) (0.0-0.2) K/uL Puncture Site pCO2 (35-45) mm/Hg pO2 (80-100) mm/Hg HCO3 (21-28) mmol/L ABG pH (7.35-7.45) ABG Total CO2 (22-28) mmol/L ABG O2 Saturation (95-98) % ABG Base Excess (-2.0-3.0) mmol/L ABG Hemoglobin (11.7-17.4) g/dL ABG Carboxyhemoglobin (0.5-1.5) % POC ABG HHb (Measured) (0.0-5.0) % ABG Methemoglobin (0.0-3.0) % Kun Test A-a O2 Difference mm/Hg Respiratory Index Hgb O2 Saturation (95.0-98.0) % Vent Mode FiO2 % Inspiratory BiPAP Expiratory BiPAP Sodium (132-148) mmol/L Potassium (3.6-5.2) mmol/L Chloride (98-107) mmol/L Carbon Dioxide (22-30) mmol/L Anion Gap (10-20) BUN (9-20) mg/dL Creatinine (0.8-1.5) mg/dL Est GFR ( Amer) Est GFR (Non-Af Amer) POC Glucose (mg/dL) (65-110) mg/dL Random Glucose (75-110) mg/dL Calcium (8.6-10.4) mg/dl Phosphorus (2.5-4.5) mg/dL Magnesium (1.6-2.3) mg/dL Total Bilirubin (0.2-1.3) mg/dL AST (17-59) U/L ALT (21-72) U/L Alkaline Phosphatase (38-126) U/L Total Protein (6.3-8.3) g/dL Albumin (3.5-5.0) g/dL Globulin (2.2-3.9) gm/dL Albumin/Globulin Ratio (1.0-2.1) Random Vancomycin 8.8 ug/mL Laboratory Results - last 24 hr 12/30/18 12/31/18 12/31/18 20:12 05:58 05:58 WBC 6.6 RBC 3.91 L Hgb 11.6 L Hct 35.7 MCV 91.4 MCH 29.6 MCHC 32.4 L RDW 15.7 H Plt Count 161 MPV 8.6 Neut % (Auto) 77.4 H Lymph % (Auto) 13.0 L [place] % (Auto) 7.2 Eos % (Auto) 1.5 Baso % (Auto) 0.9 Neut # (Auto) 5.1 Lymph # (Auto) 0.9 L [place] # (Auto) 0.5 Eos # (Auto) 0.1 Baso # (Auto) 0.1 Puncture Site pCO2 pO2 HCO3 ABG pH ABG Total CO2 ABG O2 Saturation ABG Base Excess ABG Hemoglobin ABG Carboxyhemoglobin POC ABG HHb (Measured) ABG Methemoglobin Kun Test A-a O2 Difference Respiratory Index Hgb O2 Saturation Vent Mode FiO2 Inspiratory BiPAP Expiratory BiPAP Sodium 138 Potassium 5.2 Chloride 96 L Carbon Dioxide 30 Anion Gap 17 BUN 41 H Creatinine 4.8 H Est GFR ( Amer) 15 Est GFR (Non-Af Amer) 12 POC Glucose (mg/dL) Random Glucose 85 D Calcium 8.5 L Phosphorus 5.3 H Magnesium 2.0 Total Bilirubin 0.6 AST 73 H D ALT 46 Alkaline Phosphatase 81 Total Protein 6.9 Albumin 4.1 Globulin 2.8 Albumin/Globulin Ratio 1.5 Random Vancomycin 8.8 12/31/18 12/31/18 12/31/18 07:46 11:25 13:40 WBC RBC Hgb Hct MCV MCH MCHC RDW Plt Count MPV Neut % (Auto) Lymph % (Auto) [place] % (Auto) Eos % (Auto) Baso % (Auto) Neut # (Auto) Lymph # (Auto) [place] # (Auto) Eos # (Auto) Baso # (Auto) Puncture Site Rra pCO2 58 H pO2 185 H HCO3 27.1 ABG pH 7.32 L ABG Total CO2 31.7 H ABG O2 Saturation 98.5 H ABG Base Excess 2.8 ABG Hemoglobin 10.8 L ABG Carboxyhemoglobin 0.5 POC ABG HHb (Measured) 1.5 ABG Methemoglobin 0.6 Kun Test Po A-a O2 Difference 456.0 Respiratory Index 2.5 Hgb O2 Saturation 97.4 Vent Mode Bipap FiO2 100.0 Inspiratory BiPAP 14 Expiratory BiPAP 6 Sodium Potassium Chloride Carbon Dioxide Anion Gap BUN Creatinine Est GFR ( Amer) Est GFR (Non-Af Amer) POC Glucose (mg/dL) 153 H 110 Random Glucose Calcium Phosphorus Magnesium Total Bilirubin AST ALT Alkaline Phosphatase Total Protein Albumin Globulin Albumin/Globulin Ratio Random Vancomycin 12/31/18 16:20 WBC RBC Hgb Hct MCV MCH MCHC RDW Plt Count MPV Neut % (Auto) Lymph % (Auto) [place] % (Auto) Eos % (Auto) Baso % (Auto) Neut # (Auto) Lymph # (Auto) [place] # (Auto) Eos # (Auto) Baso # (Auto) Puncture Site pCO2 pO2 HCO3 ABG pH ABG Total CO2 ABG O2 Saturation ABG Base Excess ABG Hemoglobin ABG Carboxyhemoglobin POC ABG HHb (Measured) ABG Methemoglobin Kun Test A-a O2 Difference Respiratory Index Hgb O2 Saturation Vent Mode FiO2 Inspiratory BiPAP Expiratory BiPAP Sodium Potassium Chloride Carbon Dioxide Anion Gap BUN Creatinine Est GFR ( Amer) Est GFR (Non-Af Amer) POC Glucose (mg/dL) 111 H Random Glucose Calcium Phosphorus Magnesium Total Bilirubin AST ALT Alkaline Phosphatase Total Protein Albumin Globulin Albumin/Globulin Ratio Random Vancomycin Radiology Impressions: Radiology Impressions Chest X-Ray 12/31/18 05:58 IMPRESSION: Central pulmonary vasculature is slightly congested with bilateral effusions and bibasilar atelectasis and/or infiltrates. . Critical Care Progress Note - Nutrition Nutrition: Nutrition Category Date Time Status Renal Diet [DIET] Diets 12/31/18 Breakfast Active Attending/Attestation - Attestation I have personally seen and examined this patient.: Yes I have fully participated in the care of the patient.: Yes I have reviewed all pertinent clinical information: Yes Notes (Text): 12/31/18 18:11 Patient seen and examined in the intensive care unit. Continue BiPAP Hemodialysis Nebulizer treatment and steroids Antibiotics <Luis James M - Last Filed: 12/31/18 21:21> CCU Subjective - Physician Review Subjective (Free Text): Critical care progress note for Dr. Spaulding. Patient seen and examined at bedside. No overnight events reported. Patient states he was feeling well so de-escalated bipap to NRB; however patient began having SOB, w/ O2 Sat low 80s. Patient returned to BIPAP. Patient complains of continued SOB and suprapubic pain. Patient was no further complaints. Patient denies chest pain, SOB, abdominal pain, fevers, chills, urinary symptoms. CCU Objective - Vital Signs / Intake & Output Vital Signs (Last 4 hours): Vital Signs Temp Pulse Resp BP Pulse Ox 12/31/18 06:03 129/58 L 12/31/18 06:00 97 H 22 86 L 12/31/18 05:45 90 25 H 95 12/31/18 05:39 89 23 122/64 86 L 12/31/18 05:11 81 12/31/18 05:03 86 24 118/63 12/31/18 05:00 92 L 12/31/18 04:03 110/61 12/31/18 04:00 99.8 F H 81 23 93 L Intake and Output (Last 8hrs): Intake & Output 12/30/18 12/31/18 12/31/18 22:59 06:59 14:59 Intake Total 387 233 Balance 387 233 Weight 133 lb 1.6 oz 127 lb Intake: Intake, IV Amount 217 133 Right Forearm 217 133 Right Hand 0 Oral 170 100 Other: # Voids Suprapubic 0 0 # Bowel Movements 0 0 - Physical Exam Physical Exam Limitations: Negative for: Altered Mental Status Head: Positive for: Atraumatic Pupils: Negative for: Sluggish Extroacular Muscles: Positive for: EOMI Mouth: Positive for: Moist Mucous Membranes Respiratory/Chest: Positive for: Respiratory Distress, Accessory Muscle Use, Wheezes, Rales Cardiovascular: Positive for: Normal S1, S2. Negative for: Rub Abdomen: Positive for: Normal Bowel Sounds Genitourinary Male: Positive for: Other (suprapubic cathetor ) Upper Extremity: Negative for: Cyanosis, Edema Lower Extremity: Positive for: Normal Inspection, Edema Skin: Positive for: Warm, Dry Psychiatric: Positive for: Oriented x 3, Normal Insight - Medications Active Medications: Active Medications Generic Name Dose Route Start Last Admin Trade Name Freq PRN Reason Stop Dose Admin Acetaminophen 650 mg 12/30/18 12:34 Tylenol 325mg Tab PO Q6 PRN Fever >100.4 F Aspirin 81 mg 12/31/18 10:00 Aspirin Chewable PO DAILY [facility] Benzonatate 100 mg 12/30/18 20:00 12/30/18 20:47 Tessalon Perles PO 100 mg Q12H [facility] Administration Cilostazol 50 mg 12/30/18 18:00 12/30/18 18:49 Pletal PO Not Given BID [facility] Dextrose 0 ml 12/30/18 17:47 Dextrose 50% Inj IV STAT PRN Hypoglycemia Protocol Protocol Dextrose 0 gm 12/30/18 17:47 Glutose 15 PO ONCE PRN Hypoglycemia Protocol Protocol Famotidine 20 mg 12/31/18 10:00 Pepcid PO DAILY [facility] Glucagon 0 mg 12/30/18 17:47 Glucagen Diagnostic Kit IM STAT PRN Hypoglycemia Protocol Protocol Heparin Sodium (Porcine) 5,000 units 12/30/18 22:00 12/31/18 05:17 Heparin SC 5,000 units Q8 [facility] Administration Hydralazine HCl 25 mg 12/30/18 14:00 12/30/18 18:49 Apresoline PO Not Given TID [facility] Piperacillin Sod/Tazobactam Sod 2.25 gm in 50 mls @ 100 mls/hr 12/30/18 20:00 12/31/18 03:30 Zosyn 2.25 Gm Iv Premix IVPB 100 mls/hr Q8H [facility] Administration Protocol Dextrose 1,000 mls @ 0 mls/hr 12/30/18 17:47 Dextrose 5% In Water 1000 Ml IV .Q0M PRN Hypoglycemia Protocol Protocol Per Protocol Insulin Aspart 0 unit 12/30/18 16:30 12/30/18 17:11 Novolog SC Not Given AC [facility] Protocol Insulin Glargine 30 unit 12/30/18 20:00 12/30/18 20:41 Lantus SC Not Given 2000 [facility] Metoprolol Succinate 25 mg 12/31/18 10:00 Toprol Xl PO DAILY [facility] Montelukast Sodium 10 mg 12/31/18 10:00 Singulair PO DAILY [facility] Oseltamivir Phosphate 30 mg 01/01/19 18:00 Tamiflu Susp PO 01/07/19 18:01 Q2D [facility] Protocol Rosuvastatin Calcium 5 mg 12/30/18 22:00 12/30/18 21:16 Crestor PO 5 mg HS [facility] Administration Sevelamer Carbonate 1,600 mg 12/30/18 17:00 12/30/18 17:12 Renvela PO Not Given TIDCC [facility]LEY - Patient Studies Lab Studies: Lab Studies 12/31/18 12/31/18 12/30/18 Range/Units 05:58 05:58 20:12 WBC 6.6 (4.8-10.8) K/uL RBC 3.91 L (4.40-5.90) Mil/uL Hgb 11.6 L (12.0-18.0) g/dL Hct 35.7 (35.0-51.0) % MCV 91.4 (80.0-94.0) fL MCH 29.6 (27.0-31.0) pg MCHC 32.4 L (33.0-37.0) g/dL RDW 15.7 H (11.5-14.5) % Plt Count 161 (130-400) K/uL MPV 8.6 (7.2-11.7) fL Neut % (Auto) 77.4 H (50.0-75.0) % Lymph % (Auto) 13.0 L (20.0-40.0) % [place] % (Auto) 7.2 (0.0-10.0) % Eos % (Auto) 1.5 (0.0-4.0) % Baso % (Auto) 0.9 (0.0-2.0) % Neut # (Auto) 5.1 (1.8-7.0) K/uL Lymph # (Auto) 0.9 L (1.0-4.3) K/uL [place] # (Auto) 0.5 (0.0-0.8) K/uL Eos # (Auto) 0.1 (0.0-0.7) K/uL Baso # (Auto) 0.1 (0.0-0.2) K/uL PT (9.7-12.2) SECONDS INR APTT (21-34) SECONDS pO2 (30-55) mm/Hg VBG pH (7.32-7.43) VBG pCO2 (40-60) mmHg VBG HCO3 mmol/L VBG Total CO2 (22-28) mmol/L VBG O2 Sat (Calc) (40-65) % VBG Base Excess (0.0-2.0) mmol/L VBG Potassium (3.6-5.2) mmol/L Glucose (75-110) mg/dl Lactate (0.7-2.1) mmol/L Crit Value Called To Crit Value Called By Crit Value Read Back Blood Gas Notified Time Sodium 138 (132-148) mmol/L Potassium 5.2 (3.6-5.2) mmol/L Chloride 96 L (98-107) mmol/L Carbon Dioxide 30 (22-30) mmol/L Anion Gap 17 (10-20) BUN 41 H (9-20) mg/dL Creatinine 4.8 H (0.8-1.5) mg/dL Est GFR ( Amer) 15 Est GFR (Non-Af Amer) 12 POC Glucose (mg/dL) (65-110) mg/dL Random Glucose 85 D (75-110) mg/dL Calcium 8.5 L (8.6-10.4) mg/dl Phosphorus 5.3 H (2.5-4.5) mg/dL Magnesium 2.0 (1.6-2.3) mg/dL Total Bilirubin 0.6 (0.2-1.3) mg/dL AST 73 H D (17-59) U/L ALT 46 (21-72) U/L Alkaline Phosphatase 81 (38-126) U/L Troponin I (0.00-0.120) ng/mL NT-Pro-B Natriuret Pep (0-900) pg/mL Total Protein 6.9 (6.3-8.3) g/dL Albumin 4.1 (3.5-5.0) g/dL Globulin 2.8 (2.2-3.9) gm/dL Albumin/Globulin Ratio 1.5 (1.0-2.1) Procalcitonin (0.19-0.49) NG/ML Venous Blood Potassium (3.6-5.2) mmol/L Urine Color (YELLOW) Urine Clarity (Clear) Urine pH (5.0-8.0) Ur Specific [place] (1.003-1.030) Urine Protein (NEGATIVE) mg/dL Urine Glucose (UA) (Normal) mg/dL Urine Ketones (NEGATIVE) mg/dL Urine Blood (NEGATIVE) Urine Nitrate (NEGATIVE) Urine Bilirubin (NEGATIVE) Urine Urobilinogen (0.2-1.0) mg/dL Ur Leukocyte Esterase (Negative) Andres/uL Urine WBC (Auto) (0-5) /hpf Urine RBC (Auto) (0-3) /hpf Ur Squamous Epith Cells (0-5) /hpf Urine Bacteria (<OCC) Random Vancomycin 8.8 ug/mL Urine Opiates Screen (NEGATIVE) Urine Methadone Screen (NEGATIVE) Ur Barbiturates Screen (NEGATIVE) Ur Phencyclidine Scrn (NEGATIVE) Ur Amphetamines Screen (NEGATIVE) U Benzodiazepines Scrn (NEGATIVE) U Oth Cocaine Metabols (NEGATIVE) U Cannabinoids Screen (NEGATIVE) Influenza Typ A,B (EIA) (NEGATIVE) 12/30/18 12/30/18 12/30/18 Range/Units 16:57 16:20 13:00 WBC (4.8-10.8) K/uL RBC (4.40-5.90) Mil/uL Hgb (12.0-18.0) g/dL Hct (35.0-51.0) % MCV (80.0-94.0) fL MCH (27.0-31.0) pg MCHC (33.0-37.0) g/dL RDW (11.5-14.5) % Plt Count (130-400) K/uL MPV (7.2-11.7) fL Neut % (Auto) (50.0-75.0) % Lymph % (Auto) (20.0-40.0) % [place] % (Auto) (0.0-10.0) % Eos % (Auto) (0.0-4.0) % Baso % (Auto) (0.0-2.0) % Neut # (Auto) (1.8-7.0) K/uL Lymph # (Auto) (1.0-4.3) K/uL [place] # (Auto) (0.0-0.8) K/uL Eos # (Auto) (0.0-0.7) K/uL Baso # (Auto) (0.0-0.2) K/uL PT (9.7-12.2) SECONDS INR APTT (21-34) SECONDS pO2 (30-55) mm/Hg VBG pH (7.32-7.43) VBG pCO2 (40-60) mmHg VBG HCO3 mmol/L VBG Total CO2 (22-28) mmol/L VBG O2 Sat (Calc) (40-65) % VBG Base Excess (0.0-2.0) mmol/L VBG Potassium (3.6-5.2) mmol/L Glucose (75-110) mg/dl Lactate (0.7-2.1) mmol/L Crit Value Called To Crit Value Called By Crit Value Read Back Blood Gas Notified Time Sodium (132-148) mmol/L Potassium (3.6-5.2) mmol/L Chloride (98-107) mmol/L Carbon Dioxide (22-30) mmol/L Anion Gap (10-20) BUN (9-20) mg/dL Creatinine (0.8-1.5) mg/dL Est GFR ( Amer) Est GFR (Non-Af Amer) POC Glucose (mg/dL) 109 (65-110) mg/dL Random Glucose (75-110) mg/dL Calcium (8.6-10.4) mg/dl Phosphorus (2.5-4.5) mg/dL Magnesium (1.6-2.3) mg/dL Total Bilirubin (0.2-1.3) mg/dL AST (17-59) U/L ALT (21-72) U/L Alkaline Phosphatase (38-126) U/L Troponin I (0.00-0.120) ng/mL NT-Pro-B Natriuret Pep (0-900) pg/mL Total Protein (6.3-8.3) g/dL Albumin (3.5-5.0) g/dL Globulin (2.2-3.9) gm/dL Albumin/Globulin Ratio (1.0-2.1) Procalcitonin 1.69 H (0.19-0.49) NG/ML Venous Blood Potassium (3.6-5.2) mmol/L Urine Color (YELLOW) Urine Clarity (Clear) Urine pH (5.0-8.0) Ur Specific [place] (1.003-1.030) Urine Protein (NEGATIVE) mg/dL Urine Glucose (UA) (Normal) mg/dL Urine Ketones (NEGATIVE) mg/dL Urine Blood (NEGATIVE) Urine Nitrate (NEGATIVE) Urine Bilirubin (NEGATIVE) Urine Urobilinogen (0.2-1.0) mg/dL Ur Leukocyte Esterase (Negative) Andres/uL Urine WBC (Auto) (0-5) /hpf Urine RBC (Auto) (0-3) /hpf Ur Squamous Epith Cells (0-5) /hpf Urine Bacteria (<OCC) Random Vancomycin ug/mL Urine Opiates Screen Negative (NEGATIVE) Urine Methadone Screen Negative (NEGATIVE) Ur Barbiturates Screen Negative (NEGATIVE) Ur Phencyclidine Scrn Negative (NEGATIVE) Ur Amphetamines Screen Negative (NEGATIVE) U Benzodiazepines Scrn Negative (NEGATIVE) U Oth Cocaine Metabols Negative (NEGATIVE) U Cannabinoids Screen Negative (NEGATIVE) Influenza Typ A,B (EIA) (NEGATIVE) 12/30/18 12/30/18 12/30/18 Range/Units 12:30 09:35 09:25 WBC (4.8-10.8) K/uL RBC (4.40-5.90) Mil/uL Hgb (12.0-18.0) g/dL Hct (35.0-51.0) % MCV (80.0-94.0) fL MCH (27.0-31.0) pg MCHC (33.0-37.0) g/dL RDW (11.5-14.5) % Plt Count (130-400) K/uL MPV (7.2-11.7) fL Neut % (Auto) (50.0-75.0) % Lymph % (Auto) (20.0-40.0) % [place] % (Auto) (0.0-10.0) % Eos % (Auto) (0.0-4.0) % Baso % (Auto) (0.0-2.0) % Neut # (Auto) (1.8-7.0) K/uL Lymph # (Auto) (1.0-4.3) K/uL [place] # (Auto) (0.0-0.8) K/uL Eos # (Auto) (0.0-0.7) K/uL Baso # (Auto) (0.0-0.2) K/uL PT (9.7-12.2) SECONDS INR APTT (21-34) SECONDS pO2 83 H 23 L (30-55) mm/Hg VBG pH 7.34 7.25 L (7.32-7.43) VBG pCO2 62 H 81 H* (40-60) mmHg VBG HCO3 29.2 27.3 mmol/L VBG Total CO2 35.3 H 38.0 H (22-28) mmol/L VBG O2 Sat (Calc) 96.9 H 34.5 L (40-65) % VBG Base Excess 5.6 H 5.4 H (0.0-2.0) mmol/L VBG Potassium 4.8 5.3 H (3.6-5.2) mmol/L Glucose 133 H 166 H (75-110) mg/dl Lactate 0.9 1.7 (0.7-2.1) mmol/L Crit Value Called To Dr. fernando Crit Value Called By Sridevi aguillon rcp Crit Value Read Back Y Blood Gas Notified Time 932 Sodium 137.0 136.0 (132-148) mmol/L Potassium (3.6-5.2) mmol/L Chloride 101.0 95.0 L (98-107) mmol/L Carbon Dioxide (22-30) mmol/L Anion Gap (10-20) BUN (9-20) mg/dL Creatinine (0.8-1.5) mg/dL Est GFR ( Amer) Est GFR (Non-Af Amer) POC Glucose (mg/dL) (65-110) mg/dL Random Glucose (75-110) mg/dL Calcium (8.6-10.4) mg/dl Phosphorus (2.5-4.5) mg/dL Magnesium (1.6-2.3) mg/dL Total Bilirubin (0.2-1.3) mg/dL AST (17-59) U/L ALT (21-72) U/L Alkaline Phosphatase (38-126) U/L Troponin I (0.00-0.120) ng/mL NT-Pro-B Natriuret Pep (0-900) pg/mL Total Protein (6.3-8.3) g/dL Albumin (3.5-5.0) g/dL Globulin (2.2-3.9) gm/dL Albumin/Globulin Ratio (1.0-2.1) Procalcitonin (0.19-0.49) NG/ML Venous Blood Potassium 4.8 5.3 H (3.6-5.2) mmol/L Urine Color [place]ush[place] (YELLOW) Urine Clarity Hazy (Clear) Urine pH 8.0 (5.0-8.0) Ur Specific [place] 1.012 (1.003-1.030) Urine Protein 3+ H (NEGATIVE) mg/dL Urine Glucose (UA) Normal (Normal) mg/dL Urine Ketones Negative (NEGATIVE) mg/dL Urine Blood Negative (NEGATIVE) Urine Nitrate Positive H (NEGATIVE) Urine Bilirubin Negative (NEGATIVE) Urine Urobilinogen Normal (0.2-1.0) mg/dL Ur Leukocyte Esterase 1+ H (Negative) Andres/uL Urine WBC (Auto) 13 H (0-5) /hpf Urine RBC (Auto) 3 (0-3) /hpf Ur Squamous Epith Cells 1 (0-5) /hpf Urine Bacteria Occ H (<OCC) Random Vancomycin ug/mL Urine Opiates Screen (NEGATIVE) Urine Methadone Screen (NEGATIVE) Ur Barbiturates Screen (NEGATIVE) Ur Phencyclidine Scrn (NEGATIVE) Ur Amphetamines Screen (NEGATIVE) U Benzodiazepines Scrn (NEGATIVE) U Oth Cocaine Metabols (NEGATIVE) U Cannabinoids Screen (NEGATIVE) Influenza Typ A,B (EIA) (NEGATIVE) 12/30/18 12/30/18 12/30/18 Range/Units 09:19 09:19 09:19 WBC (4.8-10.8) K/uL RBC (4.40-5.90) Mil/uL Hgb (12.0-18.0) g/dL Hct (35.0-51.0) % MCV (80.0-94.0) fL MCH (27.0-31.0) pg MCHC (33.0-37.0) g/dL RDW (11.5-14.5) % Plt Count (130-400) K/uL MPV (7.2-11.7) fL Neut % (Auto) (50.0-75.0) % Lymph % (Auto) (20.0-40.0) % [place] % (Auto) (0.0-10.0) % Eos % (Auto) (0.0-4.0) % Baso % (Auto) (0.0-2.0) % Neut # (Auto) (1.8-7.0) K/uL Lymph # (Auto) (1.0-4.3) K/uL [place] # (Auto) (0.0-0.8) K/uL Eos # (Auto) (0.0-0.7) K/uL Baso # (Auto) (0.0-0.2) K/uL PT 11.2 (9.7-12.2) SECONDS INR 1.0 APTT 30 (21-34) SECONDS pO2 (30-55) mm/Hg VBG pH (7.32-7.43) VBG pCO2 (40-60) mmHg VBG HCO3 mmol/L VBG Total CO2 (22-28) mmol/L VBG O2 Sat (Calc) (40-65) % VBG Base Excess (0.0-2.0) mmol/L VBG Potassium (3.6-5.2) mmol/L Glucose (75-110) mg/dl Lactate (0.7-2.1) mmol/L Crit Value Called To Crit Value Called By Crit Value Read Back Blood Gas Notified Time Sodium 137 (132-148) mmol/L Potassium 5.5 H (3.6-5.2) mmol/L Chloride 93 L (98-107) mmol/L Carbon Dioxide 29 (22-30) mmol/L Anion Gap 20 (10-20) BUN 42 H (9-20) mg/dL Creatinine 5.7 H (0.8-1.5) mg/dL Est GFR ( Amer) 12 Est GFR (Non-Af Amer) 10 POC Glucose (mg/dL) (65-110) mg/dL Random Glucose 169 H D (75-110) mg/dL Calcium 9.0 (8.6-10.4) mg/dl Phosphorus 5.3 H (2.5-4.5) mg/dL Magnesium 2.1 (1.6-2.3) mg/dL Total Bilirubin 1.0 (0.2-1.3) mg/dL AST 59 D (17-59) U/L ALT 34 (21-72) U/L Alkaline Phosphatase 95 (38-126) U/L Troponin I 0.2700 H* (0.00-0.120) ng/mL NT-Pro-B Natriuret Pep [id number] H (0-900) pg/mL Total Protein 8.4 H (6.3-8.3) g/dL Albumin 5.0 D (3.5-5.0) g/dL Globulin 3.3 (2.2-3.9) gm/dL Albumin/Globulin Ratio 1.5 (1.0-2.1) Procalcitonin (0.19-0.49) NG/ML Venous Blood Potassium (3.6-5.2) mmol/L Urine Color (YELLOW) Urine Clarity (Clear) Urine pH (5.0-8.0) Ur Specific [place] (1.003-1.030) Urine Protein (NEGATIVE) mg/dL Urine Glucose (UA) (Normal) mg/dL Urine Ketones (NEGATIVE) mg/dL Urine Blood (NEGATIVE) Urine Nitrate (NEGATIVE) Urine Bilirubin (NEGATIVE) Urine Urobilinogen (0.2-1.0) mg/dL Ur Leukocyte Esterase (Negative) Andres/uL Urine WBC (Auto) (0-5) /hpf Urine RBC (Auto) (0-3) /hpf Ur Squamous Epith Cells (0-5) /hpf Urine Bacteria (<OCC) Random Vancomycin ug/mL Urine Opiates Screen (NEGATIVE) Urine Methadone Screen (NEGATIVE) Ur Barbiturates Screen (NEGATIVE) Ur Phencyclidine Scrn (NEGATIVE) Ur Amphetamines Screen (NEGATIVE) U Benzodiazepines Scrn (NEGATIVE) U Oth Cocaine Metabols (NEGATIVE) U Cannabinoids Screen (NEGATIVE) Influenza Typ A,B (EIA) Pos for influenza a H (NEGATIVE) 12/30/18 Range/Units 09:19 WBC 6.2 (4.8-10.8) K/uL RBC 4.40 (4.40-5.90) Mil/uL Hgb 13.1 (12.0-18.0) g/dL Hct 40.2 (35.0-51.0) % MCV 91.4 (80.0-94.0) fL MCH 29.9 (27.0-31.0) pg MCHC 32.7 L (33.0-37.0) g/dL RDW 16.1 H (11.5-14.5) % Plt Count 180 (130-400) K/uL MPV 8.3 (7.2-11.7) fL Neut % (Auto) 71.4 (50.0-75.0) % Lymph % (Auto) 20.7 (20.0-40.0) % [place] % (Auto) 6.5 (0.0-10.0) % Eos % (Auto) 0.1 (0.0-4.0) % Baso % (Auto) 1.3 (0.0-2.0) % Neut # (Auto) 4.4 (1.8-7.0) K/uL Lymph # (Auto) 1.3 (1.0-4.3) K/uL [place] # (Auto) 0.4 (0.0-0.8) K/uL Eos # (Auto) 0.0 (0.0-0.7) K/uL Baso # (Auto) 0.1 (0.0-0.2) K/uL PT (9.7-12.2) SECONDS INR APTT (21-34) SECONDS pO2 (30-55) mm/Hg VBG pH (7.32-7.43) VBG pCO2 (40-60) mmHg VBG HCO3 mmol/L VBG Total CO2 (22-28) mmol/L VBG O2 Sat (Calc) (40-65) % VBG Base Excess (0.0-2.0) mmol/L VBG Potassium (3.6-5.2) mmol/L Glucose (75-110) mg/dl Lactate (0.7-2.1) mmol/L Crit Value Called To Crit Value Called By Crit Value Read Back Blood Gas Notified Time Sodium (132-148) mmol/L Potassium (3.6-5.2) mmol/L Chloride (98-107) mmol/L Carbon Dioxide (22-30) mmol/L Anion Gap (10-20) BUN (9-20) mg/dL Creatinine (0.8-1.5) mg/dL Est GFR ( Amer) Est GFR (Non-Af Amer) POC Glucose (mg/dL) (65-110) mg/dL Random Glucose (75-110) mg/dL Calcium (8.6-10.4) mg/dl Phosphorus (2.5-4.5) mg/dL Magnesium (1.6-2.3) mg/dL Total Bilirubin (0.2-1.3) mg/dL AST (17-59) U/L ALT (21-72) U/L Alkaline Phosphatase (38-126) U/L Troponin I (0.00-0.120) ng/mL NT-Pro-B Natriuret Pep (0-900) pg/mL Total Protein (6.3-8.3) g/dL Albumin (3.5-5.0) g/dL Globulin (2.2-3.9) gm/dL Albumin/Globulin Ratio (1.0-2.1) Procalcitonin (0.19-0.49) NG/ML Venous Blood Potassium (3.6-5.2) mmol/L Urine Color (YELLOW) Urine Clarity (Clear) Urine pH (5.0-8.0) Ur Specific [place] (1.003-1.030) Urine Protein (NEGATIVE) mg/dL Urine Glucose (UA) (Normal) mg/dL Urine Ketones (NEGATIVE) mg/dL Urine Blood (NEGATIVE) Urine Nitrate (NEGATIVE) Urine Bilirubin (NEGATIVE) Urine Urobilinogen (0.2-1.0) mg/dL Ur Leukocyte Esterase (Negative) Andres/uL Urine WBC (Auto) (0-5) /hpf Urine RBC (Auto) (0-3) /hpf Ur Squamous Epith Cells (0-5) /hpf Urine Bacteria (<OCC) Random Vancomycin ug/mL Urine Opiates Screen (NEGATIVE) Urine Methadone Screen (NEGATIVE) Ur Barbiturates Screen (NEGATIVE) Ur Phencyclidine Scrn (NEGATIVE) Ur Amphetamines Screen (NEGATIVE) U Benzodiazepines Scrn (NEGATIVE) U Oth Cocaine Metabols (NEGATIVE) U Cannabinoids Screen (NEGATIVE) Influenza Typ A,B (EIA) (NEGATIVE) Laboratory Results - last 24 hr 12/30/18 12/30/18 12/30/18 09:19 09:19 09:19 WBC 6.2 RBC 4.40 Hgb 13.1 Hct 40.2 MCV 91.4 MCH 29.9 MCHC 32.7 L RDW 16.1 H Plt Count 180 MPV 8.3 Neut % (Auto) 71.4 Lymph % (Auto) 20.7 [place] % (Auto) 6.5 Eos % (Auto) 0.1 Baso % (Auto) 1.3 Neut # (Auto) 4.4 Lymph # (Auto) 1.3 [place] # (Auto) 0.4 Eos # (Auto) 0.0 Baso # (Auto) 0.1 PT 11.2 INR 1.0 APTT 30 pO2 VBG pH VBG pCO2 VBG HCO3 VBG Total CO2 VBG O2 Sat (Calc) VBG Base Excess VBG Potassium Glucose Lactate Crit Value Called To Crit Value Called By Crit Value Read Back Blood Gas Notified Time Sodium 137 Potassium 5.5 H Chloride 93 L Carbon Dioxide 29 Anion Gap 20 BUN 42 H Creatinine 5.7 H Est GFR ( Amer) 12 Est GFR (Non-Af Amer) 10 POC Glucose (mg/dL) Random Glucose 169 H D Calcium 9.0 Phosphorus 5.3 H Magnesium 2.1 Total Bilirubin 1.0 AST 59 D ALT 34 Alkaline Phosphatase 95 Troponin I 0.2700 H* NT-Pro-B Natriuret Pep [id number] H Total Protein 8.4 H Albumin 5.0 D Globulin 3.3 Albumin/Globulin Ratio 1.5 Procalcitonin Venous Blood Potassium Urine Color Urine Clarity Urine pH Ur Specific [place] Urine Protein Urine Glucose (UA) Urine Ketones Urine Blood Urine Nitrate Urine Bilirubin Urine Urobilinogen Ur Leukocyte Esterase Urine WBC (Auto) Urine RBC (Auto) Ur Squamous Epith Cells Urine Bacteria Random Vancomycin Urine Opiates Screen Urine Methadone Screen Ur Barbiturates Screen Ur Phencyclidine Scrn Ur Amphetamines Screen U Benzodiazepines Scrn U Oth Cocaine Metabols U Cannabinoids Screen Influenza Typ A,B (EIA) 12/30/18 12/30/18 12/30/18 09:19 09:25 09:35 WBC RBC Hgb Hct MCV MCH MCHC RDW Plt Count MPV Neut % (Auto) Lymph % (Auto) [place] % (Auto) Eos % (Auto) Baso % (Auto) Neut # (Auto) Lymph # (Auto) [place] # (Auto) Eos # (Auto) Baso # (Auto) PT INR APTT pO2 23 L VBG pH 7.25 L VBG pCO2 81 H* VBG HCO3 27.3 VBG Total CO2 38.0 H VBG O2 Sat (Calc) 34.5 L VBG Base Excess 5.4 H VBG Potassium 5.3 H Glucose 166 H Lactate 1.7 Crit Value Called To Dr. fernando Crit Value Called By Sridevi aguillon rcp Crit Value Read Back Y Blood Gas Notified Time 932 Sodium 136.0 Potassium Chloride 95.0 L Carbon Dioxide Anion Gap BUN Creatinine Est GFR ( Amer) Est GFR (Non-Af Amer) POC Glucose (mg/dL) Random Glucose Calcium Phosphorus Magnesium Total Bilirubin AST ALT Alkaline Phosphatase Troponin I NT-Pro-B Natriuret Pep Total Protein Albumin Globulin Albumin/Globulin Ratio Procalcitonin Venous Blood Potassium 5.3 H Urine Color Anushka Urine Clarity Hazy Urine pH 8.0 Ur Specific [place] 1.012 Urine Protein 3+ H Urine Glucose (UA) Normal Urine Ketones Negative Urine Blood Negative Urine Nitrate Positive H Urine Bilirubin Negative Urine Urobilinogen Normal Ur Leukocyte Esterase 1+ H Urine WBC (Auto) 13 H Urine RBC (Auto) 3 Ur Squamous Epith Cells 1 Urine Bacteria Occ H Random Vancomycin Urine Opiates Screen Urine Methadone Screen Ur Barbiturates Screen Ur Phencyclidine Scrn Ur Amphetamines Screen U Benzodiazepines Scrn U Oth Cocaine Metabols U Cannabinoids Screen Influenza Typ A,B (EIA) Pos for influenza a H 12/30/18 12/30/18 12/30/18 12:30 13:00 16:20 WBC RBC Hgb Hct MCV MCH MCHC RDW Plt Count MPV Neut % (Auto) Lymph % (Auto) [place] % (Auto) Eos % (Auto) Baso % (Auto) Neut # (Auto) Lymph # (Auto) [place] # (Auto) Eos # (Auto) Baso # (Auto) PT INR APTT pO2 83 H VBG pH 7.34 VBG pCO2 62 H VBG HCO3 29.2 VBG Total CO2 35.3 H VBG O2 Sat (Calc) 96.9 H VBG Base Excess 5.6 H VBG Potassium 4.8 Glucose 133 H Lactate 0.9 Crit Value Called To Crit Value Called By Crit Value Read Back Blood Gas Notified Time Sodium 137.0 Potassium Chloride 101.0 Carbon Dioxide Anion Gap BUN Creatinine Est GFR ( Amer) Est GFR (Non-Af Amer) POC Glucose (mg/dL) Random Glucose Calcium Phosphorus Magnesium Total Bilirubin AST ALT Alkaline Phosphatase Troponin I NT-Pro-B Natriuret Pep Total Protein Albumin Globulin Albumin/Globulin Ratio Procalcitonin 1.69 H Venous Blood Potassium 4.8 Urine Color Urine Clarity Urine pH Ur Specific [place] Urine Protein Urine Glucose (UA) Urine Ketones Urine Blood Urine Nitrate Urine Bilirubin Urine Urobilinogen Ur Leukocyte Esterase Urine WBC (Auto) Urine RBC (Auto) Ur Squamous Epith Cells Urine Bacteria Random Vancomycin Urine Opiates Screen Negative Urine Methadone Screen Negative Ur Barbiturates Screen Negative Ur Phencyclidine Scrn Negative Ur Amphetamines Screen Negative U Benzodiazepines Scrn Negative U Oth Cocaine Metabols Negative U Cannabinoids Screen Negative Influenza Typ A,B (EIA) 12/30/18 12/30/18 12/31/18 16:57 20:12 05:58 WBC 6.6 RBC 3.91 L Hgb 11.6 L Hct 35.7 MCV 91.4 MCH 29.6 MCHC 32.4 L RDW 15.7 H Plt Count 161 MPV 8.6 Neut % (Auto) 77.4 H Lymph % (Auto) 13.0 L [place] % (Auto) 7.2 Eos % (Auto) 1.5 Baso % (Auto) 0.9 Neut # (Auto) 5.1 Lymph # (Auto) 0.9 L [place] # (Auto) 0.5 Eos # (Auto) 0.1 Baso # (Auto) 0.1 PT INR APTT pO2 VBG pH VBG pCO2 VBG HCO3 VBG Total CO2 VBG O2 Sat (Calc) VBG Base Excess VBG Potassium Glucose Lactate Crit Value Called To Crit Value Called By Crit Value Read Back Blood Gas Notified Time Sodium Potassium Chloride Carbon Dioxide Anion Gap BUN Creatinine Est GFR ( Amer) Est GFR (Non-Af Amer) POC Glucose (mg/dL) 109 Random Glucose Calcium Phosphorus Magnesium Total Bilirubin AST ALT Alkaline Phosphatase Troponin I NT-Pro-B Natriuret Pep Total Protein Albumin Globulin Albumin/Globulin Ratio Procalcitonin Venous Blood Potassium Urine Color Urine Clarity Urine pH Ur Specific [place] Urine Protein Urine Glucose (UA) Urine Ketones Urine Blood Urine Nitrate Urine Bilirubin Urine Urobilinogen Ur Leukocyte Esterase Urine WBC (Auto) Urine RBC (Auto) Ur Squamous Epith Cells Urine Bacteria Random Vancomycin 8.8 Urine Opiates Screen Urine Methadone Screen Ur Barbiturates Screen Ur Phencyclidine Scrn Ur Amphetamines Screen U Benzodiazepines Scrn U Oth Cocaine Metabols U Cannabinoids Screen Influenza Typ A,B (EIA) 12/31/18 05:58 WBC RBC Hgb Hct MCV MCH MCHC RDW Plt Count MPV Neut % (Auto) Lymph % (Auto) [place] % (Auto) Eos % (Auto) Baso % (Auto) Neut # (Auto) Lymph # (Auto) [place] # (Auto) Eos # (Auto) Baso # (Auto) PT INR APTT pO2 VBG pH VBG pCO2 VBG HCO3 VBG Total CO2 VBG O2 Sat (Calc) VBG Base Excess VBG Potassium Glucose Lactate Crit Value Called To Crit Value Called By Crit Value Read Back Blood Gas Notified Time Sodium 138 Potassium 5.2 Chloride 96 L Carbon Dioxide 30 Anion Gap 17 BUN 41 H Creatinine 4.8 H Est GFR ( Amer) 15 Est GFR (Non-Af Amer) 12 POC Glucose (mg/dL) Random Glucose 85 D Calcium 8.5 L Phosphorus 5.3 H Magnesium 2.0 Total Bilirubin 0.6 AST 73 H D ALT 46 Alkaline Phosphatase 81 Troponin I NT-Pro-B Natriuret Pep Total Protein 6.9 Albumin 4.1 Globulin 2.8 Albumin/Globulin Ratio 1.5 Procalcitonin Venous Blood Potassium Urine Color Urine Clarity Urine pH Ur Specific [place] Urine Protein Urine Glucose (UA) Urine Ketones Urine Blood Urine Nitrate Urine Bilirubin Urine Urobilinogen Ur Leukocyte Esterase Urine WBC (Auto) Urine RBC (Auto) Ur Squamous Epith Cells Urine Bacteria Random Vancomycin Urine Opiates Screen Urine Methadone Screen Ur Barbiturates Screen Ur Phencyclidine Scrn Ur Amphetamines Screen U Benzodiazepines Scrn U Oth Cocaine Metabols U Cannabinoids Screen Influenza Typ A,B (EIA) Radiology Impressions: Radiology Impressions Chest X-Ray 12/30/18 08:50 IMPRESSION: Progressive consolidative change in increasing pleural effusions. EKG/Cardiology Studies: Cardiology / EKG Studies 12/30/18 08:39 EKG [ELECTROCARDIOGRAM] Stat Comment: Mode Of Transportation: BED Reason For Exam: cp Isolation: Droplet 12/30/18 08:50 ELECTROCARDIOGRAM Stat Comment: Mode Of Transportation: Reason For Exam: Sepsis Patient Fingerstick Blood Sugar Results: 109 Review of Systems - Constitutional Constitutional: absent: Chills, Sweats, Weakness - EENT Eyes: UNREMARKABLE Ears: UNREMARKABLE Nose/Mouth/Throat: UNREMARKABLE. absent: Facial Pain, Neck Pain - Cardiovascular Cardiovascular: absent: Chest Pain, Chest Pain at Rest, Orthopnea - Respiratory Respiratory: Dyspnea. absent: Cough - Gastrointestinal Gastrointestinal: absent: Abdominal Pain, Belching, Diarrhea - Reproductive: Male Reproductive:Male: UNREMARKABLE - Musculoskeletal Musculoskeletal: UNREMARKABLE - Integumentary Integumentary: UNREMARKABLE - Neurological Neurological: UNREMARKABLE. absent: Headaches - Psychiatric Psychiatric: UNREMARKABLE. absent: Confusion, Depression - Endocrine Endocrine: UNREMARKABLE. absent: Deepening of Voice, Heat Intolorance - Hematologic/Lymphatic Hematologic: UNREMARKABLE Critical Care Progress Note - Extremities/Vascular Does the Patient have a Central Venous Catheter?: No Does the Patient need a Central Venous Catheter?: No Does the Patient have a Chun Catheter?: No Does the Patient need a Chun Catheter?: No - Prophylaxis GI Prophylaxis GI: Pepsid - Prophylaxis DVT Prophylaxis DVT: Heparin SQ - Nutrition Nutrition: Nutrition Category Date Time Status Renal Diet [DIET] Diets 12/31/18 Breakfast Active Assessment/Plan - Assessment and Plan (Free Text) Assessment: 73 male w/ PMhx of ESRD, COPD, HTN, presented to ED shortness of breath/ fever, found to be influenza A (+), RLL pneumonia, admitted to ICU for hypercapneic respiratory failure Plan: Neuro - alert and oriented X 3 Cardio - vitals stable on bipap - hx of HTN, c/w asprin 81 mg daily, hydralazine 25 PO TID, cilostazol 50 mg PO BID, metoprolol succinate 25 mg PO daily, Resp - saturating in 90s on BIPAP - on NRB - 80s - c/w BIPAP - ABG 12/31: 7.32/58/185/27.1 - BIPAP @ FIO2 100, IPAP 14, EPAP 6, will reduce FIO2 to 80% - F/u ABG in AM GI - c/w diet Renal - received dialysis 12/29 & 12/30 - BUN/Cr 41/4.8 - will require dialysis tomorrow - Per renal: HD 01/01 - then resume normal MWF dialysis - urology Dr. Odom consulted - per recs, will likely need OP f/u w/ physician that placed suprapubic cath Heme - H/H stable in 11s/ 35s - continue to monitor ID - afebrile, WBC normal - on admission Tmax 102.4 - CXR: bilateral effusions/ atelectasis/ pneumonia - UA: Sq epith 1, LEuk esterase 1+, WBC 13, Nitrate + - due to recent hospitalization & possible hospital acquired pneumonia - Zosyn 2.25 Q8H - Vanc w/ dialysis days - B/C negative X 24H - UC - gram positive cocci, f/u sensitives PPx - DVT: heparin SC 5000 units, SCDs - GI: Pepcid 20 mg daily
[2018-12-31] MEDS: (Novolog) Insulin Aspart, Recombinant 100 u/ml 10 ml vial SC SCH ×3 (07:54→16:28)
[2018-12-31] MEDS: Metoprolol Succinate 25 mg XL Tab PO SCH (09:34)
[2018-12-31] MEDS: Cilostazol 50 mg Tab UD PO SCH ×2 (09:34→17:13)
--- NOTE | 2018-12-31 11:02 | CARD ---
APPROVED REPORT Date of service: 12/30/2018 EKG Measurement Heart [id number] <Conclusion> Sinus tachycardia with fusion complexes Possible Left atrial enlargement Left axis deviation Right bundle branch block Abnormal ECG
--- NOTE | 2018-12-31 12:34 | RAD ---
Date of service: 12/31/2018 HISTORY: hypoxia COMPARISON: Comparison made with prior chest radiograph 12/30/2018 FINDINGS: LUNGS: Central pulmonary vasculature is slightly congested with bilateral effusions and bibasilar atelectasis and/or infiltrates. PLEURA: As above. No pneumothorax apparent. CARDIOVASCULAR: Heart remains enlarged. Normal cardiac size. OSSEOUS STRUCTURES: No significant abnormalities. VISUALIZED UPPER ABDOMEN: Normal. OTHER FINDINGS: None. IMPRESSION: Central pulmonary vasculature is slightly congested with bilateral effusions and bibasilar atelectasis and/or infiltrates. .
[2018-12-31 13:51] LABS: ABG ALLEN TEST PO; ARTERIAL BLOOD GAS HCO3 27.1 mmol/L (21-28); ARTERIAL BLOOD GAS HEMOGLOBIN 10.8 g/dL (11.7-17.4); ARTERIAL BLOOD GAS O2 SAT 98.5 % (95-98); ARTERIAL BLOOD GAS PCO2 58 mm/Hg (35-45); ARTERIAL BLOOD GAS PH 7.32 (7.35-7.45); ARTERIAL BLOOD GAS PO2 185 mm/Hg (80-100); ARTERIAL BLOOD GAS TCO2 31.7 mmol/L (22-28)
--- NOTE | 2018-12-31 15:18 | CP.PCM.PN ---
Subjective - Date & Time of Evaluation Date of Evaluation: 12/31/18 Time of Evaluation: 15:15 - Subjective Subjective: pt seen and examined in ICU on BiPAP, was on high flow earlier had HD yesterday SOB little better today bp on low side CXR- RLL consolidation, also positive for flu ROS- unable to obtain as pt with BIPAP on Objective - Vital Signs/Intake and Output Vital Signs (last 24 hours): Temp Pulse Resp BP Pulse Ox 97.5 F L 75 24 98/50 L 98 12/31/18 12:00 12/31/18 14:03 12/31/18 14:03 12/31/18 14:03 12/31/18 14:00 Intake and Output: 12/31/18 12/31/18 06:59 18:59 Intake Total 620 250 Balance 620 250 - Medications Medications: Current Medications Acetaminophen (Tylenol 325mg Tab) 650 mg PO Q6 PRN PRN Reason: Fever >100.4 F Aspirin (Aspirin Chewable) 81 mg PO DAILY [facility] Last Admin: 12/31/18 09:34 Dose: 81 mg Benzonatate (Tessalon Perles) 100 mg PO Q12H [facility] Last Admin: 12/31/18 08:00 Dose: 100 mg Cilostazol (Pletal) 50 mg PO BID [facility] Last Admin: 12/31/18 09:34 Dose: 50 mg Dextrose (Dextrose 50% Inj) 0 ml IV STAT PRN; Protocol PRN Reason: Hypoglycemia Protocol Dextrose (Glutose 15) 0 gm PO ONCE PRN; Protocol PRN Reason: Hypoglycemia Protocol Famotidine (Pepcid) 20 mg PO DAILY [facility] Last Admin: 12/31/18 09:34 Dose: 20 mg Glucagon (Glucagen Diagnostic Kit) 0 mg IM STAT PRN; Protocol PRN Reason: Hypoglycemia Protocol Heparin Sodium (Porcine) (Heparin) 5,000 units SC Q8 [facility] Last Admin: 12/31/18 13:46 Dose: 5,000 units Hydralazine HCl (Apresoline) 25 mg PO TID [facility] Last Admin: 12/31/18 13:47 Dose: Not Given Piperacillin Sod/Tazobactam Sod (Zosyn 2.25 Gm Iv Premix) 2.25 gm in 50 mls @ 100 mls/hr IVPB Q8H [facility]; Protocol Last Admin: 12/31/18 12:15 Dose: 100 mls/hr Dextrose (Dextrose 5% In Water 1000 Ml) 1,000 mls @ 0 mls/hr IV .Q0M PRN; Protocol PRN Reason: Hypoglycemia Protocol Insulin Aspart (Novolog) 0 unit SC AC [facility]; Protocol Last Admin: 12/31/18 11:48 Dose: Not Given Insulin Glargine (Lantus) 30 unit SC 2000 [facility] Last Admin: 12/30/18 20:41 Dose: Not Given Metoprolol Succinate (Toprol Xl) 25 mg PO DAILY [facility] Last Admin: 12/31/18 09:34 Dose: 25 mg Montelukast Sodium (Singulair) 10 mg PO DAILY [facility] Last Admin: 12/31/18 09:34 Dose: 10 mg Oseltamivir Phosphate (Tamiflu Susp) 30 mg PO Q2D [facility]; Protocol Stop: 01/07/19 18:01 Rosuvastatin Calcium (Crestor) 5 mg PO HS [facility] Last Admin: 12/30/18 21:16 Dose: 5 mg Sevelamer Carbonate (Renvela) 1,600 mg PO TIDCC [facility] Last Admin: 12/31/18 12:15 Dose: 1,600 mg - Labs Labs: 12/31/18 05:58 12/31/18 05:58 PT 11.2 SECONDS (9.7-12.2) 12/30/18 09:19 INR 1.0 12/30/18 09:19 APTT 30 SECONDS (21-34) 12/30/18 09:19 - Constitutional Appears: Non-toxic, Chronically Ill - Head Exam Head Exam: ATRAUMATIC, NORMOCEPHALIC - Eye Exam Eye Exam: EOMI, PERRL - ENT Exam ENT Exam: Mucous Membranes Moist - Neck Exam Neck Exam: absent: Lymphadenopathy - Respiratory Exam Respiratory Exam: Rhonchi, Wheezes - Cardiovascular Exam Cardiovascular Exam: REGULAR RHYTHM, +S2 - GI/Abdominal Exam GI & Abdominal Exam: Soft. absent: Guarding, Tenderness - Extremities Exam Extremities Exam: absent: Joint Swelling, Pedal Edema - Neurological Exam Neurological Exam: Alert, Awake - Psychiatric Exam Psychiatric exam: Normal Affect, Normal Mood - Skin Skin Exam: Dry, Intact, Normal Color Assessment and Plan (1) Pneumonia Status: Acute (2) Influenza Status: Acute (3) Pleural effusion Status: Acute (4) ESRD (end stage renal disease) on dialysis Status: Chronic (5) Type 2 diabetes mellitus with diabetic nephropathy Status: Acute (6) HTN (hypertension) Status: Chronic (7) PAD (peripheral artery disease) Status: Chronic - Assessment and Plan (Free Text) Plan: HD tomorrow then switch to MWF schedule next week monitor BP maintain BIPAP- improved oxygenation and respitory acidosis Abx as per ID bronchodilators
[2018-12-31] MEDS: (Lantus) Insulin Glargine, Recombinant SC SCH (19:29)
[2019-01-01] MEDS: Piperacill/Tazo 2.25gm in Dex 2.25 GM/50 ML BAG IVPB SCH ×3 (03:34→19:48)
[2019-01-01 05:40] LABS: ABG ALLEN TEST POS; ARTERIAL BLOOD GAS HCO3 25.7 mmol/L (21-28); ARTERIAL BLOOD GAS HEMOGLOBIN 10.9 g/dL (11.7-17.4); ARTERIAL BLOOD GAS O2 SAT 97.6 % (95-98); ARTERIAL BLOOD GAS PCO2 54 mm/Hg (35-45); ARTERIAL BLOOD GAS PH 7.32 (7.35-7.45); ARTERIAL BLOOD GAS PO2 98 mm/Hg (80-100); ARTERIAL BLOOD GAS TCO2 29.5 mmol/L (22-28)
[2019-01-01 05:54] LABS: BASO # 0.1 K/uL (0.0-0.2); EOS # 0.3 K/uL (0.0-0.7); EOS % 5.1 % (0.0-4.0); HEMOGLOBIN 11.5 g/dL (12.0-18.0); LYMPH % 14.6 % (20.0-40.0); MEAN CELL VOLUME 91.1 fL (80.0-94.0); MEAN CORPUSCULAR HEMOGLOBIN 29.4 pg (27.0-31.0); MEAN CORPUSCULAR HGB CONC 32.3 g/dL (33.0-37.0); MEAN PLATELET VOLUME 8.7 fL (7.2-11.7); MONO # 0.4 K/uL (0.0-0.8); MONO % 6.1 % (0.0-10.0); NEUT # 4.9 K/uL (1.8-7.0); NEUT % 73.2 % (50.0-75.0); RBC 3.89 Mil/uL (4.40-5.90); RED CELL DISTRIBUTION WIDTH 15.5 % (11.5-14.5); WHITE BLOOD COUNT 6.7 K/uL (4.8-10.8)
[2019-01-01 06:29] LABS: ALB/GLOB RATIO 1.4 (1.0-2.1); ALBUMIN 3.8 g/dL (3.5-5.0); CALCIUM 8.5 mg/dl (8.6-10.4)
[2019-01-01] MEDS: (Novolog) Insulin Aspart, Recombinant 100 u/ml 10 ml vial SC SCH ×3 (07:30→16:30)
--- NOTE | 2019-01-01 08:30 | CP.PCM.PN ---
Subjective - Date & Time of Evaluation Date of Evaluation: 01/01/19 Time of Evaluation: 08:28 - Subjective Subjective: pt seen and examined no overnight events on BiPAP over night blood gas noted afebrile Bp stable, on low side no fevers SOB better ROS- unable to obtain as pt with BiPAP Objective - Vital Signs/Intake and Output Vital Signs (last 24 hours): Temp Pulse Resp BP Pulse Ox 98.1 F 81 18 114/54 L 99 01/01/19 08:00 01/01/19 08:04 01/01/19 08:04 01/01/19 08:04 01/01/19 08:00 Intake and Output: 01/01/19 01/01/19 06:59 18:59 Intake Total 200 0 Balance 200 0 - Medications Medications: Current Medications Acetaminophen (Tylenol 325mg Tab) 650 mg PO Q6 PRN PRN Reason: Fever >100.4 F Aspirin (Aspirin Chewable) 81 mg PO DAILY [facility] Last Admin: 12/31/18 09:34 Dose: 81 mg Benzonatate (Tessalon Perles) 100 mg PO Q12H [facility] Last Admin: 12/31/18 19:56 Dose: 100 mg Cilostazol (Pletal) 50 mg PO BID [facility] Last Admin: 12/31/18 17:13 Dose: 50 mg Dextrose (Dextrose 50% Inj) 0 ml IV STAT PRN; Protocol PRN Reason: Hypoglycemia Protocol Dextrose (Glutose 15) 0 gm PO ONCE PRN; Protocol PRN Reason: Hypoglycemia Protocol Famotidine (Pepcid) 20 mg PO DAILY [facility] Last Admin: 12/31/18 09:34 Dose: 20 mg Glucagon (Glucagen Diagnostic Kit) 0 mg IM STAT PRN; Protocol PRN Reason: Hypoglycemia Protocol Heparin Sodium (Porcine) (Heparin) 5,000 units SC Q8 [facility] Last Admin: 01/01/19 05:14 Dose: 5,000 units Hydralazine HCl (Apresoline) 25 mg PO TID [facility] Last Admin: 12/31/18 17:12 Dose: Not Given Piperacillin Sod/Tazobactam Sod (Zosyn 2.25 Gm Iv Premix) 2.25 gm in 50 mls @ 100 mls/hr IVPB Q8H [facility]; Protocol Last Admin: 01/01/19 03:34 Dose: 100 mls/hr Dextrose (Dextrose 5% In Water 1000 Ml) 1,000 mls @ 0 mls/hr IV .Q0M PRN; Protocol PRN Reason: Hypoglycemia Protocol Insulin Aspart (Novolog) 0 unit SC [facility]; Protocol Last Admin: 12/31/18 16:28 Dose: Not Given Insulin Glargine (Lantus) 30 unit SC 2000 [facility] Last Admin: 12/31/18 19:29 Dose: Not Given Metoprolol Succinate (Toprol Xl) 25 mg PO DAILY [facility] Last Admin: 12/31/18 09:34 Dose: 25 mg Montelukast Sodium (Singulair) 10 mg PO DAILY [facility] Last Admin: 12/31/18 09:34 Dose: 10 mg Oseltamivir Phosphate (Tamiflu Susp) 30 mg PO Q2D [facility]; Protocol Stop: 01/07/19 18:01 Rosuvastatin Calcium (Crestor) 5 mg PO HS [facility] Last Admin: 12/31/18 21:36 Dose: 5 mg Sevelamer Carbonate (Renvela) 1,600 mg PO TIDCC [facility] Last Admin: 12/31/18 16:28 Dose: 1,600 mg - Labs Labs: 01/01/19 05:47 01/01/19 05:47 PT 11.2 SECONDS (9.7-12.2) 12/30/18 09:19 INR 1.0 12/30/18 09:19 APTT 30 SECONDS (21-34) 12/30/18 09:19 - Constitutional Appears: Non-toxic, Chronically Ill - Head Exam Head Exam: ATRAUMATIC, NORMOCEPHALIC - Eye Exam Eye Exam: EOMI, PERRL - ENT Exam ENT Exam: Mucous Membranes Moist - Neck Exam Neck Exam: Full ROM - Respiratory Exam Respiratory Exam: Rales, Rhonchi. absent: Clear to Ausculation Bilateral - Cardiovascular Exam Cardiovascular Exam: REGULAR RHYTHM, +S1, +S2 - GI/Abdominal Exam GI & Abdominal Exam: Soft. absent: Distended, Tenderness - Extremities Exam Extremities Exam: absent: Joint Swelling, Pedal Edema - Neurological Exam Neurological Exam: Alert, Awake - Psychiatric Exam Psychiatric exam: Normal Affect, Normal Mood - Skin Skin Exam: Normal Color, Warm Assessment and Plan (1) Pneumonia Status: Acute (2) Influenza Status: Acute (3) Pleural effusion Status: Acute (4) ESRD (end stage renal disease) on dialysis Status: Chronic (5) Type 2 diabetes mellitus with diabetic nephropathy Status: Acute (6) HTN (hypertension) Status: Chronic (7) PAD (peripheral artery disease) Status: Chronic - Assessment and Plan (Free Text) Plan: HD today then switch to MWF schedule next week continue tamiflu and ABx respitory acidosis better
[2019-01-01] MEDS: Cilostazol 50 mg Tab UD PO SCH ×2 (10:00→18:01)
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
--- NOTE | 2019-01-01 13:47 | CP.PCM.PN ---
Subjective - Date & Time of Evaluation Date of Evaluation: 12/31/18 Time of Evaluation: 17:00 - Subjective Subjective: Discussed with resident Removal of suprapubic catheter. Cannot procede with workup of need for suprapubic untill pt is medically stabell Suggest discussing with urologist the reasons why cath was inserted at [facility]. Monitoring urine output thru suprapubic cath [place] Objective - Vital Signs/Intake and Output Vital Signs (last 24 hours): Temp Pulse Resp BP Pulse Ox 99.1 F 82 16 105/54 L 95 01/01/19 10:25 01/01/19 13:15 01/01/19 13:26 01/01/19 13:15 01/01/19 13:15 Intake and Output: 01/01/19 01/01/19 06:59 18:59 Intake Total 200 0 Balance 200 0 - Medications Medications: Current Medications Acetaminophen (Tylenol 325mg Tab) 650 mg PO Q6 PRN PRN Reason: Fever >100.4 F Aspirin (Aspirin Chewable) 81 mg PO DAILY [facility] Last Admin: 12/31/18 09:34 Dose: 81 mg Benzonatate (Tessalon Perles) 100 mg PO Q12H [facility] Last Admin: 12/31/18 19:56 Dose: 100 mg Cilostazol (Pletal) 50 mg PO BID [facility] Last Admin: 12/31/18 17:13 Dose: 50 mg Dextrose (Dextrose 50% Inj) 0 ml IV STAT PRN; Protocol PRN Reason: Hypoglycemia Protocol Dextrose (Glutose 15) 0 gm PO ONCE PRN; Protocol PRN Reason: Hypoglycemia Protocol Famotidine (Pepcid) 20 mg PO DAILY [facility] Last Admin: 12/31/18 09:34 Dose: 20 mg Glucagon (Glucagen Diagnostic Kit) 0 mg IM STAT PRN; Protocol PRN Reason: Hypoglycemia Protocol Heparin Sodium (Porcine) (Heparin) 5,000 units SC Q8 [facility] Last Admin: 01/01/19 05:14 Dose: 5,000 units Hydralazine HCl (Apresoline) 25 mg PO TID [facility] Last Admin: 12/31/18 17:12 Dose: Not Given Piperacillin Sod/Tazobactam Sod (Zosyn 2.25 Gm Iv Premix) 2.25 gm in 50 mls @ 100 mls/hr IVPB Q8H [facility]; Protocol Last Admin: 01/01/19 03:34 Dose: 100 mls/hr Dextrose (Dextrose 5% In Water 1000 Ml) 1,000 mls @ 0 mls/hr IV .Q0M PRN; Protocol PRN Reason: Hypoglycemia Protocol Insulin Aspart (Novolog) 0 unit SC AC [facility]; Protocol Last Admin: 01/01/19 07:30 Dose: Not Given Insulin Glargine (Lantus) 30 unit SC 2000 [facility] Last Admin: 12/31/18 19:29 Dose: Not Given Metoprolol Succinate (Toprol Xl) 25 mg PO DAILY [facility] Last Admin: 12/31/18 09:34 Dose: 25 mg Montelukast Sodium (Singulair) 10 mg PO DAILY [facility] Last Admin: 12/31/18 09:34 Dose: 10 mg Oseltamivir Phosphate (Tamiflu Susp) 30 mg PO Q2D [facility]; Protocol Stop: 01/07/19 18:01 Rosuvastatin Calcium (Crestor) 5 mg PO HS [facility] Last Admin: 12/31/18 21:36 Dose: 5 mg Sevelamer Carbonate (Renvela) 1,600 mg PO TIDCC [facility] Last Admin: 12/31/18 16:28 Dose: 1,600 mg - Labs Labs: 01/01/19 05:47 01/01/19 05:47 PT 11.2 SECONDS (9.7-12.2) 12/30/18 09:19 INR 1.0 12/30/18 09:19 APTT 30 SECONDS (21-34) 12/30/18 09:19
[2019-01-01] MEDS: Metoprolol Succinate 25 mg XL Tab PO SCH (14:54)
--- NOTE | 2019-01-01 15:16 | CP.CCUPN ---
CCU Objective - Vital Signs / Intake & Output Vital Signs (Last 4 hours): Vital Signs Pulse Resp BP Pulse Ox 01/01/19 13:45 81 16 104/55 L 99 01/01/19 13:26 16 01/01/19 13:15 82 16 105/54 L 95 01/01/19 12:45 80 16 113/58 L 93 L 01/01/19 12:15 80 17 105/54 L 90 L 01/01/19 11:45 78 17 113/56 L 95 Intake and Output (Last 8hrs): Intake & Output 01/01/19 01/01/19 01/01/19 06:59 14:59 22:59 Intake Total 50 0 Balance 50 0 Weight 57.243 kg Intake: Intake, IV Amount 50 Right Forearm 50 Oral 0 0 Other: # Voids Suprapubic 0 - Physical Exam Head: Positive for: Atraumatic Pupils: Negative for: Sluggish Extroacular Muscles: Positive for: EOMI Mouth: Positive for: Moist Mucous Membranes Respiratory/Chest: Positive for: Respiratory Distress, Accessory Muscle Use, Wheezes, Rales Cardiovascular: Positive for: Normal S1, S2. Negative for: Rub Abdomen: Positive for: Normal Bowel Sounds Genitourinary Male: Positive for: Other (suprapubic cathetor ) Upper Extremity: Negative for: Cyanosis, Edema Lower Extremity: Positive for: Normal Inspection, Edema Skin: Positive for: Warm, Dry Psychiatric: Positive for: Oriented x 3, Normal Insight - Medications Active Medications: Active Medications Generic Name Dose Route Start Last Admin Trade Name Freq PRN Reason Stop Dose Admin Acetaminophen 650 mg 12/30/18 12:34 Tylenol 325mg Tab PO Q6 PRN Fever >100.4 F Aspirin 81 mg 12/31/18 10:00 01/01/19 14:55 Aspirin Chewable PO 81 mg DAILY [facility] Administration Benzonatate 100 mg 12/30/18 20:00 01/01/19 14:55 Tessalon Perles PO 100 mg Q12H [facility] Administration Cilostazol 50 mg 12/30/18 18:00 01/01/19 10:00 Pletal PO Not Given BID [facility] Dextrose 0 ml 12/30/18 17:47 Dextrose 50% Inj IV STAT PRN Hypoglycemia Protocol Protocol Dextrose 0 gm 12/30/18 17:47 Glutose 15 PO ONCE PRN Hypoglycemia Protocol Protocol Famotidine 20 mg 12/31/18 10:00 01/01/19 14:56 Pepcid PO 20 mg DAILY [facility] Administration Glucagon 0 mg 12/30/18 17:47 Glucagen Diagnostic Kit IM STAT PRN Hypoglycemia Protocol Protocol Heparin Sodium (Porcine) 5,000 units 12/30/18 22:00 01/01/19 14:56 Heparin SC 5,000 units Q8 [facility] Administration Hydralazine HCl 25 mg 12/30/18 14:00 01/01/19 14:00 Apresoline PO Not Given TID [facility] Piperacillin Sod/Tazobactam Sod 2.25 gm in 50 mls @ 100 mls/hr 12/30/18 20:00 01/01/19 14:01 Zosyn 2.25 Gm Iv Premix IVPB 100 mls/hr Q8H [facility] Administration Protocol Dextrose 1,000 mls @ 0 mls/hr 12/30/18 17:47 Dextrose 5% In Water 1000 Ml IV .Q0M PRN Hypoglycemia Protocol Protocol Per Protocol Insulin Aspart 0 unit 12/30/18 16:30 01/01/19 11:30 Novolog SC Not Given [facility] Protocol Insulin Glargine 30 unit 12/30/18 20:00 12/31/18 19:29 Lantus SC Not Given 2000 [facility] Metoprolol Succinate 25 mg 12/31/18 10:00 01/01/19 14:54 Toprol Xl PO 25 mg DAILY [facility] Administration Montelukast Sodium 10 mg 12/31/18 10:00 01/01/19 14:56 Singulair PO 10 mg DAILY [facility] Administration Oseltamivir Phosphate 30 mg 01/01/19 18:00 Tamiflu Susp PO 01/07/19 18:01 Q2D [facility] Protocol Rosuvastatin Calcium 5 mg 12/30/18 22:00 12/31/18 21:36 Crestor PO 5 mg HS [facility] Administration Sevelamer Carbonate 1,600 mg 12/30/18 17:00 01/01/19 12:00 Renvela PO Not Given TIDCC [facility] - Patient Studies Lab Studies: Microbiology Studies 12/30/18 09:30 Blood Culture - Preliminary Blood NO GROWTH AFTER 48 HOURS 12/30/18 09:26 Blood Culture - Preliminary Blood NO GROWTH AFTER 48 HOURS 12/30/18 09:35 Urine Culture - Final Urine,Catheterized Corynebacterium Species 12/30/18 15:06 MRSA Culture (Admit) - Final Nose MRSA NOT DETECTED Lab Studies 01/01/19 01/01/19 01/01/19 Range/Units 11:46 07:39 05:47 WBC (4.8-10.8) K/uL RBC (4.40-5.90) Mil/uL Hgb (12.0-18.0) g/dL Hct (35.0-51.0) % MCV (80.0-94.0) fL MCH (27.0-31.0) pg MCHC (33.0-37.0) g/dL RDW (11.5-14.5) % Plt Count (130-400) K/uL MPV (7.2-11.7) fL Neut % (Auto) (50.0-75.0) % Lymph % (Auto) (20.0-40.0) % [place] % (Auto) (0.0-10.0) % Eos % (Auto) (0.0-4.0) % Baso % (Auto) (0.0-2.0) % Neut # (Auto) (1.8-7.0) K/uL Lymph # (Auto) (1.0-4.3) K/uL [place] # (Auto) (0.0-0.8) K/uL Eos # (Auto) (0.0-0.7) K/uL Baso # (Auto) (0.0-0.2) K/uL Puncture Site pCO2 (35-45) mm/Hg pO2 (80-100) mm/Hg HCO3 (21-28) mmol/L ABG pH (7.35-7.45) ABG Total CO2 (22-28) mmol/L ABG O2 Saturation (95-98) % ABG Base Excess (-2.0-3.0) mmol/L ABG Hemoglobin (11.7-17.4) g/dL ABG Carboxyhemoglobin (0.5-1.5) % POC ABG HHb (Measured) (0.0-5.0) % ABG Methemoglobin (0.0-3.0) % Kun Test A-a O2 Difference mm/Hg Respiratory Index Hgb O2 Saturation (95.0-98.0) % Vent Mode FiO2 % Inspiratory BiPAP Expiratory BiPAP Sodium 138 (132-148) mmol/L Potassium 6.0 H (3.6-5.2) mmol/L Chloride 98 (98-107) mmol/L Carbon Dioxide 28 (22-30) mmol/L Anion Gap 18 (10-20) BUN 70 H (9-20) mg/dL Creatinine 7.3 H (0.8-1.5) mg/dL Est GFR ( Amer) 9 Est GFR (Non-Af Amer) 7 POC Glucose (mg/dL) 136 H 89 (65-110) mg/dL Random Glucose 91 (75-110) mg/dL Calcium 8.5 L (8.6-10.4) mg/dl Phosphorus 6.1 H (2.5-4.5) mg/dL Magnesium 2.2 (1.6-2.3) mg/dL Total Bilirubin 0.5 (0.2-1.3) mg/dL AST 83 H (17-59) U/L ALT 44 (21-72) U/L Alkaline Phosphatase 73 (38-126) U/L Total Protein 6.6 (6.3-8.3) g/dL Albumin 3.8 (3.5-5.0) g/dL Globulin 2.8 (2.2-3.9) gm/dL Albumin/Globulin Ratio 1.4 (1.0-2.1) 01/01/19 01/01/19 12/31/18 Range/Units 05:47 05:25 20:56 WBC 6.7 (4.8-10.8) K/uL RBC 3.89 L (4.40-5.90) Mil/uL Hgb 11.5 L (12.0-18.0) g/dL Hct 35.4 (35.0-51.0) % MCV 91.1 (80.0-94.0) fL MCH 29.4 (27.0-31.0) pg MCHC 32.3 L (33.0-37.0) g/dL RDW 15.5 H (11.5-14.5) % Plt Count 156 (130-400) K/uL MPV 8.7 (7.2-11.7) fL Neut % (Auto) 73.2 (50.0-75.0) % Lymph % (Auto) 14.6 L (20.0-40.0) % [place] % (Auto) 6.1 (0.0-10.0) % Eos % (Auto) 5.1 H (0.0-4.0) % Baso % (Auto) 1.0 (0.0-2.0) % Neut # (Auto) 4.9 (1.8-7.0) K/uL Lymph # (Auto) 1.0 (1.0-4.3) K/uL [place] # (Auto) 0.4 (0.0-0.8) K/uL Eos # (Auto) 0.3 (0.0-0.7) K/uL Baso # (Auto) 0.1 (0.0-0.2) K/uL Puncture Site Rr pCO2 54 H (35-45) mm/Hg pO2 98 (80-100) mm/Hg HCO3 25.7 (21-28) mmol/L ABG pH 7.32 L (7.35-7.45) ABG Total CO2 29.5 H (22-28) mmol/L ABG O2 Saturation 97.6 (95-98) % ABG Base Excess 1.0 (-2.0-3.0) mmol/L ABG Hemoglobin 10.9 L (11.7-17.4) g/dL ABG Carboxyhemoglobin 0.6 (0.5-1.5) % POC ABG HHb (Measured) 2.4 (0.0-5.0) % ABG Methemoglobin 0.9 (0.0-3.0) % Kun Test Pos A-a O2 Difference 405.0 mm/Hg Respiratory Index 4.1 Hgb O2 Saturation 96.1 (95.0-98.0) % Vent Mode Bipap FiO2 80.0 % Inspiratory BiPAP 14 Expiratory BiPAP 6 Sodium (132-148) mmol/L Potassium (3.6-5.2) mmol/L Chloride (98-107) mmol/L Carbon Dioxide (22-30) mmol/L Anion Gap (10-20) BUN (9-20) mg/dL Creatinine (0.8-1.5) mg/dL Est GFR ( Amer) Est GFR (Non-Af Amer) POC Glucose (mg/dL) 134 H (65-110) mg/dL Random Glucose (75-110) mg/dL Calcium (8.6-10.4) mg/dl Phosphorus (2.5-4.5) mg/dL Magnesium (1.6-2.3) mg/dL Total Bilirubin (0.2-1.3) mg/dL AST (17-59) U/L ALT (21-72) U/L Alkaline Phosphatase (38-126) U/L Total Protein (6.3-8.3) g/dL Albumin (3.5-5.0) g/dL Globulin (2.2-3.9) gm/dL Albumin/Globulin Ratio (1.0-2.1) 12/31/18 Range/Units 16:20 WBC (4.8-10.8) K/uL RBC (4.40-5.90) Mil/uL Hgb (12.0-18.0) g/dL Hct (35.0-51.0) % MCV (80.0-94.0) fL MCH (27.0-31.0) pg MCHC (33.0-37.0) g/dL RDW (11.5-14.5) % Plt Count (130-400) K/uL MPV (7.2-11.7) fL Neut % (Auto) (50.0-75.0) % Lymph % (Auto) (20.0-40.0) % [place] % (Auto) (0.0-10.0) % Eos % (Auto) (0.0-4.0) % Baso % (Auto) (0.0-2.0) % Neut # (Auto) (1.8-7.0) K/uL Lymph # (Auto) (1.0-4.3) K/uL [place] # (Auto) (0.0-0.8) K/uL Eos # (Auto) (0.0-0.7) K/uL Baso # (Auto) (0.0-0.2) K/uL Puncture Site pCO2 (35-45) mm/Hg pO2 (80-100) mm/Hg HCO3 (21-28) mmol/L ABG pH (7.35-7.45) ABG Total CO2 (22-28) mmol/L ABG O2 Saturation (95-98) % ABG Base Excess (-2.0-3.0) mmol/L ABG Hemoglobin (11.7-17.4) g/dL ABG Carboxyhemoglobin (0.5-1.5) % POC ABG HHb (Measured) (0.0-5.0) % ABG Methemoglobin (0.0-3.0) % Kun Test A-a O2 Difference mm/Hg Respiratory Index Hgb O2 Saturation (95.0-98.0) % Vent Mode FiO2 % Inspiratory BiPAP Expiratory BiPAP Sodium (132-148) mmol/L Potassium (3.6-5.2) mmol/L Chloride (98-107) mmol/L Carbon Dioxide (22-30) mmol/L Anion Gap (10-20) BUN (9-20) mg/dL Creatinine (0.8-1.5) mg/dL Est GFR ( Amer) Est GFR (Non-Af Amer) POC Glucose (mg/dL) 111 H (65-110) mg/dL Random Glucose (75-110) mg/dL Calcium (8.6-10.4) mg/dl Phosphorus (2.5-4.5) mg/dL Magnesium (1.6-2.3) mg/dL Total Bilirubin (0.2-1.3) mg/dL AST (17-59) U/L ALT (21-72) U/L Alkaline Phosphatase (38-126) U/L Total Protein (6.3-8.3) g/dL Albumin (3.5-5.0) g/dL Globulin (2.2-3.9) gm/dL Albumin/Globulin Ratio (1.0-2.1) Laboratory Results - last 24 hr 12/31/18 12/31/18 01/01/19 16:20 20:56 05:25 WBC RBC Hgb Hct MCV MCH MCHC RDW Plt Count MPV Neut % (Auto) Lymph % (Auto) [place] % (Auto) Eos % (Auto) Baso % (Auto) Neut # (Auto) Lymph # (Auto) [place] # (Auto) Eos # (Auto) Baso # (Auto) Puncture Site Rr pCO2 54 H pO2 98 HCO3 25.7 ABG pH 7.32 L ABG Total CO2 29.5 H ABG O2 Saturation 97.6 ABG Base Excess 1.0 ABG Hemoglobin 10.9 L ABG Carboxyhemoglobin 0.6 POC ABG HHb (Measured) 2.4 ABG Methemoglobin 0.9 Kun Test Pos A-a O2 Difference 405.0 Respiratory Index 4.1 Hgb O2 Saturation 96.1 Vent Mode Bipap FiO2 80.0 Inspiratory BiPAP 14 Expiratory BiPAP 6 Sodium Potassium Chloride Carbon Dioxide Anion Gap BUN Creatinine Est GFR ( Amer) Est GFR (Non-Af Amer) POC Glucose (mg/dL) 111 H 134 H Random Glucose Calcium Phosphorus Magnesium Total Bilirubin AST ALT Alkaline Phosphatase Total Protein Albumin Globulin Albumin/Globulin Ratio 01/01/19 01/01/19 01/01/19 05:47 05:47 07:39 WBC 6.7 RBC 3.89 L Hgb 11.5 L Hct 35.4 MCV 91.1 MCH 29.4 MCHC 32.3 L RDW 15.5 H Plt Count 156 MPV 8.7 Neut % (Auto) 73.2 Lymph % (Auto) 14.6 L [place] % (Auto) 6.1 Eos % (Auto) 5.1 H Baso % (Auto) 1.0 Neut # (Auto) 4.9 Lymph # (Auto) 1.0 [place] # (Auto) 0.4 Eos # (Auto) 0.3 Baso # (Auto) 0.1 Puncture Site pCO2 pO2 HCO3 ABG pH ABG Total CO2 ABG O2 Saturation ABG Base Excess ABG Hemoglobin ABG Carboxyhemoglobin POC ABG HHb (Measured) ABG Methemoglobin Kun Test A-a O2 Difference Respiratory Index Hgb O2 Saturation Vent Mode FiO2 Inspiratory BiPAP Expiratory BiPAP Sodium 138 Potassium 6.0 H Chloride 98 Carbon Dioxide 28 Anion Gap 18 BUN 70 H Creatinine 7.3 H Est GFR ( Amer) 9 Est GFR (Non-Af Amer) 7 POC Glucose (mg/dL) 89 Random Glucose 91 Calcium 8.5 L Phosphorus 6.1 H Magnesium 2.2 Total Bilirubin 0.5 AST 83 H ALT 44 Alkaline Phosphatase 73 Total Protein 6.6 Albumin 3.8 Globulin 2.8 Albumin/Globulin Ratio 1.4 01/01/19 11:46 WBC RBC Hgb Hct MCV MCH MCHC RDW Plt Count MPV Neut % (Auto) Lymph % (Auto) [place] % (Auto) Eos % (Auto) Baso % (Auto) Neut # (Auto) Lymph # (Auto) [place] # (Auto) Eos # (Auto) Baso # (Auto) Puncture Site pCO2 pO2 HCO3 ABG pH ABG Total CO2 ABG O2 Saturation ABG Base Excess ABG Hemoglobin ABG Carboxyhemoglobin POC ABG HHb (Measured) ABG Methemoglobin Kun Test A-a O2 Difference Respiratory Index Hgb O2 Saturation Vent Mode FiO2 Inspiratory BiPAP Expiratory BiPAP Sodium Potassium Chloride Carbon Dioxide Anion Gap BUN Creatinine Est GFR ( Amer) Est GFR (Non-Af Amer) POC Glucose (mg/dL) 136 H Random Glucose Calcium Phosphorus Magnesium Total Bilirubin AST ALT Alkaline Phosphatase Total Protein Albumin Globulin Albumin/Globulin Ratio Fingerstick Blood Sugar Results: 136 Critical Care Progress Note - Nutrition Nutrition: Nutrition Category Date Time Status Renal Diet [DIET] Diets 12/31/18 Breakfast Active
--- NOTE | 2019-01-01 16:04 | CP.PCM.PN ---
Subjective - Date & Time of Evaluation Date of Evaluation: 01/01/19 Time of Evaluation: 17:57 - Subjective Subjective: PGY1 Medicine progress note for Dr. Castillo Pt was seen and examined at bedside. Pt is resting comfortably on high flow oxygen. Overall, he reports that he feels better. Pt endorses tactile fever, cough productive of white sputum. Pt denies headache, dizziness, lightheadedness, chest pain, abdominal pain, n/v/d, hemoptysis Objective - Vital Signs/Intake and Output Vital Signs (last 24 hours): Temp Pulse Resp BP Pulse Ox 99.1 F 81 16 104/55 L 99 01/01/19 10:25 01/01/19 13:45 01/01/19 13:45 01/01/19 13:45 01/01/19 13:45 Intake and Output: 01/01/19 01/01/19 06:59 18:59 Intake Total 200 0 Balance 200 0 - Medications Medications: Current Medications Acetaminophen (Tylenol 325mg Tab) 650 mg PO Q6 PRN PRN Reason: Fever >100.4 F Aspirin (Aspirin Chewable) 81 mg PO DAILY [facility] Last Admin: 01/01/19 14:55 Dose: 81 mg Benzonatate (Tessalon Perles) 100 mg PO Q12H [facility] Last Admin: 01/01/19 14:55 Dose: 100 mg Cilostazol (Pletal) 50 mg PO BID [facility] Last Admin: 01/01/19 10:00 Dose: Not Given Dextrose (Dextrose 50% Inj) 0 ml IV STAT PRN; Protocol PRN Reason: Hypoglycemia Protocol Dextrose (Glutose 15) 0 gm PO ONCE PRN; Protocol PRN Reason: Hypoglycemia Protocol Famotidine (Pepcid) 20 mg PO DAILY [facility] Last Admin: 01/01/19 14:56 Dose: 20 mg Glucagon (Glucagen Diagnostic Kit) 0 mg IM STAT PRN; Protocol PRN Reason: Hypoglycemia Protocol Heparin Sodium (Porcine) (Heparin) 5,000 units SC Q8 [facility] Last Admin: 01/01/19 14:56 Dose: 5,000 units Hydralazine HCl (Apresoline) 25 mg PO TID [facility] Last Admin: 01/01/19 14:00 Dose: Not Given Piperacillin Sod/Tazobactam Sod (Zosyn 2.25 Gm Iv Premix) 2.25 gm in 50 mls @ 100 mls/hr IVPB Q8H [facility]; Protocol Last Admin: 01/01/19 14:01 Dose: 100 mls/hr Dextrose (Dextrose 5% In Water 1000 Ml) 1,000 mls @ 0 mls/hr IV .Q0M PRN; Protocol PRN Reason: Hypoglycemia Protocol Insulin Aspart (Novolog) 0 unit SC AC [facility]; Protocol Last Admin: 01/01/19 11:30 Dose: Not Given Insulin Glargine (Lantus) 30 unit SC 2000 [facility] Last Admin: 12/31/18 19:29 Dose: Not Given Metoprolol Succinate (Toprol Xl) 25 mg PO DAILY [facility] Last Admin: 01/01/19 14:54 Dose: 25 mg Montelukast Sodium (Singulair) 10 mg PO DAILY [facility] Last Admin: 01/01/19 14:56 Dose: 10 mg Oseltamivir Phosphate (Tamiflu Susp) 30 mg PO Q2D [facility]; Protocol Stop: 01/07/19 18:01 Rosuvastatin Calcium (Crestor) 5 mg PO HS [facility] Last Admin: 12/31/18 21:36 Dose: 5 mg Sevelamer Carbonate (Renvela) 1,600 mg PO TIDCC [facility] Last Admin: 01/01/19 12:00 Dose: Not Given - Labs Labs: 01/01/19 05:47 01/01/19 05:47 PT 11.2 SECONDS (9.7-12.2) 12/30/18 09:19 INR 1.0 12/30/18 09:19 APTT 30 SECONDS (21-34) 12/30/18 09:19 - Constitutional Appears: Non-toxic, No Acute Distress - Head Exam Head Exam: ATRAUMATIC, NORMAL INSPECTION - Eye Exam Eye Exam: EOMI, Normal appearance (left eye cataract decreased vision) - ENT Exam ENT Exam: Mucous Membranes Moist - Neck Exam Neck Exam: Full ROM - Respiratory Exam Respiratory Exam: Chest Wall Tenderness (midsternal), Rhonchi, Wheezes. absent: Accessory Muscle Use, Rales, Respiratory Distress - Cardiovascular Exam Cardiovascular Exam: REGULAR RHYTHM, +S1, +S2 - GI/Abdominal Exam GI & Abdominal Exam: Soft, Normal Bowel Sounds. absent: Tenderness - Extremities Exam Extremities Exam: Normal Inspection. absent: Calf Tenderness, Pedal Edema - Neurological Exam Neurological Exam: Alert, Awake, Oriented x3 - Psychiatric Exam Psychiatric exam: Normal Affect, Normal Mood - Skin Skin Exam: Dry, Normal Color, Warm Assessment and Plan - Assessment and Plan (Free Text) Assessment: 73 male w/ PMHx of ESRD, COPD, HTN, presented to ED shortness of breath/ fever, found to be influenza A (+), RLL pneumonia, admitted to ICU for hypercapneic res piratory failure Plan: Neuro - alert and oriented X 3 - continue to monitor mental status Cardio - vitals stable on high flow o2 - hx of HTN, c/w aspirin 81 mg daily, hydralazine 25 PO TID, cilostazol 50 mg PO BID, metoprolol succinate 25 mg PO daily Resp - ABG 12/31: 7.32/58/185/27.1 - On Highflow o2 at 35L/min, 100% fio2, sPO2 is low 90s -cpap at night - ABG from the morning supports slightly improved hypercapneic respiratory failure - duonebs, benzonatate - CXR 01/01 shows Cardiomegaly and pulmonary vascular congestion. Bilateral pleural effusions. GI - c/w diet - pepcid 20 daily Renal - received dialysis 12/29 & 12/30 - Morning BUN/Cr was uptrending - Pt was dialyzed this afternoon - then resume normal MWF dialysis - urology Dr. Odom consulted - per recs, will likely need OP f/u w/ physician that placed suprapubic cath Heme - H/H stable - continue to monitor ID - afebrile, no leukocystosis - CXR: bilateral effusions/ atelectasis/ pneumonia - UA: Sq epith 1, Leuk esterase 1+, WBC 13, Nitrate + - due to recent hospitalization & possible hospital acquired pneumonia - Zosyn 2.25 Q8H - Vanc w/ dialysis days - B/C negative X 48H - UCx shows corynebacterium PPx - DVT: heparin SC 5000 units q8, SCDs - GI: Pepcid 20 mg daily Case discussed with Dr. Anna Agosto
--- NOTE | 2019-01-01 17:45 | RAD ---
Date of service: 01/01/2019 HISTORY: eval fluid lungs COMPARISON: Comparison is made with 12/31/2018 FINDINGS: LUNGS: [id number] pulmonary vascular congestion is again noted. Partial atelectasis of the right lower lobe is again seen. PLEURA: There is a right-sided pleural effusion. There is blunting of the left costophrenic angle. CARDIOVASCULAR: No aortic atherosclerotic calcification present. The cardiac silhouette is enlarged. Pulmonary vascular congestion is again noted. OSSEOUS STRUCTURES: No significant abnormalities. VISUALIZED UPPER ABDOMEN: Normal. OTHER FINDINGS: None. IMPRESSION: Cardiomegaly and pulmonary vascular congestion. Bilateral pleural effusions.
[2019-01-01] MEDS: Oseltamivir 6 MG/ML PO SCH (18:01)
[2019-01-01] MEDS ORDERED: Albuterol-Ipratrop 3 mg / 0.5 (3 ml) UD INH PRN ×2 (18:01→18:12)
--- NOTE | 2019-01-01 19:12 | CP.PCM.PN ---
Subjective - Date & Time of Evaluation Date of Evaluation: 01/01/19 Time of Evaluation: 17:00 - Subjective Subjective: PAtient tolerated HD, tolerating hi-Flow Objective - Vital Signs/Intake and Output Vital Signs (last 24 hours): Temp Pulse Resp BP Pulse Ox 98.4 F 75 20 103/49 L 92 L 01/01/19 16:00 01/01/19 18:14 01/01/19 18:14 01/01/19 18:14 01/01/19 18:14 Intake and Output: 01/01/19 01/02/19 18:59 06:59 Intake Total 950 Output Total 3000 Balance -2049 - Medications Medications: Current Medications Acetaminophen (Tylenol 325mg Tab) 650 mg PO Q6 PRN PRN Reason: Fever >100.4 F Albuterol/Ipratropium (Duoneb 3 Mg/0.5 Mg (3 Ml) Ud) 3 ml INH RQ4 [facility] Aspirin (Aspirin Chewable) 81 mg PO DAILY [facility] Last Admin: 01/01/19 14:55 Dose: 81 mg Benzonatate (Tessalon Perles) 100 mg PO Q12H [facility] Last Admin: 01/01/19 14:55 Dose: 100 mg Cilostazol (Pletal) 50 mg PO BID [facility] Last Admin: 01/01/19 18:01 Dose: 50 mg Dextrose (Dextrose 50% Inj) 0 ml IV STAT PRN; Protocol PRN Reason: Hypoglycemia Protocol Dextrose (Glutose 15) 0 gm PO ONCE PRN; Protocol PRN Reason: Hypoglycemia Protocol Famotidine (Pepcid) 20 mg PO DAILY [facility] Last Admin: 01/01/19 14:56 Dose: 20 mg Glucagon (Glucagen Diagnostic Kit) 0 mg IM STAT PRN; Protocol PRN Reason: Hypoglycemia Protocol Heparin Sodium (Porcine) (Heparin) 5,000 units SC Q8 [facility] Last Admin: 01/01/19 14:56 Dose: 5,000 units Hydralazine HCl (Apresoline) 25 mg PO TID [facility] Last Admin: 01/01/19 18:01 Dose: 25 mg Piperacillin Sod/Tazobactam Sod (Zosyn 2.25 Gm Iv Premix) 2.25 gm in 50 mls @ 100 mls/hr IVPB Q8H [facility]; Protocol Last Admin: 01/01/19 14:01 Dose: 100 mls/hr Dextrose (Dextrose 5% In Water 1000 Ml) 1,000 mls @ 0 mls/hr IV .Q0M PRN; Protocol PRN Reason: Hypoglycemia Protocol Insulin Aspart (Novolog) 0 unit SC AC [facility]; Protocol Last Admin: 01/01/19 16:30 Dose: Not Given Insulin Glargine (Lantus) 30 unit SC 2000 [facility] Last Admin: 12/31/18 19:29 Dose: Not Given Metoprolol Succinate (Toprol Xl) 25 mg PO DAILY [facility] Last Admin: 01/01/19 14:54 Dose: 25 mg Montelukast Sodium (Singulair) 10 mg PO DAILY [facility] Last Admin: 01/01/19 14:56 Dose: 10 mg Oseltamivir Phosphate (Tamiflu Susp) 30 mg PO Q2D [facility]; Protocol Stop: 01/07/19 18:01 Last Admin: 01/01/19 18:01 Dose: 30 mg Rosuvastatin Calcium (Crestor) 5 mg PO HS [facility] Last Admin: 12/31/18 21:36 Dose: 5 mg Sevelamer Carbonate (Renvela) 1,600 mg PO TIDCC [facility] Last Admin: 01/01/19 17:50 Dose: 1,600 mg - Labs Labs: 01/01/19 05:47 01/01/19 05:47 PT 11.2 SECONDS (9.7-12.2) 12/30/18 09:19 INR 1.0 12/30/18 09:19 APTT 30 SECONDS (21-34) 12/30/18 09:19 - Constitutional Appears: Non-toxic - Head Exam Head Exam: ATRAUMATIC - Respiratory Exam Respiratory Exam: Rales, NORMAL BREATHING PATTERN. absent: Rhonchi, Wheezes, Respiratory Distress, Stridor - Cardiovascular Exam Cardiovascular Exam: +S1, +S2 - GI/Abdominal Exam GI & Abdominal Exam: Soft, Normal Bowel Sounds - Extremities Exam Extremities Exam: Normal Inspection - Neurological Exam Neurological Exam: Alert, Awake, Oriented x3 - Skin Skin Exam: Normal Color, Warm Assessment and Plan - Assessment and Plan (Free Text) Assessment: 73 male w/ PMHx of ESRD, COPD, HTN, presented to ED shortness of breath/ fever, found to be influenza RLL pneumonia, admitted to ICU for hypercapneic respiratory failure -Hypoxic and hypercapneic respiratory failure: Contineu supplemental oxygen to keep spo2 >92, titrate down FiO2 -ESRD on HD: contineu HD to maintin negative balance Urinary obstruction- urology Dr. Odom consulted - per recs, will likely need OP f/u w/ physician that placed suprapubic cath Heme - H/H stable - continue to monitor -Sepsis: contine empirical abx as per ID -continue dvt/pud ppx -Patient remains hemodynamically stable. -Avoid sedation
[2019-01-01] MEDS: Albuterol-Ipratrop 3 mg / 0.5 (3 ml) UD INH SCH ×2 (19:32→23:54)
[2019-01-01] MEDS ORDERED: Albuterol-Ipratrop 3 mg / 0.5 (3 ml) UD INH SCH (20:00)
[2019-01-01] MEDS: (Lantus) Insulin Glargine, Recombinant SC SCH (20:14)
[2019-01-02] MEDS: Albuterol-Ipratrop 3 mg / 0.5 (3 ml) UD INH SCH ×6 (03:25→23:57)
[2019-01-02] MEDS: Piperacill/Tazo 2.25gm in Dex 2.25 GM/50 ML BAG IVPB SCH ×3 (03:47→20:51)
[2019-01-02 06:14] LABS: BASO % 0.6 % (0.0-2.0); EOS # 0.2 K/uL (0.0-0.7); EOS % 4.2 % (0.0-4.0); HEMOGLOBIN 11.6 g/dL (12.0-18.0); LYMPH % 16.8 % (20.0-40.0); MEAN CELL VOLUME 90.1 fL (80.0-94.0); MEAN CORPUSCULAR HEMOGLOBIN 29.4 pg (27.0-31.0); MEAN CORPUSCULAR HGB CONC 32.6 g/dL (33.0-37.0); MEAN PLATELET VOLUME 8.6 fL (7.2-11.7); MONO # 0.3 K/uL (0.0-0.8); MONO % 5.6 % (0.0-10.0); NEUT # 4.1 K/uL (1.8-7.0); NEUT % 72.8 % (50.0-75.0); RBC 3.94 Mil/uL (4.40-5.90); RED CELL DISTRIBUTION WIDTH 15.4 % (11.5-14.5); WHITE BLOOD COUNT 5.7 K/uL (4.8-10.8)
[2019-01-02 06:30] LABS: ALB/GLOB RATIO 1.4 (1.0-2.1); ALBUMIN 4.1 g/dL (3.5-5.0); CALCIUM 8.6 mg/dl (8.6-10.4)
[2019-01-02] MEDS: (Novolog) Insulin Aspart, Recombinant 100 u/ml 10 ml vial SC SCH ×3 (07:30→16:30)
--- NOTE | 2019-01-02 08:28 | CP.PCM.PN ---
Subjective - Date & Time of Evaluation Date of Evaluation: 01/02/19 Time of Evaluation: 10:00 - Subjective Subjective: PGY1 Medicine progress note for Dr. Castillo Pt was seen and examined at bedside. Pt is resting comfortably on high flow oxygen. He states cough is improved. No acute events overnight. Pt denies headache, dizziness, lightheadedness, chest pain, abdominal pain, n/v/d, hemoptysis Objective - Vital Signs/Intake and Output Vital Signs (last 24 hours): Temp Pulse Resp BP Pulse Ox 97.4 F L 70 14 108/54 L 100 01/02/19 08:00 01/02/19 08:14 01/02/19 08:14 01/02/19 08:14 01/02/19 08:14 Intake and Output: 01/02/19 01/02/19 06:59 18:59 Intake Total 180 0 Output Total 0 Balance 180 0 - Medications Medications: Current Medications Acetaminophen (Tylenol 325mg Tab) 650 mg PO Q6 PRN PRN Reason: Fever >100.4 F Albuterol/Ipratropium (Duoneb 3 Mg/0.5 Mg (3 Ml) Ud) 3 ml INH RQ4 [facility] Last Admin: 01/02/19 07:46 Dose: 3 ml Aspirin (Aspirin Chewable) 81 mg PO DAILY [facility] Last Admin: 01/01/19 14:55 Dose: 81 mg Benzonatate (Tessalon Perles) 100 mg PO Q12H [facility] Last Admin: 01/01/19 19:47 Dose: 100 mg Cilostazol (Pletal) 50 mg PO BID [facility] Last Admin: 01/01/19 18:01 Dose: 50 mg Dextrose (Dextrose 50% Inj) 0 ml IV STAT PRN; Protocol PRN Reason: Hypoglycemia Protocol Dextrose (Glutose 15) 0 gm PO ONCE PRN; Protocol PRN Reason: Hypoglycemia Protocol Famotidine (Pepcid) 20 mg PO DAILY [facility] Last Admin: 01/01/19 14:56 Dose: 20 mg Glucagon (Glucagen Diagnostic Kit) 0 mg IM STAT PRN; Protocol PRN Reason: Hypoglycemia Protocol Heparin Sodium (Porcine) (Heparin) 5,000 units SC Q8 [facility] Last Admin: 01/02/19 05:42 Dose: 5,000 units Hydralazine HCl (Apresoline) 25 mg PO TID [facility] Last Admin: 01/01/19 18:01 Dose: 25 mg Piperacillin Sod/Tazobactam Sod (Zosyn 2.25 Gm Iv Premix) 2.25 gm in 50 mls @ 100 mls/hr IVPB Q8H [facility]; Protocol Last Admin: 01/02/19 03:47 Dose: 100 mls/hr Dextrose (Dextrose 5% In Water 1000 Ml) 1,000 mls @ 0 mls/hr IV .Q0M PRN; Katie col PRN Reason: Hypoglycemia Protocol Insulin Aspart (Novolog) 0 unit SC AC [facility]; Protocol Last Admin: 01/01/19 16:30 Dose: Not Given Insulin Glargine (Lantus) 30 unit SC 2000 [facility] Last Admin: 01/01/19 20:14 Dose: Not Given Metoprolol Succinate (Toprol Xl) 25 mg PO DAILY [facility] Last Admin: 01/01/19 14:54 Dose: 25 mg Montelukast Sodium (Singulair) 10 mg PO DAILY [facility] Last Admin: 01/01/19 14:56 Dose: 10 mg Oseltamivir Phosphate (Tamiflu Susp) 30 mg PO Q2D [facility]; Protocol Stop: 01/07/19 18:01 Last Admin: 01/01/19 18:01 Dose: 30 mg Rosuvastatin Calcium (Crestor) 5 mg PO HS [facility] Last Admin: 01/01/19 21:48 Dose: 5 mg Sevelamer Carbonate (Renvela) 1,600 mg PO TIDCC [facility] Last Admin: 01/01/19 17:50 Dose: 1,600 mg - Labs Labs: 01/02/19 06:07 01/02/19 06:07 PT 11.2 SECONDS (9.7-12.2) 12/30/18 09:19 INR 1.0 12/30/18 09:19 APTT 30 SECONDS (21-34) 12/30/18 09:19 - Additional Findings Additional findings: - Constitutional Appears: Non-toxic, No Acute Distress - Head Exam Head Exam: ATRAUMATIC, NORMAL INSPECTION - Eye Exam Eye Exam: EOMI, Normal appearance (left eye atrophied/opacification) - ENT Exam ENT Exam: Mucous Membranes Moist - Neck Exam Neck Exam: Full ROM - Respiratory Exam Respiratory Exam: Rhonchi, Wheezes. Decreased breath sounds. absent: Accessory Muscle Use, Rales, Respiratory Distress. High flow oxygen on. - Cardiovascular Exam Cardiovascular Exam: REGULAR RHYTHM, +S1, +S2 - GI/Abdominal Exam GI & Abdominal Exam: Soft, Normal Bowel Sounds. absent: Tenderness - Extremities Exam Extremities Exam: Normal Inspection. absent: Calf Tenderness, Pedal Edema - Neurological Exam Neurological Exam: Alert, Awake, Oriented x3 - Psychiatric Exam Psychiatric exam: Normal Affect, Normal Mood - Skin Skin Exam: Dry, Normal Color, Warm Assessment and Plan - Assessment and Plan (Free Text) Assessment: 73 male w/ PMHx of ESRD, COPD, HTN, presented to ED shortness of breath/ fever, found to be influenza A (+), RLL pneumonia, admitted to ICU for hypercapneic respiratory failure . Plan: Neuro - alert and oriented X 3 - continue to monitor mental status Cardio - vitals stable on high flow o2 - hx of HTN, c/w aspirin 81 mg daily, hydralazine 25 PO TID, cilostazol 50 mg PO BID, metoprolol succinate 25 mg PO daily Resp - ABG 12/31: 7.32/58/185/27.1 - On Highflow o2 at 35L/min, 100% fio2, sPO2 is low 90s -BPAP at night - ABG from the morning supports slightly improved hypercapneic respiratory failure - duonebs, benzonatate - CXR 01/01 shows Cardiomegaly and pulmonary vascular congestion. Bilateral pleural effusions. GI - c/w diet - pepcid 20 daily Renal - received dialysis 12/29 & 12/30 - resume normal MWF dialysis - urology Dr. Odom consulted - per recs, will likely need OP f/u w/ physician that placed suprapubic cath Heme - H/H stable - continue to monitor ID - afebrile, no leukocystosis, not tachycardic - CXR: bilateral effusions/ atelectasis/ pneumonia - UA: Sq epith 1, Leuk esterase 1+, WBC 13, Nitrate + - due to recent hospitalization & possible hospital acquired pneumonia - Zosyn 2.25 Q8H - Vanc w/ dialysis days - B/C negative X 3days - UCx shows corynebacterium PPx - DVT: heparin SC 5000 units q8, SCDs - GI: Pepcid 20 mg daily Case discussed with Dr. Anna Agosto
[2019-01-02] MEDS: Cilostazol 50 mg Tab UD PO SCH ×2 (09:15→17:34)
[2019-01-02] MEDS: Metoprolol Succinate 25 mg XL Tab PO SCH (09:16)
--- NOTE | 2019-01-02 12:37 | CP.PCM.PN ---
Subjective - Date & Time of Evaluation Date of Evaluation: 01/02/19 Time of Evaluation: 12:32 - Subjective Subjective: No event, noticed still on 100% fio2 high flow, bipap in the night, patient is alert, oriented. Objective - Vital Signs/Intake and Output Vital Signs (last 24 hours): Temp Pulse Resp BP Pulse Ox 97.4 F L 79 16 110/43 L 90 L 01/02/19 08:00 01/02/19 09:14 01/02/19 11:28 01/02/19 09:14 01/02/19 09:14 Intake and Output: 01/02/19 01/02/19 06:59 18:59 Intake Total 180 0 Output Total 0 Balance 180 0 - Medications Medications: Current Medications Acetaminophen (Tylenol 325mg Tab) 650 mg PO Q6 PRN PRN Reason: Fever >100.4 F Albuterol/Ipratropium (Duoneb 3 Mg/0.5 Mg (3 Ml) Ud) 3 ml INH RQ4 [facility] Last Admin: 01/02/19 11:27 Dose: 3 ml Aspirin (Aspirin Chewable) 81 mg PO DAILY [facility] Last Admin: 01/02/19 09:16 Dose: 81 mg Benzonatate (Tessalon Perles) 100 mg PO Q12H [facility] Last Admin: 01/02/19 08:45 Dose: 100 mg Cilostazol (Pletal) 50 mg PO BID [facility] Last Admin: 01/02/19 09:15 Dose: 50 mg Dextrose (Dextrose 50% Inj) 0 ml IV STAT PRN; Protocol PRN Reason: Hypoglycemia Protocol Dextrose (Glutose 15) 0 gm PO ONCE PRN; Protocol PRN Reason: Hypoglycemia Protocol Famotidine (Pepcid) 20 mg PO DAILY [facility] Last Admin: 01/02/19 09:15 Dose: 20 mg Glucagon (Glucagen Diagnostic Kit) 0 mg IM STAT PRN; Protocol PRN Reason: Hypoglycemia Protocol Heparin Sodium (Porcine) (Heparin) 5,000 units SC Q8 [facility] Last Admin: 01/02/19 05:42 Dose: 5,000 units Hydralazine HCl (Apresoline) 25 mg PO TID [facility] Last Admin: 01/02/19 09:16 Dose: 25 mg Piperacillin Sod/Tazobactam Sod (Zosyn 2.25 Gm Iv Premix) 2.25 gm in 50 mls @ 100 mls/hr IVPB Q8H [facility]; Protocol Last Admin: 01/02/19 03:47 Dose: 100 mls/hr Dextrose (Dextrose 5% In Water 1000 Ml) 1,000 mls @ 0 mls/hr IV .Q0M PRN; Protocol PRN Reason: Hypoglycemia Protocol Insulin Aspart (Novolog) 0 unit SC AC [facility]; Protocol Last Admin: 01/02/19 07:30 Dose: Not Given Insulin Glargine (Lantus) 30 unit SC 2000 [facility] Last Admin: 01/01/19 20:14 Dose: Not Given Metoprolol Succinate (Toprol Xl) 25 mg PO DAILY [facility] Last Admin: 01/02/19 09:16 Dose: 25 mg Montelukast Sodium (Singulair) 10 mg PO DAILY [facility] Last Admin: 01/02/19 09:16 Dose: 10 mg Oseltamivir Phosphate (Tamiflu Susp) 30 mg PO Q2D [facility]; Protocol Stop: 01/07/19 18:01 Last Admin: 01/01/19 18:01 Dose: 30 mg Rosuvastatin Calcium (Crestor) 5 mg PO HS [facility] Last Admin: 01/01/19 21:48 Dose: 5 mg Sevelamer Carbonate (Renvela) 1,600 mg PO TIDCC [facility] Last Admin: 01/02/19 08:45 Dose: 1,600 mg - Labs Labs: 01/02/19 06:07 01/02/19 06:07 PT 11.2 SECONDS (9.7-12.2) 12/30/18 09:19 INR 1.0 12/30/18 09:19 APTT 30 SECONDS (21-34) 12/30/18 09:19 - Additional Findings Additional findings: * HEENT LOLY, left eye atrphied and opaque * Neck Supple * CVS Regular * Chest reduced in both bases * PA soft * Ext no edema, left arm av fistula * FRUIT THINNER awake oriented x3 no fnd * Skin normal turgor. Assessment and Plan - Assessment and Plan (Free Text) Assessment: * Hypercapninc and hypoxic resp failure, due to influenza, pna, and b/l significant effusions * ESRD on HD * DM on insuling, sliding scale controlled * H/o COPD * Plan: * Supportive care, * Continue abx, zosyn, vanco post hd, bipap, hgh flow support * Gi/DVT prophylaxis * Maintain euglycemia * See orders for detail.
[2019-01-02 13:47] LABS: ARTERIAL BLOOD GAS HCO3 28.6 mmol/L (21-28); ARTERIAL BLOOD GAS O2 SAT 98.2 % (95-98); ARTERIAL BLOOD GAS PCO2 58 mm/Hg (35-45); ARTERIAL BLOOD GAS PH 7.35 (7.35-7.45); ARTERIAL BLOOD GAS PO2 159 mm/Hg (80-100); ARTERIAL BLOOD GAS TCO2 33.8 mmol/L (22-28)
[2019-01-02] MEDS: (Lantus) Insulin Glargine, Recombinant SC SCH (20:44)
[2019-01-03] MEDS: Piperacill/Tazo 2.25gm in Dex 2.25 GM/50 ML BAG IVPB SCH ×3 (03:08→20:00)
[2019-01-03] MEDS: Albuterol-Ipratrop 3 mg / 0.5 (3 ml) UD INH SCH ×6 (03:58→23:37)
[2019-01-03 06:42] LABS: BASO % 0.5 % (0.0-2.0); EOS # 0.3 K/uL (0.0-0.7); EOS % 4.8 % (0.0-4.0); HEMOGLOBIN 11.1 g/dL (12.0-18.0); LYMPH # 1.2 K/uL (1.0-4.3); LYMPH % 20.6 % (20.0-40.0); MEAN CELL VOLUME 89.6 fL (80.0-94.0); MEAN CORPUSCULAR HEMOGLOBIN 29.2 pg (27.0-31.0); MEAN CORPUSCULAR HGB CONC 32.6 g/dL (33.0-37.0); MEAN PLATELET VOLUME 8.6 fL (7.2-11.7); MONO # 0.4 K/uL (0.0-0.8); MONO % 6.1 % (0.0-10.0); NRBC % 0.1 % (0.0-2.0); RBC 3.81 Mil/uL (4.40-5.90); RED CELL DISTRIBUTION WIDTH 15.6 % (11.5-14.5); WHITE BLOOD COUNT 5.9 K/uL (4.8-10.8)
[2019-01-03 06:54] LABS: ALB/GLOB RATIO 1.4 (1.0-2.1); ALBUMIN 3.9 g/dL (3.5-5.0); CALCIUM 8.4 mg/dl (8.6-10.4)
--- NOTE | 2019-01-03 07:11 | CP.CCUPN ---
CCU Subjective - Physician Review Subjective (Free Text): Critical care progress note for Dr. Parrish. Patient seen and examined at bedside. No overnight events reported. Patient states he is breathing better; however he still has productive cough with yellowish phlegm. Patient also complains of suprapubic pain. Patient has no further complaints. CCU Objective - Vital Signs / Intake & Output Vital Signs (Last 4 hours): Vital Signs Temp Pulse Resp BP Pulse Ox 01/03/19 06:14 84 22 125/53 L 93 L 01/03/19 05:54 20 01/03/19 05:14 83 14 112/52 L 95 01/03/19 04:15 86 24 124/50 L 94 L 01/03/19 04:00 97.3 F L 01/03/19 03:58 21 01/03/19 03:15 85 21 115/50 L 94 L Intake and Output (Last 8hrs): Intake & Output 01/02/19 01/03/19 01/03/19 22:59 06:59 14:59 Intake Total 290 50 0 Output Total 30 10 0 Balance 260 40 0 Intake: Intake, IV Amount 50 50 Right Forearm 50 50 Oral 240 0 0 Output: Urine 30 10 0 Suprapubic 30 10 0 - Physical Exam Head: Positive for: Atraumatic Pupils: Negative for: Sluggish Extroacular Muscles: Positive for: EOMI Mouth: Positive for: Moist Mucous Membranes Respiratory/Chest: Positive for: Respiratory Distress, Accessory Muscle Use, Wheezes, Rales Cardiovascular: Positive for: Normal S1, S2. Negative for: Rub Abdomen: Positive for: Normal Bowel Sounds, Other (suprapubic catheter in place) Genitourinary Male: Positive for: Other (suprapubic cathetor ) Upper Extremity: Negative for: Cyanosis, Edema Lower Extremity: Positive for: Normal Inspection, Edema Skin: Positive for: Warm, Dry Psychiatric: Positive for: Oriented x 3, Normal Insight - Medications Active Medications: Active Medications Generic Name Dose Route Start Last Admin Trade Name Freq PRN Reason Stop Dose Admin Acetaminophen 650 mg 12/30/18 12:34 Tylenol 325mg Tab PO Q6 PRN Fever >100.4 F Albuterol/Ipratropium 3 ml 01/01/19 20:00 01/03/19 03:58 Duoneb 3 Mg/0.5 Mg (3 Ml) Ud INH 3 ml RQ4 [facility] Administration Aspirin 81 mg 12/31/18 10:00 01/02/19 09:16 Aspirin Chewable PO 81 mg DAILY [facility] Administration Benzonatate 100 mg 12/30/18 20:00 01/02/19 20:44 Tessalon Perles PO 100 mg Q12H [facility] Administration Cilostazol 50 mg 12/30/18 18:00 01/02/19 17:34 Pletal PO 50 mg BID [facility] Administration Dextrose 0 ml 12/30/18 17:47 Dextrose 50% Inj IV STAT PRN Hypoglycemia Protocol Protocol Dextrose 0 gm 12/30/18 17:47 Glutose 15 PO ONCE PRN Hypoglycemia Protocol Protocol Doxycycline Hyclate 100 mg 01/02/19 19:45 01/02/19 20:44 Doryx PO 100 mg Q12H [facility] Administration Protocol Famotidine 20 mg 12/31/18 10:00 01/02/19 09:15 Pepcid PO 20 mg DAILY [facility] Administration Glucagon 0 mg 12/30/18 17:47 Glucagen Diagnostic Kit IM STAT PRN Hypoglycemia Protocol Protocol Heparin Sodium (Porcine) 5,000 units 12/30/18 22:00 01/03/19 06:23 Heparin SC 5,000 units Q8 [facility] Administration Hydralazine HCl 25 mg 12/30/18 14:00 01/02/19 17:35 Apresoline PO 25 mg TID [facility] Administration Piperacillin Sod/Tazobactam Sod 2.25 gm in 50 mls @ 100 mls/hr 12/30/18 20:00 01/03/19 03:08 Zosyn 2.25 Gm Iv Premix IVPB 100 mls/hr Q8H [facility] Administration Protocol Dextrose 1,000 mls @ 0 mls/hr 12/30/18 17:47 Dextrose 5% In Water 1000 Ml IV .Q0M PRN Hypoglycemia Protocol Protocol Per Protocol Insulin Aspart 0 unit 12/30/18 16:30 01/02/19 16:30 Novolog SC Not Given AC [facility] Protocol Insulin Glargine 15 unit 01/02/19 19:34 01/02/19 20:44 Lantus SC 15 u 2000 [facility] Administration Metoprolol Succinate 25 mg 12/31/18 10:00 01/02/19 09:16 Toprol Xl PO 25 mg DAILY [facility] Administration Montelukast Sodium 10 mg 12/31/18 10:00 01/02/19 09:16 Singulair PO 10 mg DAILY [facility] Administration Oseltamivir Phosphate 30 mg 01/01/19 18:00 01/01/19 18:01 Tamiflu Susp PO 01/07/19 18:01 30 mg Q2D [facility] Administration Protocol Rosuvastatin Calcium 5 mg 12/30/18 22:00 01/02/19 21:41 Crestor PO 5 mg HS [facility] Administration Sevelamer Carbonate 1,600 mg 12/30/18 17:00 01/02/19 17:35 Renvela PO 1,600 mg TIDCC [facility] Administration - Patient Studies Lab Studies: Microbiology Studies 12/30/18 09:30 Blood Culture - Preliminary Blood NO GROWTH AFTER 3 DAYS 12/30/18 09:26 Blood Culture - Preliminary Blood NO GROWTH AFTER 3 DAYS Lab Studies 01/03/19 01/03/19 01/02/19 Range/Units 06:28 06:28 21:25 WBC 5.9 (4.8-10.8) K/uL RBC 3.81 L (4.40-5.90) Mil/uL Hgb 11.1 L (12.0-18.0) g/dL Hct 34.1 L (35.0-51.0) % MCV 89.6 (80.0-94.0) fL MCH 29.2 (27.0-31.0) pg MCHC 32.6 L (33.0-37.0) g/dL RDW 15.6 H (11.5-14.5) % Plt Count 167 (130-400) K/uL MPV 8.6 (7.2-11.7) fL Neut % (Auto) 68.0 (50.0-75.0) % Lymph % (Auto) 20.6 (20.0-40.0) % [place] % (Auto) 6.1 (0.0-10.0) % Eos % (Auto) 4.8 H (0.0-4.0) % Baso % (Auto) 0.5 (0.0-2.0) % Neut # (Auto) 4.0 (1.8-7.0) K/uL Lymph # (Auto) 1.2 (1.0-4.3) K/uL [place] # (Auto) 0.4 (0.0-0.8) K/uL Eos # (Auto) 0.3 (0.0-0.7) K/uL Baso # (Auto) 0.0 (0.0-0.2) K/uL Puncture Site pCO2 (35-45) mm/Hg pO2 (80-100) mm/Hg HCO3 (21-28) mmol/L ABG pH (7.35-7.45) ABG Total CO2 (22-28) mmol/L ABG O2 Saturation (95-98) % ABG Base Excess (-2.0-3.0) mmol/L Kun Test ABG Potassium (3.6-5.2) mmol/L A-a O2 Difference mm/Hg Respiratory Index Sodium 139 (132-148) mmol/l Chloride 94 L (98-107) mmol/L Glucose (75-110) mg/dl Lactate (0.7-2.1) mmol/L Vent Mode FiO2 % Potassium 4.4 (3.6-5.2) mmol/L Carbon Dioxide 27 (22-30) mmol/L Anion Gap 22 H (10-20) BUN 91 H (9-20) mg/dL Creatinine 8.4 H* D (0.8-1.5) mg/dL Est GFR ( Amer) 8 Est GFR (Non-Af Amer) 6 POC Glucose (mg/dL) 157 H (65-110) mg/dL Random Glucose 112 H (75-110) mg/dL Calcium 8.4 L (8.6-10.4) mg/dl Phosphorus 5.0 H (2.5-4.5) mg/dL Magnesium 2.3 (1.6-2.3) mg/dL Total Bilirubin 0.4 (0.2-1.3) mg/dL AST 76 H (17-59) U/L ALT 21 D (21-72) U/L Alkaline Phosphatase 87 (38-126) U/L Total Protein 6.7 (6.3-8.3) g/dL Albumin 3.9 (3.5-5.0) g/dL Globulin 2.8 (2.2-3.9) gm/dL Albumin/Globulin Ratio 1.4 (1.0-2.1) Arterial Blood Potassium (3.6-5.2) mmol/L 01/02/19 01/02/19 01/02/19 Range/Units 16:09 13:43 08:02 WBC (4.8-10.8) K/uL RBC (4.40-5.90) Mil/uL Hgb (12.0-18.0) g/dL Hct (35.0-51.0) % MCV (80.0-94.0) fL MCH (27.0-31.0) pg MCHC (33.0-37.0) g/dL RDW (11.5-14.5) % Plt Count (130-400) K/uL MPV (7.2-11.7) fL Neut % (Auto) (50.0-75.0) % Lymph % (Auto) (20.0-40.0) % [place] % (Auto) (0.0-10.0) % Eos % (Auto) (0.0-4.0) % Baso % (Auto) (0.0-2.0) % Neut # (Auto) (1.8-7.0) K/uL Lymph # (Auto) (1.0-4.3) K/uL [place] # (Auto) (0.0-0.8) K/uL Eos # (Auto) (0.0-0.7) K/uL Baso # (Auto) (0.0-0.2) K/uL Puncture Site Rba pCO2 58 H (35-45) mm/Hg pO2 159 H (80-100) mm/Hg HCO3 28.6 H (21-28) mmol/L ABG pH 7.35 (7.35-7.45) ABG Total CO2 33.8 H (22-28) mmol/L ABG O2 Saturation 98.2 H (95-98) % ABG Base Excess 4.7 H (-2.0-3.0) mmol/L Kun Test Na ABG Potassium 4.2 (3.6-5.2) mmol/L A-a O2 Difference 482.0 mm/Hg Respiratory Index 3.0 Sodium 137.0 (132-148) mmol/l Chloride 100.0 (98-107) mmol/L Glucose 156 H (75-110) mg/dl Lactate 1.0 (0.7-2.1) mmol/L Vent Mode Hfnc FiO2 100.0 % Potassium (3.6-5.2) mmol/L Carbon Dioxide (22-30) mmol/L Anion Gap (10-20) BUN (9-20) mg/dL Creatinine (0.8-1.5) mg/dL Est GFR ( Amer) Est GFR (Non-Af Amer) POC Glucose (mg/dL) 170 H 114 H (65-110) mg/dL Random Glucose (75-110) mg/dL Calcium (8.6-10.4) mg/dl Phosphorus (2.5-4.5) mg/dL Magnesium (1.6-2.3) mg/dL Total Bilirubin (0.2-1.3) mg/dL AST (17-59) U/L ALT (21-72) U/L Alkaline Phosphatase (38-126) U/L Total Protein (6.3-8.3) g/dL Albumin (3.5-5.0) g/dL Globulin (2.2-3.9) gm/dL Albumin/Globulin Ratio (1.0-2.1) Arterial Blood Potassium 4.2 (3.6-5.2) mmol/L Laboratory Results - last 24 hr 01/02/19 01/02/19 01/02/19 08:02 13:43 16:09 WBC RBC Hgb Hct MCV MCH MCHC RDW Plt Count MPV Neut % (Auto) Lymph % (Auto) [place] % (Auto) Eos % (Auto) Baso % (Auto) Neut # (Auto) Lymph # (Auto) [place] # (Auto) Eos # (Auto) Baso # (Auto) Puncture Site Rba pCO2 58 H pO2 159 H HCO3 28.6 H ABG pH 7.35 ABG Total CO2 33.8 H ABG O2 Saturation 98.2 H ABG Base Excess 4.7 H Kun Test Na ABG Potassium 4.2 A-a O2 Difference 482.0 Respiratory Index 3.0 Sodium 137.0 Chloride 100.0 Glucose 156 H Lactate 1.0 Vent Mode Hfnc FiO2 100.0 Potassium Carbon Dioxide Anion Gap BUN Creatinine Est GFR ( Amer) Est GFR (Non-Af Amer) POC Glucose (mg/dL) 114 H 170 H Random Glucose Calcium Phosphorus Magnesium Total Bilirubin AST ALT Alkaline Phosphatase Total Protein Albumin Globulin Albumin/Globulin Ratio Arterial Blood Potassium 4.2 01/02/19 01/03/19 01/03/19 21:25 06:28 06:28 WBC 5.9 RBC 3.81 L Hgb 11.1 L Hct 34.1 L MCV 89.6 MCH 29.2 MCHC 32.6 L RDW 15.6 H Plt Count 167 MPV 8.6 Neut % (Auto) 68.0 Lymph % (Auto) 20.6 [place] % (Auto) 6.1 Eos % (Auto) 4.8 H Baso % (Auto) 0.5 Neut # (Auto) 4.0 Lymph # (Auto) 1.2 [place] # (Auto) 0.4 Eos # (Auto) 0.3 Baso # (Auto) 0.0 Puncture Site pCO2 pO2 HCO3 ABG pH ABG Total CO2 ABG O2 Saturation ABG Base Excess Kun Test ABG Potassium A-a O2 Difference Respiratory Index Sodium 139 Chloride 94 L Glucose Lactate Vent Mode FiO2 Potassium 4.4 Carbon Dioxide 27 Anion Gap 22 H BUN 91 H Creatinine 8.4 H* D Est GFR ( Amer) 8 Est GFR (Non-Af Amer) 6 POC Glucose (mg/dL) 157 H Random Glucose 112 H Calcium 8.4 L Phosphorus 5.0 H Magnesium 2.3 Total Bilirubin 0.4 AST 76 H ALT 21 D Alkaline Phosphatase 87 Total Protein 6.7 Albumin 3.9 Globulin 2.8 Albumin/Globulin Ratio 1.4 Arterial Blood Potassium Fingerstick Blood Sugar Results: 170 Review of Systems - Constitutional Constitutional: absent: Fever, Chills, Sweats - EENT Eyes: UNREMARKABLE. absent: Blurred Vision Ears: UNREMARKABLE Nose/Mouth/Throat: UNREMARKABLE - Cardiovascular Cardiovascular: UNREMARKABLE. absent: Chest Pain, Diaphoresis - Respiratory Respiratory: Cough, Dyspnea on Exertion, Chest Congestion, Change in Mucous Color - Gastrointestinal Gastrointestinal: Abdominal Pain (suprapubic tenderness, suprapubic catheter in place ) - Musculoskeletal Musculoskeletal: UNREMARKABLE. absent: Atrophy - Integumentary Integumentary: UNREMARKABLE - Neurological Neurological: UNREMARKABLE. absent: Behavioral Changes, Burning Sensations, Confusion - Psychiatric Psychiatric: UNREMARKABLE Critical Care Progress Note - Prophylaxis GI Prophylaxis GI: Pepsid - Prophylaxis DVT Prophylaxis DVT: Heparin SQ - Nutrition Nutrition: Nutrition Category Date Time Status Renal Diet [DIET] Diets 12/31/18 Breakfast Active Assessment/Plan - Assessment and Plan (Free Text) Assessment: 73 male w/ PMhx of ESRD, COPD, HTN, presented to ED shortness of breath/ fever, found to be influenza A (+), RLL pneumonia, admitted to ICU for hypercapneic respiratory failure, currently improving and attempting to wean to 100% high flow completely Plan: Neuro - alert and oriented X 3 Cardio - vitals stable on 100% O2 - hx of HTN, c/w asprin 81 mg daily, hydralazine 25 PO TID, cilostazol 50 mg PO BID, metoprolol succinate 25 mg PO daily, - ?premature atrial complex, will repeat EKG 01/04 AM Resp - saturating in 90s on high flow - if desaturates, place back on BIPAP - ABG 157: 7.35/58/159/28.6 - F/u ABG in AM GI - c/w diet Renal - BUN/Cr 91/8.4 - Due for dialysis today 01/03 - urology Dr. Odom consulted - per recs, will likely need OP f/u w/ physician that placed suprapubic cath Heme - H/H stable in 11s/ 35s - continue to monitor ID - afebrile, WBC normal - on admission Tmax 102.4 - CXR: bilateral effusions/ atelectasis/ pneumonia - UA: Sq epith 1, LEuk esterase 1+, WBC 13, Nitrate + - due to recent hospitalization & possible hospital acquired pneumonia - Zosyn 2.25 Q8H - Vancomycine 12/30 - 01/02 - Doxyclycline 100 mg Q12H (01/02 - present) - B/C negative X 48H - UC - gram positive cocci, corybebacterium - flu A positive, oseltamivir 30 mg PO Q2D PPx - DVT: heparin SC 5000 units, SCDs - GI: Pepcid 20 mg daily
[2019-01-03] MEDS: (Novolog) Insulin Aspart, Recombinant 100 u/ml 10 ml vial SC SCH ×3 (07:54→17:00)
[2019-01-03] MEDS: Metoprolol Succinate 25 mg XL Tab PO SCH (09:35)
--- NOTE | 2019-01-03 10:08 | CP.PCM.PN ---
Subjective - Date & Time of Evaluation Date of Evaluation: 01/03/19 Time of Evaluation: 10:05 - Subjective Subjective: pt seen and examined off BiPAP at present, eating breakfast afebrile BP better no SOB, cough better ROS- as per HPI, other than that 10 point ROS negative Objective - Vital Signs/Intake and Output Vital Signs (last 24 hours): Temp Pulse Resp BP Pulse Ox 97.5 F L 90 20 114/53 L 86 L 01/03/19 07:48 01/03/19 09:00 01/03/19 09:00 01/03/19 08:14 01/03/19 09:00 Intake and Output: 01/03/19 01/03/19 06:59 18:59 Intake Total 340 480 Output Total 40 28 Balance 300 452 - Medications Medications: Current Medications Acetaminophen (Tylenol 325mg Tab) 650 mg PO Q6 PRN PRN Reason: Fever >100.4 F Albuterol/Ipratropium (Duoneb 3 Mg/0.5 Mg (3 Ml) Ud) 3 ml INH RQ4 [facility] Last Admin: 01/03/19 07:30 Dose: 3 ml Aspirin (Aspirin Chewable) 81 mg PO DAILY [facility] Last Admin: 01/03/19 09:35 Dose: 81 mg Benzonatate (Tessalon Perles) 100 mg PO Q12H [facility] Last Admin: 01/03/19 08:15 Dose: 100 mg Cilostazol (Pletal) 50 mg PO BID [facility] Last Admin: 01/02/19 17:34 Dose: 50 mg Dextrose (Dextrose 50% Inj) 0 ml IV STAT PRN; Protocol PRN Reason: Hypoglycemia Protocol Dextrose (Glutose 15) 0 gm PO ONCE PRN; Protocol PRN Reason: Hypoglycemia Protocol Doxycycline Hyclate (Doryx) 100 mg PO Q12H [facility]; Protocol Last Admin: 01/03/19 08:18 Dose: 100 mg Famotidine (Pepcid) 20 mg PO DAILY [facility] Last Admin: 01/03/19 09:36 Dose: 20 mg Glucagon (Glucagen Diagnostic Kit) 0 mg IM STAT PRN; Protocol PRN Reason: Hypoglycemia Protocol Heparin Sodium (Porcine) (Heparin) 5,000 units SC Q8 [facility] Last Admin: 01/03/19 06:23 Dose: 5,000 units Piperacillin Sod/Tazobactam Sod (Zosyn 2.25 Gm Iv Premix) 2.25 gm in 50 mls @ 100 mls/hr IVPB Q8H [facility]; Protocol Last Admin: 01/03/19 03:08 Dose: 100 mls/hr Dextrose (Dextrose 5% In Water 1000 Ml) 1,000 mls @ 0 mls/hr IV .Q0M PRN; Pr otocol PRN Reason: Hypoglycemia Protocol Insulin Aspart (Novolog) 0 unit SC AC [facility]; Protocol Last Admin: 01/03/19 07:54 Dose: Not Given Insulin Glargine (Lantus) 15 unit SC 1999 [facility] Last Admin: 01/02/19 20:44 Dose: 15 u Metoprolol Succinate (Toprol Xl) 25 mg PO DAILY [facility] Last Admin: 01/03/19 09:35 Dose: 25 mg Montelukast Sodium (Singulair) 10 mg PO DAILY [facility] Last Admin: 01/03/19 09:34 Dose: 10 mg Oseltamivir Phosphate (Tamiflu Susp) 30 mg PO Q2D [facility]; Protocol Stop: 01/07/19 18:01 Last Admin: 01/01/19 18:01 Dose: 30 mg Rosuvastatin Calcium (Crestor) 5 mg PO HS [facility] Last Admin: 01/02/19 21:41 Dose: 5 mg Sevelamer Carbonate (Renvela) 1,600 mg PO TIDCC [facility] Last Admin: 01/03/19 08:15 Dose: 1,600 mg - Labs Labs: 01/03/19 06:28 01/03/19 06:28 PT 11.2 SECONDS (9.7-12.2) 12/30/18 09:19 INR 1.0 12/30/18 09:19 APTT 30 SECONDS (21-34) 12/30/18 09:19 - Constitutional Appears: Non-toxic, No Acute Distress, Chronically Ill - Head Exam Head Exam: ATRAUMATIC, NORMOCEPHALIC - Eye Exam Eye Exam: EOMI, Normal appearance, PERRL - ENT Exam ENT Exam: Mucous Membranes Moist - Neck Exam Neck Exam: Full ROM - Respiratory Exam Respiratory Exam: Rhonchi. absent: Rales, Wheezes - Cardiovascular Exam Cardiovascular Exam: REGULAR RHYTHM, +S1, +S2 - GI/Abdominal Exam GI & Abdominal Exam: Soft. absent: Distended, Tenderness - Extremities Exam Extremities Exam: absent: Joint Swelling, Pedal Edema - Neurological Exam Neurological Exam: Alert, Awake, Oriented x3 - Psychiatric Exam Psychiatric exam: Normal Affect, Normal Mood - Skin Skin Exam: Normal Color, Warm Assessment and Plan (1) Pneumonia Status: Acute (2) Influenza Status: Acute (3) Pleural effusion Status: Acute (4) ESRD (end stage renal disease) on dialysis Status: Chronic (5) Type 2 diabetes mellitus with diabetic nephropathy Status: Acute (6) HTN (hypertension) Status: Chronic (7) PAD (peripheral artery disease) Status: Chronic - Assessment and Plan (Free Text) Plan: HD today maintain MWF schedule stop hydrazine to allow BP to improve- facilitate UF with HD continue Abx and tamiflu BiPAP for respiratory acidosis
[2019-01-03] MEDS: Cilostazol 50 mg Tab UD PO SCH ×2 (10:25→18:08)
--- NOTE | 2019-01-03 11:04 | CP.PCM.PCO ---
Physician Communication Note - Physician Communication Note Physician Communication Note: Patient in HDnow. Will try visit later.
--- NOTE | 2019-01-03 17:33 | CP.PCM.PN ---
Subjective - Date & Time of Evaluation Date of Evaluation: 01/03/19 Time of Evaluation: 12:00 - Subjective Subjective: Patient seen and examined Still complaining of productive cough Seen during hemodialysis Less shortness of breath Afebrile Objective - Vital Signs/Intake and Output Vital Signs (last 24 hours): Temp Pulse Resp BP Pulse Ox 98 F 82 22 111/51 L 83 L 01/03/19 13:30 01/03/19 14:28 01/03/19 14:28 01/03/19 14:28 01/03/19 14:28 Intake and Output: 01/03/19 01/03/19 06:59 18:59 Intake Total 340 1220 Output Total 40 88 Balance 300 1132 - Medications Medications: Current Medications Acetaminophen (Tylenol 325mg Tab) 650 mg PO Q6 PRN PRN Reason: Fever >100.4 F Albuterol/Ipratropium (Duoneb 3 Mg/0.5 Mg (3 Ml) Ud) 3 ml INH RQ4 [facility] Last Admin: 01/03/19 12:17 Dose: 3 ml Aspirin (Aspirin Chewable) 81 mg PO DAILY [facility] Last Admin: 01/03/19 09:35 Dose: 81 mg Benzonatate (Tessalon Perles) 100 mg PO Q12H [facility] Last Admin: 01/03/19 08:15 Dose: 100 mg Cilostazol (Pletal) 50 mg PO BID [facility] Last Admin: 01/03/19 10:25 Dose: 50 mg Dextrose (Dextrose 50% Inj) 0 ml IV STAT PRN; Protocol PRN Reason: Hypoglycemia Protocol Dextrose (Glutose 15) 0 gm PO ONCE PRN; Protocol PRN Reason: Hypoglycemia Protocol Doxycycline Hyclate (Doryx) 100 mg PO Q12H [facility]; Protocol Last Admin: 01/03/19 08:18 Dose: 100 mg Famotidine (Pepcid) 20 mg PO DAILY [facility] Last Admin: 01/03/19 09:36 Dose: 20 mg Glucagon (Glucagen Diagnostic Kit) 0 mg IM STAT PRN; Protocol PRN Reason: Hypoglycemia Protocol Heparin Sodium (Porcine) (Heparin) 5,000 units SC Q8 [facility] Last Admin: 01/03/19 14:35 Dose: 5,000 units Piperacillin Sod/Tazobactam Sod (Zosyn 2.25 Gm Iv Premix) 2.25 gm in 50 mls @ 100 mls/hr IVPB Q8H [facility]; Protocol Last Admin: 01/03/19 12:15 Dose: 100 mls/hr Dextrose (Dextrose 5% In Water 1000 Ml) 1,000 mls @ 0 mls/hr IV .Q0M PRN; Protocol PRN Reason: Hypoglycemia Protocol Insulin Aspart (Novolog) 0 unit SC AC [facility]; Protocol Last Admin: 01/03/19 12:01 Dose: 2 units Insulin Glargine (Lantus) 15 unit SC 2000 [facility] Last Admin: 01/02/19 20:44 Dose: 15 u Metoprolol Succinate (Toprol Xl) 25 mg PO DAILY [facility] Last Admin: 01/03/19 09:35 Dose: 25 mg Montelukast Sodium (Singulair) 10 mg PO DAILY [facility] Last Admin: 01/03/19 09:34 Dose: 10 mg Oseltamivir Phosphate (Tamiflu Susp) 30 mg PO Q2D [facility]; Protocol Stop: 01/07/19 18:01 Last Admin: 01/01/19 18:01 Dose: 30 mg Rosuvastatin Calcium (Crestor) 5 mg PO HS [facility] Last Admin: 01/02/19 21:41 Dose: 5 mg Sevelamer Carbonate (Renvela) 1,600 mg PO TIDCC [facility] Last Admin: 01/03/19 12:20 Dose: 1,600 mg - Labs Labs: 01/03/19 06:28 01/03/19 06:28 PT 11.2 SECONDS (9.7-12.2) 12/30/18 09:19 INR 1.0 12/30/18 09:19 APTT 30 SECONDS (21-34) 12/30/18 09:19 - Head Exam Head Exam: ATRAUMATIC, NORMOCEPHALIC - ENT Exam ENT Exam: Mucous Membranes Moist - Neck Exam Neck Exam: Normal Inspection - Respiratory Exam Respiratory Exam: Decreased Breath Sounds Assessment and Plan (1) Influenza Status: Acute (2) Pleural effusion Status: Acute (3) Pneumonia Assessment & Plan: Continue antibiotics Continue hemodialysis Follow-up chest x-ray Urine culture positive for corynebacterium Status: Acute (4) ESRD (end stage renal disease) on dialysis Status: Chronic
--- NOTE | 2019-01-03 17:42 | RAD ---
Date of service: 01/03/2019 HISTORY: Pleural effusion. COMPARISON: 01/01/2019. FINDINGS: LUNGS: Interval improvement in bilateral infiltrates lower lobe predilection. PLEURA: Bilateral pleural effusions again identified inseparable from lower lobe infiltrates. CARDIOVASCULAR: No atherosclerotic calcification present No radiographic findings to suggest acute or significant cardiovascular disease. OSSEOUS STRUCTURES: No significant abnormalities. VISUALIZED UPPER ABDOMEN: Normal. OTHER FINDINGS: None. IMPRESSION: Improving bilateral lower lobe infiltrates right greater than left. Persistent bilateral pleural effusions.
[2019-01-03] MEDS: Oseltamivir 6 MG/ML PO SCH (18:10)
[2019-01-03] MEDS: (Lantus) Insulin Glargine, Recombinant SC SCH (20:00)
[2019-01-04] MEDS: Piperacill/Tazo 2.25gm in Dex 2.25 GM/50 ML BAG IVPB SCH ×3 (04:00→20:28)
--- NOTE | 2019-01-04 06:28 | CON ---
DATE: 01/03/2019 REASON FOR CONSULTATION: Questioning the need for suprapubic tube. HISTORY OF PRESENT ILLNESS: The patient had the suprapubic tube inserted by Dr. Ceballos at [facility]. They are not aware of the reasons for the suprapubic catheter insertion. The patient is presently in renal failure. He is in the ICU with what appears to be the flu. Apparently, there is no drainage from the suprapubic tube even though it irrigates and seems to be functioning perfectly. Further history from the patient is difficult. The patient is lethargic and cannot give accurate history. SOCIAL AND FAMILY HISTORY: Noncontributory. REVIEW OF SYSTEMS: RESPIRATORY: The patient has influenza because of hypoxia. He does have some rales and rhonchi. HEART: Normal sinus. There is no chest pain. ABDOMEN: There is no bladder distention or change in bowel habits. NEUROLOGICAL: The patient has no neurological complaints. RENAL: The patient is a dialysis patient. He has a suprapubic tube for unknown reason. PHYSICAL EXAMINATION: VITAL SIGNS: Within normal limits. HEENT: Head, ears, eyes, nose, and throat within normal limits. NECK: Supple. There are no bruits, nodes, or masses. CHEST: Clear bilaterally. There are no rales or rhonchi. HEART: Normal sinus rhythm. There is no murmur . ABDOMEN: Soft, nontender. There is a suprapubic tube in the lower abdomen with what appears to be an old, well-healed incision indicating the tube has been there for sometime. GENITOURINARY: Testicles, epididymis, and cord normal. RECTAL: Shows a 3+ nonnodular prostate without induration. EXTREMITIES: Normal. I have also reviewed the laboratory data of the it sales consultant notes and discussed this case with the resident. IMPRESSION: Anuric renal failure. Suggest the following. Since the patient has the suprapubic tube cared for at another institution, we suggest once the patient is out of the Intensive Care Unit, the patient be referred to that physician for determination of the continued need for the suprapubic catheter. The patient condition at this time for evaluation and this is best handled through the surgeon who placed the suprapubic tube who is still in practice at [facility]. Korey Odom MD [facility] # [id number]
[2019-01-04 06:47] LABS: BASO % 0.8 % (0.0-2.0); EOS # 0.1 K/uL (0.0-0.7); EOS % 1.1 % (0.0-4.0); HEMOGLOBIN 12.7 g/dL (12.0-18.0); LYMPH # 1.1 K/uL (1.0-4.3); LYMPH % 17.2 % (20.0-40.0); MEAN CELL VOLUME 89.1 fL (80.0-94.0); MEAN CORPUSCULAR HEMOGLOBIN 29.4 pg (27.0-31.0); MEAN PLATELET VOLUME 8.7 fL (7.2-11.7); MONO # 0.4 K/uL (0.0-0.8); MONO % 6.1 % (0.0-10.0); NEUT # 4.7 K/uL (1.8-7.0); NEUT % 74.8 % (50.0-75.0); NRBC % 0.2 % (0.0-2.0); RBC 4.3 Mil/uL (4.40-5.90); RED CELL DISTRIBUTION WIDTH 15.8 % (11.5-14.5); WHITE BLOOD COUNT 6.3 K/uL (4.8-10.8)
[2019-01-04 07:03] LABS: ALB/GLOB RATIO 1.3 (1.0-2.1); ALBUMIN 4.2 g/dL (3.5-5.0); CALCIUM 9.1 mg/dl (8.6-10.4)
--- NOTE | 2019-01-04 07:22 | CP.CCUPN ---
<Luis James M - Last Filed: 01/04/19 17:09> CCU Subjective - Physician Review Subjective (Free Text): Critical care progress note for Dr. Spaulding Patient seen and examined at bedside. No overnight events reported. Patient states he is breathing better with improved cough. Patient still complains of suprapubic pain. Patient has no other complains, denies chest pain, SOB, abdominal pain, N/V. CCU Objective - Vital Signs / Intake & Output Vital Signs (Last 4 hours): Vital Signs Temp Pulse Resp BP Pulse Ox 01/04/19 04:00 98 F 61 22 104/53 L 100 01/04/19 03:56 22 Intake and Output (Last 8hrs): Intake & Output 01/03/19 01/04/19 01/04/19 22:59 06:59 14:59 Intake Total 1030 0 Output Total 2150 Balance -1120 0 Intake: Intake, IV Amount 50 Right Forearm 50 Oral 980 0 Output: Urine 50 Suprapubic 50 Other 2100 Other: # Bowel Movements 0 - Physical Exam Head: Positive for: Atraumatic Pupils: Negative for: Sluggish Extroacular Muscles: Positive for: EOMI Mouth: Positive for: Moist Mucous Membranes Respiratory/Chest: Positive for: Accessory Muscle Use, Wheezes, Rales Cardiovascular: Positive for: Normal S1, S2. Negative for: Rub Abdomen: Positive for: Normal Bowel Sounds, Other (suprapubic catheter in place) Genitourinary Male: Positive for: Other (suprapubic cathetor ) Upper Extremity: Negative for: Cyanosis, Edema Lower Extremity: Positive for: Normal Inspection, Edema Skin: Positive for: Warm, Dry Psychiatric: Positive for: Oriented x 3, Normal Insight - Medications Active Medications: Active Medications Generic Name Dose Route Start Last Admin Trade Name Freq PRN Reason Stop Dose Admin Acetaminophen 650 mg 12/30/18 12:34 Tylenol 325mg Tab PO Q6 PRN Fever >100.4 F Albuterol/Ipratropium 3 ml 01/01/19 20:00 01/03/19 23:37 Duoneb 3 Mg/0.5 Mg (3 Ml) Ud INH 3 ml RQ4 SHERLEY Administration Aspirin 81 mg 12/31/18 10:00 01/03/19 09:35 Aspirin Chewable PO 81 mg DAILY SHERLEY Administration Benzonatate 100 mg 12/30/18 20:00 01/03/19 21:00 Tessalon Perles PO 100 mg Q12H SHERLEY Administration Cilostazol 50 mg 12/30/18 18:00 01/03/19 18:08 Pletal PO 50 mg BID SHERLEY Administration Dextrose 0 ml 12/30/18 17:47 01/04/19 07:16 Dextrose 50% Inj IV 50 ml STAT PRN Administration Hypoglycemia Protocol Protocol Dextrose 0 gm 12/30/18 17:47 Glutose 15 PO ONCE PRN Hypoglycemia Protocol Protocol Doxycycline Hyclate 100 mg 01/02/19 19:45 01/03/19 20:00 Doryx PO 100 mg Q12H SHERLEY Administration Protocol Famotidine 20 mg 12/31/18 10:00 01/03/19 09:36 Pepcid PO 20 mg DAILY SHERLEY Administration Glucagon 0 mg 12/30/18 17:47 Glucagen Diagnostic Kit IM STAT PRN Hypoglycemia Protocol Protocol Heparin Sodium (Porcine) 5,000 units 12/30/18 22:00 01/04/19 06:57 Heparin SC 5,000 units Q8 SHERLEY Administration Piperacillin Sod/Tazobactam Sod 2.25 gm in 50 mls @ 100 mls/hr 12/30/18 20:00 01/04/19 04:00 Zosyn 2.25 Gm Iv Premix IVPB 100 mls/hr Q8H SHERLEY Administration Protocol Dextrose 1,000 mls @ 0 mls/hr 12/30/18 17:47 Dextrose 5% In Water 1000 Ml IV .Q0M PRN Hypoglycemia Protocol Protocol Per Protocol Insulin Aspart 0 unit 12/30/18 16:30 01/03/19 17:00 Novolog SC 3 units AC SHERLEY Administration Protocol Insulin Glargine 15 unit 01/02/19 19:34 01/03/19 20:00 Lantus SC 15 u 2000 SHERLEY Administration Metoprolol Succinate 25 mg 12/31/18 10:00 01/03/19 09:35 Toprol Xl PO 25 mg DAILY SHERLEY Administration Montelukast Sodium 10 mg 12/31/18 10:00 01/03/19 09:34 Singulair PO 10 mg DAILY SHERLEY Administration Oseltamivir Phosphate 30 mg 01/01/19 18:00 01/03/19 18:10 Tamiflu Susp PO 01/07/19 18:01 30 mg Q2D SHERLEY Administration Protocol Rosuvastatin Calcium 5 mg 12/30/18 22:00 01/03/19 21:21 Crestor PO 5 mg HS SHERLEY Administration Sevelamer Carbonate 1,600 mg 12/30/18 17:00 01/03/19 18:06 Renvela PO 1,600 mg TIDCC SH[facility]LEY Administration - Patient Studies Lab Studies: Microbiology Studies 12/30/18 09:30 Blood Culture - Preliminary Blood NO GROWTH AFTER 4 DAYS 12/30/18 09:26 Blood Culture - Preliminary Blood NO GROWTH AFTER 4 DAYS Lab Studies 01/04/19 01/04/19 01/03/19 Range/Units 06:42 06:42 21:29 WBC 6.3 (4.8-10.8) K/uL RBC 4.30 L (4.40-5.90) Mil/uL Hgb 12.7 (12.0-18.0) g/dL Hct 38.3 (35.0-51.0) % MCV 89.1 (80.0-94.0) fL MCH 29.4 (27.0-31.0) pg MCHC 33.0 (33.0-37.0) g/dL RDW 15.8 H (11.5-14.5) % Plt Count 177 (130-400) K/uL MPV 8.7 (7.2-11.7) fL Neut % (Auto) 74.8 (50.0-75.0) % Lymph % (Auto) 17.2 L (20.0-40.0) % [place] % (Auto) 6.1 (0.0-10.0) % Eos % (Auto) 1.1 (0.0-4.0) % Baso % (Auto) 0.8 (0.0-2.0) % Neut # (Auto) 4.7 (1.8-7.0) K/uL Lymph # (Auto) 1.1 (1.0-4.3) K/uL [place] # (Auto) 0.4 (0.0-0.8) K/uL Eos # (Auto) 0.1 (0.0-0.7) K/uL Baso # (Auto) 0.0 (0.0-0.2) K/uL Sodium 138 (132-148) mmol/L Potassium 3.9 (3.6-5.2) mmol/L Chloride 94 L (98-107) mmol/L Carbon Dioxide 32 H (22-30) mmol/L Anion Gap 16 (10-20) BUN 45 H (9-20) mg/dL Creatinine 5.4 H (0.8-1.5) mg/dL Est GFR ( Amer) 13 Est GFR (Non-Af Amer) 11 POC Glucose (mg/dL) 89 (65-110) mg/dL Random Glucose 40 L* D (75-110) mg/dL Calcium 9.1 (8.6-10.4) mg/dl Phosphorus 5.2 H (2.5-4.5) mg/dL Magnesium 2.1 (1.6-2.3) mg/dL Total Bilirubin 0.5 (0.2-1.3) mg/dL AST 86 H (17-59) U/L ALT 27 (21-72) U/L Alkaline Phosphatase 80 (38-126) U/L Total Protein 7.5 (6.3-8.3) g/dL Albumin 4.2 (3.5-5.0) g/dL Globulin 3.3 (2.2-3.9) gm/dL Albumin/Globulin Ratio 1.3 (1.0-2.1) 01/03/19 01/03/19 01/03/19 Range/Units 16:29 11:37 07:24 WBC (4.8-10.8) K/uL RBC (4.40-5.90) Mil/uL Hgb (12.0-18.0) g/dL Hct (35.0-51.0) % MCV (80.0-94.0) fL MCH (27.0-31.0) pg MCHC (33.0-37.0) g/dL RDW (11.5-14.5) % Plt Count (130-400) K/uL MPV (7.2-11.7) fL Neut % (Auto) (50.0-75.0) % Lymph % (Auto) (20.0-40.0) % [place] % (Auto) (0.0-10.0) % Eos % (Auto) (0.0-4.0) % Baso % (Auto) (0.0-2.0) % Neut # (Auto) (1.8-7.0) K/uL Lymph # (Auto) (1.0-4.3) K/uL [place] # (Auto) (0.0-0.8) K/uL Eos # (Auto) (0.0-0.7) K/uL Baso # (Auto) (0.0-0.2) K/uL Sodium (132-148) mmol/L Potassium (3.6-5.2) mmol/L Chloride (98-107) mmol/L Carbon Dioxide (22-30) mmol/L Anion Gap (10-20) BUN (9-20) mg/dL Creatinine (0.8-1.5) mg/dL Est GFR ( Amer) Est GFR (Non-Af Amer) POC Glucose (mg/dL) 220 H 169 H 97 (65-110) mg/dL Random Glucose (75-110) mg/dL Calcium (8.6-10.4) mg/dl Phosphorus (2.5-4.5) mg/dL Magnesium (1.6-2.3) mg/dL Total Bilirubin (0.2-1.3) mg/dL AST (17-59) U/L ALT (21-72) U/L Alkaline Phosphatase (38-126) U/L Total Protein (6.3-8.3) g/dL Albumin (3.5-5.0) g/dL Globulin (2.2-3.9) gm/dL Albumin/Globulin Ratio (1.0-2.1) Laboratory Results - last 24 hr 01/03/19 01/03/19 01/03/19 07:24 11:37 16:29 WBC RBC Hgb Hct MCV MCH MCHC RDW Plt Count MPV Neut % (Auto) Lymph % (Auto) [place] % (Auto) Eos % (Auto) Baso % (Auto) Neut # (Auto) Lymph # (Auto) [place] # (Auto) Eos # (Auto) Baso # (Auto) Sodium Potassium Chloride Carbon Dioxide Anion Gap BUN Creatinine Est GFR ( Amer) Est GFR (Non-Af Amer) POC Glucose (mg/dL) 97 169 H 220 H Random Glucose Calcium Phosphorus Magnesium Total Bilirubin AST ALT Alkaline Phosphatase Total Protein Albumin Globulin Albumin/Globulin Ratio 01/03/19 01/04/1919 21:29 06:42 06:42 WBC 6.3 RBC 4.30 L Hgb 12.7 Hct 38.3 MCV 89.1 MCH 29.4 MCHC 33.0 RDW 15.8 H Plt Count 177 MPV 8.7 Neut % (Auto) 74.8 Lymph % (Auto) 17.2 L [place] % (Auto) 6.1 Eos % (Auto) 1.1 Baso % (Auto) 0.8 Neut # (Auto) 4.7 Lymph # (Auto) 1.1 [place] # (Auto) 0.4 Eos # (Auto) 0.1 Baso # (Auto) 0.0 Sodium 138 Potassium 3.9 Chloride 94 L Carbon Dioxide 32 H Anion Gap 16 BUN 45 H Creatinine 5.4 H Est GFR ( Amer) 13 Est GFR (Non-Af Amer) 11 POC Glucose (mg/dL) 89 Random Glucose 40 L* D Calcium 9.1 Phosphorus 5.2 H Magnesium 2.1 Total Bilirubin 0.5 AST 86 H ALT 27 Alkaline Phosphatase 80 Total Protein 7.5 Albumin 4.2 Globulin 3.3 Albumin/Globulin Ratio 1.3 Radiology Impressions: Radiology Impressions Chest X-Ray 01/03/19 10:49 IMPRESSION: Improving bilateral lower lobe infiltrates right greater than left. Persistent bilateral pleural effusions. EKG/Cardiology Studies: Cardiology / EKG Studies 01/04/19 08:00 EKG [ELECTROCARDIOGRAM] Routine Comment: Mode Of Transportation: Reason For Exam: arrhythmia on admision ekg Isolation: Droplet Fingerstick Blood Sugar Results: 170 Review of Systems - Constitutional Constitutional: absent: Chills, Weakness - EENT Eyes: UNREMARKABLE Ears: UNREMARKABLE Nose/Mouth/Throat: UNREMARKABLE - Cardiovascular Cardiovascular: UNREMARKABLE - Respiratory Respiratory: UNREMARKABLE - Gastrointestinal Gastrointestinal: UNREMARKABLE - Genitourinary Genitourinary: UNREMARKABLE - Reproductive: Male Reproductive:Male: UNREMARKABLE - Musculoskeletal Musculoskeletal: UNREMARKABLE - Integumentary Integumentary: UNREMARKABLE - Neurological Neurological: UNREMARKABLE - Psychiatric Psychiatric: UNREMARKABLE - Endocrine Endocrine: UNREMARKABLE - Hematologic/Lymphatic Hematologic: UNREMARKABLE Critical Care Progress Note - Extremities/Vascular Does the Patient need a Central Venous Catheter?: No Does the Patient have a Chun Catheter?: Yes Does the Patient need a Chun Catheter?: Yes Catheter Insertion Criteria: Need for accurate measurement of output in critically ill patient - Prophylaxis DVT Prophylaxis DVT: Heparin SQ - Nutrition Nutrition: Nutrition Category Date Time Status Renal Diet [DIET] Diets 12/31/18 Breakfast Active Assessment/Plan - Assessment and Plan (Free Text) Assessment: 73 male w/ PMhx of ESRD, COPD, HTN, presented to ED shortness of breath/ fever, found to be influenza A (+), RLL pneumonia, admitted to ICU for hypercapneic respiratory failure, currently improving and attempting to wean. Today in AM patient saturating high 80s on high flow, will continue to optimize. Plan: Neuro - alert and oriented X 3 Cardio - vitals stable on 80% in PM - hx of HTN, c/w asprin 81 mg daily, hydralazine 25 PO TID, cilostazol 50 mg PO BID, metoprolol succinate 25 mg PO daily, - ?premature atrial complex, will F/u EKG, F/u ECHO Resp - saturating in 90s on high flow in PM - if desaturates, place back on BIPAP - ABG 01/02: 7.35/58/159/28.6 - will continue to monitor GI - c/w diet Renal - BUN/Cr 45/5.4 - Had dialysis yesterday - urology Dr. Odom consulted - per recs, will likely need OP f/u w/ physician that placed suprapubic cath Heme - H/H stable in 11s/ 35s - continue to monitor ID - afebrile, WBC normal - on admission Tmax 102.4 - CXR: bilateral effusions/ atelectasis/ pneumonia - UA: Sq epith 1, LEuk esterase 1+, WBC 13, Nitrate + - due to recent hospitalization & possible hospital acquired pneumonia - Zosyn 2.25 Q8H - Vancomycine 12/30 - 01/02 - Doxyclycline 100 mg Q12H (01/02 - present) - B/C negative X 48H - UC - gram positive cocci, corybebacterium - D/c contact as patient is afebrile > 24H PPx - DVT: heparin SC 5000 units, SCDs - GI: Pepcid 20 mg daily <Speedy Spaulding - Last Filed: 01/04/19 18:54> CCU Subjective - Physician Review Critical Care Time Spent (in minutes): 35 CCU Objective - Vital Signs / Intake & Output Vital Signs (Last 4 hours): Vital Signs Pulse Resp BP Pulse Ox 01/04/19 18:16 78 15 122/56 L 93 L 01/04/19 18:00 79 23 91 L 01/04/19 17:15 78 116/52 L 90 L 01/04/19 17:00 77 93 L 01/04/19 16:15 81 119/54 L 91 L 01/04/19 16:00 86 97 01/04/19 15:16 83 120/55 L 96 01/04/19 15:00 79 94 L Intake and Output (Last 8hrs): Intake & Output 01/04/19 01/04/19 01/04/19 06:59 14:59 22:59 Intake Total 100 1070 280 Output Total 110 Balance 100 960 280 Weight 119 lb 0.131 oz Intake: Intake, IV Amount 50 50 Right Forearm 50 50 Oral 50 1020 280 Output: Urine 110 Suprapubic 110 Other: # Bowel Movements 0 0 0 - Medications Active Medications: Active Medications Generic Name Dose Route Start Last Admin Trade Name Freq PRN Reason Stop Dose Admin Acetaminophen 650 mg 12/30/18 12:34 Tylenol 325mg Tab PO Q6 PRN Fever >100.4 F Albuterol/Ipratropium 3 ml 01/01/19 20:00 01/04/19 07:45 Duoneb 3 Mg/0.5 Mg (3 Ml) Ud INH 3 ml RQ4 SHERLEY Administration Aspirin 81 mg 12/31/18 10:00 01/04/19 11:05 Aspirin Chewable PO 81 mg DAILY SHERLEY Administration Benzonatate 100 mg 12/30/18 20:00 01/04/19 09:01 Tessalon Perles PO 100 mg Q12H SHERLEY Administration Cilostazol 50 mg 12/30/18 18:00 01/04/19 17:15 Pletal PO 50 mg BID SHERLEY Administration Dextrose 0 ml 12/30/18 17:47 01/04/19 07:16 Dextrose 50% Inj IV 50 ml STAT PRN Administration Hypoglycemia Protocol Protocol Dextrose 0 gm 12/30/18 17:47 Glutose 15 PO ONCE PRN Hypoglycemia Protocol Protocol Doxycycline Hyclate 100 mg 01/02/19 19:45 01/04/19 09:01 Doryx PO 100 mg Q12H SHERLEY Administration Protocol Famotidine 20 mg 12/31/18 10:00 01/04/19 11:05 Pepcid PO 20 mg DAILY SHERLEY Administration Glucagon 0 mg 12/30/18 17:47 Glucagen Diagnostic Kit IM STAT PRN Hypoglycemia Protocol Protocol Heparin Sodium (Porcine) 5,000 units 12/30/18 22:00 01/04/19 15:03 Heparin SC 5,000 units Q8 SHERLEY Administration Piperacillin Sod/Tazobactam Sod 2.25 gm in 50 mls @ 100 mls/hr 12/30/18 20:00 01/04/19 11:06 Zosyn 2.25 Gm Iv Premix IVPB 100 mls/hr Q8H SHERLEY Administration Protocol Dextrose 1,000 mls @ 0 mls/hr 12/30/18 17:47 Dextrose 5% In Water 1000 Ml IV .Q0M PRN Hypoglycemia Protocol Protocol Per Protocol Insulin Aspart 0 unit 12/30/18 16:30 01/04/19 17:14 Novolog SC Not Given AC SHERLEY Protocol Insulin Glargine 10 unit 01/04/19 22:00 Lantus SC HS SHERLEY Metoprolol Succinate 25 mg 12/31/18 10:00 01/04/19 11:04 Toprol Xl PO 25 mg DAILY SHERLEY Administration Montelukast Sodium 10 mg 12/31/18 10:00 01/04/19 11:08 Singulair PO 10 mg DAILY SHERLEY Administration Rosuvastatin Calcium 5 mg 12/30/18 22:00 01/03/19 21:21 Crestor PO 5 mg HS SHERLEY Administration Sevelamer Carbonate 1,600 mg 12/30/18 17:00 01/04/19 17:13 Renvela PO 1,600 mg TIDCC SHERLEY Administration - Patient Studies Lab Studies: Microbiology Studies 12/30/18 09:30 Blood Culture - Final Blood NO GROWTH AFTER 5 DAYS Gram Stain - Final TEST NOT PERFORMED 12/30/18 09:26 Blood Culture - Final Blood NO GROWTH AFTER 5 DAYS Gram Stain - Final TEST NOT PERFORMED Lab Studies 01/04/19 01/04/19 01/04/19 Range/Units 16:03 11:57 08:07 WBC (4.8-10.8) K/uL RBC (4.40-5.90) Mil/uL Hgb (12.0-18.0) g/dL Hct (35.0-51.0) % MCV (80.0-94.0) fL MCH (27.0-31.0) pg MCHC (33.0-37.0) g/dL RDW (11.5-14.5) % Plt Count (130-400) K/uL MPV (7.2-11.7) fL Neut % (Auto) (50.0-75.0) % Lymph % (Auto) (20.0-40.0) % [place] % (Auto) (0.0-10.0) % Eos % (Auto) (0.0-4.0) % Baso % (Auto) (0.0-2.0) % Neut # (Auto) (1.8-7.0) K/uL Lymph # (Auto) (1.0-4.3) K/uL [place] # (Auto) (0.0-0.8) K/uL Eos # (Auto) (0.0-0.7) K/uL Baso # (Auto) (0.0-0.2) K/uL Sodium (132-148) mmol/L Potassium (3.6-5.2) mmol/L Chloride (98-107) mmol/L Carbon Dioxide (22-30) mmol/L Anion Gap (10-20) BUN (9-20) mg/dL Creatinine (0.8-1.5) mg/dL Est GFR ( Amer) Est GFR (Non-Af Amer) POC Glucose (mg/dL) 182 H 175 H 157 H (65-110) mg/dL Random Glucose (75-110) mg/dL Calcium (8.6-10.4) mg/dl Phosphorus (2.5-4.5) mg/dL Magnesium (1.6-2.3) mg/dL Total Bilirubin (0.2-1.3) mg/dL AST (17-59) U/L ALT (21-72) U/L Alkaline Phosphatase (38-126) U/L Total Protein (6.3-8.3) g/dL Albumin (3.5-5.0) g/dL Globulin (2.2-3.9) gm/dL Albumin/Globulin Ratio (1.0-2.1) 01/04/19 01/04/19 01/04/19 Range/Units 07:10 07:08 06:42 WBC (4.8-10.8) K/uL RBC (4.40-5.90) Mil/uL Hgb (12.0-18.0) g/dL Hct (35.0-51.0) % MCV (80.0-94.0) fL MCH (27.0-31.0) pg MCHC (33.0-37.0) g/dL RDW (11.5-14.5) % Plt Count (130-400) K/uL MPV (7.2-11.7) fL Neut % (Auto) (50.0-75.0) % Lymph % (Auto) (20.0-40.0) % [place] % (Auto) (0.0-10.0) % Eos % (Auto) (0.0-4.0) % Baso % (Auto) (0.0-2.0) % Neut # (Auto) (1.8-7.0) K/uL Lymph # (Auto) (1.0-4.3) K/uL [place] # (Auto) (0.0-0.8) K/uL Eos # (Auto) (0.0-0.7) K/uL Baso # (Auto) (0.0-0.2) K/uL Sodium 138 (132-148) mmol/L Potassium 3.9 (3.6-5.2) mmol/L Chloride 94 L (98-107) mmol/L Carbon Dioxide 32 H (22-30) mmol/L Anion Gap 16 (10-20) BUN 45 H (9-20) mg/dL Creatinine 5.4 H (0.8-1.5) mg/dL Est GFR ( Amer) 13 Est GFR (Non-Af Amer) 11 POC Glucose (mg/dL) 32 L* 30 L* (65-110) mg/dL Random Glucose 40 L* D (75-110) mg/dL Calcium 9.1 (8.6-10.4) mg/dl Phosphorus 5.2 H (2.5-4.5) mg/dL Magnesium 2.1 (1.6-2.3) mg/dL Total Bilirubin 0.5 (0.2-1.3) mg/dL AST 86 H (17-59) U/L ALT 27 (21-72) U/L Alkaline Phosphatase 80 (38-126) U/L Total Protein 7.5 (6.3-8.3) g/dL Albumin 4.2 (3.5-5.0) g/dL Globulin 3.3 (2.2-3.9) gm/dL Albumin/Globulin Ratio 1.3 (1.0-2.1) 01/04/19 01/03/19 Range/Units 06:42 21:29 WBC 6.3 (4.8-10.8) K/uL RBC 4.30 L (4.40-5.90) Mil/uL Hgb 12.7 (12.0-18.0) g/dL Hct 38.3 (35.0-51.0) % MCV 89.1 (80.0-94.0) fL MCH 29.4 (27.0-31.0) pg MCHC 33.0 (33.0-37.0) g/dL RDW 15.8 H (11.5-14.5) % Plt Count 177 (130-400) K/uL MPV 8.7 (7.2-11.7) fL Neut % (Auto) 74.8 (50.0-75.0) % Lymph % (Auto) 17.2 L (20.0-40.0) % [place] % (Auto) 6.1 (0.0-10.0) % Eos % (Auto) 1.1 (0.0-4.0) % Baso % (Auto) 0.8 (0.0-2.0) % Neut # (Auto) 4.7 (1.8-7.0) K/uL Lymph # (Auto) 1.1 (1.0-4.3) K/uL [place] # (Auto) 0.4 (0.0-0.8) K/uL Eos # (Auto) 0.1 (0.0-0.7) K/uL Baso # (Auto) 0.0 (0.0-0.2) K/uL Sodium (132-148) mmol/L Potassium (3.6-5.2) mmol/L Chloride (98-107) mmol/L Carbon Dioxide (22-30) mmol/L Anion Gap (10-20) BUN (9-20) mg/dL Creatinine (0.8-1.5) mg/dL Est GFR ( Amer) Est GFR (Non-Af Amer) POC Glucose (mg/dL) 89 (65-110) mg/dL Random Glucose (75-110) mg/dL Calcium (8.6-10.4) mg/dl Phosphorus (2.5-4.5) mg/dL Magnesium (1.6-2.3) mg/dL Total Bilirubin (0.2-1.3) mg/dL AST (17-59) U/L ALT (21-72) U/L Alkaline Phosphatase (38-126) U/L Total Protein (6.3-8.3) g/dL Albumin (3.5-5.0) g/dL Globulin (2.2-3.9) gm/dL Albumin/Globulin Ratio (1.0-2.1) Laboratory Results - last 24 hr 01/03/19 01/04/19 01/04/19 21:29 06:42 06:42 WBC 6.3 RBC 4.30 L Hgb 12.7 Hct 38.3 MCV 89.1 MCH 29.4 MCHC 33.0 RDW 15.8 H Plt Count 177 MPV 8.7 Neut % (Auto) 74.8 Lymph % (Auto) 17.2 L [place] % (Auto) 6.1 Eos % (Auto) 1.1 Baso % (Auto) 0.8 Neut # (Auto) 4.7 Lymph # (Auto) 1.1 [place] # (Auto) 0.4 Eos # (Auto) 0.1 Baso # (Auto) 0.0 Sodium 138 Potassium 3.9 Chloride 94 L Carbon Dioxide 32 H Anion Gap 16 BUN 45 H Creatinine 5.4 H Est GFR ( Amer) 13 Est GFR (Non-Af Amer) 11 POC Glucose (mg/dL) 89 Random Glucose 40 L* D Calcium 9.1 Phosphorus 5.2 H Magnesium 2.1 Total Bilirubin 0.5 AST 86 H ALT 27 Alkaline Phosphatase 80 Total Protein 7.5 Albumin 4.2 Globulin 3.3 Albumin/Globulin Ratio 1.3 01/04/19 01/04/19 01/04/19 07:08 07:10 08:07 WBC RBC Hgb Hct MCV MCH MCHC RDW Plt Count MPV Neut % (Auto) Lymph % (Auto) [place] % (Auto) Eos % (Auto) Baso % (Auto) Neut # (Auto) Lymph # (Auto) [place] # (Auto) Eos # (Auto) Baso # (Auto) Sodium Potassium Chloride Carbon Dioxide Anion Gap BUN Creatinine Est GFR ( Amer) Est GFR (Non-Af Amer) POC Glucose (mg/dL) 30 L* 32 L* 157 H Random Glucose Calcium Phosphorus Magnesium Total Bilirubin AST ALT Alkaline Phosphatase Total Protein Albumin Globulin Albumin/Globulin Ratio 01/04/19 01/04/19 11:57 16:03 WBC RBC Hgb Hct MCV MCH MCHC RDW Plt Count MPV Neut % (Auto) Lymph % (Auto) [place] % (Auto) Eos % (Auto) Baso % (Auto) Neut # (Auto) Lymph # (Auto) [place] # (Auto) Eos # (Auto) Baso # (Auto) Sodium Potassium Chloride Carbon Dioxide Anion Gap BUN Creatinine Est GFR ( Amer) Est GFR (Non-Af Amer) POC Glucose (mg/dL) 175 H 182 H Random Glucose Calcium Phosphorus Magnesium Total Bilirubin AST ALT Alkaline Phosphatase Total Protein Albumin Globulin Albumin/Globulin Ratio EKG/Cardiology Studies: Cardiology / EKG Studies 01/04/19 08:00 EKG [ELECTROCARDIOGRAM] Routine Comment: Mode Of Transportation: Reason For Exam: arrhythmia on admision ekg Isolation: Droplet Critical Care Progress Note - Nutrition Nutrition: Nutrition Category Date Time Status Renal Diet [DIET] Diets 12/31/18 Breakfast Active Assessment/Plan (1) Influenza Current Visit: Yes Status: Acute (2) Pleural effusion Current Visit: Yes Status: Acute (3) Pneumonia Current Visit: Yes Status: Acute (4) ESRD (end stage renal disease) on dialysis Current Visit: Yes Status: Chronic Attending/Attestation - Attestation I have personally seen and examined this patient.: Yes I have fully participated in the care of the patient.: Yes I have reviewed all pertinent clinical information: Yes Notes (Text): 01/04/19 18:54 Patient seen and examined in the intensive care unit. Patient remains on high flow oxygen Clinically improving with less shortness of breath and cough Status post hemodialysis Continue antibiotics Continue present treatment for now
[2019-01-04] MEDS: Albuterol-Ipratrop 3 mg / 0.5 (3 ml) UD INH SCH ×3 (07:45→20:26)
--- NOTE | 2019-01-04 08:23 | CP.PCM.PN ---
Subjective - Date & Time of Evaluation Date of Evaluation: 01/04/19 Time of Evaluation: 08:20 - Subjective Subjective: Notes reviewed pt seen and examined off BiPAP as previous afebrile BP stable no SOB, cough improving Offers no new complaints ROS- as per HPI, other than that 10 point ROS negative Objective - Vital Signs/Intake and Output Vital Signs (last 24 hours): Temp Pulse Resp BP Pulse Ox 98 F 72 17 107/48 L 100 01/04/19 04:00 01/04/19 07:05 01/04/19 07:05 01/04/19 07:05 01/04/19 07:05 Intake and Output: 01/04/19 01/04/19 06:59 18:59 Intake Total 430 0 Output Total 110 Balance 430 -110 - Medications Medications: Current Medications Acetaminophen (Tylenol 325mg Tab) 650 mg PO Q6 PRN PRN Reason: Fever >100.4 F Albuterol/Ipratropium (Duoneb 3 Mg/0.5 Mg (3 Ml) Ud) 3 ml INH RQ4 [facility] Last Admin: 01/03/19 23:37 Dose: 3 ml Aspirin (Aspirin Chewable) 81 mg PO DAILY [facility] Last Admin: 01/03/19 09:35 Dose: 81 mg Benzonatate (Tessalon Perles) 100 mg PO Q12H [facility] Last Admin: 01/03/19 21:00 Dose: 100 mg Cilostazol (Pletal) 50 mg PO BID [facility] Last Admin: 01/03/19 18:08 Dose: 50 mg Dextrose (Dextrose 50% Inj) 0 ml IV STAT PRN; Protocol PRN Reason: Hypoglycemia Protocol Last Admin: 01/04/19 07:16 Dose: 50 ml Dextrose (Glutose 15) 0 gm PO ONCE PRN; Protocol PRN Reason: Hypoglycemia Protocol Doxycycline Hyclate (Doryx) 100 mg PO Q12H [facility]; Protocol Last Admin: 01/03/19 20:00 Dose: 100 mg Famotidine (Pepcid) 20 mg PO DAILY [facility] Last Admin: 01/03/19 09:36 Dose: 20 mg Glucagon (Glucagen Diagnostic Kit) 0 mg IM STAT PRN; Protocol PRN Reason: Hypoglycemia Protocol Heparin Sodium (Porcine) (Heparin) 5,000 units SC Q8 [facility] Last Admin: 01/04/19 06:57 Dose: 5,000 units Piperacillin Sod/Tazobactam Sod (Zosyn 2.25 Gm Iv Premix) 2.25 gm in 50 mls @ 100 mls/hr IVPB Q8H [facility]; Protocol Last Admin: 01/04/19 04:00 Dose: 100 mls/hr Dextrose (Dextrose 5% In Water 1000 Ml) 1,000 mls @ 0 mls/hr IV .Q0M PRN; Protocol PRN Reason: Hypoglycemia Protocol Insulin Aspart (Novolog) 0 unit SC AC [facility]; Protocol Last Admin: 01/03/19 17:00 Dose: 3 units Insulin Glargine (Lantus) 15 unit SC 2000 [facility] Last Admin: 01/03/19 20:00 Dose: 15 u Metoprolol Succinate (Toprol Xl) 25 mg PO DAILY [facility] Last Admin: 01/03/19 09:35 Dose: 25 mg Montelukast Sodium (Singulair) 10 mg PO DAILY [facility] Last Admin: 01/03/19 09:34 Dose: 10 mg Oseltamivir Phosphate (Tamiflu Susp) 30 mg PO Q2D [facility]; Protocol Stop: 01/07/19 18:01 Last Admin: 01/03/19 18:10 Dose: 30 mg Rosuvastatin Calcium (Crestor) 5 mg PO HS [facility] Last Admin: 01/03/19 21:21 Dose: 5 mg Sevelamer Carbonate (Renvela) 1,600 mg PO TIDCC [facility] Last Admin: 01/03/19 18:06 Dose: 1,600 mg - Labs Labs: 01/04/19 06:42 01/04/19 06:42 PT 11.2 SECONDS (9.7-12.2) 12/30/18 09:19 INR 1.0 12/30/18 09:19 APTT 30 SECONDS (21-34) 12/30/18 09:19 - Head Exam Head Exam: ATRAUMATIC, NORMAL INSPECTION - Eye Exam Eye Exam: EOMI, Normal appearance - ENT Exam ENT Exam: Mucous Membranes Moist, Normal Oropharynx - Respiratory Exam Respiratory Exam: Rhonchi. absent: Rales, Wheezes - Cardiovascular Exam Cardiovascular Exam: +S1, +S2. absent: Rubs - GI/Abdominal Exam GI & Abdominal Exam: Soft, Normal Bowel Sounds - Extremities Exam Extremities Exam: absent: Pedal Edema, Tenderness - Neurological Exam Neurological Exam: Alert, Awake - Skin Skin Exam: Dry, Intact Assessment and Plan (1) Influenza Status: Acute (2) ESRD (end stage renal disease) on dialysis Status: Chronic (3) Bronchitis Status: Acute (4) Chronic congestive heart failure Status: Acute (5) Type 2 diabetes mellitus with diabetic nephropathy Status: Acute (6) HTN (hypertension) Status: Chronic - Assessment and Plan (Free Text) Assessment: Management of effusions per icu team Tolerating antiinfectives well Maintain dialysis schedule Monitor bp with reduced meds
[2019-01-04] MEDS: Cilostazol 50 mg Tab UD PO SCH ×2 (09:02→17:15)
[2019-01-04] MEDS: Metoprolol Succinate 25 mg XL Tab PO SCH (11:04)
[2019-01-04] MEDS: (Novolog) Insulin Aspart, Recombinant 100 u/ml 10 ml vial SC SCH ×3 (12:31→17:14)
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
--- NOTE | 2019-01-04 16:11 | CARD ---
APPROVED REPORT Date of service: 01/04/2019 EXAM: Two-dimensional and M-mode echocardiogram with Doppler and color Doppler. INDICATION Pericardial Effusion 2D DIMENSIONS IVSd1.0 (0.7-1.1cm)LVDd5.8 (3.9-5.9cm) PWd0.9 (0.7-1.1cm)LA Fevdyw60 (18-58mL) LVDs4.3 (2.5-4.0cm)FS (%) 25.8 % LVEF (%)50.1 (>50%)LVEF (Boucher's)38.67 % M-Mode DIMENSIONS Left Atrium (MM)3.53 (2.5-4.0cm)IVSd1.11 (0.7-1.1cm) Aortic Root3.63 (2.2-3.7cm)LVDd5.16 (4.0-5.6cm) Aortic Cusp Exc.2.08 (1.5-2.0cm)PWd0.93 (0.7-1.1cm) FS (%) 27 %LVDs3.75 (2.0-3.8cm) LVEF (%)53 (>50%) Mitral Valve MV E Nvumzzvi36.9cm/sMV A Obolmztv40.2cm/sE/A ratio0.5 TDI Lateral E' Peak V4.29cm/sMedial E' Peak V5.06cm/sE/Lateral E'11.4 E/Medial E'9.7 LEFT VENTRICLE The Left Ventricle is borderline dilated. There is normal left ventricular wall thickness. The systolic function is moderately impaired. Regional wall motion abnormalities noted. Transmitral Doppler flow pattern is Grade I-abnormal relaxation pattern. RIGHT VENTRICLE The right ventricle is normal size. There is normal right ventricular wall thickness. The right ventricular systolic function is normal. ATRIA The left atrium size is normal. The right atrium size is normal. AORTIC VALVE The aortic valve is mildly to moderately thickened. No aortic regurgitation is present. There is no aortic valvular stenosis. MITRAL VALVE The mitral valve is mildly thickened. There is no mitral valve stenosis. There is no mitral valve regurgitation noted. TRICUSPID VALVE The tricuspid valve is normal in structure. There is no tricuspid valve regurgitation noted. GREAT VESSELS The aortic root is normal in size. PERICARDIAL EFFUSION There is no pericardial effusion. <Conclusion> The Left Ventricle is borderline dilated. There is normal left ventricular wall thickness. The systolic function is moderately impaired. Regional wall motion abnormalities noted. The aortic valve is mildly to moderately thickened. There is no pericardial effusion. Transmitral Doppler flow pattern is Grade I-abnormal relaxation pattern.
[2019-01-04] MEDS: (Lantus) Insulin Glargine, Recombinant SC SCH (21:38)
[2019-01-05] MEDS: Albuterol-Ipratrop 3 mg / 0.5 (3 ml) UD INH SCH ×6 (00:53→19:25)
[2019-01-05] MEDS: Piperacill/Tazo 2.25gm in Dex 2.25 GM/50 ML BAG IVPB SCH ×3 (04:14→20:05)
[2019-01-05 06:02] LABS: ARTERIAL BLOOD GAS HCO3 26.2 mmol/L (21-28); ARTERIAL BLOOD GAS HEMOGLOBIN 11.4 g/dL (11.7-17.4); ARTERIAL BLOOD GAS O2 SAT 90.5 % (95-98); ARTERIAL BLOOD GAS PCO2 48 mm/Hg (35-45); ARTERIAL BLOOD GAS PH 7.37 (7.35-7.45); ARTERIAL BLOOD GAS PO2 56 mm/Hg (80-100); ARTERIAL BLOOD GAS TCO2 29.2 mmol/L (22-28)
[2019-01-05 06:18] LABS: BASO % 0.9 % (0.0-2.0); EOS # 0.2 K/uL (0.0-0.7); EOS % 3.5 % (0.0-4.0); LYMPH # 1.4 K/uL (1.0-4.3); MEAN CELL VOLUME 88.8 fL (80.0-94.0); MEAN CORPUSCULAR HEMOGLOBIN 29.2 pg (27.0-31.0); MEAN CORPUSCULAR HGB CONC 32.9 g/dL (33.0-37.0); MEAN PLATELET VOLUME 8.7 fL (7.2-11.7); MONO # 0.3 K/uL (0.0-0.8); MONO % 6.3 % (0.0-10.0); NEUT # 3.3 K/uL (1.8-7.0); NEUT % 62.3 % (50.0-75.0); NRBC % 0.1 % (0.0-2.0); RBC 4.11 Mil/uL (4.40-5.90); RED CELL DISTRIBUTION WIDTH 15.6 % (11.5-14.5); WHITE BLOOD COUNT 5.2 K/uL (4.8-10.8)
[2019-01-05 06:40] LABS: ALB/GLOB RATIO 1.4 (1.0-2.1); ALBUMIN 4.1 g/dL (3.5-5.0); CALCIUM 9.2 mg/dl (8.6-10.4)
--- NOTE | 2019-01-05 07:01 | CP.PCM.PN ---
Subjective - Date & Time of Evaluation Date of Evaluation: 01/05/19 Time of Evaluation: 06:59 - Subjective Subjective: comfortable on high flow oxygen HD today no pain +cough no n/v/diarrhea decreased u/o no rash no headache no joint pain no change in vision no sore throat Objective - Vital Signs/Intake and Output Vital Signs (last 24 hours): Temp Pulse Resp BP Pulse Ox 97.8 F 70 17 115/52 L 96 01/05/19 04:00 01/05/19 06:16 01/05/19 06:16 01/05/19 06:16 01/05/19 06:16 Intake and Output: 01/04/19 01/05/19 18:59 06:59 Intake Total 1350 200 Output Total 110 20 Balance 1240 180 - Medications Medications: Current Medications Acetaminophen (Tylenol 325mg Tab) 650 mg PO Q6 PRN PRN Reason: Fever >100.4 F Albuterol/Ipratropium (Duoneb 3 Mg/0.5 Mg (3 Ml) Ud) 3 ml INH RQ4 [facility] Last Admin: 01/05/19 03:33 Dose: 3 ml Aspirin (Aspirin Chewable) 81 mg PO DAILY [facility] Last Admin: 01/04/19 11:05 Dose: 81 mg Benzonatate (Tessalon Perles) 100 mg PO Q12H [facility] Last Admin: 01/04/19 20:28 Dose: 100 mg Cilostazol (Pletal) 50 mg PO BID [facility] Last Admin: 01/04/19 17:15 Dose: 50 mg Dextrose (Dextrose 50% Inj) 0 ml IV STAT PRN; Protocol PRN Reason: Hypoglycemia Protocol Last Admin: 01/04/19 07:16 Dose: 50 ml Dextrose (Glutose 15) 0 gm PO ONCE PRN; Protocol PRN Reason: Hypoglycemia Protocol Doxycycline Hyclate (Doryx) 100 mg PO Q12H [facility]; Protocol Last Admin: 01/04/19 20:28 Dose: 100 mg Famotidine (Pepcid) 20 mg PO DAILY [facility] Last Admin: 01/04/19 11:05 Dose: 20 mg Glucagon (Glucagen Diagnostic Kit) 0 mg IM STAT PRN; Protocol PRN Reason: Hypoglycemia Protocol Heparin Sodium (Porcine) (Heparin) 5,000 units SC Q8 [facility] Last Admin: 01/05/19 05:17 Dose: 5,000 units Piperacillin Sod/Tazobactam Sod (Zosyn 2.25 Gm Iv Premix) 2.25 gm in 50 mls @ 100 mls/hr IVPB Q8H [facility]; Protocol Last Admin: 01/05/19 04:14 Dose: 100 mls/hr Dextrose (Dextrose 5% In Water 1000 Ml) 1,000 mls @ 0 mls/hr IV .Q0M PRN; Protocol PRN Reason: Hypoglycemia Protocol Insulin Aspart (Novolog) 0 unit SC AC [facility]; Protocol Last Admin: 01/04/19 17:14 Dose: Not Given Insulin Glargine (Lantus) 10 unit SC [facility] Last Admin: 01/04/19 21:38 Dose: 10 u Metoprolol Succinate (Toprol Xl) 25 mg PO DAILY [facility] Last Admin: 01/04/19 11:04 Dose: 25 mg Montelukast Sodium (Singulair) 10 mg PO DAILY [facility] Last Admin: 01/04/19 11:08 Dose: 10 mg Rosuvastatin Calcium (Crestor) 5 mg PO HS [facility] Last Admin: 01/04/19 21:37 Dose: 5 mg Sevelamer Carbonate (Renvela) 1,600 mg PO TIDCC [facility] Last Admin: 01/04/19 17:13 Dose: 1,600 mg - Labs Labs: 01/05/19 06:07 01/05/19 06:04 PT 11.2 SECONDS (9.7-12.2) 12/30/18 09:19 INR 1.0 12/30/18 09:19 APTT 30 SECONDS (21-34) 12/30/18 09:19 - Constitutional Appears: No Acute Distress, Chronically Ill - Head Exam Head Exam: ATRAUMATIC, NORMAL INSPECTION - Eye Exam Eye Exam: EOMI, Normal appearance - ENT Exam ENT Exam: Mucous Membranes Moist - Neck Exam Neck Exam: Full ROM. absent: Lymphadenopathy - Respiratory Exam Respiratory Exam: Decreased Breath Sounds, Wheezes - Cardiovascular Exam Cardiovascular Exam: REGULAR RHYTHM. absent: Rubs - GI/Abdominal Exam GI & Abdominal Exam: Soft. absent: Distended, Tenderness - Extremities Exam Extremities Exam: absent: Pedal Edema - Neurological Exam Neurological Exam: Alert, Awake Assessment and Plan - Assessment and Plan (Free Text) Assessment: maint HD underlying chronic lung disease on oxygen support antimicrobial support
[2019-01-05] MEDS: (Novolog) Insulin Aspart, Recombinant 100 u/ml 10 ml vial SC SCH ×3 (07:30→17:28)
[2019-01-05 08:42] LABS: ARTERIAL BLOOD GAS HCO3 24.9 mmol/L (21-28); ARTERIAL BLOOD GAS O2 SAT 91.2 % (95-98); ARTERIAL BLOOD GAS PCO2 45 mm/Hg (35-45); ARTERIAL BLOOD GAS PH 7.37 (7.35-7.45); ARTERIAL BLOOD GAS PO2 56 mm/Hg (80-100); ARTERIAL BLOOD GAS TCO2 27.4 mmol/L (22-28)
--- NOTE | 2019-01-05 09:52 | CP.CCUPN ---
<JamesLucilles M - Last Filed: 01/05/19 12:28> CCU Subjective - Physician Review Subjective (Free Text): Critical care progress note for Dr. Spaulding Patient seen and examined at bedside. No overnight events reported. Patient states he is breathing better with improved cough. Patient still complains of suprapubic pain. Patient has no other complains, denies chest pain, SOB, abdominal pain, N/V. Patient scheduled for dialysis later today. Additionally patient has pO2 56, saturating in 90s on high flow @FiO2 70% CCU Objective - Vital Signs / Intake & Output Vital Signs (Last 4 hours): Vital Signs Temp Pulse Pulse Resp BP BP Pulse Ox 01/05/19 09:20 100/49 L 01/05/19 09:05 105/48 L 01/05/19 08:50 97.8 F 75 76 20 113/72 107/46 L 91 L 01/05/19 08:16 74 17 111/51 L 93 L 01/05/19 08:00 98.3 F 95 01/05/19 07:16 72 18 116/54 L 93 L 01/05/19 06:16 70 17 115/52 L 96 01/05/19 06:14 72 18 95 01/05/19 06:06 24 01/05/19 06:00 73 25 H 91 L Intake and Output (Last 8hrs): Intake & Output 01/04/19 01/05/19 01/05/19 22:59 06:59 14:59 Intake Total 430 50 75 Output Total 20 0 0 Balance 410 50 75 Weight 124 lb Intake: Intake, IV Amount 50 50 Right Forearm 50 50 Oral 380 0 75 Output: Urine 20 0 0 Suprapubic 20 0 0 Other: # Bowel Movements 0 - Physical Exam Head: Positive for: Atraumatic Pupils: Negative for: Sluggish Extroacular Muscles: Positive for: EOMI Mouth: Positive for: Moist Mucous Membranes Respiratory/Chest: Positive for: Accessory Muscle Use, Wheezes, Rales Cardiovascular: Positive for: Normal S1, S2. Negative for: Rub Abdomen: Positive for: Normal Bowel Sounds, Other (suprapubic catheter in place) Genitourinary Male: Positive for: Other (suprapubic cathetor ) Upper Extremity: Positive for: Other (Left forearm avf w/ palpable thrill ). Negative for: Cyanosis, Edema Lower Extremity: Positive for: Normal Inspection, Edema Skin: Positive for: Warm, Dry Psychiatric: Positive for: Oriented x 3, Normal Insight - Medications Active Medications: Active Medications Generic Name Dose Route Start Last Admin Trade Name Freq PRN Reason Stop Dose Admin Acetaminophen 650 mg 12/30/18 12:34 Tylenol 325mg Tab PO Q6 PRN Fever >100.4 F Albuterol/Ipratropium 3 ml 01/01/19 20:00 01/05/19 03:33 Duoneb 3 Mg/0.5 Mg (3 Ml) Ud INH 3 ml RQ4 SHERLEY Administration Aspirin 81 mg 12/31/18 10:00 01/04/19 11:05 Aspirin Chewable PO 81 mg DAILY SHERLEY Administration Benzonatate 100 mg 12/30/18 20:00 01/04/19 20:28 Tessalon Perles PO 100 mg Q12H SHERLEY Administration Cilostazol 50 mg 12/30/18 18:00 01/04/19 17:15 Pletal PO 50 mg BID SHERLEY Administration Dextrose 0 ml 12/30/18 17:47 01/04/19 07:16 Dextrose 50% Inj IV 50 ml STAT PRN Administration Hypoglycemia Protocol Protocol Dextrose 0 gm 12/30/18 17:47 Glutose 15 PO ONCE PRN Hypoglycemia Protocol Protocol Doxycycline Hyclate 100 mg 01/02/19 19:45 01/04/19 20:28 Doryx PO 100 mg Q12H SHERLEY Administration Protocol Famotidine 20 mg 12/31/18 10:00 01/04/19 11:05 Pepcid PO 20 mg DAILY SHERLEY Administration Glucagon 0 mg 12/30/18 17:47 Glucagen Diagnostic Kit IM STAT PRN Hypoglycemia Protocol Protocol Heparin Sodium (Porcine) 5,000 units 12/30/18 22:00 01/05/19 05:17 Heparin SC 5,000 units Q8 SHERLEY Administration Piperacillin Sod/Tazobactam Sod 2.25 gm in 50 mls @ 100 mls/hr 12/30/18 20:00 01/05/19 04:14 Zosyn 2.25 Gm Iv Premix IVPB 100 mls/hr Q8H [facility] Administration Protocol Dextrose 1,000 mls @ 0 mls/hr 12/30/18 17:47 Dextrose 5% In Water 1000 Ml IV .Q0M PRN Hypoglycemia Protocol Protocol Per Protocol Insulin Aspart 0 unit 12/30/18 16:30 01/05/19 07:30 Novolog SC Not Given AC [facility] Protocol Insulin Glargine 10 unit 01/04/19 22:00 01/04/19 21:38 Lantus SC 10 u HS SHERLEY Administration Metoprolol Succinate 25 mg 12/31/18 10:00 01/04/19 11:04 Toprol Xl PO 25 mg DAILY SHERLEY Administration Montelukast Sodium 10 mg 12/31/18 10:00 01/04/19 11:08 Singulair PO 10 mg DAILY SHERLEY Administration Rosuvastatin Calcium 5 mg 12/30/18 22:00 01/04/19 21:37 Crestor PO 5 mg HS SHERLEY Administration Sevelamer Carbonate 1,600 mg 12/30/18 17:00 01/04/19 17:13 Renvela PO 1,600 mg TIDCC SHERLEY Administration - Patient Studies Lab Studies: Microbiology Studies 12/30/18 09:30 Blood Culture - Final Blood NO GROWTH AFTER 5 DAYS Gram Stain - Final TEST NOT PERFORMED 12/30/18 09:26 Blood Culture - Final Blood NO GROWTH AFTER 5 DAYS Gram Stain - Final TEST NOT PERFORMED Lab Studies 01/05/19 01/05/19 01/05/19 Range/Units 08:37 07:30 06:07 WBC 5.2 (4.8-10.8) K/uL RBC 4.11 L (4.40-5.90) Mil/uL Hgb 12.0 (12.0-18.0) g/dL Hct 36.5 (35.0-51.0) % MCV 88.8 (80.0-94.0) fL MCH 29.2 (27.0-31.0) pg MCHC 32.9 L (33.0-37.0) g/dL RDW 15.6 H (11.5-14.5) % Plt Count 164 (130-400) K/uL MPV 8.7 (7.2-11.7) fL Neut % (Auto) 62.3 (50.0-75.0) % Lymph % (Auto) 27.0 (20.0-40.0) % [place] % (Auto) 6.3 (0.0-10.0) % Eos % (Auto) 3.5 (0.0-4.0) % Baso % (Auto) 0.9 (0.0-2.0) % Neut # (Auto) 3.3 (1.8-7.0) K/uL Lymph # (Auto) 1.4 (1.0-4.3) K/uL [place] # (Auto) 0.3 (0.0-0.8) K/uL Eos # (Auto) 0.2 (0.0-0.7) K/uL Baso # (Auto) 0.0 (0.0-0.2) K/uL Puncture Site Lb pCO2 45 (35-45) mm/Hg pO2 56 L (80-100) mm/Hg HCO3 24.9 (21-28) mmol/L ABG pH 7.37 (7.35-7.45) ABG Total CO2 27.4 (22-28) mmol/L ABG O2 Saturation 91.2 L (95-98) % ABG Base Excess 0.3 (-2.0-3.0) mmol/L ABG Hemoglobin (11.7-17.4) g/dL ABG Carboxyhemoglobin (0.5-1.5) % POC ABG HHb (Measured) (0.0-5.0) % ABG Methemoglobin (0.0-3.0) % Kun Test Na ABG Potassium 3.6 (3.6-5.2) mmol/L A-a O2 Difference 387.0 mm/Hg Respiratory Index 6.9 Hgb O2 Saturation (95.0-98.0) % Glucose 81 (75-110) mg/dl Lactate 0.8 (0.7-2.1) mmol/L Vent Mode FiO2 70.0 % Sodium 140.0 (132-148) mmol/L Potassium (3.6-5.2) mmol/L Chloride 104.0 (98-107) mmol/L Carbon Dioxide (22-30) mmol/L Anion Gap (10-20) BUN (9-20) mg/dL Creatinine (0.8-1.5) mg/dL Est GFR ( Amer) Est GFR (Non-Af Amer) POC Glucose (mg/dL) 93 (65-110) mg/dL Random Glucose (75-110) mg/dL Calcium (8.6-10.4) mg/dl Phosphorus (2.5-4.5) mg/dL Magnesium (1.6-2.3) mg/dL Total Bilirubin (0.2-1.3) mg/dL AST (17-59) U/L ALT (21-72) U/L Alkaline Phosphatase (38-126) U/L Total Protein (6.3-8.3) g/dL Albumin (3.5-5.0) g/dL Globulin (2.2-3.9) gm/dL Albumin/Globulin Ratio (1.0-2.1) Arterial Blood Potassium 3.6 (3.6-5.2) mmol/L 01/05/19 01/05/19 01/04/19 Range/Units 06:04 05:17 21:09 WBC (4.8-10.8) K/uL RBC (4.40-5.90) Mil/uL Hgb (12.0-18.0) g/dL Hct (35.0-51.0) % MCV (80.0-94.0) fL MCH (27.0-31.0) pg MCHC (33.0-37.0) g/dL RDW (11.5-14.5) % Plt Count (130-400) K/uL MPV (7.2-11.7) fL Neut % (Auto) (50.0-75.0) % Lymph % (Auto) (20.0-40.0) % [place] % (Auto) (0.0-10.0) % Eos % (Auto) (0.0-4.0) % Baso % (Auto) (0.0-2.0) % Neut # (Auto) (1.8-7.0) K/uL Lymph # (Auto) (1.0-4.3) K/uL [place] # (Auto) (0.0-0.8) K/uL Eos # (Auto) (0.0-0.7) K/uL Baso # (Auto) (0.0-0.2) K/uL Puncture Site R brach pCO2 48 H (35-45) mm/Hg pO2 56 L (80-100) mm/Hg HCO3 26.2 (21-28) mmol/L ABG pH 7.37 (7.35-7.45) ABG Total CO2 29.2 H (22-28) mmol/L ABG O2 Saturation 90.5 L (95-98) % ABG Base Excess 1.8 (-2.0-3.0) mmol/L ABG Hemoglobin 11.4 L (11.7-17.4) g/dL ABG Carboxyhemoglobin 0.9 (0.5-1.5) % POC ABG HHb (Measured) 9.4 H (0.0-5.0) % ABG Methemoglobin 0.5 (0.0-3.0) % Kun Test Na ABG Potassium (3.6-5.2) mmol/L A-a O2 Difference 383.0 mm/Hg Respiratory Index 6.8 Hgb O2 Saturation 89.1 L (95.0-98.0) % Glucose (75-110) mg/dl Lactate (0.7-2.1) mmol/L Vent Mode High flow FiO2 70.0 % Sodium 138 (132-148) mmol/L Potassium 4.1 (3.6-5.2) mmol/L Chloride 94 L (98-107) mmol/L Carbon Dioxide 27 (22-30) mmol/L Anion Gap 21 H (10-20) BUN 75 H (9-20) mg/dL Creatinine 7.7 H* D (0.8-1.5) mg/dL Est GFR ( Amer) 8 Est GFR (Non-Af Amer) 7 POC Glucose (mg/dL) 164 H (65-110) mg/dL Random Glucose 101 D (75-110) mg/dL Calcium 9.2 (8.6-10.4) mg/dl Phosphorus 5.3 H (2.5-4.5) mg/dL Magnesium 2.2 (1.6-2.3) mg/dL Total Bilirubin 0.4 (0.2-1.3) mg/dL AST 79 H (17-59) U/L ALT 18 L D (21-72) U/L Alkaline Phosphatase 82 (38-126) U/L Total Protein 7.1 (6.3-8.3) g/dL Albumin 4.1 (3.5-5.0) g/dL Globulin 3.0 (2.2-3.9) gm/dL Albumin/Globulin Ratio 1.4 (1.0-2.1) Arterial Blood Potassium (3.6-5.2) mmol/L 01/04/19 01/04/19 Range/Units 16:03 11:57 WBC (4.8-10.8) K/uL RBC (4.40-5.90) Mil/uL Hgb (12.0-18.0) g/dL Hct (35.0-51.0) % MCV (80.0-94.0) fL MCH (27.0-31.0) pg MCHC (33.0-37.0) g/dL RDW (11.5-14.5) % Plt Count (130-400) K/uL MPV (7.2-11.7) fL Neut % (Auto) (50.0-75.0) % Lymph % (Auto) (20.0-40.0) % [place] % (Auto) (0.0-10.0) % Eos % (Auto) (0.0-4.0) % Baso % (Auto) (0.0-2.0) % Neut # (Auto) (1.8-7.0) K/uL Lymph # (Auto) (1.0-4.3) K/uL [place] # (Auto) (0.0-0.8) K/uL Eos # (Auto) (0.0-0.7) K/uL Baso # (Auto) (0.0-0.2) K/uL Puncture Site pCO2 (35-45) mm/Hg pO2 (80-100) mm/Hg HCO3 (21-28) mmol/L ABG pH (7.35-7.45) ABG Total CO2 (22-28) mmol/L ABG O2 Saturation (95-98) % ABG Base Excess (-2.0-3.0) mmol/L ABG Hemoglobin (11.7-17.4) g/dL ABG Carboxyhemoglobin (0.5-1.5) % POC ABG HHb (Measured) (0.0-5.0) % ABG Methemoglobin (0.0-3.0) % Kun Test ABG Potassium (3.6-5.2) mmol/L A-a O2 Difference mm/Hg Respiratory Index Hgb O2 Saturation (95.0-98.0) % Glucose (75-110) mg/dl Lactate (0.7-2.1) mmol/L Vent Mode FiO2 % Sodium (132-148) mmol/L Potassium (3.6-5.2) mmol/L Chloride (98-107) mmol/L Carbon Dioxide (22-30) mmol/L Anion Gap (10-20) BUN (9-20) mg/dL Creatinine (0.8-1.5) mg/dL Est GFR ( Amer) Est GFR (Non-Af Amer) POC Glucose (mg/dL) 182 H 175 H (65-110) mg/dL Random Glucose (75-110) mg/dL Calcium (8.6-10.4) mg/dl Phosphorus (2.5-4.5) mg/dL Magnesium (1.6-2.3) mg/dL Total Bilirubin (0.2-1.3) mg/dL AST (17-59) U/L ALT (21-72) U/L Alkaline Phosphatase (38-126) U/L Total Protein (6.3-8.3) g/dL Albumin (3.5-5.0) g/dL Globulin (2.2-3.9) gm/dL Albumin/Globulin Ratio (1.0-2.1) Arterial Blood Potassium (3.6-5.2) mmol/L Laboratory Results - last 24 hr 01/04/19 01/04/19 01/04/19 11:57 16:03 21:09 WBC RBC Hgb Hct MCV MCH MCHC RDW Plt Count MPV Neut % (Auto) Lymph % (Auto) [place] % (Auto) Eos % (Auto) Baso % (Auto) Neut # (Auto) Lymph # (Auto) [place] # (Auto) Eos # (Auto) Baso # (Auto) Puncture Site pCO2 pO2 HCO3 ABG pH ABG Total CO2 ABG O2 Saturation ABG Base Excess ABG Hemoglobin ABG Carboxyhemoglobin POC ABG HHb (Measured) ABG Methemoglobin Kun Test ABG Potassium A-a O2 Difference Respiratory Index Hgb O2 Saturation Glucose Lactate Vent Mode FiO2 Sodium Potassium Chloride Carbon Dioxide Anion Gap BUN Creatinine Est GFR ( Amer) Est GFR (Non-Af Amer) POC Glucose (mg/dL) 175 H 182 H 164 H Random Glucose Calcium Phosphorus Magnesium Total Bilirubin AST ALT Alkaline Phosphatase Total Protein Albumin Globulin Albumin/Globulin Ratio Arterial Blood Potassium 01/05/19 01/05/19 01/05/19 05:17 06:04 06:07 WBC 5.2 RBC 4.11 L Hgb 12.0 Hct 36.5 MCV 88.8 MCH 29.2 MCHC 32.9 L RDW 15.6 H Plt Count 164 MPV 8.7 Neut % (Auto) 62.3 Lymph % (Auto) 27.0 [place] % (Auto) 6.3 Eos % (Auto) 3.5 Baso % (Auto) 0.9 Neut # (Auto) 3.3 Lymph # (Auto) 1.4 [place] # (Auto) 0.3 Eos # (Auto) 0.2 Baso # (Auto) 0.0 Puncture Site R brach pCO2 48 H pO2 56 L HCO3 26.2 ABG pH 7.37 ABG Total CO2 29.2 H ABG O2 Saturation 90.5 L ABG Base Excess 1.8 ABG Hemoglobin 11.4 L ABG Carboxyhemoglobin 0.9 POC ABG HHb (Measured) 9.4 H ABG Methemoglobin 0.5 Kun Test Na ABG Potassium A-a O2 Difference 383.0 Respiratory Index 6.8 Hgb O2 Saturation 89.1 L Glucose Lactate Vent Mode High flow FiO2 70.0 Sodium 138 Potassium 4.1 Chloride 94 L Carbon Dioxide 27 Anion Gap 21 H BUN 75 H Creatinine 7.7 H* D Est GFR ( Amer) 8 Est GFR (Non-Af Amer) 7 POC Glucose (mg/dL) Random Glucose 101 D Calcium 9.2 Phosphorus 5.3 H Magnesium 2.2 Total Bilirubin 0.4 AST 79 H ALT 18 L D Alkaline Phosphatase 82 Total Protein 7.1 Albumin 4.1 Globulin 3.0 Albumin/Globulin Ratio 1.4 Arterial Blood Potassium 01/05/19 01/05/19 07:30 08:37 WBC RBC Hgb Hct MCV MCH MCHC RDW Plt Count MPV Neut % (Auto) Lymph % (Auto) [place] % (Auto) Eos % (Auto) Baso % (Auto) Neut # (Auto) Lymph # (Auto) [place] # (Auto) Eos # (Auto) Baso # (Auto) Puncture Site Lb pCO2 45 pO2 56 L HCO3 24.9 ABG pH 7.37 ABG Total CO2 27.4 ABG O2 Saturation 91.2 L ABG Base Excess 0.3 ABG Hemoglobin ABG Carboxyhemoglobin POC ABG HHb (Measured) ABG Methemoglobin Kun Test Na ABG Potassium 3.6 A-a O2 Difference 387.0 Respiratory Index 6.9 Hgb O2 Saturation Glucose 81 Lactate 0.8 Vent Mode FiO2 70.0 Sodium 140.0 Potassium Chloride 104.0 Carbon Dioxide Anion Gap BUN Creatinine Est GFR ( Amer) Est GFR (Non-Af Amer) POC Glucose (mg/dL) 93 Random Glucose Calcium Phosphorus Magnesium Total Bilirubin AST ALT Alkaline Phosphatase Total Protein Albumin Globulin Albumin/Globulin Ratio Arterial Blood Potassium 3.6 Fingerstick Blood Sugar Results: 93 Review of Systems - Constitutional Constitutional: absent: Fever, Chills, Sweats - EENT Eyes: UNREMARKABLE. absent: Blurred Vision Ears: UNREMARKABLE Nose/Mouth/Throat: UNREMARKABLE. absent: Nasal Congestion - Cardiovascular Cardiovascular: UNREMARKABLE. absent: Chest Pain, Chest Pain at Rest - Respiratory Respiratory: UNREMARKABLE. absent: Cough, Dyspnea - Gastrointestinal Gastrointestinal: UNREMARKABLE. absent: Cramping, Diarrhea - Genitourinary Genitourinary: UNREMARKABLE - Integumentary Integumentary: UNREMARKABLE. absent: Bleeding Lesions - Neurological Neurological: UNREMARKABLE. absent: Abnormal Hearing - Psychiatric Psychiatric: UNREMARKABLE - Endocrine Endocrine: UNREMARKABLE - Hematologic/Lymphatic Hematologic: UNREMARKABLE Critical Care Progress Note - Extremities/Vascular Does the Patient have a Chun Catheter?: Yes Does the Patient need a Chun Catheter?: Yes - Prophylaxis GI Prophylaxis GI: Pepsid - Prophylaxis DVT Prophylaxis DVT: Heparin SQ - Nutrition Nutrition: Nutrition Category Date Time Status Renal Diet [DIET] Diets 12/31/18 Breakfast Active Assessment/Plan - Assessment and Plan (Free Text) Assessment: 73 male w/ PMhx of ESRD, COPD, HTN, presented to ED shortness of breath/ fever, found to be influenza A (+), RLL pneumonia, admitted to ICU for hypercapneic respiratory failure, currently improving on high flow at 70%. Patient pO2 at 56, however ,saturating in 90s. Will obtain CT chest to r/o PE Plan: Neuro - alert and oriented X 3 Cardio - vitals stable on 80% in PM - hx of HTN, c/w asprin 81 mg daily, hydralazine 25 PO TID, cilostazol 50 mg PO BID, metoprolol succinate 25 mg PO daily, - EKG ?premature atrial complex - Echo: LV borderline dilated, normal LV thickness, EF moderately impaired Resp - saturating in 90s on high flow in PM - if desaturates, place back on BIPAP - ABG 01/02: 7.37/45/56/27.4 - will continue to monitor - CXR improving infiltrate on L - F/u CT GI - c/w diet Renal - BUN/Cr 75/7.7 - Dialysis today - urology Dr. Odom consulted - per recs, will likely need OP f/u w/ physician that placed suprapubic cath Heme - H/H stable in 11s/ 35s - continue to monitor ID - afebrile, WBC normal - on admission Tmax 102.4 - CXR: bilateral effusions/ atelectasis/ pneumonia - UA: Sq epith 1, LEuk esterase 1+, WBC 13, Nitrate + - due to recent hospitalization & possible hospital acquired pneumonia - Zosyn 2.25 Q8H dc'ed - Vancomycine 12/30 - 01/02 - Doxyclycline 100 mg Q12H (01/02 - present) - B/C negative X 48H - UC - gram positive cocci, corybebacterium - D/c contact as patient is afebrile > 24H PPx - DVT: heparin SC 5000 units, SCDs - GI: Pepcid 20 mg daily <Speedy Spaulding S - Last Filed: 01/05/19 17:06> CCU Subjective - Physician Review Critical Care Time Spent (in minutes): 35 CCU Objective - Vital Signs / Intake & Output Intake and Output (Last 8hrs): Intake & Output 01/05/19 01/05/19 01/05/19 06:59 14:59 22:59 Intake Total 50 175 Output Total 0 0 Balance 50 175 Weight 124 lb Intake: Intake, IV Amount 50 Right Forearm 50 Oral 0 175 Output: Urine 0 0 Suprapubic 0 0 Other: # Bowel Movements 0 - Medications Active Medications: Active Medications Generic Name Dose Route Start Last Admin Trade Name Freq PRN Reason Stop Dose Admin Acetaminophen 650 mg 12/30/18 12:34 Tylenol 325mg Tab PO Q6 PRN Fever >100.4 F Albuterol/Ipratropium 3 ml 01/01/19 20:00 01/05/19 03:33 Duoneb 3 Mg/0.5 Mg (3 Ml) Ud INH 3 ml RQ4 SHERLEY Administration Aspirin 81 mg 12/31/18 10:00 01/05/19 10:06 Aspirin Chewable PO 81 mg DAILY SHERLEY Administration Benzonatate 100 mg 12/30/18 20:00 01/05/19 10:07 Tessalon Perles PO 100 mg Q12H SHERLEY Administration Cilostazol 50 mg 12/30/18 18:00 01/05/19 10:06 Pletal PO 50 mg BID SHERLEY Administration Dextrose 0 ml 12/30/18 17:47 01/04/19 07:16 Dextrose 50% Inj IV 50 ml STAT PRN Administration Hypoglycemia Protocol Protocol Dextrose 0 gm 12/30/18 17:47 Glutose 15 PO ONCE PRN Hypoglycemia Protocol Protocol Doxycycline Hyclate 100 mg 01/02/19 19:45 01/05/19 10:06 Doryx PO 100 mg Q12H SHERLEY Administration Protocol Famotidine 20 mg 12/31/18 10:00 01/05/19 10:05 Pepcid PO 20 mg DAILY SHERLEY Administration Glucagon 0 mg 12/30/18 17:47 Glucagen Diagnostic Kit IM STAT PRN Hypoglycemia Protocol Protocol Heparin Sodium (Porcine) 5,000 units 12/30/18 22:00 01/05/19 05:17 Heparin SC 5,000 units Q8 SHERLEY Administration Piperacillin Sod/Tazobactam Sod 2.25 gm in 50 mls @ 100 mls/hr 12/30/18 20:00 01/05/19 13:37 Zosyn 2.25 Gm Iv Premix IVPB 100 mls/hr Q8H SHERLEY Administration Protocol Dextrose 1,000 mls @ 0 mls/hr 12/30/18 17:47 Dextrose 5% In Water 1000 Ml IV .Q0M PRN Hypoglycemia Protocol Protocol Per Protocol Insulin Aspart 0 unit 12/30/18 16:30 01/05/19 12:00 Novolog SC Not Given AC SHERLEY Protocol Insulin Glargine 10 unit 01/04/19 22:00 01/04/19 21:38 Lantus SC 10 u HS SHERLEY Administration Metoprolol Succinate 25 mg 12/31/18 10:00 01/05/19 10:05 Toprol Xl PO 25 mg DAILY SHERLEY Administration Montelukast Sodium 10 mg 12/31/18 10:00 01/05/19 10:06 Singulair PO 10 mg DAILY SHERLEY Administration Rosuvastatin Calcium 5 mg 12/30/18 22:00 01/04/19 21:37 Crestor PO 5 mg HS SHERLEY Administration Sevelamer Carbonate 1,600 mg 12/30/18 17:00 01/05/19 13:40 Renvela PO 1,600 mg TIDCC SHERLEY Administration - Patient Studies Lab Studies: Lab Studies 01/05/19 01/05/19 01/05/19 Range/Units 16:22 11:41 08:37 WBC (4.8-10.8) K/uL RBC (4.40-5.90) Mil/uL Hgb (12.0-18.0) g/dL Hct (35.0-51.0) % MCV (80.0-94.0) fL MCH (27.0-31.0) pg MCHC (33.0-37.0) g/dL RDW (11.5-14.5) % Plt Count (130-400) K/uL MPV (7.2-11.7) fL Neut % (Auto) (50.0-75.0) % Lymph % (Auto) (20.0-40.0) % [place] % (Auto) (0.0-10.0) % Eos % (Auto) (0.0-4.0) % Baso % (Auto) (0.0-2.0) % Neut # (Auto) (1.8-7.0) K/uL Lymph # (Auto) (1.0-4.3) K/uL [place] # (Auto) (0.0-0.8) K/uL Eos # (Auto) (0.0-0.7) K/uL Baso # (Auto) (0.0-0.2) K/uL Puncture Site Lb pCO2 45 (35-45) mm/Hg pO2 56 L (80-100) mm/Hg HCO3 24.9 (21-28) mmol/L ABG pH 7.37 (7.35-7.45) ABG Total CO2 27.4 (22-28) mmol/L ABG O2 Saturation 91.2 L (95-98) % ABG Base Excess 0.3 (-2.0-3.0) mmol/L ABG Hemoglobin (11.7-17.4) g/dL ABG Carboxyhemoglobin (0.5-1.5) % POC ABG HHb (Measured) (0.0-5.0) % ABG Methemoglobin (0.0-3.0) % Kun Test Na ABG Potassium 3.6 (3.6-5.2) mmol/L A-a O2 Difference 387.0 mm/Hg Respiratory Index 6.9 Hgb O2 Saturation (95.0-98.0) % Glucose 81 (75-110) mg/dl Lactate 0.8 (0.7-2.1) mmol/L Vent Mode FiO2 70.0 % Sodium 140.0 (132-148) mmol/L Potassium (3.6-5.2) mmol/L Chloride 104.0 (98-107) mmol/L Carbon Dioxide (22-30) mmol/L Anion Gap (10-20) BUN (9-20) mg/dL Creatinine (0.8-1.5) mg/dL Est GFR ( Amer) Est GFR (Non-Af Amer) POC Glucose (mg/dL) 196 H 145 H (65-110) mg/dL Random Glucose (75-110) mg/dL Calcium (8.6-10.4) mg/dl Phosphorus (2.5-4.5) mg/dL Magnesium (1.6-2.3) mg/dL Total Bilirubin (0.2-1.3) mg/dL AST (17-59) U/L ALT (21-72) U/L Alkaline Phosphatase (38-126) U/L Total Protein (6.3-8.3) g/dL Albumin (3.5-5.0) g/dL Globulin (2.2-3.9) gm/dL Albumin/Globulin Ratio (1.0-2.1) Arterial Blood Potassium 3.6 (3.6-5.2) mmol/L 01/05/19 01/05/19 01/05/19 Range/Units 07:30 06:07 06:04 WBC 5.2 (4.8-10.8) K/uL RBC 4.11 L (4.40-5.90) Mil/uL Hgb 12.0 (12.0-18.0) g/dL Hct 36.5 (35.0-51.0) % MCV 88.8 (80.0-94.0) fL MCH 29.2 (27.0-31.0) pg MCHC 32.9 L (33.0-37.0) g/dL RDW 15.6 H (11.5-14.5) % Plt Count 164 (130-400) K/uL MPV 8.7 (7.2-11.7) fL Neut % (Auto) 62.3 (50.0-75.0) % Lymph % (Auto) 27.0 (20.0-40.0) % [place] % (Auto) 6.3 (0.0-10.0) % Eos % (Auto) 3.5 (0.0-4.0) % Baso % (Auto) 0.9 (0.0-2.0) % Neut # (Auto) 3.3 (1.8-7.0) K/uL Lymph # (Auto) 1.4 (1.0-4.3) K/uL [place] # (Auto) 0.3 (0.0-0.8) K/uL Eos # (Auto) 0.2 (0.0-0.7) K/uL Baso # (Auto) 0.0 (0.0-0.2) K/uL Puncture Site pCO2 (35-45) mm/Hg pO2 (80-100) mm/Hg HCO3 (21-28) mmol/L ABG pH (7.35-7.45) ABG Total CO2 (22-28) mmol/L ABG O2 Saturation (95-98) % ABG Base Excess (-2.0-3.0) mmol/L ABG Hemoglobin (11.7-17.4) g/dL ABG Carboxyhemoglobin (0.5-1.5) % POC ABG HHb (Measured) (0.0-5.0) % ABG Methemoglobin (0.0-3.0) % Kun Test ABG Potassium (3.6-5.2) mmol/L A-a O2 Difference mm/Hg Respiratory Index Hgb O2 Saturation (95.0-98.0) % Glucose (75-110) mg/dl Lactate (0.7-2.1) mmol/L Vent Mode FiO2 % Sodium 138 (132-148) mmol/L Potassium 4.1 (3.6-5.2) mmol/L Chloride 94 L (98-107) mmol/L Carbon Dioxide 27 (22-30) mmol/L Anion Gap 21 H (10-20) BUN 75 H (9-20) mg/dL Creatinine 7.7 H* D (0.8-1.5) mg/dL Est GFR ( Amer) 8 Est GFR (Non-Af Amer) 7 POC Glucose (mg/dL) 93 (65-110) mg/dL Random Glucose 101 D (75-110) mg/dL Calcium 9.2 (8.6-10.4) mg/dl Phosphorus 5.3 H (2.5-4.5) mg/dL Magnesium 2.2 (1.6-2.3) mg/dL Total Bilirubin 0.4 (0.2-1.3) mg/dL AST 79 H (17-59) U/L ALT 18 L D (21-72) U/L Alkaline Phosphatase 82 (38-126) U/L Total Protein 7.1 (6.3-8.3) g/dL Albumin 4.1 (3.5-5.0) g/dL Globulin 3.0 (2.2-3.9) gm/dL Albumin/Globulin Ratio 1.4 (1.0-2.1) Arterial Blood Potassium (3.6-5.2) mmol/L 01/05/19 01/04/19 Range/Units 05:17 21:09 WBC (4.8-10.8) K/uL RBC (4.40-5.90) Mil/uL Hgb (12.0-18.0) g/dL Hct (35.0-51.0) % MCV (80.0-94.0) fL MCH (27.0-31.0) pg MCHC (33.0-37.0) g/dL RDW (11.5-14.5) % Plt Count (130-400) K/uL MPV (7.2-11.7) fL Neut % (Auto) (50.0-75.0) % Lymph % (Auto) (20.0-40.0) % [place] % (Auto) (0.0-10.0) % Eos % (Auto) (0.0-4.0) % Baso % (Auto) (0.0-2.0) % Neut # (Auto) (1.8-7.0) K/uL Lymph # (Auto) (1.0-4.3) K/uL [place] # (Auto) (0.0-0.8) K/uL Eos # (Auto) (0.0-0.7) K/uL Baso # (Auto) (0.0-0.2) K/uL Puncture Site R brach pCO2 48 H (35-45) mm/Hg pO2 56 L (80-100) mm/Hg HCO3 26.2 (21-28) mmol/L ABG pH 7.37 (7.35-7.45) ABG Total CO2 29.2 H (22-28) mmol/L ABG O2 Saturation 90.5 L (95-98) % ABG Base Excess 1.8 (-2.0-3.0) mmol/L ABG Hemoglobin 11.4 L (11.7-17.4) g/dL ABG Carboxyhemoglobin 0.9 (0.5-1.5) % POC ABG HHb (Measured) 9.4 H (0.0-5.0) % ABG Methemoglobin 0.5 (0.0-3.0) % Kun Test Na ABG Potassium (3.6-5.2) mmol/L A-a O2 Difference 383.0 mm/Hg Respiratory Index 6.8 Hgb O2 Saturation 89.1 L (95.0-98.0) % Glucose (75-110) mg/dl Lactate (0.7-2.1) mmol/L Vent Mode High flow FiO2 70.0 % Sodium (132-148) mmol/L Potassium (3.6-5.2) mmol/L Chloride (98-107) mmol/L Carbon Dioxide (22-30) mmol/L Anion Gap (10-20) BUN (9-20) mg/dL Creatinine (0.8-1.5) mg/dL Est GFR ( Amer) Est GFR (Non-Af Amer) POC Glucose (mg/dL) 164 H (65-110) mg/dL Random Glucose (75-110) mg/dL Calcium (8.6-10.4) mg/dl Phosphorus (2.5-4.5) mg/dL Magnesium (1.6-2.3) mg/dL Total Bilirubin (0.2-1.3) mg/dL AST (17-59) U/L ALT (21-72) U/L Alkaline Phosphatase (38-126) U/L Total Protein (6.3-8.3) g/dL Albumin (3.5-5.0) g/dL Globulin (2.2-3.9) gm/dL Albumin/Globulin Ratio (1.0-2.1) Arterial Blood Potassium (3.6-5.2) mmol/L Laboratory Results - last 24 hr 01/04/19 01/05/19 01/05/19 21:09 05:17 06:04 WBC RBC Hgb Hct MCV MCH MCHC RDW Plt Count MPV Neut % (Auto) Lymph % (Auto) [place] % (Auto) Eos % (Auto) Baso % (Auto) Neut # (Auto) Lymph # (Auto) [place] # (Auto) Eos # (Auto) Baso # (Auto) Puncture Site R brach pCO2 48 H pO2 56 L HCO3 26.2 ABG pH 7.37 ABG Total CO2 29.2 H ABG O2 Saturation 90.5 L ABG Base Excess 1.8 ABG Hemoglobin 11.4 L ABG Carboxyhemoglobin 0.9 POC ABG HHb (Measured) 9.4 H ABG Methemoglobin 0.5 Kun Test Na ABG Potassium A-a O2 Difference 383.0 Respiratory Index 6.8 Hgb O2 Saturation 89.1 L Glucose Lactate Vent Mode High flow FiO2 70.0 Sodium 138 Potassium 4.1 Chloride 94 L Carbon Dioxide 27 Anion Gap 21 H BUN 75 H Creatinine 7.7 H* D Est GFR ( Amer) 8 Est GFR (Non-Af Amer) 7 POC Glucose (mg/dL) 164 H Random Glucose 101 D Calcium 9.2 Phosphorus 5.3 H Magnesium 2.2 Total Bilirubin 0.4 AST 79 H ALT 18 L D Alkaline Phosphatase 82 Total Protein 7.1 Albumin 4.1 Globulin 3.0 Albumin/Globulin Ratio 1.4 Arterial Blood Potassium 01/05/19 01/05/19 01/05/19 06:07 07:30 08:37 WBC 5.2 RBC 4.11 L Hgb 12.0 Hct 36.5 MCV 88.8 MCH 29.2 MCHC 32.9 L RDW 15.6 H Plt Count 164 MPV 8.7 Neut % (Auto) 62.3 Lymph % (Auto) 27.0 [place] % (Auto) 6.3 Eos % (Auto) 3.5 Baso % (Auto) 0.9 Neut # (Auto) 3.3 Lymph # (Auto) 1.4 [place] # (Auto) 0.3 Eos # (Auto) 0.2 Baso # (Auto) 0.0 Puncture Site Lb pCO2 45 pO2 56 L HCO3 24.9 ABG pH 7.37 ABG Total CO2 27.4 ABG O2 Saturation 91.2 L ABG Base Excess 0.3 ABG Hemoglobin ABG Carboxyhemoglobin POC ABG HHb (Measured) ABG Methemoglobin Kun Test Na ABG Potassium 3.6 A-a O2 Difference 387.0 Respiratory Index 6.9 Hgb O2 Saturation Glucose 81 Lactate 0.8 Vent Mode FiO2 70.0 Sodium 140.0 Potassium Chloride 104.0 Carbon Dioxide Anion Gap BUN Creatinine Est GFR ( Amer) Est GFR (Non-Af Amer) POC Glucose (mg/dL) 93 Random Glucose Calcium Phosphorus Magnesium Total Bilirubin AST ALT Alkaline Phosphatase Total Protein Albumin Globulin Albumin/Globulin Ratio Arterial Blood Potassium 3.6 01/05/19 01/05/19 11:41 16:22 WBC RBC Hgb Hct MCV MCH MCHC RDW Plt Count MPV Neut % (Auto) Lymph % (Auto) [place] % (Auto) Eos % (Auto) Baso % (Auto) Neut # (Auto) Lymph # (Auto) [place] # (Auto) Eos # (Auto) Baso # (Auto) Puncture Site pCO2 pO2 HCO3 ABG pH ABG Total CO2 ABG O2 Saturation ABG Base Excess ABG Hemoglobin ABG Carboxyhemoglobin POC ABG HHb (Measured) ABG Methemoglobin Kun Test ABG Potassium A-a O2 Difference Respiratory Index Hgb O2 Saturation Glucose Lactate Vent Mode FiO2 Sodium Potassium Chloride Carbon Dioxide Anion Gap BUN Creatinine Est GFR ( Amer) Est GFR (Non-Af Amer) POC Glucose (mg/dL) 145 H 196 H Random Glucose Calcium Phosphorus Magnesium Total Bilirubin AST ALT Alkaline Phosphatase Total Protein Albumin Globulin Albumin/Globulin Ratio Arterial Blood Potassium Radiology Impressions: Radiology Impressions Chest CT 01/05/19 09:20 Impression: Extensive mostly subcentimeter mediastinal and prevascular adenopathy. 12 mm precarinal lymph node evident. Small right hilar lymph node present. No large central or segmental pulmonary embolus evident. Moderate bilateral consolidations and pleural effusions. Small hiatal hernia with evidence of moderate to severe gastroesophageal reflux. Limited visualized portions of the upper abdomen: Cholelithiasis. Bilateral low-density renal lesions possibly cysts. Exophytic left mid posterior renal hypodense lesion measures approximately 1.6 x 0.7 cm and approximately 40 HU, indeterminate. Recommend further evaluation with renal ultrasound. Critical Care Progress Note - Nutrition Nutrition: Nutrition Category Date Time Status Renal Diet [DIET] Diets 12/31/18 Breakfast Active Assessment/Plan (1) Influenza Current Visit: Yes Status: Acute (2) Pleural effusion Current Visit: Yes Status: Acute (3) Pneumonia Current Visit: Yes Status: Acute (4) ESRD (end stage renal disease) on dialysis Current Visit: Yes Status: Chronic Attending/Attestation - Attestation I have personally seen and examined this patient.: Yes I have fully participated in the care of the patient.: Yes I have reviewed all pertinent clinical information: Yes Notes (Text): 01/05/19 17:04 Patient seen and examined in the intensive care unit. CAT scan of the chest showed no pulmonary embolism but bibasilar infiltrate and atelectasis Continue high flow and reduced FiO2 as tolerated Continue antibiotics Hemodialysis Incentive spirometry Transfer to floor
[2019-01-05] MEDS: Metoprolol Succinate 25 mg XL Tab PO SCH (10:05)
[2019-01-05] MEDS: Cilostazol 50 mg Tab UD PO SCH ×2 (10:06→17:30)
[2019-01-05] MEDS ORDERED: Iodixanol 320 MG/ML 100 ML BOTTLE IV ONE (13:49)
--- NOTE | 2019-01-05 15:08 | CT ---
Date of service: 01/05/2019 CTA chest PE protocol Indication: severe hypoxemia Technique: Contiguous axial images were obtained through the chest with intravenous contrast enhancement. Sagittal and coronal reconstructions were generated and reviewed. This CT exam was performed using 1 or more of the following dose reduction techniques: Automated exposure control, adjustment of the MAA and/or kV according to patient size, and/or use of iterative reconstruction technique. IV contrast: 100 mL Visipaque 320 IV Radiation dose (DLP): 597.86 MGy-cm. Comparison: Chest x-ray performed 01/03/19, CT a chest performed 12/20/18 Findings: Visualized portions of the inferior thyroid gland appear unremarkable. The mediastinal and hilar vascular structures appear within normal limits. The heart appears within normal limits of size. Extensive mostly subcentimeter mediastinal and prevascular adenopathy. 12 mm precarinal lymph node evident. Small right hilar lymph node present. No large central or segmental pulmonary embolus evident. Moderate bilateral consolidations and pleural effusions. No pneumothorax. Small hiatal hernia with evidence of moderate to severe gastroesophageal reflux. Limited visualized portions of the upper abdomen: Cholelithiasis. Bilateral low-density renal lesions possibly cysts. Exophytic left mid posterior renal hypodense lesion measures approximately 1.6 x 0.7 cm and approximately 40 HU, indeterminate. Degenerative changes. Osseous demineralization. Impression: Extensive mostly subcentimeter mediastinal and prevascular adenopathy. 12 mm precarinal lymph node evident. Small right hilar lymph node present. No large central or segmental pulmonary embolus evident. Moderate bilateral consolidations and pleural effusions. Small hiatal hernia with evidence of moderate to severe gastroesophageal reflux. Limited visualized portions of the upper abdomen: Cholelithiasis. Bilateral low-density renal lesions possibly cysts. Exophytic left mid posterior renal hypodense lesion measures approximately 1.6 x 0.7 cm and approximately 40 HU, indeterminate. Recommend further evaluation with renal ultrasound.
[2019-01-05] MEDS: (Lantus) Insulin Glargine, Recombinant SC SCH (21:04)
--- NOTE | 2019-01-05 21:42 | CARD ---
APPROVED REPORT Date of service: 01/04/2019 EKG Measurement Heart [id number] <Conclusion> Sinus rhythm with occasional premature ventricular complexes Right bundle branch block Abnormal ECG
[2019-01-06] MEDS: Albuterol-Ipratrop 3 mg / 0.5 (3 ml) UD INH SCH ×6 (00:50→19:00)
[2019-01-06] MEDS: Piperacill/Tazo 2.25gm in Dex 2.25 GM/50 ML BAG IVPB SCH ×3 (03:49→20:22)
[2019-01-06 06:13] LABS: BASO % 0.6 % (0.0-2.0); EOS # 0.3 K/uL (0.0-0.7); EOS % 5.1 % (0.0-4.0); HEMOGLOBIN 11.9 g/dL (12.0-18.0); LYMPH # 1.4 K/uL (1.0-4.3); LYMPH % 26.3 % (20.0-40.0); MEAN CELL VOLUME 88.8 fL (80.0-94.0); MEAN CORPUSCULAR HEMOGLOBIN 29.3 pg (27.0-31.0); MEAN PLATELET VOLUME 8.7 fL (7.2-11.7); MONO # 0.5 K/uL (0.0-0.8); MONO % 8.5 % (0.0-10.0); NEUT # 3.2 K/uL (1.8-7.0); NEUT % 59.5 % (50.0-75.0); NRBC % 0.1 % (0.0-2.0); RBC 4.07 Mil/uL (4.40-5.90); RED CELL DISTRIBUTION WIDTH 15.5 % (11.5-14.5); WHITE BLOOD COUNT 5.3 K/uL (4.8-10.8)
[2019-01-06 06:29] LABS: ALB/GLOB RATIO 1.2 (1.0-2.1); ALBUMIN 4.1 g/dL (3.5-5.0); CALCIUM 9.3 mg/dl (8.6-10.4)
--- NOTE | 2019-01-06 07:36 | CP.CCUPN ---
<Luis James M - Last Filed: 01/06/19 15:29> CCU Subjective - Physician Review Subjective (Free Text): Critical care progress note for Dr. Dave Hernández. Patient seen and examined at bedside. No overnight events reported. Patient states he is breathing better with reduced cough. Patient received dialysis yesterday, tolerated well. Patient is saturating well on high flow currently. Afebrile. No complaints. Denies chest pain, SOB, nausea, vomiting, abdominal pain, nausea, vomiting. 01/06/19 15:23 CCU Objective - Vital Signs / Intake & Output Vital Signs (Last 4 hours): Vital Signs Temp Pulse Resp BP Pulse Ox 01/06/19 06:00 76 17 96 01/06/19 05:00 75 16 100 01/06/19 04:43 76 15 128/89 98 01/06/19 04:00 97.9 F 75 20 97 01/06/19 03:42 15 Intake and Output (Last 8hrs): Intake & Output 01/05/19 01/06/19 01/06/19 22:59 06:59 14:59 Intake Total 220 50 Output Total 50 30 Balance 170 20 Weight 126 lb 1.6 oz Intake: Intake, IV Amount 50 50 Right Upper arm 50 50 Oral 170 Output: Urine 50 30 Suprapubic 50 30 Other: # Bowel Movements 1 - Physical Exam Head: Positive for: Atraumatic Pupils: Negative for: Sluggish Extroacular Muscles: Positive for: EOMI Mouth: Positive for: Moist Mucous Membranes Respiratory/Chest: Positive for: Accessory Muscle Use, Wheezes, Rales Cardiovascular: Positive for: Normal S1, S2. Negative for: Rub Abdomen: Positive for: Normal Bowel Sounds, Other (suprapubic catheter in place) Genitourinary Male: Positive for: Other (suprapubic cathetor ) Upper Extremity: Positive for: Other (Left forearm avf w/ palpable thrill ). Negative for: Cyanosis, Edema Lower Extremity: Positive for: Normal Inspection, Edema Skin: Positive for: Warm, Dry Psychiatric: Positive for: Oriented x 3, Normal Insight - Medications Active Medications: Active Medications Generic Name Dose Route Start Last Admin Trade Name Freq PRN Reason Stop Dose Admin Acetaminophen 650 mg 12/30/18 12:34 Tylenol 325mg Tab PO Q6 PRN Fever >100.4 F Albuterol/Ipratropium 3 ml 01/01/19 20:00 01/06/19 03:41 Duoneb 3 Mg/0.5 Mg (3 Ml) Ud INH 3 ml RQ4 SHERLEY Administration Aspirin 81 mg 12/31/18 10:00 01/05/19 10:06 Aspirin Chewable PO 81 mg DAILY SHERLEY Administration Benzonatate 100 mg 12/30/18 20:00 01/05/19 20:02 Tessalon Perles PO 100 mg Q12H SHERLEY Administration Cilostazol 50 mg 12/30/18 18:00 01/05/19 17:30 Pletal PO 50 mg BID SHERLEY Administration Dextrose 0 ml 12/30/18 17:47 01/04/19 07:16 Dextrose 50% Inj IV 50 ml STAT PRN Administration Hypoglycemia Protocol Protocol Dextrose 0 gm 12/30/18 17:47 Glutose 15 PO ONCE PRN Hypoglycemia Protocol Protocol Doxycycline Hyclate 100 mg 01/02/19 19:45 01/05/19 20:03 Doryx PO 100 mg Q12H SHERLEY Administration Protocol Famotidine 20 mg 12/31/18 10:00 01/05/19 10:05 Pepcid PO 20 mg DAILY SHERLEY Administration Glucagon 0 mg 12/30/18 17:47 Glucagen Diagnostic Kit IM STAT PRN Hypoglycemia Protocol Protocol Heparin Sodium (Porcine) 5,000 units 12/30/18 22:00 01/06/19 06:08 Heparin SC 5,000 units Q8 SHERLEY Administration Piperacillin Sod/Tazobactam Sod 2.25 gm in 50 mls @ 100 mls/hr 12/30/18 20:00 01/06/19 03:49 Zosyn 2.25 Gm Iv Premix IVPB 100 mls/hr Q8H SHERLEY Administration Protocol Dextrose 1,000 mls @ 0 mls/hr 12/30/18 17:47 Dextrose 5% In Water 1000 Ml IV .Q0M PRN Hypoglycemia Protocol Protocol Per Protocol Insulin Aspart 0 unit 12/30/18 16:30 01/05/19 17:28 Novolog SC 2 units AC SHERLEY Administration Protocol Insulin Glargine 10 unit 01/04/19 22:00 01/05/19 21:04 Lantus SC 10 u HS SHERLEY Administration Metoprolol Succinate 25 mg 12/31/18 10:00 01/05/19 10:05 Toprol Xl PO 25 mg DAILY SHERLEY Administration Montelukast Sodium 10 mg 12/31/18 10:00 01/05/19 10:06 Singulair PO 10 mg DAILY SHERLEY Administration Rosuvastatin Calcium 5 mg 12/30/18 22:00 01/05/19 21:04 Crestor PO 5 mg HS SHERLEY Administration Sevelamer Carbonate 1,600 mg 12/30/18 17:00 01/05/19 17:29 Renvela PO 1,600 mg TIDCC SHERLEY Administration - Patient Studies Lab Studies: Lab Studies 01/06/19 01/06/19 01/05/19 Range/Units 06:09 06:09 21:08 WBC 5.3 (4.8-10.8) K/uL RBC 4.07 L (4.40-5.90) Mil/uL Hgb 11.9 L (12.0-18.0) g/dL Hct 36.2 (35.0-51.0) % MCV 88.8 (80.0-94.0) fL MCH 29.3 (27.0-31.0) pg MCHC 33.0 (33.0-37.0) g/dL RDW 15.5 H (11.5-14.5) % Plt Count 190 (130-400) K/uL MPV 8.7 (7.2-11.7) fL Neut % (Auto) 59.5 (50.0-75.0) % Lymph % (Auto) 26.3 (20.0-40.0) % Emmons % (Auto) 8.5 (0.0-10.0) % Eos % (Auto) 5.1 H (0.0-4.0) % Baso % (Auto) 0.6 (0.0-2.0) % Neut # (Auto) 3.2 (1.8-7.0) K/uL Lymph # (Auto) 1.4 (1.0-4.3) K/uL Emmons # (Auto) 0.5 (0.0-0.8) K/uL Eos # (Auto) 0.3 (0.0-0.7) K/uL Baso # (Auto) 0.0 (0.0-0.2) K/uL Puncture Site pCO2 (35-45) mm/Hg pO2 (80-100) mm/Hg HCO3 (21-28) mmol/L ABG pH (7.35-7.45) ABG Total CO2 (22-28) mmol/L ABG O2 Saturation (95-98) % ABG Base Excess (-2.0-3.0) mmol/L Kun Test ABG Potassium (3.6-5.2) mmol/L A-a O2 Difference mm/Hg Respiratory Index Sodium 137 (132-148) mmol/l Chloride 96 L (98-107) mmol/L Glucose (75-110) mg/dl Lactate (0.7-2.1) mmol/L FiO2 % Potassium 4.2 (3.6-5.2) mmol/L Carbon Dioxide 28 (22-30) mmol/L Anion Gap 17 (10-20) BUN 50 H (9-20) mg/dL Creatinine 4.9 H (0.8-1.5) mg/dL Est GFR ( Amer) 14 Est GFR (Non-Af Amer) 12 POC Glucose (mg/dL) 138 H (65-110) mg/dL Random Glucose 101 (75-110) mg/dL Calcium 9.3 (8.6-10.4) mg/dl Phosphorus 4.8 H (2.5-4.5) mg/dL Magnesium 2.1 (1.6-2.3) mg/dL Total Bilirubin 0.5 (0.2-1.3) mg/dL AST 91 H (17-59) U/L ALT 22 (21-72) U/L Alkaline Phosphatase 87 (38-126) U/L Total Protein 7.5 (6.3-8.3) g/dL Albumin 4.1 (3.5-5.0) g/dL Globulin 3.4 (2.2-3.9) gm/dL Albumin/Globulin Ratio 1.2 (1.0-2.1) Arterial Blood Potassium (3.6-5.2) mmol/L 01/05/19 01/05/19 01/05/19 Range/Units 20:47 16:22 11:41 WBC (4.8-10.8) K/uL RBC (4.40-5.90) Mil/uL Hgb (12.0-18.0) g/dL Hct (35.0-51.0) % MCV (80.0-94.0) fL MCH (27.0-31.0) pg MCHC (33.0-37.0) g/dL RDW (11.5-14.5) % Plt Count (130-400) K/uL MPV (7.2-11.7) fL Neut % (Auto) (50.0-75.0) % Lymph % (Auto) (20.0-40.0) % Emmons % (Auto) (0.0-10.0) % Eos % (Auto) (0.0-4.0) % Baso % (Auto) (0.0-2.0) % Neut # (Auto) (1.8-7.0) K/uL Lymph # (Auto) (1.0-4.3) K/uL Emmons # (Auto) (0.0-0.8) K/uL Eos # (Auto) (0.0-0.7) K/uL Baso # (Auto) (0.0-0.2) K/uL Puncture Site pCO2 (35-45) mm/Hg pO2 (80-100) mm/Hg HCO3 (21-28) mmol/L ABG pH (7.35-7.45) ABG Total CO2 (22-28) mmol/L ABG O2 Saturation (95-98) % ABG Base Excess (-2.0-3.0) mmol/L Kun Test ABG Potassium (3.6-5.2) mmol/L A-a O2 Difference mm/Hg Respiratory Index Sodium (132-148) mmol/l Chloride (98-107) mmol/L Glucose (75-110) mg/dl Lactate (0.7-2.1) mmol/L FiO2 % Potassium (3.6-5.2) mmol/L Carbon Dioxide (22-30) mmol/L Anion Gap (10-20) BUN (9-20) mg/dL Creatinine (0.8-1.5) mg/dL Est GFR ( Amer) Est GFR (Non-Af Amer) POC Glucose (mg/dL) 136 H 196 H 145 H (65-110) mg/dL Random Glucose (75-110) mg/dL Calcium (8.6-10.4) mg/dl Phosphorus (2.5-4.5) mg/dL Magnesium (1.6-2.3) mg/dL Total Bilirubin (0.2-1.3) mg/dL AST (17-59) U/L ALT (21-72) U/L Alkaline Phosphatase (38-126) U/L Total Protein (6.3-8.3) g/dL Albumin (3.5-5.0) g/dL Globulin (2.2-3.9) gm/dL Albumin/Globulin Ratio (1.0-2.1) Arterial Blood Potassium (3.6-5.2) mmol/L 01/05/19 Range/Units 08:37 WBC (4.8-10.8) K/uL RBC (4.40-5.90) Mil/uL Hgb (12.0-18.0) g/dL Hct (35.0-51.0) % MCV (80.0-94.0) fL MCH (27.0-31.0) pg MCHC (33.0-37.0) g/dL RDW (11.5-14.5) % Plt Count (130-400) K/uL MPV (7.2-11.7) fL Neut % (Auto) (50.0-75.0) % Lymph % (Auto) (20.0-40.0) % Emmons % (Auto) (0.0-10.0) % Eos % (Auto) (0.0-4.0) % Baso % (Auto) (0.0-2.0) % Neut # (Auto) (1.8-7.0) K/uL Lymph # (Auto) (1.0-4.3) K/uL Emmons # (Auto) (0.0-0.8) K/uL Eos # (Auto) (0.0-0.7) K/uL Baso # (Auto) (0.0-0.2) K/uL Puncture Site Lb pCO2 45 (35-45) mm/Hg pO2 56 L (80-100) mm/Hg HCO3 24.9 (21-28) mmol/L ABG pH 7.37 (7.35-7.45) ABG Total CO2 27.4 (22-28) mmol/L ABG O2 Saturation 91.2 L (95-98) % ABG Base Excess 0.3 (-2.0-3.0) mmol/L Kun Test Na ABG Potassium 3.6 (3.6-5.2) mmol/L A-a O2 Difference 387.0 mm/Hg Respiratory Index 6.9 Sodium 140.0 (132-148) mmol/l Chloride 104.0 (98-107) mmol/L Glucose 81 (75-110) mg/dl Lactate 0.8 (0.7-2.1) mmol/L FiO2 70.0 % Potassium (3.6-5.2) mmol/L Carbon Dioxide (22-30) mmol/L Anion Gap (10-20) BUN (9-20) mg/dL Creatinine (0.8-1.5) mg/dL Est GFR ( Amer) Est GFR (Non-Af Amer) POC Glucose (mg/dL) (65-110) mg/dL Random Glucose (75-110) mg/dL Calcium (8.6-10.4) mg/dl Phosphorus (2.5-4.5) mg/dL Magnesium (1.6-2.3) mg/dL Total Bilirubin (0.2-1.3) mg/dL AST (17-59) U/L ALT (21-72) U/L Alkaline Phosphatase (38-126) U/L Total Protein (6.3-8.3) g/dL Albumin (3.5-5.0) g/dL Globulin (2.2-3.9) gm/dL Albumin/Globulin Ratio (1.0-2.1) Arterial Blood Potassium 3.6 (3.6-5.2) mmol/L Laboratory Results - last 24 hr 01/05/19 01/05/19 01/05/19 08:37 11:41 16:22 WBC RBC Hgb Hct MCV MCH MCHC RDW Plt Count MPV Neut % (Auto) Lymph % (Auto) Emmons % (Auto) Eos % (Auto) Baso % (Auto) Neut # (Auto) Lymph # (Auto) Emmons # (Auto) Eos # (Auto) Baso # (Auto) Puncture Site Lb pCO2 45 pO2 56 L HCO3 24.9 ABG pH 7.37 ABG Total CO2 27.4 ABG O2 Saturation 91.2 L ABG Base Excess 0.3 Kun Test Na ABG Potassium 3.6 A-a O2 Difference 387.0 Respiratory Index 6.9 Sodium 140.0 Chloride 104.0 Glucose 81 Lactate 0.8 FiO2 70.0 Potassium Carbon Dioxide Anion Gap BUN Creatinine Est GFR ( Amer) Est GFR (Non-Af Amer) POC Glucose (mg/dL) 145 H 196 H Random Glucose Calcium Phosphorus Magnesium Total Bilirubin AST ALT Alkaline Phosphatase Total Protein Albumin Globulin Albumin/Globulin Ratio Arterial Blood Potassium 3.6 01/05/19 01/05/19 01/06/19 20:47 21:08 06:09 WBC 5.3 RBC 4.07 L Hgb 11.9 L Hct 36.2 MCV 88.8 MCH 29.3 MCHC 33.0 RDW 15.5 H Plt Count 190 MPV 8.7 Neut % (Auto) 59.5 Lymph % (Auto) 26.3 Emmons % (Auto) 8.5 Eos % (Auto) 5.1 H Baso % (Auto) 0.6 Neut # (Auto) 3.2 Lymph # (Auto) 1.4 Emmons # (Auto) 0.5 Eos # (Auto) 0.3 Baso # (Auto) 0.0 Puncture Site pCO2 pO2 HCO3 ABG pH ABG Total CO2 ABG O2 Saturation ABG Base Excess Kun Test ABG Potassium A-a O2 Difference Respiratory Index Sodium Chloride Glucose Lactate FiO2 Potassium Carbon Dioxide Anion Gap BUN Creatinine Est GFR ( Amer) Est GFR (Non-Af Amer) POC Glucose (mg/dL) 136 H 138 H Random Glucose Calcium Phosphorus Magnesium Total Bilirubin AST ALT Alkaline Phosphatase Total Protein Albumin Globulin Albumin/Globulin Ratio Arterial Blood Potassium 01/06/19 06:09 WBC RBC Hgb Hct MCV MCH MCHC RDW Plt Count MPV Neut % (Auto) Lymph % (Auto) Emmons % (Auto) Eos % (Auto) Baso % (Auto) Neut # (Auto) Lymph # (Auto) Emmons # (Auto) Eos # (Auto) Baso # (Auto) Puncture Site pCO2 pO2 HCO3 ABG pH ABG Total CO2 ABG O2 Saturation ABG Base Excess Kun Test ABG Potassium A-a O2 Difference Respiratory Index Sodium 137 Chloride 96 L Glucose Lactate FiO2 Potassium 4.2 Carbon Dioxide 28 Anion Gap 17 BUN 50 H Creatinine 4.9 H Est GFR ( Amer) 14 Est GFR (Non-Af Amer) 12 POC Glucose (mg/dL) Random Glucose 101 Calcium 9.3 Phosphorus 4.8 H Magnesium 2.1 Total Bilirubin 0.5 AST 91 H ALT 22 Alkaline Phosphatase 87 Total Protein 7.5 Albumin 4.1 Globulin 3.4 Albumin/Globulin Ratio 1.2 Arterial Blood Potassium Radiology Impressions: Radiology Impressions Chest CT 01/05/19 09:20 Impression: Extensive mostly subcentimeter mediastinal and prevascular adenopathy. 12 mm precarinal lymph node evident. Small right hilar lymph node present. No large central or segmental pulmonary embolus evident. Moderate bilateral consolidations and pleural effusions. Small hiatal hernia with evidence of moderate to severe gastroesophageal reflux. Limited visualized portions of the upper abdomen: Cholelithiasis. Bilateral low-density renal lesions possibly cysts. Exophytic left mid posterior renal hypodense lesion measures approximately 1.6 x 0.7 cm and approximately 40 HU, indeterminate. Recommend further evaluation with renal ultrasound. Fingerstick Blood Sugar Results: 138 Review of Systems - Constitutional Constitutional: absent: Fever, Chills, Sweats - EENT Eyes: UNREMARKABLE. absent: Diplopia Ears: UNREMARKABLE Nose/Mouth/Throat: UNREMARKABLE. absent: Nasal Congestion - Cardiovascular Cardiovascular: UNREMARKABLE. absent: Chest Pain, Chest Pain at Rest - Respiratory Respiratory: UNREMARKABLE. absent: Dyspnea, Hemoptysis - Gastrointestinal Gastrointestinal: UNREMARKABLE. absent: Belching, Cramping, Diarrhea - Musculoskeletal Musculoskeletal: absent: Arthralgias, Atrophy - Integumentary Integumentary: absent: Bleeding Lesions - Neurological Neurological: absent: Behavioral Changes, Headaches - Psychiatric Psychiatric: UNREMARKABLE - Endocrine Endocrine: UNREMARKABLE Critical Care Progress Note - Prophylaxis GI Prophylaxis GI: Pepsid - Prophylaxis DVT Prophylaxis DVT: Heparin SQ - Nutrition Nutrition: Nutrition Category Date Time Status Renal Diet [DIET] Diets 12/31/18 Breakfast Active Assessment/Plan - Assessment and Plan (Free Text) Assessment: 73 male w/ PMhx of ESRD MWF, COPD, HTN, presented to ED shortness of breath/ fever, found to be influenza A (+), RLL pneumonia, admitted to ICU for hypercapneic respiratory failure, currently improving on high flow at 40% FiO2, saturating at 92% Patient is stable for downgrade to [facility]. Plan: Neuro - alert and oriented X 3 Cardio - vitals stable - hx of HTN, c/w asprin 81 mg daily, hydralazine 25 PO TID, cilostazol 50 mg PO BID, metoprolol succinate 25 mg PO daily, - EKG ?premature atrial complex - Echo: LV borderline dilated, normal LV thickness, EF moderately impaired Resp - saturating in 90s on high flow FIO2 40%, continue to wean - if desaturates, place back on BIPAP - ABG 01/02: 7.37/45/56/27.4 - will continue to monitor - CXR improving infiltrate on L - CT GI - c/w diet Renal - BUN/Cr 50/5.9 - Dialysis MWF - urology Dr. Odom consulted - per recs, will likely need OP f/u w/ physician that placed suprapubic cath Heme - H/H stable in 11s/ 35s - continue to monitor ID - afebrile, WBC normal - on admission Tmax 102.4 - CXR: bilateral effusions/ atelectasis/ pneumonia - UA: Sq epith 1, LEuk esterase 1+, WBC 13, Nitrate + - due to recent hospitalization & possible hospital acquired pneumonia - Zosyn 2.25 Q8H dc'ed - Vancomycine 12/30 - 01/02 - Doxyclycline 100 mg Q12H (01/02 - present) - B/C negative X 48H - UC - gram positive cocci, corybebacterium - D/c contact as patient is afebrile > 24H for flu PPx - DVT: heparin SC 5000 units, SCDs - GI: Pepcid 20 mg daily <Kareen Hernández - Last Filed: 01/06/19 17:38> CCU Objective - Vital Signs / Intake & Output Vital Signs (Last 4 hours): Vital Signs Temp Pulse Resp BP Pulse Ox 01/06/19 16:00 98.4 F 71 17 117/51 L 94 L 01/06/19 15:01 130/50 L 01/06/19 15:00 75 33 H 92 L 01/06/19 14:44 19 01/06/19 14:00 73 19 128/54 L Intake and Output (Last 8hrs): Intake & Output 01/06/19 01/06/19 01/06/19 06:59 14:59 22:59 Intake Total 50 530 0 Output Total 30 Balance 20 530 0 Weight 126 lb 1.6 oz Intake: Intake, IV Amount 50 50 Right Upper arm 50 50 Oral 480 0 Output: Urine 30 Suprapubic 30 - Medications Active Medications: Active Medications Generic Name Dose Route Start Last Admin Trade Name Freq PRN Reason Stop Dose Admin Acetaminophen 650 mg 12/30/18 12:34 Tylenol 325mg Tab PO Q6 PRN Fever >100.4 F Albuterol/Ipratropium 3 ml 01/01/19 20:00 01/06/19 11:46 Duoneb 3 Mg/0.5 Mg (3 Ml) Ud INH 3 ml RQ4 SHERLEY Administration Aspirin 81 mg 12/31/18 10:00 01/06/19 09:11 Aspirin Chewable PO 81 mg DAILY SHERLEY Administration Benzonatate 100 mg 12/30/18 20:00 01/06/19 08:11 Tessalon Perles PO 100 mg Q12H SHERLEY Administration Cilostazol 50 mg 12/30/18 18:00 01/06/19 17:10 Pletal PO 50 mg BID SHERLEY Administration Dextrose 0 ml 12/30/18 17:47 01/04/19 07:16 Dextrose 50% Inj IV 50 ml STAT PRN Administration Hypoglycemia Protocol Protocol Dextrose 0 gm 12/30/18 17:47 Glutose 15 PO ONCE PRN Hypoglycemia Protocol Protocol Doxycycline Hyclate 100 mg 01/02/19 19:45 01/06/19 08:08 Doryx PO 100 mg Q12H SHERLEY Administration Protocol Famotidine 20 mg 12/31/18 10:00 01/06/19 09:12 Pepcid PO 20 mg DAILY SHERLEY Administration Glucagon 0 mg 12/30/18 17:47 Glucagen Diagnostic Kit IM STAT PRN Hypoglycemia Protocol Protocol Heparin Sodium (Porcine) 5,000 units 12/30/18 22:00 01/06/19 13:48 Heparin SC 5,000 units Q8 SHERLEY Administration Piperacillin Sod/Tazobactam Sod 2.25 gm in 50 mls @ 100 mls/hr 12/30/18 20:00 01/06/19 11:57 Zosyn 2.25 Gm Iv Premix IVPB 100 mls/hr Q8H SHERLEY Administration Protocol Dextrose 1,000 mls @ 0 mls/hr 12/30/18 17:47 Dextrose 5% In Water 1000 Ml IV .Q0M PRN Hypoglycemia Protocol Protocol Per Protocol Insulin Aspart 0 unit 12/30/18 16:30 01/06/19 16:32 Novolog SC 3 units AC SHERLEY Administration Protocol Insulin Glargine 10 unit 01/04/19 22:00 01/05/19 21:04 Lantus SC 10 u HS SHERLEY Administration Metoprolol Succinate 25 mg 12/31/18 10:00 01/06/19 09:11 Toprol Xl PO 25 mg DAILY SHERLEY Administration Montelukast Sodium 10 mg 12/31/18 10:00 01/06/19 09:12 Singulair PO 10 mg DAILY SHERLEY Administration Rosuvastatin Calcium 5 mg 12/30/18 22:00 01/05/19 21:04 Crestor PO 5 mg HS SHERLEY Administration Sevelamer Carbonate 1,600 mg 12/30/18 17:00 01/06/19 17:09 Renvela PO 1,600 mg TIDCC SHERLEY Administration - Patient Studies Lab Studies: Lab Studies 01/06/19 01/06/19 01/06/19 Range/Units 16:20 11:30 07:23 WBC (4.8-10.8) K/uL RBC (4.40-5.90) Mil/uL Hgb (12.0-18.0) g/dL Hct (35.0-51.0) % MCV (80.0-94.0) fL MCH (27.0-31.0) pg MCHC (33.0-37.0) g/dL RDW (11.5-14.5) % Plt Count (130-400) K/uL MPV (7.2-11.7) fL Neut % (Auto) (50.0-75.0) % Lymph % (Auto) (20.0-40.0) % Emmons % (Auto) (0.0-10.0) % Eos % (Auto) (0.0-4.0) % Baso % (Auto) (0.0-2.0) % Neut # (Auto) (1.8-7.0) K/uL Lymph # (Auto) (1.0-4.3) K/uL Emmons # (Auto) (0.0-0.8) K/uL Eos # (Auto) (0.0-0.7) K/uL Baso # (Auto) (0.0-0.2) K/uL Sodium (132-148) mmol/L Potassium (3.6-5.2) mmol/L Chloride (98-107) mmol/L Carbon Dioxide (22-30) mmol/L Anion Gap (10-20) BUN (9-20) mg/dL Creatinine (0.8-1.5) mg/dL Est GFR ( Amer) Est GFR (Non-Af Amer) POC Glucose (mg/dL) 204 H 200 H 80 (65-110) mg/dL Random Glucose (75-110) mg/dL Calcium (8.6-10.4) mg/dl Phosphorus (2.5-4.5) mg/dL Magnesium (1.6-2.3) mg/dL Total Bilirubin (0.2-1.3) mg/dL AST (17-59) U/L ALT (21-72) U/L Alkaline Phosphatase (38-126) U/L Total Protein (6.3-8.3) g/dL Albumin (3.5-5.0) g/dL Globulin (2.2-3.9) gm/dL Albumin/Globulin Ratio (1.0-2.1) 01/06/19 01/06/19 01/05/19 Range/Units 06:09 06:09 21:08 WBC 5.3 (4.8-10.8) K/uL RBC 4.07 L (4.40-5.90) Mil/uL Hgb 11.9 L (12.0-18.0) g/dL Hct 36.2 (35.0-51.0) % MCV 88.8 (80.0-94.0) fL MCH 29.3 (27.0-31.0) pg MCHC 33.0 (33.0-37.0) g/dL RDW 15.5 H (11.5-14.5) % Plt Count 190 (130-400) K/uL MPV 8.7 (7.2-11.7) fL Neut % (Auto) 59.5 (50.0-75.0) % Lymph % (Auto) 26.3 (20.0-40.0) % Emmons % (Auto) 8.5 (0.0-10.0) % Eos % (Auto) 5.1 H (0.0-4.0) % Baso % (Auto) 0.6 (0.0-2.0) % Neut # (Auto) 3.2 (1.8-7.0) K/uL Lymph # (Auto) 1.4 (1.0-4.3) K/uL Emmons # (Auto) 0.5 (0.0-0.8) K/uL Eos # (Auto) 0.3 (0.0-0.7) K/uL Baso # (Auto) 0.0 (0.0-0.2) K/uL Sodium 137 (132-148) mmol/L Potassium 4.2 (3.6-5.2) mmol/L Chloride 96 L (98-107) mmol/L Carbon Dioxide 28 (22-30) mmol/L Anion Gap 17 (10-20) BUN 50 H (9-20) mg/dL Creatinine 4.9 H (0.8-1.5) mg/dL Est GFR ( Amer) 14 Est GFR (Non-Af Amer) 12 POC Glucose (mg/dL) 138 H (65-110) mg/dL Random Glucose 101 (75-110) mg/dL Calcium 9.3 (8.6-10.4) mg/dl Phosphorus 4.8 H (2.5-4.5) mg/dL Magnesium 2.1 (1.6-2.3) mg/dL Total Bilirubin 0.5 (0.2-1.3) mg/dL AST 91 H (17-59) U/L ALT 22 (21-72) U/L Alkaline Phosphatase 87 (38-126) U/L Total Protein 7.5 (6.3-8.3) g/dL Albumin 4.1 (3.5-5.0) g/dL Globulin 3.4 (2.2-3.9) gm/dL Albumin/Globulin Ratio 1.2 (1.0-2.1) 01/05/19 Range/Units 20:47 WBC (4.8-10.8) K/uL RBC (4.40-5.90) Mil/uL Hgb (12.0-18.0) g/dL Hct (35.0-51.0) % MCV (80.0-94.0) fL MCH (27.0-31.0) pg MCHC (33.0-37.0) g/dL RDW (11.5-14.5) % Plt Count (130-400) K/uL MPV (7.2-11.7) fL Neut % (Auto) (50.0-75.0) % Lymph % (Auto) (20.0-40.0) % Emmons % (Auto) (0.0-10.0) % Eos % (Auto) (0.0-4.0) % Baso % (Auto) (0.0-2.0) % Neut # (Auto) (1.8-7.0) K/uL Lymph # (Auto) (1.0-4.3) K/uL Emmons # (Auto) (0.0-0.8) K/uL Eos # (Auto) (0.0-0.7) K/uL Baso # (Auto) (0.0-0.2) K/uL Sodium (132-148) mmol/L Potassium (3.6-5.2) mmol/L Chloride (98-107) mmol/L Carbon Dioxide (22-30) mmol/L Anion Gap (10-20) BUN (9-20) mg/dL Creatinine (0.8-1.5) mg/dL Est GFR ( Amer) Est GFR (Non-Af Amer) POC Glucose (mg/dL) 136 H (65-110) mg/dL Random Glucose (75-110) mg/dL Calcium (8.6-10.4) mg/dl Phosphorus (2.5-4.5) mg/dL Magnesium (1.6-2.3) mg/dL Total Bilirubin (0.2-1.3) mg/dL AST (17-59) U/L ALT (21-72) U/L Alkaline Phosphatase (38-126) U/L Total Protein (6.3-8.3) g/dL Albumin (3.5-5.0) g/dL Globulin (2.2-3.9) gm/dL Albumin/Globulin Ratio (1.0-2.1) Laboratory Results - last 24 hr 01/05/19 01/05/19 01/06/19 20:47 21:08 06:09 WBC 5.3 RBC 4.07 L Hgb 11.9 L Hct 36.2 MCV 88.8 MCH 29.3 MCHC 33.0 RDW 15.5 H Plt Count 190 MPV 8.7 Neut % (Auto) 59.5 Lymph % (Auto) 26.3 Emmons % (Auto) 8.5 Eos % (Auto) 5.1 H Baso % (Auto) 0.6 Neut # (Auto) 3.2 Lymph # (Auto) 1.4 Emmons # (Auto) 0.5 Eos # (Auto) 0.3 Baso # (Auto) 0.0 Sodium Potassium Chloride Carbon Dioxide Anion Gap BUN Creatinine Est GFR ( Amer) Est GFR (Non-Af Amer) POC Glucose (mg/dL) 136 H 138 H Random Glucose Calcium Phosphorus Magnesium Total Bilirubin AST ALT Alkaline Phosphatase Total Protein Albumin Globulin Albumin/Globulin Ratio 01/06/19 01/06/19 01/06/19 06:09 07:23 11:30 WBC RBC Hgb Hct MCV MCH MCHC RDW Plt Count MPV Neut % (Auto) Lymph % (Auto) Emmons % (Auto) Eos % (Auto) Baso % (Auto) Neut # (Auto) Lymph # (Auto) Emmons # (Auto) Eos # (Auto) Baso # (Auto) Sodium 137 Potassium 4.2 Chloride 96 L Carbon Dioxide 28 Anion Gap 17 BUN 50 H Creatinine 4.9 H Est GFR ( Amer) 14 Est GFR (Non-Af Amer) 12 POC Glucose (mg/dL) 80 200 H Random Glucose 101 Calcium 9.3 Phosphorus 4.8 H Magnesium 2.1 Total Bilirubin 0.5 AST 91 H ALT 22 Alkaline Phosphatase 87 Total Protein 7.5 Albumin 4.1 Globulin 3.4 Albumin/Globulin Ratio 1.2 01/06/19 16:20 WBC RBC Hgb Hct MCV MCH MCHC RDW Plt Count MPV Neut % (Auto) Lymph % (Auto) Emmons % (Auto) Eos % (Auto) Baso % (Auto) Neut # (Auto) Lymph # (Auto) Emmons # (Auto) Eos # (Auto) Baso # (Auto) Sodium Potassium Chloride Carbon Dioxide Anion Gap BUN Creatinine Est GFR ( Amer) Est GFR (Non-Af Amer) POC Glucose (mg/dL) 204 H Random Glucose Calcium Phosphorus Magnesium Total Bilirubin AST ALT Alkaline Phosphatase Total Protein Albumin Globulin Albumin/Globulin Ratio Critical Care Progress Note - Nutrition Nutrition: Nutrition Category Date Time Status Renal Diet [DIET] Diets 12/31/18 Breakfast Active Assessment/Plan - Assessment and Plan (Free Text) Plan: Patient seen and examiend at bedside with above resident -hypoxic respiratory failreu: FiO2 decreased to 40% -ESRD on HD: HD as per renal -continue treatment for HTN -INfluenza infection: complete abx/antiviral regimen -continue negative balance -pt/ot -patient remains hemodynamically stable - Date & Time Date: 01/06/19 Time: 17:38
[2019-01-06] MEDS: (Novolog) Insulin Aspart, Recombinant 100 u/ml 10 ml vial SC SCH ×3 (08:09→16:32)
[2019-01-06] MEDS: Metoprolol Succinate 25 mg XL Tab PO SCH (09:11)
[2019-01-06] MEDS: Cilostazol 50 mg Tab UD PO SCH ×2 (09:12→17:10)
--- NOTE | 2019-01-06 12:33 | CP.PCM.PN ---
Subjective - Date & Time of Evaluation Date of Evaluation: 01/06/19 Time of Evaluation: 12:31 - Subjective Subjective: off isolation lying flat in bed no SOB cough better no chest pain had HD yesterday ROS- as per HPI, other than that 10 point ROS negative Objective - Vital Signs/Intake and Output Vital Signs (last 24 hours): Temp Pulse Resp BP Pulse Ox 97.5 F L 74 23 113/59 L 98 01/06/19 12:00 01/06/19 12:00 01/06/19 12:00 01/06/19 12:00 01/06/19 11:00 Intake and Output: 01/06/19 01/06/19 06:59 18:59 Intake Total 100 480 Output Total 80 Balance 20 480 - Medications Medications: Current Medications Acetaminophen (Tylenol 325mg Tab) 650 mg PO Q6 PRN PRN Reason: Fever >100.4 F Albuterol/Ipratropium (Duoneb 3 Mg/0.5 Mg (3 Ml) Ud) 3 ml INH RQ4 [facility] Last Admin: 01/06/19 11:46 Dose: 3 ml Aspirin (Aspirin Chewable) 81 mg PO DAILY [facility] Last Admin: 01/06/19 09:11 Dose: 81 mg Benzonatate (Tessalon Perles) 100 mg PO Q12H [facility] Last Admin: 01/06/19 08:11 Dose: 100 mg Cilostazol (Pletal) 50 mg PO BID [facility] Last Admin: 01/06/19 09:12 Dose: 50 mg Dextrose (Dextrose 50% Inj) 0 ml IV STAT PRN; Protocol PRN Reason: Hypoglycemia Protocol Last Admin: 01/04/19 07:16 Dose: 50 ml Dextrose (Glutose 15) 0 gm PO ONCE PRN; Protocol PRN Reason: Hypoglycemia Protocol Doxycycline Hyclate (Doryx) 100 mg PO Q12H [facility]; Protocol Last Admin: 01/06/19 08:08 Dose: 100 mg Famotidine (Pepcid) 20 mg PO DAILY [facility] Last Admin: 01/06/19 09:12 Dose: 20 mg Glucagon (Glucagen Diagnostic Kit) 0 mg IM STAT PRN; Protocol PRN Reason: Hypoglycemia Protocol Heparin Sodium (Porcine) (Heparin) 5,000 units SC Q8 [facility] Last Admin: 01/06/19 06:08 Dose: 5,000 units Piperacillin Sod/Tazobactam Sod (Zosyn 2.25 Gm Iv Premix) 2.25 gm in 50 mls @ 100 mls/hr IVPB Q8H [facility]; Protocol Last Admin: 01/06/19 11:57 Dose: 100 mls/hr Dextrose (Dextrose 5% In Water 1000 Ml) 1,000 mls @ 0 mls/hr IV .Q0M PRN; Protocol PRN Reason: Hypoglycemia Protocol Insulin Aspart (Novolog) 0 unit SC [facility]; Protocol Last Admin: 01/06/19 11:58 Dose: 3 units Insulin Glargine (Lantus) 10 unit SC [facility] Last Admin: 01/05/19 21:04 Dose: 10 u Metoprolol Succinate (Toprol Xl) 25 mg PO DAILY [facility] Last Admin: 01/06/19 09:11 Dose: 25 mg Montelukast Sodium (Singulair) 10 mg PO DAILY [facility] Last Admin: 01/06/19 09:12 Dose: 10 mg Rosuvastatin Calcium (Crestor) 5 mg PO HS [facility] Last Admin: 01/05/19 21:04 Dose: 5 mg Sevelamer Carbonate (Renvela) 1,600 mg PO TIDCC [facility] Last Admin: 01/06/19 11:58 Dose: 1,600 mg - Labs Labs: 01/06/19 06:09 01/06/19 06:09 PT 11.2 SECONDS (9.7-12.2) 12/30/18 09:19 INR 1.0 12/30/18 09:19 APTT 30 SECONDS (21-34) 12/30/18 09:19 - Constitutional Appears: Non-toxic, Chronically Ill - Head Exam Head Exam: ATRAUMATIC, NORMOCEPHALIC - Eye Exam Eye Exam: EOMI, PERRL - ENT Exam ENT Exam: Mucous Membranes Moist - Neck Exam Neck Exam: Full ROM - Respiratory Exam Respiratory Exam: Clear to Ausculation Bilateral Additional comments: few ronchi, no rales - GI/Abdominal Exam GI & Abdominal Exam: Soft. absent: Distended, Tenderness - Extremities Exam Extremities Exam: Full ROM. absent: Joint Swelling, Pedal Edema - Neurological Exam Neurological Exam: Alert, Awake, Oriented x3 - Psychiatric Exam Psychiatric exam: Normal Affect, Normal Mood - Skin Skin Exam: Normal Color, Warm Assessment and Plan (1) Pneumonia Status: Acute (2) Influenza Status: Acute (3) Pleural effusion Status: Acute (4) ESRD (end stage renal disease) on dialysis Status: Chronic (5) Type 2 diabetes mellitus with diabetic nephropathy Status: Acute (6) HTN (hypertension) Status: Chronic (7) PAD (peripheral artery disease) Status: Chronic - Assessment and Plan (Free Text) Plan: clinically improving HD tomorrow, MWF schedule bp better continue ABx for PNA and UTI off isolation physical therapy
--- NOTE | 2019-01-06 17:26 | CP.PCM.PN ---
Subjective - Date & Time of Evaluation Date of Evaluation: 01/06/19 Time of Evaluation: 11:00 - Subjective Subjective: Patient seen and examined in the intensive care unit. Remained on high flow oxygen and desaturates on nasal cannula Status post hemodialysis Patient is awake and responsive Objective - Vital Signs/Intake and Output Vital Signs (last 24 hours): Temp Pulse Resp BP Pulse Ox 98.4 F 71 17 117/51 L 94 L 01/06/19 16:00 01/06/19 16:00 01/06/19 16:00 01/06/19 16:00 01/06/19 16:00 Intake and Output: 01/06/19 01/06/19 06:59 18:59 Intake Total 100 530 Output Total 80 Balance 20 530 - Medications Medications: Current Medications Acetaminophen (Tylenol 325mg Tab) 650 mg PO Q6 PRN PRN Reason: Fever >100.4 F Albuterol/Ipratropium (Duoneb 3 Mg/0.5 Mg (3 Ml) Ud) 3 ml INH RQ4 [facility] Last Admin: 01/06/19 11:46 Dose: 3 ml Aspirin (Aspirin Chewable) 81 mg PO DAILY [facility] Last Admin: 01/06/19 09:11 Dose: 81 mg Benzonatate (Tessalon Perles) 100 mg PO Q12H [facility] Last Admin: 01/06/19 08:11 Dose: 100 mg Cilostazol (Pletal) 50 mg PO BID [facility] Last Admin: 01/06/19 17:10 Dose: 50 mg Dextrose (Dextrose 50% Inj) 0 ml IV STAT PRN; Protocol PRN Reason: Hypoglycemia Protocol Last Admin: 01/04/19 07:16 Dose: 50 ml Dextrose (Glutose 15) 0 gm PO ONCE PRN; Protocol PRN Reason: Hypoglycemia Protocol Doxycycline Hyclate (Doryx) 100 mg PO Q12H [facility]; Protocol Last Admin: 01/06/19 08:08 Dose: 100 mg Famotidine (Pepcid) 20 mg PO DAILY [facility] Last Admin: 01/06/19 09:12 Dose: 20 mg Glucagon (Glucagen Diagnostic Kit) 0 mg IM STAT PRN; Protocol PRN Reason: Hypoglycemia Protocol Heparin Sodium (Porcine) (Heparin) 5,000 units SC Q8 [facility] Last Admin: 01/06/19 13:48 Dose: 5,000 units Piperacillin Sod/Tazobactam Sod (Zosyn 2.25 Gm Iv Premix) 2.25 gm in 50 mls @ 100 mls/hr IVPB Q8H [facility]; Protocol Last Admin: 01/06/19 11:57 Dose: 100 mls/hr Dextrose (Dextrose 5% In Water 1000 Ml) 1,000 mls @ 0 mls/hr IV .Q0M PRN; Protocol PRN Reason: Hypoglycemia Protocol Insulin Aspart (Novolog) 0 unit SC [facility]; Protocol Last Admin: 01/06/19 16:32 Dose: 3 units Insulin Glargine (Lantus) 10 unit SC [facility] Last Admin: 01/05/19 21:04 Dose: 10 u Metoprolol Succinate (Toprol Xl) 25 mg PO DAILY [facility] Last Admin: 01/06/19 09:11 Dose: 25 mg Montelukast Sodium (Singulair) 10 mg PO DAILY [facility] Last Admin: 01/06/19 09:12 Dose: 10 mg Rosuvastatin Calcium (Crestor) 5 mg PO HS [facility] Last Admin: 01/05/19 21:04 Dose: 5 mg Sevelamer Carbonate (Renvela) 1,600 mg PO TIDCC [facility] Last Admin: 01/06/19 17:09 Dose: 1,600 mg - Labs Labs: 01/06/19 06:09 01/06/19 06:09 PT 11.2 SECONDS (9.7-12.2) 12/30/18 09:19 INR 1.0 12/30/18 09:19 APTT 30 SECONDS (21-34) 12/30/18 09:19 - Head Exam Head Exam: ATRAUMATIC, NORMOCEPHALIC - ENT Exam ENT Exam: Mucous Membranes Moist - Neck Exam Neck Exam: Normal Inspection - Respiratory Exam Respiratory Exam: Decreased Breath Sounds Assessment and Plan (1) Pneumonia Assessment & Plan: Continue antibiotics Reduce FiO2 as tolerated Transfer to floor Continue hemodialysis Physical therapy Status: Acute (2) Influenza Status: Acute (3) Pleural effusion Status: Acute (4) ESRD (end stage renal disease) on dialysis Status: Chronic
[2019-01-06] MEDS: (Lantus) Insulin Glargine, Recombinant SC SCH (21:20)
[2019-01-07] MEDS: Albuterol-Ipratrop 3 mg / 0.5 (3 ml) UD INH SCH ×5 (00:55→19:55)
[2019-01-07] MEDS: Piperacill/Tazo 2.25gm in Dex 2.25 GM/50 ML BAG IVPB SCH ×3 (03:54→19:25)
[2019-01-07 06:06] LABS: BASO % 0.4 % (0.0-2.0); EOS # 0.3 K/uL (0.0-0.7); LYMPH # 1.5 K/uL (1.0-4.3)
[2019-01-07 06:09] LABS: EOS % 5.7 % (0.0-4.0); HEMOGLOBIN 11.5 g/dL (12.0-18.0); LYMPH % 27.6 % (20.0-40.0); MEAN CELL VOLUME 88.5 fL (80.0-94.0); MEAN CORPUSCULAR HEMOGLOBIN 29.5 pg (27.0-31.0); MEAN CORPUSCULAR HGB CONC 33.3 g/dL (33.0-37.0); MEAN PLATELET VOLUME 8.6 fL (7.2-11.7); MONO # 0.5 K/uL (0.0-0.8); MONO % 9.7 % (0.0-10.0); NEUT # 3.1 K/uL (1.8-7.0); NEUT % 56.6 % (50.0-75.0); NRBC % 0.3 % (0.0-2.0); RBC 3.92 Mil/uL (4.40-5.90); RED CELL DISTRIBUTION WIDTH 15.7 % (11.5-14.5); WHITE BLOOD COUNT 5.5 K/uL (4.8-10.8)
[2019-01-07 06:18] LABS: ALB/GLOB RATIO 1.5 (1.0-2.1); ALBUMIN 4.1 g/dL (3.5-5.0); CALCIUM 9.5 mg/dl (8.6-10.4)
--- NOTE | 2019-01-07 06:57 | CP.PCM.PN ---
Subjective - Date & Time of Evaluation Date of Evaluation: 01/07/19 Time of Evaluation: 06:57 - Subjective Subjective: Progress Note for Dr. Castillo's service Patient seen and examined at bedside. Patient complained of shortness of breath that has improved from before. Currently oxygenating well on high flow. Patient is due for dialysis this morning. No overnight events as per nursing. Objective - Vital Signs/Intake and Output Vital Signs (last 24 hours): Temp Pulse Resp BP Pulse Ox 98 F 81 16 119/58 L 96 01/07/19 04:00 01/07/19 04:00 01/07/19 04:00 01/07/19 04:00 01/07/19 04:00 Intake and Output: 01/06/19 01/07/19 18:59 06:59 Intake Total 770 400 Output Total 15 5 Balance 755 395 - Medications Medications: Current Medications Acetaminophen (Tylenol 325mg Tab) 650 mg PO Q6 PRN PRN Reason: Fever >100.4 F Albuterol/Ipratropium (Duoneb 3 Mg/0.5 Mg (3 Ml) Ud) 3 ml INH RQ4 [facility] Last Admin: 01/07/19 03:19 Dose: Not Given Aspirin (Aspirin Chewable) 81 mg PO DAILY [facility] Last Admin: 01/06/19 09:11 Dose: 81 mg Benzonatate (Tessalon Perles) 100 mg PO Q12H [facility] Last Admin: 01/06/19 20:22 Dose: 100 mg Cilostazol (Pletal) 50 mg PO BID [facility] Last Admin: 01/06/19 17:10 Dose: 50 mg Dextrose (Dextrose 50% Inj) 0 ml IV STAT PRN; Protocol PRN Reason: Hypoglycemia Protocol Last Admin: 01/04/19 07:16 Dose: 50 ml Dextrose (Glutose 15) 0 gm PO ONCE PRN; Protocol PRN Reason: Hypoglycemia Protocol Doxycycline Hyclate (Doryx) 100 mg PO Q12H [facility]; Protocol Last Admin: 01/06/19 20:21 Dose: 100 mg Famotidine (Pepcid) 20 mg PO DAILY [facility] Last Admin: 01/06/19 09:12 Dose: 20 mg Glucagon (Glucagen Diagnostic Kit) 0 mg IM STAT PRN; Protocol PRN Reason: Hypoglycemia Protocol Heparin Sodium (Porcine) (Heparin) 5,000 units SC Q8 [facility] Last Admin: 01/07/19 06:07 Dose: 5,000 units Piperacillin Sod/Tazobactam Sod (Zosyn 2.25 Gm Iv Premix) 2.25 gm in 50 mls @ 100 mls/hr IVPB Q8H [facility]; Protocol Last Admin: 01/07/19 03:54 Dose: 100 mls/hr Dextrose (Dextrose 5% In Water 1000 Ml) 1,000 mls @ 0 mls/hr IV .Q0M PRN; Protocol PRN Reason: Hypoglycemia Protocol Insulin Aspart (Novolog) 0 unit SC AC [facility]; Protocol Last Admin: 01/06/19 16:32 Dose: 3 units Insulin Glargine (Lantus) 10 unit SC [facility] Last Admin: 01/06/19 21:20 Dose: 10 u Metoprolol Succinate (Toprol Xl) 25 mg PO DAILY [facility] Last Admin: 01/06/19 09:11 Dose: 25 mg Montelukast Sodium (Singulair) 10 mg PO DAILY [facility] Last Admin: 01/06/19 09:12 Dose: 10 mg Rosuvastatin Calcium (Crestor) 5 mg PO HS [facility] Last Admin: 01/06/19 21:21 Dose: 5 mg Sevelamer Carbonate (Renvela) 1,600 mg PO TIDCC [facility] Last Admin: 01/06/19 17:09 Dose: 1,600 mg - Labs Labs: 01/07/19 05:59 01/07/19 05:55 PT 11.2 SECONDS (9.7-12.2) 12/30/18 09:19 INR 1.0 12/30/18 09:19 APTT 30 SECONDS (21-34) 12/30/18 09:19 - Constitutional Appears: Older Than Stated Age, Chronically Ill - Head Exam Head Exam: ATRAUMATIC, NORMOCEPHALIC - Eye Exam Eye Exam: EOMI, PERRL - ENT Exam ENT Exam: Mucous Membranes Moist - Respiratory Exam Respiratory Exam: Decreased Breath Sounds, Rales (at bases ). absent: Rhonchi, Wheezes - Cardiovascular Exam Cardiovascular Exam: +S1, +S2 - GI/Abdominal Exam GI & Abdominal Exam: Soft, Normal Bowel Sounds. absent: Tenderness Additional comments: Suprapubic catheter - Extremities Exam Extremities Exam: absent: Calf Tenderness, Pedal Edema Additional comments: Left AV fistula with palpable thrill - Back Exam Back Exam: absent: CVA tenderness (L), CVA tenderness (R) - Neurological Exam Neurological Exam: Awake, Oriented x3 Assessment and Plan - Assessment and Plan (Free Text) Assessment: 73 year old male with history of ESRD MWF, COPD, HTN, presented to ED shortness of breath/ fever, found to be influenza A (+), RLL pneumonia, admitted to ICU for hypercapneic respiratory failure, currently improving on high flow at 40% FiO2, saturating at 93%, recently downgraded from ICU. Plan: Sepsis, with RLL infiltrates Influenza A positive on admission febrile to 102.4 no leukocytosis Most recent CXR: improving infiltrates. Chest CT: Extensive mostly subcentimeter mediastinal and prevascular adenopathy. 12 mm precarinal lymph node evident. Small right hilar lymph node present. No large central or segmental pulmonary embolus evident.Moderate bilateral consolidations and pleural effusions. Small hiatal hernia with evidence of moderate to severe gastroesophageal reflux. Limited visualized portions of the upper abdomen: Cholelithiasis. Bilateral low-density renal lesions possibly cysts. Exophytic left mid posterior renal hypodense lesion measures approximately 1.6 x 0.7 cm and approximately 40 HU, indeterminate. Recommend further evaluation with renal ultrasound. UA: positive nitrates, 1+ LE, 3+ protein Urine culture positive for Corynebacteria Blood culture negative Treated with Zosyn 2.25mg Q8 (started 12/30), Vancomycin (12/30 - 01/02), Doxycycline 100mg Q12 (started 01/02) Tessalon Perles 100mg Q12 Duonebs Q4 [facility] Tylenol 650mg Q6 PRN Hypercapneic Respiratory failure Recently admitted for pulmonary edema Initially placed on BIPAP in ICU, currently oxygenating well on high flow. On repeat evaluation, patient oxygenating well on nasal cannula. Chest CT: Extensive mostly subcentimeter mediastinal and prevascular adenopathy . 12 mm precarinal lymph node evident. Small right hilar lymph node present. No large central or segmental pulmonary embolus evident.Moderate bilateral consolidations and pleural effusions. Small hiatal hernia with evidence of moderate to severe gastroesophageal reflux. Limited visualized portions of the upper abdomen: Cholelithiasis. Bilateral low-density renal lesions possibly cysts. Exophytic left mid posterior renal hypodense lesion measures approximately 1.6 x 0.7 cm and approximately 40 HU, indeterminate. Recommend further evaluation with renal ultrasound. Singulair 10mg PO HS UDS negative Duonebs Q4 [facility] Elevated troponins ASA 81mg PO Toprol 25mg XL Echo: Left ventricle borderline dilated. normal LV wall thickness. systolic function is moderately impaired. regional wall abnormalities noted. aortic valve is mildly to moderately thickened. no pericardial effusion. Grade 1 abnormal relaxation pattern. History of ESRD on HD [facility] Nephrology Dr. Lancaster consulted. Due for HD today. BUN/Cr 72/7.3 History of HTN Toprol XL 25mg PO History of DM ISS Lantus decreased from 10 unit to 8 units SC HS since morning glucose were low Hypoglycemia treatment protocol History of HLD Crestor 5mg PO HS History of PAD Cilozastol 50mg PO BID Prophylaxis Heparin Pepcid 20mg PO daily Gaby Rapp, PGY1
[2019-01-07] MEDS: (Novolog) Insulin Aspart, Recombinant 100 u/ml 10 ml vial SC SCH ×3 (07:59→17:15)
[2019-01-07] MEDS: Metoprolol Succinate 25 mg XL Tab PO SCH (10:27)
[2019-01-07] MEDS: Cilostazol 50 mg Tab UD PO SCH ×2 (10:27→18:25)
--- NOTE | 2019-01-07 11:16 | CP.PCM.PN ---
Subjective - Date & Time of Evaluation Date of Evaluation: 01/07/19 Time of Evaluation: 08:00 - Subjective Subjective: Patient seen and examined Sitting comfortably in no distress Afebrile Remains on high flow oxygen with FiO2 40% Objective - Vital Signs/Intake and Output Vital Signs (last 24 hours): Temp Pulse Resp BP Pulse Ox 98 F 82 20 119/58 L 96 01/07/19 08:00 01/07/19 08:00 01/07/19 08:00 01/07/19 08:00 01/07/19 08:00 Intake and Output: 01/07/19 01/07/19 06:59 18:59 Intake Total 400 Output Total 5 Balance 395 - Medications Medications: Current Medications Acetaminophen (Tylenol 325mg Tab) 650 mg PO Q6 PRN PRN Reason: Fever >100.4 F Albuterol/Ipratropium (Duoneb 3 Mg/0.5 Mg (3 Ml) Ud) 3 ml INH RQ4 [facility] Last Admin: 01/07/19 07:52 Dose: 3 ml Aspirin (Aspirin Chewable) 81 mg PO DAILY [facility] Last Admin: 01/07/19 10:26 Dose: 81 mg Benzonatate (Tessalon Perles) 100 mg PO Q12H [facility] Last Admin: 01/07/19 08:35 Dose: 100 mg Cilostazol (Pletal) 50 mg PO BID [facility] Last Admin: 01/07/19 10:27 Dose: 50 mg Dextrose (Dextrose 50% Inj) 0 ml IV STAT PRN; Protocol PRN Reason: Hypoglycemia Protocol Last Admin: 01/04/19 07:16 Dose: 50 ml Dextrose (Glutose 15) 0 gm PO ONCE PRN; Protocol PRN Reason: Hypoglycemia Protocol Doxycycline Hyclate (Doryx) 100 mg PO Q12H [facility]; Protocol Last Admin: 01/07/19 08:18 Dose: 100 mg Famotidine (Pepcid) 20 mg PO DAILY [facility] Last Admin: 01/07/19 10:27 Dose: 20 mg Glucagon (Glucagen Diagnostic Kit) 0 mg IM STAT PRN; Protocol PRN Reason: Hypoglycemia Protocol Heparin Sodium (Porcine) (Heparin) 5,000 units SC Q8 [facility] Piperacillin Sod/Tazobactam Sod (Zosyn 2.25 Gm Iv Premix) 2.25 gm in 50 mls @ 100 mls/hr IVPB Q8H [facility]; Protocol Last Admin: 01/07/19 03:54 Dose: 100 mls/hr Insulin Aspart (Novolog) 0 unit SC AC [facility]; Protocol Last Admin: 01/07/19 07:59 Dose: Not Given Insulin Glargine (Lantus) 10 unit SC [facility] Last Admin: 01/06/19 21:20 Dose: 10 u Metoprolol Succinate (Toprol Xl) 25 mg PO DAILY [facility] Last Admin: 01/07/19 10:27 Dose: 25 mg Montelukast Sodium (Singulair) 10 mg PO DAILY [facility] Last Admin: 01/07/19 10:34 Dose: 10 mg Rosuvastatin Calcium (Crestor) 5 mg PO HS [facility] Last Admin: 01/06/19 21:21 Dose: 5 mg Sevelamer Carbonate (Renvela) 1,600 mg PO TIDCC [facility] Last Admin: 01/07/19 08:20 Dose: 1,600 mg - Labs Labs: 01/07/19 05:59 01/07/19 05:55 PT 11.2 SECONDS (9.7-12.2) 12/30/18 09:19 INR 1.0 12/30/18 09:19 APTT 30 SECONDS (21-34) 12/30/18 09:19 - Head Exam Head Exam: ATRAUMATIC, NORMOCEPHALIC - ENT Exam ENT Exam: Mucous Membranes Moist - Neck Exam Neck Exam: Normal Inspection - Respiratory Exam Respiratory Exam: Decreased Breath Sounds - Cardiovascular Exam Cardiovascular Exam: REGULAR RHYTHM - GI/Abdominal Exam GI & Abdominal Exam: Soft, Normal Bowel Sounds Assessment and Plan (1) Pneumonia Assessment & Plan: Continue antibiotics Switch to nasal cannula and monitor pulse oximeter Continue nebulizer treatment Continue hemodialysis and follow-up chest x-ray Status: Acute (2) Influenza Status: Acute (3) Pleural effusion Status: Acute (4) ESRD (end stage renal disease) on dialysis Status: Chronic
--- NOTE | 2019-01-07 13:45 | CP.PCM.PN ---
Subjective - Date & Time of Evaluation Date of Evaluation: 01/07/19 Time of Evaluation: 13:43 - Subjective Subjective: on dialysis at present, UF goal 2500 cc off high flow oxygen, on nasal cannula saturating > 90% no SOB afebrile no overnight events Rest 10 point ROS negative Objective - Vital Signs/Intake and Output Vital Signs (last 24 hours): Temp Pulse Resp BP Pulse Ox 97.4 F L 78 15 101/53 L 95 01/07/19 13:00 01/07/19 12:00 01/07/19 13:15 01/07/19 13:15 01/07/19 13:15 Intake and Output: 01/07/19 01/07/19 06:59 18:59 Intake Total 400 Output Total 5 Balance 395 - Medications Medications: Current Medications Acetaminophen (Tylenol 325mg Tab) 650 mg PO Q6 PRN PRN Reason: Fever >100.4 F Albuterol/Ipratropium (Duoneb 3 Mg/0.5 Mg (3 Ml) Ud) 3 ml INH RQ4 [facility] Last Admin: 01/07/19 11:23 Dose: 3 ml Aspirin (Aspirin Chewable) 81 mg PO DAILY [facility] Last Admin: 01/07/19 10:26 Dose: 81 mg Benzonatate (Tessalon Perles) 100 mg PO Q12H [facility] Last Admin: 01/07/19 08:35 Dose: 100 mg Cilostazol (Pletal) 50 mg PO BID [facility] Last Admin: 01/07/19 10:27 Dose: 50 mg Dextrose (Dextrose 50% Inj) 0 ml IV STAT PRN; Protocol PRN Reason: Hypoglycemia Protocol Last Admin: 01/04/19 07:16 Dose: 50 ml Dextrose (Glutose 15) 0 gm PO ONCE PRN; Protocol PRN Reason: Hypoglycemia Protocol Doxycycline Hyclate (Doryx) 100 mg PO Q12H [facility]; Protocol Last Admin: 01/07/19 08:18 Dose: 100 mg Famotidine (Pepcid) 20 mg PO DAILY [facility] Last Admin: 01/07/19 10:27 Dose: 20 mg Glucagon (Glucagen Diagnostic Kit) 0 mg IM STAT PRN; Protocol PRN Reason: Hypoglycemia Protocol Heparin Sodium (Porcine) (Heparin) 5,000 units SC Q8 [facility] Last Admin: 01/07/19 13:39 Dose: 5,000 units Piperacillin Sod/Tazobactam Sod (Zosyn 2.25 Gm Iv Premix) 2.25 gm in 50 mls @ 100 mls/hr IVPB Q8H [facility]; Protocol Last Admin: 01/07/19 12:16 Dose: 100 mls/hr Insulin Aspart (Novolog) 0 unit SC [facility]; Protocol Last Admin: 01/07/19 12:25 Dose: Not Given Insulin Glargine (Lantus) [address] [facility] Metoprolol Succinate (Toprol Xl) 25 mg PO DAILY [facility] Last Admin: 01/07/19 10:27 Dose: 25 mg Montelukast Sodium (Singulair) 10 mg PO DAILY [facility] Last Admin: 01/07/19 10:34 Dose: 10 mg Rosuvastatin Calcium (Crestor) 5 mg PO HS [facility] Last Admin: 01/06/19 21:21 Dose: 5 mg Sevelamer Carbonate (Renvela) 1,600 mg PO TIDCC [facility] Last Admin: 01/07/19 12:24 Dose: 1,600 mg - Labs Labs: 01/07/19 05:59 01/07/19 05:55 PT 11.2 SECONDS (9.7-12.2) 12/30/18 09:19 INR 1.0 12/30/18 09:19 APTT 30 SECONDS (21-34) 12/30/18 09:19 - Constitutional Appears: Non-toxic, Chronically Ill - Head Exam Head Exam: ATRAUMATIC, NORMOCEPHALIC - Eye Exam Eye Exam: EOMI, PERRL - ENT Exam ENT Exam: Mucous Membranes Moist - Neck Exam Neck Exam: Full ROM - Respiratory Exam Respiratory Exam: Rhonchi. absent: Rales, Wheezes - Cardiovascular Exam Cardiovascular Exam: REGULAR RHYTHM, +S1, +S2 - Extremities Exam Extremities Exam: absent: Joint Swelling, Pedal Edema - Neurological Exam Neurological Exam: Alert, Awake, Oriented x3 - Psychiatric Exam Psychiatric exam: Normal Affect, Normal Mood - Skin Skin Exam: Normal Color, Warm Assessment and Plan (1) Pneumonia Status: Acute (2) Influenza Status: Acute (3) Pleural effusion Status: Acute (4) ESRD (end stage renal disease) on dialysis Status: Chronic (5) Type 2 diabetes mellitus with diabetic nephropathy Status: Acute (6) HTN (hypertension) Status: Chronic (7) PAD (peripheral artery disease) Status: Chronic - Assessment and Plan (Free Text) Plan: HD today , maintain MWF schedule Bp better respiratory status much improved to continue ABx for pneumonia supportive care
[2019-01-07] MEDS: (Lantus) Insulin Glargine, Recombinant SC SCH (21:32)
[2019-01-08] MEDS: Albuterol-Ipratrop 3 mg / 0.5 (3 ml) UD INH SCH ×6 (04:00→23:34)
[2019-01-08] MEDS: Piperacill/Tazo 2.25gm in Dex 2.25 GM/50 ML BAG IVPB SCH ×2 (04:32→12:32)
[2019-01-08] MEDS: (Novolog) Insulin Aspart, Recombinant 100 u/ml 10 ml vial SC SCH ×3 (07:30→17:07)
[2019-01-08 07:59] LABS: BASO % 0.6 % (0.0-2.0); EOS # 0.3 K/uL (0.0-0.7); EOS % 5.3 % (0.0-4.0); HEMOGLOBIN 11.7 g/dL (12.0-18.0); LYMPH # 1.8 K/uL (1.0-4.3); LYMPH % 29.9 % (20.0-40.0); MEAN CELL VOLUME 88.6 fL (80.0-94.0); MEAN CORPUSCULAR HEMOGLOBIN 29.8 pg (27.0-31.0); MEAN CORPUSCULAR HGB CONC 33.7 g/dL (33.0-37.0); MEAN PLATELET VOLUME 8.9 fL (7.2-11.7); MONO # 0.6 K/uL (0.0-0.8); MONO % 10.1 % (0.0-10.0); NEUT # 3.3 K/uL (1.8-7.0); NEUT % 54.1 % (50.0-75.0); RBC 3.94 Mil/uL (4.40-5.90); RED CELL DISTRIBUTION WIDTH 15.3 % (11.5-14.5); WHITE BLOOD COUNT 6.1 K/uL (4.8-10.8)
[2019-01-08 08:08] LABS: ALB/GLOB RATIO 1.3 (1.0-2.1); ALBUMIN 4.3 g/dL (3.5-5.0)
--- NOTE | 2019-01-08 08:42 | CP.PCM.PN ---
Subjective - Date & Time of Evaluation Date of Evaluation: 01/08/19 Time of Evaluation: 08:39 - Subjective Subjective: out of ICU, on florrs now awake, no distress eating breakfast Had HD yesterday sob much better no cough or chest pain afebrile Rest 10 point ros negative Objective - Vital Signs/Intake and Output Vital Signs (last 24 hours): Temp Pulse Resp BP Pulse Ox 99.1 F 85 20 107/55 L 95 01/08/19 07:00 01/08/19 07:17 01/08/19 07:00 01/08/19 07:00 01/08/19 05:32 Intake and Output: 01/08/19 01/08/19 06:59 18:59 Intake Total 290 Output Total 25 Balance 265 - Medications Medications: Current Medications Acetaminophen (Tylenol 325mg Tab) 650 mg PO Q6 PRN PRN Reason: Fever >100.4 F Albuterol/Ipratropium (Duoneb 3 Mg/0.5 Mg (3 Ml) Ud) 3 ml INH RQ4 [facility]S [facility]CLUDE 234 BEDS AT THE [facility] Last Admin: 01/08/19 04:00 Dose: Not Given Aspirin (Aspirin Chewable) 81 mg PO DAILY COUNTS INCLUDE 234 BEDS AT THE [facility] Last Admin: 01/07/19 10:26 Dose: 81 mg Benzonatate (Tessalon Perles) 100 mg PO Q12H COUNTS INCLUDE 234 BEDS AT THE [facility] Last Admin: 01/08/19 07:35 Dose: 100 mg Cilostazol (Pletal) 50 mg PO BID COUNTS INCLUDE 234 BEDS AT THE [facility] Last Admin: 01/07/19 18:25 Dose: 50 mg Dextrose (Dextrose 50% Inj) 0 ml IV STAT PRN; Protocol PRN Reason: Hypoglycemia Protocol Last Admin: 01/04/19 07:16 Dose: 50 ml Dextrose (Glutose 15) 0 gm PO ONCE PRN; Protocol PRN Reason: Hypoglycemia Protocol Doxycycline Hyclate (Doryx) 100 mg PO Q12H [facility]; Protocol Last Admin: 01/08/19 06:51 Dose: 100 mg Famotidine (Pepcid) 20 mg PO DAILY COUNTS INCLUDE 234 BEDS AT THE [facility] Last Admin: 01/07/19 10:27 Dose: 20 mg Glucagon (Glucagen Diagnostic Kit) 0 mg IM STAT PRN; Protocol PRN Reason: Hypoglycemia Protocol Heparin Sodium (Porcine) (Heparin) 5,000 units SC Q8 [facility] Last Admin: 01/08/19 05:51 Dose: 5,000 units Piperacillin Sod/Tazobactam Sod (Zosyn 2.25 Gm Iv Premix) 2.25 gm in 50 mls @ 100 mls/hr IVPB Q8H COUNTS INCLUDE 234 BEDS AT THE [facility]; Protocol Last Admin: 01/08/19 04:32 Dose: 100 mls/hr Insulin Aspart (Novolog) 0 unit SC AC COUNTS INCLUDE 234 BEDS AT THE [facility]; Protocol Last Admin: 01/08/19 07:30 Dose: Not Given Insulin Glargine (Lantus) 8 unit SC [facility] Last Admin: 01/07/19 21:32 Dose: 8 units Metoprolol Succinate (Toprol Xl) 25 mg PO DAILY COUNTS INCLUDE 234 BEDS AT THE [facility] Last Admin: 01/07/19 10:27 Dose: 25 mg Montelukast Sodium (Singulair) 10 mg PO DAILY COUNTS INCLUDE 234 BEDS AT THE [facility] Last Admin: 01/07/19 10:34 Dose: 10 mg Rosuvastatin Calcium (Crestor) 5 mg PO HS COUNTS INCLUDE 234 BEDS AT THE [facility] Last Admin: 01/07/19 21:32 Dose: 5 mg Sevelamer Carbonate (Renvela) 1,600 mg PO TIDCC COUNTS INCLUDE 234 BEDS AT THE [facility] Last Admin: 01/08/19 07:33 Dose: 1,600 mg - Labs Labs: 01/08/19 07:43 01/08/19 07:43 PT 11.2 SECONDS (9.7-12.2) 12/30/18 09:19 INR 1.0 12/30/18 09:19 APTT 30 SECONDS (21-34) 12/30/18 09:19 - Constitutional Appears: Non-toxic, No Acute Distress - Head Exam Head Exam: ATRAUMATIC, NORMOCEPHALIC - Eye Exam Eye Exam: EOMI, PERRL - ENT Exam ENT Exam: Mucous Membranes Moist - Neck Exam Neck Exam: Full ROM - Respiratory Exam Respiratory Exam: Clear to Ausculation Bilateral. absent: Rhonchi, Wheezes - Cardiovascular Exam Cardiovascular Exam: REGULAR RHYTHM, +S1, +S2 - Extremities Exam Extremities Exam: Full ROM. absent: Pedal Edema - Neurological Exam Neurological Exam: Alert, Awake, Oriented x3 - Psychiatric Exam Psychiatric exam: Normal Affect, Normal Mood - Skin Skin Exam: Normal Color, Warm Assessment and Plan (1) Pneumonia Status: Acute (2) Influenza Status: Acute (3) Pleural effusion Status: Acute (4) ESRD (end stage renal disease) on dialysis Status: Chronic (5) Type 2 diabetes mellitus with diabetic nephropathy Status: Acute (6) HTN (hypertension) Status: Chronic (7) PAD (peripheral artery disease) Status: Chronic - Assessment and Plan (Free Text) Plan: clinically much improved finish Abx for PNA bp stable physical therapy next HD thursday
--- NOTE | 2019-01-08 08:59 | CP.PCM.PN ---
Subjective - Date & Time of Evaluation Date of Evaluation: 01/08/19 Time of Evaluation: 13:59 - Subjective Subjective: Progress Note for Dr. Castillo's service Patient seen and examined at bedside. He states he is feeling better but has persistent cough. Currently oxygenating well on nasal cannula. He denies fevers, chills, headache, dizziness, abdominal pain, nausea, diarrhea, leg pain. Objective - Vital Signs/Intake and Output Vital Signs (last 24 hours): Temp Pulse Resp BP Pulse Ox 99.1 F 85 20 107/55 L 95 01/08/19 07:00 01/08/19 07:17 01/08/19 07:00 01/08/19 07:00 01/08/19 05:32 Intake and Output: 01/08/19 01/08/19 06:59 18:59 Intake Total 290 Output Total 25 Balance 265 - Medications Medications: Current Medications Acetaminophen (Tylenol 325mg Tab) 650 mg PO Q6 PRN PRN Reason: Fever >100.4 F Albuterol/Ipratropium (Duoneb 3 Mg/0.5 Mg (3 Ml) Ud) 3 ml INH RQ4 [facility] Last Admin: 01/08/19 04:00 Dose: Not Given Aspirin (Aspirin Chewable) 81 mg PO DAILY [facility] Last Admin: 01/07/19 10:26 Dose: 81 mg Benzonatate (Tessalon Perles) 100 mg PO Q12H [facility] Last Admin: 01/08/19 07:35 Dose: 100 mg Cilostazol (Pletal) 50 mg PO BID [facility] Last Admin: 01/07/19 18:25 Dose: 50 mg Dextrose (Dextrose 50% Inj) 0 ml IV STAT PRN; Protocol PRN Reason: Hypoglycemia Protocol Last Admin: 01/04/19 07:16 Dose: 50 ml Dextrose (Glutose 15) 0 gm PO ONCE PRN; Protocol PRN Reason: Hypoglycemia Protocol Doxycycline Hyclate (Doryx) 100 mg PO Q12H [facility]; Protocol Last Admin: 01/08/19 06:51 Dose: 100 mg Famotidine (Pepcid) 20 mg PO DAILY [facility] Last Admin: 01/07/19 10:27 Dose: 20 mg Glucagon (Glucagen Diagnostic Kit) 0 mg IM STAT PRN; Protocol PRN Reason: Hypoglycemia Protocol Heparin Sodium (Porcine) (Heparin) 5,000 units SC Q8 [facility] Last Admin: 01/08/19 05:51 Dose: 5,000 units Piperacillin Sod/Tazobactam Sod (Zosyn 2.25 Gm Iv Premix) 2.25 gm in 50 mls @ 100 mls/hr IVPB Q8H [facility]; Protocol Last Admin: 01/08/19 04:32 Dose: 100 mls/hr Insulin Aspart (Novolog) 0 unit SC AC [facility]; Protocol Last Admin: 01/08/19 07:30 Dose: Not Given Insulin Glargine (Lantus) 8 unit SC [facility] Last Admin: 01/07/19 21:32 Dose: 8 units Metoprolol Succinate (Toprol Xl) 25 mg PO DAILY [facility] Last Admin: 01/07/19 10:27 Dose: 25 mg Montelukast Sodium (Singulair) 10 mg PO DAILY [facility] Last Admin: 01/07/19 10:34 Dose: 10 mg Rosuvastatin Calcium (Crestor) 5 mg PO [facility] Last Admin: 01/07/19 21:32 Dose: 5 mg Sevelamer Carbonate (Renvela) 1,600 mg PO TIDCC [facility] Last Admin: 01/08/19 07:33 Dose: 1,600 mg - Labs Labs: 01/08/19 07:43 01/08/19 07:43 PT 11.2 SECONDS (9.7-12.2) 12/30/18 09:19 INR 1.0 12/30/18 09:19 APTT 30 SECONDS (21-34) 12/30/18 09:19 - Constitutional Appears: Older Than Stated Age, Chronically Ill - Head Exam Head Exam: ATRAUMATIC, NORMOCEPHALIC - Eye Exam Eye Exam: EOMI - ENT Exam ENT Exam: Mucous Membranes Moist - Respiratory Exam Respiratory Exam: Decreased Breath Sounds - Cardiovascular Exam Cardiovascular Exam: +S1, +S2 - GI/Abdominal Exam GI & Abdominal Exam: Soft, Normal Bowel Sounds Additional comments: Suprapubic catheter - Extremities Exam Extremities Exam: absent: Calf Tenderness, Pedal Edema Additional comments: Left AV fistula with palpable thrill - Back Exam Back Exam: absent: CVA tenderness (L), CVA tenderness (R) - Neurological Exam Neurological Exam: Alert, Awake, Oriented x3 - Psychiatric Exam Psychiatric exam: Normal Affect, Normal Mood - Skin Skin Exam: Dry, Intact, Warm Assessment and Plan - Assessment and Plan (Free Text) Assessment: 73 year old male with history of ESRD MWF, COPD, HTN, presented to ED shortness of breath/ fever, found to be influenza A (+), RLL pneumonia, admitted to ICU for hypercapneic respiratory failure, currently improving on high flow at 40% FiO2, saturating at 93%, recently downgraded from ICU. Plan: Sepsis, with RLL infiltrates Influenza A positive on admission febrile to 102.4 no leukocytosis Most recent CXR: improving infiltrates. Chest CT: Extensive mostly subcentimeter mediastinal and prevascular adenopathy. 12 mm precarinal lymph node evident. Small right hilar lymph node present. No large central or segmental pulmonary embolus evident.Moderate bilateral consolidations and pleural effusions. Small hiatal hernia with evidence of moderate to severe gastroesophageal reflux. Limited visualized portions of the upper abdomen: Cholelithiasis. Bilateral low-density renal lesions possibly cysts. Exophytic left mid posterior renal hypodense lesion measures approximately 1.6 x 0.7 cm and approximately 40 HU, indeterminate. Recommend further evaluation with renal ultrasound. UA: positive nitrates, 1+ LE, 3+ protein Urine culture positive for Corynebacteria Blood culture negative Treated with Zosyn 2.25mg Q8 (started 12/30), Vancomycin (12/30 - 01/02), Doxycycline 100mg Q12 (started 01/02) All abx discontinued 01/08 Tessalon Perles 100mg Q12 Duonebs Q4 [facility] Tylenol 650mg Q6 PRN Phenergan with codeine Q6 Hypercapneic Respiratory failure Recently admitted for pulmonary edema Initially placed on BIPAP in ICU, currently oxygenating well on high flow. On repeat evaluation, patient oxygenating well on nasal cannula. Chest CT: Extensive mostly subcentimeter mediastinal and prevascular adenopathy. 12 mm precarinal lymph node evident. Small right hilar lymph node present. No large central or segmental pulmonary embolus evident.Moderate bilateral consolidations and pleural effusions. Small hiatal hernia with evidence of moderate to severe gastroesophageal reflux. Limited visualized portions of the upper abdomen: Cholelithiasis. Bilateral low-density renal lesions possibly cysts. Exophytic left mid posterior renal hypodense lesion measures approximately 1.6 x 0.7 cm and approximately 40 HU, indeterminate. Recommend further evaluation with renal ultrasound. Singulair 10mg PO HS UDS negative Duonebs Q4 [facility] Elevated troponins ASA 81mg PO Toprol 25mg XL Echo: Left ventricle borderline dilated. normal LV wall thickness. systolic function is moderately impaired. regional wall abnormalities noted. aortic valve is mildly to moderately thickened. no pericardial effusion. Grade 1 abnormal relaxation pattern. History of ESRD on HD [facility] Nephrology Dr. Lancaster consulted. HD on [facility] BUN/Cr 44/5.8 History of HTN Toprol XL 25mg PO Hold for low blood pressure History of DM ISS Lantus 8 units SC HS Hypoglycemia treatment protocol History of HLD Crestor 5mg PO HS History of PAD Cilozastol 50mg PO BID Prophylaxis Heparin Pepcid 20mg PO daily Case discussed with Dr. Anna Rapp, PGY1
[2019-01-08] MEDS ORDERED: guaiFENesin 100 mg/5 ml Syrup UD PO PRN (09:24)
[2019-01-08] MEDS: Metoprolol Succinate 25 mg XL Tab PO SCH (09:35)
[2019-01-08] MEDS: Cilostazol 50 mg Tab UD PO SCH ×2 (11:00→17:33)
[2019-01-08] MEDS: Promethazine/Cod 6.25mg-10mg/5ml Syr UD PO PRN (13:31)
--- NOTE | 2019-01-08 19:36 | CP.PCM.PN ---
Subjective - Date & Time of Evaluation Date of Evaluation: 01/08/19 Time of Evaluation: 18:30 - Subjective Subjective: Patient seen and examined Patient states cough and breathing much improved Afebrile Continue hemodialysis Continue antibiotics Nasal cannula and follow-up saturation Objective - Vital Signs/Intake and Output Vital Signs (last 24 hours): Temp Pulse Resp BP Pulse Ox 97.5 F L 82 20 119/56 L 94 L 01/08/19 15:00 01/08/19 15:00 01/08/19 15:00 01/08/19 15:00 01/08/19 15:00 Intake and Output: 01/08/19 01/09/19 18:59 06:59 Intake Total 400 Output Total 0 Balance 400 - Medications Medications: Current Medications Acetaminophen (Tylenol 325mg Tab) 650 mg PO Q6 PRN PRN Reason: Fever >100.4 F Albuterol/Ipratropium (Duoneb 3 Mg/0.5 Mg (3 Ml) Ud) 3 ml INH RQ4 [facility] Last Admin: 01/08/19 11:27 Dose: 3 ml Aspirin (Aspirin Chewable) 81 mg PO DAILY [facility] Last Admin: 01/08/19 09:35 Dose: 81 mg Benzonatate (Tessalon Perles) 100 mg PO Q12H [facility] Last Admin: 01/08/19 07:35 Dose: 100 mg Cilostazol (Pletal) 50 mg PO BID [facility] Last Admin: 01/08/19 17:33 Dose: 50 mg Dextrose (Dextrose 50% Inj) 0 ml IV STAT PRN; Protocol PRN Reason: Hypoglycemia Protocol Last Admin: 01/04/19 07:16 Dose: 50 ml Dextrose (Glutose 15) 0 gm PO ONCE PRN; Protocol PRN Reason: Hypoglycemia Protocol Famotidine (Pepcid) 20 mg PO DAILY [facility] Last Admin: 01/08/19 09:35 Dose: 20 mg Glucagon (Glucagen Diagnostic Kit) 0 mg IM STAT PRN; Protocol PRN Reason: Hypoglycemia Protocol Guaifenesin (Robitussin) 100 mg PO Q4H PRN PRN Reason: Cough Last Admin: 01/08/19 09:34 Dose: 100 mg Heparin Sodium (Porcine) (Heparin) 5,000 units SC Q8 [facility] Last Admin: 01/08/19 13:05 Dose: 5,000 units Insulin Aspart (Novolog) 0 unit SC AC [facility]; Protocol Last Admin: 01/08/19 17:07 Dose: Not Given Insulin Glargine (Lantus) 8 unit SC HS [facility] Last Admin: 01/07/19 21:32 Dose: 8 units Metoprolol Succinate (Toprol Xl) 25 mg PO DAILY [facility] Last Admin: 01/08/19 09:35 Dose: 25 mg Montelukast Sodium (Singulair) 10 mg PO DAILY [facility] Last Admin: 01/08/19 09:34 Dose: 10 mg Promethazine HCl/Codeine (Phenergan/Codeine Oral Syrup) 5 ml PO Q6 PRN PRN Reason: Cough Last Admin: 01/08/19 13:31 Dose: 5 ml Rosuvastatin Calcium (Crestor) 5 mg PO [facility] Last Admin: 01/07/19 21:32 Dose: 5 mg Sevelamer Carbonate (Renvela) 1,600 mg PO TIDCC [facility] Last Admin: 01/08/19 17:30 Dose: 1,600 mg - Labs Labs: 01/08/19 07:43 01/08/19 07:43 PT 11.2 SECONDS (9.7-12.2) 12/30/18 09:19 INR 1.0 12/30/18 09:19 APTT 30 SECONDS (21-34) 12/30/18 09:19 Assessment and Plan (1) Influenza Status: Acute (2) Pleural effusion Status: Acute (3) Pneumonia Status: Acute (4) ESRD (end stage renal disease) on dialysis Status: Chronic
[2019-01-08] MEDS: (Lantus) Insulin Glargine, Recombinant SC SCH (21:43)
[2019-01-09] MEDS: Albuterol-Ipratrop 3 mg / 0.5 (3 ml) UD INH SCH ×5 (03:15→20:57)
[2019-01-09] MEDS: (Novolog) Insulin Aspart, Recombinant 100 u/ml 10 ml vial SC SCH ×3 (07:49→17:30)
--- NOTE | 2019-01-09 07:52 | CP.PCM.PN ---
Subjective - Date & Time of Evaluation Date of Evaluation: 01/09/19 Time of Evaluation: 07:50 - Subjective Subjective: PGY-2 Progress Note: Dr. Castillo's Service Patient seen and examined at bedside. Per nursing no acute events occurred overnight. Patient still reports a productive cough during today's exam.Patient denies any chest pain, shortness of breath, fevers, chills, nausea, vomiting, headaches, syncopal episodes, or any other complaints. Objective - Vital Signs/Intake and Output Vital Signs (last 24 hours): Temp Pulse Resp BP Pulse Ox 97.9 F 82 20 145/52 L 94 L 01/08/19 23:10 01/09/19 04:07 01/08/19 23:10 01/08/19 23:10 01/09/19 00:00 Intake and Output: 01/09/19 01/09/19 06:59 18:59 Intake Total 120 Output Total 0 Balance 120 - Medications Medications: Current Medications Acetaminophen (Tylenol 325mg Tab) 650 mg PO Q6 PRN PRN Reason: Fever >100.4 F Albuterol/Ipratropium (Duoneb 3 Mg/0.5 Mg (3 Ml) Ud) 3 ml INH RQ4 [facility] Last Admin: 01/09/19 03:15 Dose: Not Given Aspirin (Aspirin Chewable) 81 mg PO DAILY [facility] Last Admin: 01/08/19 09:35 Dose: 81 mg Benzonatate (Tessalon Perles) 100 mg PO Q12H [facility] Last Admin: 01/09/19 07:47 Dose: 100 mg Cilostazol (Pletal) 50 mg PO BID [facility] Last Admin: 01/08/19 17:33 Dose: 50 mg Dextrose (Dextrose 50% Inj) 0 ml IV STAT PRN; Protocol PRN Reason: Hypoglycemia Protocol Last Admin: 01/04/19 07:16 Dose: 50 ml Dextrose (Glutose 15) 0 gm PO ONCE PRN; Protocol PRN Reason: Hypoglycemia Protocol Famotidine (Pepcid) 20 mg PO DAILY [facility] Last Admin: 01/08/19 09:35 Dose: 20 mg Glucagon (Glucagen Diagnostic Kit) 0 mg IM STAT PRN; Protocol PRN Reason: Hypoglycemia Protocol Guaifenesin (Robitussin) 100 mg PO Q4H PRN PRN Reason: Cough Last Admin: 01/08/19 09:34 Dose: 100 mg Heparin Sodium (Porcine) (Heparin) 5,000 units SC Q8 [facility] Last Admin: 01/09/19 05:59 Dose: 5,000 units Insulin Aspart (Novolog) 0 unit SC [facility]; Protocol Last Admin: 01/09/19 07:49 Dose: Not Given Insulin Glargine (Lantus) 8 unit SC [facility] Last Admin: 01/08/19 21:43 Dose: 8 units Metoprolol Succinate (Toprol Xl) 25 mg PO DAILY [facility] Last Admin: 01/08/19 09:35 Dose: 25 mg Montelukast Sodium (Singulair) 10 mg PO DAILY [facility] Last Admin: 01/08/19 09:34 Dose: 10 mg Promethazine HCl/Codeine (Phenergan/Codeine Oral Syrup) 5 ml PO Q6 PRN PRN Reason: Cough Last Admin: 01/08/19 13:31 Dose: 5 ml Rosuvastatin Calcium (Crestor) 5 mg PO [facility] Last Admin: 01/08/19 21:42 Dose: 5 mg Sevelamer Carbonate (Renvela) 1,600 mg PO TIDCC [facility] Last Admin: 01/09/19 07:47 Dose: 1,600 mg - Labs Labs: 01/08/19 07:43 01/08/19 07:43 PT 11.2 SECONDS (9.7-12.2) 12/30/18 09:19 INR 1.0 12/30/18 09:19 APTT 30 SECONDS (21-34) 12/30/18 09:19 - Head Exam Head Exam: ATRAUMATIC, NORMAL INSPECTION - Eye Exam Eye Exam: EOMI, Normal appearance Pupil Exam: NORMAL ACCOMODATION - ENT Exam ENT Exam: Mucous Membranes Moist, Normal Oropharynx - Respiratory Exam Respiratory Exam: Clear to Ausculation Bilateral, NORMAL BREATHING PATTERN. absent: Respiratory Distress - Cardiovascular Exam Cardiovascular Exam: REGULAR RHYTHM, +S1, +S2 - GI/Abdominal Exam GI & Abdominal Exam: Soft, Normal Bowel Sounds. absent: Hyperactive Bowel Sounds - Back Exam Back Exam: NORMAL INSPECTION. absent: paraspinal tenderness - Neurological Exam Neurological Exam: Alert, Awake - Psychiatric Exam Psychiatric exam: Normal Affect, Normal Mood. absent: Depressed - Skin Skin Exam: Dry, Intact - Additional Findings Additional findings: +productive cough Assessment and Plan - Assessment and Plan (Free Text) Assessment: 73 year old male with history of ESRD MWF, COPD, HTN, presented to ED shortness of breath/ fever, found to be influenza A (+), RLL pneumonia, admitted to ICU for hypercapneic respiratory failure, currently improving on high flow at 40% FiO2, saturating at 93%, recently downgraded from ICU. Plan: Sepsis, with RLL infiltrates Influenza A positive on admission febrile to 102.4 no leukocytosis Most recent CXR: improving infiltrates. Chest CT: Extensive mostly subcentimeter mediastinal and prevascular adenopathy. 12 mm precarinal lymph node evident. Small right hilar lymph node present. No large central or segmental pulmonary embolus evident.Moderate bilateral consolidations and pleural effusions. Small hiatal hernia with evidence of moderate to severe gastroesophageal reflux. Limited visualized portions of the upper abdomen: Cholelithiasis. Bilateral low-density renal lesions possibly cysts. Exophytic left mid posterior renal hypodense lesion measures approximately 1.6 x 0.7 cm and approximately 40 HU, indeterminate. Recommend further evaluation with renal ultrasound. UA: positive nitrates, 1+ LE, 3+ protein Urine culture positive for Corynebacteria Blood culture negative Treated with Zosyn 2.25mg Q8 (started 12/30), Vancomycin (12/30 - 01/02), Doxycycline 100mg Q12 (started 01/02) All abx discontinued 01/08 Tessalon Perles 100mg Q12 Duonebs Q4 [facility] Tylenol 650mg Q6 PRN Phenergan with codeine Q6 Hypercapneic Respiratory failure Recently admitted for pulmonary edema Initially placed on BIPAP in ICU, currently oxygenating well on high flow. On repeat evaluation, patient oxygenating well on nasal cannula. Chest CT: Extensive mostly subcentimeter mediastinal and prevascular adenopathy. 12 mm precarinal lymph node evident. Small right hilar lymph node present. No large central or segmental pulmonary embolus evident.Moderate bilateral consolidations and pleural effusions. Small hiatal hernia with evidence of moderate to severe gastroesophageal reflux. Limited visualized portions of the upper abdomen: Cholelithiasis. Bilateral low-density renal lesions possibly cysts. Exophytic left mid posterior renal hypodense lesion measures approximately 1.6 x 0.7 cm and approximately 40 HU, indeterminate. Recommend further evaluation with renal ultrasound. Singulair 10mg PO HS UDS negative Duonebs Q4 [facility] Elevated troponins ASA 81mg PO Toprol 25mg XL Echo: Left ventricle borderline dilated. normal LV wall thickness. systolic function is moderately impaired. regional wall abnormalities noted. aortic valve is mildly to moderately thickened. no pericardial effusion. Grade 1 abnormal relaxation pattern. History of ESRD on HD [facility] Nephrology Dr. Lancaster consulted. HD on [facility] BUN/Cr 69/8.1 History of HTN Toprol XL 25mg PO Hold for low blood pressure History of DM ISS Lantus 8 units SC HS Hypoglycemia treatment protocol History of HLD Crestor 5mg PO HS History of PAD Cilozastol 50mg PO BID Prophylaxis Heparin Pepcid 20mg PO daily Case discussed with Dr. Anna Horner, PGY-2
[2019-01-09 07:58] LABS: BASO % 0.7 % (0.0-2.0); EOS # 0.3 K/uL (0.0-0.7); EOS % 5.2 % (0.0-4.0); HEMOGLOBIN 11.3 g/dL (12.0-18.0); LYMPH % 33.6 % (20.0-40.0); MEAN CORPUSCULAR HGB CONC 34.1 g/dL (33.0-37.0); MEAN PLATELET VOLUME 8.5 fL (7.2-11.7); MONO # 0.7 K/uL (0.0-0.8); MONO % 12.1 % (0.0-10.0); NEUT # 2.9 K/uL (1.8-7.0); NEUT % 48.4 % (50.0-75.0); RBC 3.76 Mil/uL (4.40-5.90); RED CELL DISTRIBUTION WIDTH 15.9 % (11.5-14.5)
[2019-01-09 08:21] LABS: ALB/GLOB RATIO 1.3 (1.0-2.1); ALBUMIN 4.3 g/dL (3.5-5.0); CALCIUM 9.9 mg/dl (8.6-10.4)
[2019-01-09] MEDS: Metoprolol Succinate 25 mg XL Tab PO SCH (09:40)
[2019-01-09] MEDS: Cilostazol 50 mg Tab UD PO SCH ×2 (09:41→17:40)
--- NOTE | 2019-01-09 15:12 | RAD ---
Date of service: 01/09/2019 HISTORY: persistent cough COMPARISON: 01/03/2019 TECHNIQUE: Chest PA and lateral FINDINGS: LUNGS: No acute infiltrate. Linear scar/atelectasis inferior left hilum. PLEURA: Blunting of left costophrenic angle may reflect small pleural effusion versus chronic pleural thickening. Minimal blunting right costophrenic angle as well. This likely represents a small residual pleural effusion decreased from prior examination. CARDIOVASCULAR: No aortic atherosclerotic calcification present. Normal cardiac size. No pulmonary vascular congestion. OSSEOUS STRUCTURES: No significant abnormalities. VISUALIZED UPPER ABDOMEN: Normal. OTHER FINDINGS: None. IMPRESSION: Probable small bilateral pleural effusion. No infiltrate.
[2019-01-09] MEDS: Promethazine/Cod 6.25mg-10mg/5ml Syr UD PO PRN (21:31)
[2019-01-09] MEDS: (Lantus) Insulin Glargine, Recombinant SC SCH (21:32)
[2019-01-10] MEDS: Albuterol-Ipratrop 3 mg / 0.5 (3 ml) UD INH SCH ×6 (00:58→19:24)
[2019-01-10] MEDS: (Novolog) Insulin Aspart, Recombinant 100 u/ml 10 ml vial SC SCH ×3 (07:30→16:43)
--- NOTE | 2019-01-10 08:36 | CP.PCM.PN ---
Subjective - Date & Time of Evaluation Date of Evaluation: 01/10/19 Time of Evaluation: 08:31 - Subjective Subjective: Dulce Maria Avalos PGY1 Progress Note for Dr. Castillo Patient was examined at bedside this morning. He reports improvement in his breathing. He reports continuation of his cough. He denies fever, chills, shortness of breath, chest pain, abdominal pain, nausea, vomiting, diarrhea, dysuria. Objective - Vital Signs/Intake and Output Vital Signs (last 24 hours): Temp Pulse Resp BP Pulse Ox 98.0 F 91 H 18 128/60 95 01/10/19 07:12 01/10/19 08:19 01/10/19 07:12 01/10/19 07:12 01/10/19 07:12 Intake and Output: 01/10/19 01/10/19 06:59 18:59 Intake Total 300 Output Total 0 Balance 300 - Medications Medications: Current Medications Acetaminophen (Tylenol 325mg Tab) 650 mg PO Q6 PRN PRN Reason: Fever >100.4 F Albuterol/Ipratropium (Duoneb 3 Mg/0.5 Mg (3 Ml) Ud) 3 ml INH RQ4 [facility] Last Admin: 01/10/19 05:10 Dose: Not Given Aspirin (Aspirin Chewable) 81 mg PO DAILY [facility] Last Admin: 01/09/19 09:41 Dose: 81 mg Benzonatate (Tessalon Perles) 100 mg PO Q12H [facility] Last Admin: 01/10/19 07:36 Dose: 100 mg Cilostazol (Pletal) 50 mg PO BID [facility] Last Admin: 01/09/19 17:40 Dose: 50 mg Dextrose (Dextrose 50% Inj) 0 ml IV STAT PRN; Protocol PRN Reason: Hypoglycemia Protocol Last Admin: 01/04/19 07:16 Dose: 50 ml Dextrose (Glutose 15) 0 gm PO ONCE PRN; Protocol PRN Reason: Hypoglycemia Protocol Famotidine (Pepcid) 20 mg PO DAILY [facility] Last Admin: 01/09/19 09:40 Dose: 20 mg Glucagon (Glucagen Diagnostic Kit) 0 mg IM STAT PRN; Protocol PRN Reason: Hypoglycemia Protocol Guaifenesin (Robitussin) 100 mg PO Q4H PRN PRN Reason: Cough Last Admin: 01/08/19 09:34 Dose: 100 mg Guaifenesin (Mucinex La) 600 mg PO BID [facility] Heparin Sodium (Porcine) (Heparin) 5,000 units SC Q8 [facility] Last Admin: 01/10/19 05:47 Dose: 5,000 units Insulin Aspart (Novolog) 0 unit SC AC [facility]; Protocol Last Admin: 01/09/19 17:30 Dose: 3 units Insulin Glargine (Lantus) 8 unit SC [facility] Last Admin: 01/09/19 21:32 Dose: 8 units Metoprolol Succinate (Toprol Xl) 25 mg PO DAILY [facility] Last Admin: 01/09/19 09:40 Dose: 25 mg Montelukast Sodium (Singulair) 10 mg PO DAILY [facility] Last Admin: 01/09/19 09:41 Dose: 10 mg Promethazine HCl/Codeine (Phenergan/Codeine Oral Syrup) 5 ml PO Q6 PRN PRN Reason: Cough Last Admin: 01/09/19 21:31 Dose: 5 ml Rosuvastatin Calcium (Crestor) 5 mg PO [facility] Last Admin: 01/09/19 21:31 Dose: 5 mg Sevelamer Carbonate (Renvela) 1,600 mg PO TIDCC [facility] Last Admin: 01/10/19 07:36 Dose: 1,600 mg - Labs Labs: 01/09/19 07:39 01/09/19 07:39 PT 11.2 SECONDS (9.7-12.2) 12/30/18 09:19 INR 1.0 12/30/18 09:19 APTT 30 SECONDS (21-34) 12/30/18 09:19 - Additional Findings Additional findings: - Head Exam Head Exam: ATRAUMATIC, NORMAL INSPECTION - Eye Exam Eye Exam: EOMI, Normal appearance Pupil Exam: NORMAL ACCOMODATION - ENT Exam ENT Exam: Mucous Membranes Moist, Normal Oropharynx - Respiratory Exam Respiratory Exam: Rhonchi b/l, NORMAL BREATHING PATTERN. absent: Respiratory Distress - Cardiovascular Exam Cardiovascular Exam: REGULAR RHYTHM, +S1, +S2 - GI/Abdominal Exam GI & Abdominal Exam: Soft, Normal Bowel Sounds. absent: Hyperactive Bowel Sounds - Back Exam Back Exam: NORMAL INSPECTION. absent: paraspinal tenderness - Neurological Exam Neurological Exam: Alert, Awake - Psychiatric Exam Psychiatric exam: Normal Affect, Normal Mood. absent: Depressed - Skin Skin Exam: Dry, Intact - Additional Findings Additional findings: +productive cough Assessment and Plan - Assessment and Plan (Free Text) Assessment: 73 year old male with history of ESRD MWF, COPD, HTN, presented to ED shortness of breath/ fever, found to be influenza A (+), RLL pneumonia, admitted to ICU for hypercapneic respiratory failure, currently improving on high flow at 40% FiO2, saturating at 93%, recently downgraded from ICU. Plan: Sepsis, with RLL infiltrates Influenza A positive afebrile, no leukocytosis Most recent CXR: small b/l pleural effusion. no infiltrate Chest CT: Extensive mostly subcentimeter mediastinal and prevascular adenopathy. 12 mm precarinal lymph node evident. Small right hilar lymph node present. No large central or segmental pulmonary embolus evident.Moderate bilateral consolidations and pleural effusions. Small hiatal hernia with evidence of moderate to severe gastroesophageal reflux. Limited visualized portions of the upper abdomen: Cholelithiasis. Bilateral low-density renal lesions possibly cysts. Exophytic left mid posterior renal hypodense lesion measures approximately 1.6 x 0.7 cm and approximately 40 HU, indeterminate. Recommend further evaluation with renal ultrasound. UA: positive nitrates, 1+ LE, 3+ protein Urine culture positive for Corynebacteria Blood culture negative Completed courses of Zosyn 2.25mg Q8 (started 12/30), Vancomycin (12/30 - 01/02), Doxycycline 100mg Q12 (started 01/02) Tessalon Perles 100mg Q12 Duonebs Q4 [facility] Tylenol 650mg Q6 PRN Phenergan with codeine Q6 Mucinex 600mg PO BID Hypercapneic Respiratory failure Recently admitted for pulmonary edema Initially placed on BIPAP in ICU, currently oxygenating well on nasal cannula. Chest CT: Extensive mostly subcentimeter mediastinal and prevascular adenopathy. 12 mm precarinal lymph node evident. Small right hilar lymph node present. No large central or segmental pulmonary embolus evident.Moderate bilateral consolidations and pleural effusions. Small hiatal hernia with evidence of moderate to severe gastroesophageal reflux. Limited visualized portions of the upper abdomen: Cholelithiasis. Bilateral low-density renal lesions possibly cysts. Exophytic left mid posterior renal hypodense lesion measures approximately 1.6 x 0.7 cm and approximately 40 HU, indeterminate. Recommend further evaluation with renal ultrasound. Singulair 10mg PO HS UDS negative Duonebs Q4 [facility] Elevated troponins ASA 81mg PO Toprol 25mg XL Echo: Left ventricle borderline dilated. normal LV wall thickness. systolic function is moderately impaired. regional wall abnormalities noted. aortic valve is mildly to moderately thickened. no pericardial effusion. Grade 1 abnormal relaxation pattern. History of ESRD on HD [facility] Nephrology Dr. Lancaster consulted. HD on [facility] BUN/Cr 69/8.1 History of HTN Toprol XL 25mg PO Hold for low blood pressure History of DM ISS Lantus 8 units SC HS Hypoglycemia treatment protocol History of HLD Crestor 5mg PO HS History of PAD Cilozastol 50mg PO BID Prophylaxis Heparin Pepcid 20mg PO daily Case discussed with Dr. Csatillo
[2019-01-10] MEDS: Cilostazol 50 mg Tab UD PO SCH ×2 (10:00→17:39)
[2019-01-10] MEDS: Metoprolol Succinate 25 mg XL Tab PO SCH (10:00)
[2019-01-10] MEDS: guaiFENesin 600 mg ER Tab PO SCH ×2 (10:00→17:38)
[2019-01-10 10:14] LABS: BASO # 0.1 K/uL (0.0-0.2); BASO % 0.5 % (0.0-2.0); EOS # 0.3 K/uL (0.0-0.7); EOS % 3.3 % (0.0-4.0); HEMOGLOBIN 10.7 g/dL (12.0-18.0); LYMPH % 21.2 % (20.0-40.0); MEAN CELL VOLUME 88.3 fL (80.0-94.0); MEAN CORPUSCULAR HEMOGLOBIN 29.8 pg (27.0-31.0); MEAN CORPUSCULAR HGB CONC 33.8 g/dL (33.0-37.0); MEAN PLATELET VOLUME 8.7 fL (7.2-11.7); MONO # 0.6 K/uL (0.0-0.8); MONO % 6.5 % (0.0-10.0); NEUT # 6.6 K/uL (1.8-7.0); NEUT % 68.5 % (50.0-75.0); RBC 3.6 Mil/uL (4.40-5.90); RED CELL DISTRIBUTION WIDTH 15.9 % (11.5-14.5)
[2019-01-10 10:18] LABS: WHITE BLOOD COUNT 9.6 K/uL (4.8-10.8)
[2019-01-10 10:25] LABS: ALB/GLOB RATIO 1.4 (1.0-2.1); ALBUMIN 4.2 g/dL (3.5-5.0); CALCIUM 9.8 mg/dl (8.6-10.4)
--- NOTE | 2019-01-10 11:56 | CP.PCM.PN ---
Subjective - Date & Time of Evaluation Date of Evaluation: 01/10/19 Time of Evaluation: 11:54 - Subjective Subjective: seen on HD coughing some drop in BP on HD, goal reduced no fevers appetite poor no rash no headache no abominal pain no anxiety oligoanuric no pain no arthralgias Objective - Vital Signs/Intake and Output Vital Signs (last 24 hours): Temp Pulse Resp BP Pulse Ox 97.3 F L 93 H 16 125/62 95 01/10/19 10:06 01/10/19 10:06 01/10/19 10:06 01/10/19 10:06 01/10/19 07:12 Intake and Output: 01/10/19 01/10/19 06:59 18:59 Intake Total 300 Output Total 0 Balance 300 - Medications Medications: Current Medications Acetaminophen (Tylenol 325mg Tab) 650 mg PO Q6 PRN PRN Reason: Fever >100.4 F Albuterol/Ipratropium (Duoneb 3 Mg/0.5 Mg (3 Ml) Ud) 3 ml INH RQ4 [facility] Last Admin: 01/10/19 11:01 Dose: Not Given Aspirin (Aspirin Chewable) 81 mg PO DAILY [facility] Last Admin: 01/09/19 09:41 Dose: 81 mg Benzonatate (Tessalon Perles) 100 mg PO Q12H [facility] Last Admin: 01/10/19 07:36 Dose: 100 mg Cilostazol (Pletal) 50 mg PO BID [facility] Last Admin: 01/09/19 17:40 Dose: 50 mg Dextrose (Dextrose 50% Inj) 0 ml IV STAT PRN; Protocol PRN Reason: Hypoglycemia Protocol Last Admin: 01/04/19 07:16 Dose: 50 ml Dextrose (Glutose 15) 0 gm PO ONCE PRN; Protocol PRN Reason: Hypoglycemia Protocol Famotidine (Pepcid) 20 mg PO DAILY [facility] Last Admin: 01/09/19 09:40 Dose: 20 mg Glucagon (Glucagen Diagnostic Kit) 0 mg IM STAT PRN; Protocol PRN Reason: Hypoglycemia Protocol Guaifenesin (Robitussin) 100 mg PO Q4H PRN PRN Reason: Cough Last Admin: 01/08/19 09:34 Dose: 100 mg Guaifenesin (Mucinex La) 600 mg PO BID [facility] Heparin Sodium (Porcine) (Heparin) 5,000 units SC Q8 [facility] Last Admin: 01/10/19 05:47 Dose: 5,000 units Insulin Aspart (Novolog) 0 unit SC AC [facility]; Protocol Last Admin: 01/10/19 07:30 Dose: Not Given Insulin Glargine (Lantus) 8 unit SC [facility] Last Admin: 01/09/19 21:32 Dose: 8 units Metoprolol Succinate (Toprol Xl) 25 mg PO DAILY [facility] Last Admin: 01/09/19 09:40 Dose: 25 mg Montelukast Sodium (Singulair) 10 mg PO DAILY [facility] Last Admin: 01/09/19 09:41 Dose: 10 mg Promethazine HCl/Codeine (Phenergan/Codeine Oral Syrup) 5 ml PO Q6 PRN PRN Reason: Cough Last Admin: 01/09/19 21:31 Dose: 5 ml Rosuvastatin Calcium (Crestor) 5 mg PO [facility] Last Admin: 01/09/19 21:31 Dose: 5 mg Sevelamer Carbonate (Renvela) 2,400 mg PO TIDCC [facility] - Labs Labs: 01/10/19 09:49 01/10/19 09:49 PT 11.2 SECONDS (9.7-12.2) 12/30/18 09:19 INR 1.0 12/30/18 09:19 APTT 30 SECONDS (21-34) 12/30/18 09:19 - Constitutional Appears: No Acute Distress, Chronically Ill - Head Exam Head Exam: ATRAUMATIC, NORMAL INSPECTION - Eye Exam Eye Exam: EOMI - ENT Exam ENT Exam: Mucous Membranes Dry - Neck Exam Neck Exam: Full ROM. absent: Lymphadenopathy - Respiratory Exam Respiratory Exam: Rhonchi. absent: Accessory Muscle Use - Cardiovascular Exam Cardiovascular Exam: REGULAR RHYTHM. absent: Rubs - GI/Abdominal Exam GI & Abdominal Exam: Distended, Soft. absent: Tenderness - Extremities Exam Extremities Exam: absent: Pedal Edema Assessment and Plan - Assessment and Plan (Free Text) Assessment: maint ESRD continued pulmonary toilet suggest eval for removal of suprapubic catheter
[2019-01-10] MEDS: Promethazine/Cod 6.25mg-10mg/5ml Syr UD PO PRN (15:20)
[2019-01-10 16:35] VITALS: BP 122/72; PULSE 99; RESP 22; TEMP 97.9; O2SAT 94
--- NOTE | 2019-01-10 16:47 | CP.PCM.DIS ---
Provider - Provider Date of Admission: 12/30/18 10:16 Attending physician: Corby Castillo Jr, MD Consults: 12/30/18 11:32 Critical Care Consult Routine Comment: Consulting Provider: Michel Marti Consulting Physician: Michel Marti Reason for Consult: ams 12/30/18 11:59 Nephrology Consult Routine Comment: Consulting Provider: Tonie Lancaster Consulting Physician: Tonie Lancaster Reason for Consult: ESRD 12/30/18 14:35 Physician Consult Routine Comment: Consulting Provider: Speedy Spaulding Consulting Physician: Speedy Spaulding Reason for Consult: hx of COPD, pleural effusions 12/30/18 15:27 Case Management Referral Routine Comment: With Home services Physician Instructions: Reason For Exam: Discharge planning Reason for Referral: Discharge Planning 12/31/18 08:00 Nursing Referral for Palliative Care Routine Comment: Physician Instructions: Reason For Exam: ESRD/HD 12/31/18 11:03 Palliative Care Consult Routine Comment: Consulting Provider: Gisella Nowak Physician Instructions: Reason For Exam: goals of care, code status, thank you! 12/31/18 17:02 Urology Consult Routine Comment: Consulting Provider: Korey Odom Jr. Consulting Physician: Korey Odom Jr. Reason for Consult: suprapubic catheter previous injury, ESRD, minimal urine, remove? Time Spent in preparation of Discharge (in minutes): 70 Hospital Course - Lab Results Lab Results: Micro Results 01/07/19 18:26 Naris MRSA Culture - Final MRSA NOT DETECTED 12/30/18 09:30 Blood Blood Culture - Final NO GROWTH AFTER 5 DAYS 12/30/18 09:30 Blood Gram Stain - Final TEST NOT PERFORMED 12/30/18 09:26 Blood Blood Culture - Final NO GROWTH AFTER 5 DAYS 12/30/18 09:26 Blood Gram Stain - Final TEST NOT PERFORMED 12/30/18 09:35 Urine,Catheterized Urine Culture - Final Corynebacterium Species 12/30/18 15:06 Nose MRSA Culture (Admit) - Final MRSA NOT DETECTED Most Recent Lab Values WBC 9.6 K/uL (4.8-10.8) D 01/10/19 09:49 RBC 3.60 Mil/uL (4.40-5.90) L 01/10/19 09:49 Hgb 10.7 g/dL (12.0-18.0) L 01/10/19 09:49 Hct 31.8 % (35.0-51.0) L 01/10/19 09:49 MCV 88.3 fL (80.0-94.0) 01/10/19 09:49 MCH 29.8 pg (27.0-31.0) 01/10/19 09:49 MCHC 33.8 g/dL (33.0-37.0) 01/10/19 09:49 RDW 15.9 % (11.5-14.5) H 01/10/19 09:49 Plt Count 288 K/uL (130-400) 01/10/19 09:49 MPV 8.7 fL (7.2-11.7) 01/10/19 09:49 Neut % (Auto) 68.5 % (50.0-75.0) 01/10/19 09:49 Lymph % (Auto) 21.2 % (20.0-40.0) 01/10/19 09:49 Pennington % (Auto) 6.5 % (0.0-10.0) 01/10/19 09:49 Eos % (Auto) 3.3 % (0.0-4.0) 01/10/19 09:49 Baso % (Auto) 0.5 % (0.0-2.0) 01/10/19 09:49 Neut # (Auto) 6.6 K/uL (1.8-7.0) 01/10/19 09:49 Lymph # (Auto) 2.0 K/uL (1.0-4.3) 01/10/19 09:49 Pennington # (Auto) 0.6 K/uL (0.0-0.8) 01/10/19 09:49 Eos # (Auto) 0.3 K/uL (0.0-0.7) 01/10/19 09:49 Baso # (Auto) 0.1 K/uL (0.0-0.2) 01/10/19 09:49 PT 11.2 SECONDS (9.7-12.2) 12/30/18 09:19 INR 1.0 12/30/18 09:19 APTT 30 SECONDS (21-34) 12/30/18 09:19 Puncture Site Lb 01/05/19 08:37 pCO2 45 mm/Hg (35-45) 01/05/19 08:37 pO2 56 mm/Hg (80-100) L 01/05/19 08:37 HCO3 24.9 mmol/L (21-28) 01/05/19 08:37 ABG pH 7.37 (7.35-7.45) 01/05/19 08:37 ABG Total CO2 27.4 mmol/L (22-28) 01/05/19 08:37 ABG O2 Saturation 91.2 % (95-98) L 01/05/19 08:37 ABG Base Excess 0.3 mmol/L (-2.0-3.0) 01/05/19 08:37 ABG Hemoglobin 11.4 g/dL (11.7-17.4) L 01/05/19 05:17 ABG Carboxyhemoglobin 0.9 % (0.5-1.5) 01/05/19 05:17 POC ABG HHb (Measured) 9.4 % (0.0-5.0) H 01/05/19 05:17 ABG Methemoglobin 0.5 % (0.0-3.0) 01/05/19 05:17 Kun Test Na 01/05/19 08:37 ABG Potassium 3.6 mmol/L (3.6-5.2) 01/05/19 08:37 VBG pH 7.34 (7.32-7.43) 12/30/18 12:30 VBG pCO2 62 mmHg (40-60) H 12/30/18 12:30 VBG HCO3 29.2 mmol/L 12/30/18 12:30 VBG Total CO2 35.3 mmol/L (22-28) H 12/30/18 12:30 VBG O2 Sat (Calc) 96.9 % (40-65) H 12/30/18 12:30 VBG Base Excess 5.6 mmol/L (0.0-2.0) H 12/30/18 12:30 VBG Potassium 4.8 mmol/L (3.6-5.2) 12/30/18 12:30 A-a O2 Difference 387.0 mm/Hg 01/05/19 08:37 Respiratory Index 6.9 01/05/19 08:37 Hgb O2 Saturation 89.1 % (95.0-98.0) L 01/05/19 05:17 Sodium 140.0 mmol/l (132-148) 01/05/19 08:37 Chloride 104.0 mmol/L (98-107) 01/05/19 08:37 Glucose 81 mg/dl (75-110) 01/05/19 08:37 Lactate 0.8 mmol/L (0.7-2.1) 01/05/19 08:37 Vent Mode High flow 01/05/19 05:17 FiO2 70.0 % 01/05/19 08:37 Inspiratory BiPAP 14 01/01/19 05:25 Expiratory BiPAP 6 01/01/19 05:25 Crit Value Called To Dr. fernando 12/30/18 09:25 Crit Value Called By Sridevi aguillon rcp 12/30/18 09:25 Crit Value Read Back Y 12/30/18 09:25 Blood Gas Notified Time 932 12/30/18 09:25 Sodium 136 mmol/L (132-148) 01/10/19 09:49 Potassium 4.8 mmol/L (3.6-5.2) 01/10/19 09:49 Chloride 94 mmol/L (98-107) L 01/10/19 09:49 Carbon Dioxide 26 mmol/L (22-30) 01/10/19 09:49 Anion Gap 20 (10-20) 01/10/19 09:49 BUN 92 mg/dL (9-20) H 01/10/19 09:49 Creatinine 10.7 mg/dL (0.8-1.5) H* D 01/10/19 09:49 Est GFR ( Amer) 6 01/10/19 09:49 Est GFR (Non-Af Amer) 5 01/10/19 09:49 POC Glucose (mg/dL) 185 mg/dL (65-110) H 01/10/19 16:24 Random Glucose 150 mg/dL (75-110) H D 01/10/19 09:49 Calcium 9.8 mg/dl (8.6-10.4) 01/10/19 09:49 Phosphorus 6.8 mg/dL (2.5-4.5) H 01/10/19 09:49 Magnesium 2.3 mg/dL (1.6-2.3) 01/10/19 09:49 Total Bilirubin 0.6 mg/dL (0.2-1.3) 01/10/19 09:49 AST 102 U/L (17-59) H 01/10/19 09:49 ALT 21 U/L (21-72) 01/10/19 09:49 Alkaline Phosphatase 79 U/L (38-126) 01/10/19 09:49 Troponin I 0.2700 ng/mL (0.00-0.120) H* 12/30/18 09:19 NT-Pro-B Natriuret Pep 225172 pg/mL (0-900) H 12/30/18 09:19 Total Protein 7.3 g/dL (6.3-8.3) 01/10/19 09:49 Albumin 4.2 g/dL (3.5-5.0) 01/10/19 09:49 Globulin 3.0 gm/dL (2.2-3.9) 01/10/19 09:49 Albumin/Globulin Ratio 1.4 (1.0-2.1) 01/10/19 09:49 Procalcitonin 1.69 NG/ML (0.19-0.49) H 12/30/18 16:20 Arterial Blood Potassium 3.6 mmol/L (3.6-5.2) 01/05/19 08:37 Venous Blood Potassium 4.8 mmol/L (3.6-5.2) 12/30/18 12:30 Urine Color Anushka (YELLOW) 12/30/18 09:35 Urine Clarity Hazy (Clear) 12/30/18 09:35 Urine pH 8.0 (5.0-8.0) 12/30/18 09:35 Ur Specific Boyds 1.012 (1.003-1.030) 12/30/18 09:35 Urine Protein 3+ mg/dL (NEGATIVE) H 12/30/18 09:35 Urine Glucose (UA) Normal mg/dL (Normal) 12/30/18 09:35 Urine Ketones Negative mg/dL (NEGATIVE) 12/30/18 09:35 Urine Blood Negative (NEGATIVE) 12/30/18 09:35 Urine Nitrate Positive (NEGATIVE) H 12/30/18 09:35 Urine Bilirubin Negative (NEGATIVE) 12/30/18 09:35 Urine Urobilinogen Normal mg/dL (0.2-1.0) 12/30/18 09:35 Ur Leukocyte Esterase 1+ Andres/uL (Negative) H 12/30/18 09:35 Urine WBC (Auto) 13 /hpf (0-5) H 12/30/18 09:35 Urine RBC (Auto) 3 /hpf (0-3) 12/30/18 09:35 Ur Squamous Epith Cells 1 /hpf (0-5) 12/30/18 09:35 Urine Bacteria Occ (<OCC) H 12/30/18 09:35 Random Vancomycin 15.1 ug/mL 01/02/19 06:07 Urine Opiates Screen Negative (NEGATIVE) 12/30/18 13:00 Urine Methadone Screen Negative (NEGATIVE) 12/30/18 13:00 Ur Barbiturates Screen Negative (NEGATIVE) 12/30/18 13:00 Ur Phencyclidine Scrn Negative (NEGATIVE) 12/30/18 13:00 Ur Amphetamines Screen Negative (NEGATIVE) 12/30/18 13:00 U Benzodiazepines Scrn Negative (NEGATIVE) 12/30/18 13:00 U Oth Cocaine Metabols Negative (NEGATIVE) 12/30/18 13:00 U Cannabinoids Screen Negative (NEGATIVE) 12/30/18 13:00 Influenza Typ A,B (EIA) Pos for influenza a (NEGATIVE) H 12/30/18 09:19 - Hospital Course Hospital Course: Upon Admission: Patient is a 73 year old male with history of COPD, IDDM, kidney stones, HTN, HLD, ESRD on MWF who was brought into the hospital by to the emergency department with complains of shortness of breath, chest pain, fever, and constant cough for the past 2 days. Patient was recently admitted to the hospital on 12/20/2018 with similar symptoms. Chest CT showed moderate B/L pleural effusions with dependent consolidations. He was started on Zosyn, azithromycin, Duoneb and Singulair and discharged on 12/25/2018 with diagnosis of pulmonary edema. states patient symptoms have worsened and is not as active as before. He is evaluated in the ER and tested positive for influenza A with increasing R pleural effusion on CXR, started on Zosyn, Vanco, and Tamiflu. EKG significant for RBBB which has not changed August 2018. Pt currently unable to provide history or answer questions to complete ROS due to lethargy. Denies hemoptysis, abdominal pain, N/V/D, syncope. Patient was admitted to ICU for Hypercapnia and Sepsis. Hospital Course: Patient was placed on Bipap for Hypercapnic respiratory failure. Patient was weaned off bipap and placed on 100% high flow O2. Chest CT shwoed Extensive mostly subcentimeter mediastinal and prevascular adenopathy. 12 mm precarinal lymph node evident. Small right hilar lymph node present. No large central or segmental pulmonary embolus evident.Moderate bilateral consolidations and pleural effusions. Small hiatal hernia with evidence of moderate to severe gastroesophageal reflux. Limited visualized po rtions of the upper abdomen: Cholelithiasis. Bilateral low-density renal lesions possibly cysts. Exophytic left mid posterior renal hypodense lesion measures approximately 1.6 x 0.7 cm and approximately 40 HU, indeterminate. ECHO showed mildly impaired systolic function with normal LV wall thickness. CXR showed bilateral effusions/ atelectasis/ pneumonia UA showed Sq epith 1, LEuk esterase 1+, WBC 13, Nitrate + Due to recent hospitalization & possible hospital acquired pneumonia, patient was placed on following antibiotics: - Zosyn - Vancomycin - Doxyclycline Patient breathing improved, and was placed on NC and downgraded to med/surg. Patient blood cultures were negative and CXR showed improved effusions. Patient was taken off antibiotics. Patient was dialyzed on MWF schedule. Patient was deemed stable for discharge to [facility]. Upon Discharge: Patient was discharged to [facility]. He was given prescriptions for medications. He was instructed to follow up with Dr. Castillo upon discharge from [facility]. Patient understood instructions and agreed. Discharge Exam - Head Exam Head Exam: ATRAUMATIC, NORMAL INSPECTION - Eye Exam Eye Exam: EOMI, PERRL Pupil Exam: NORMAL ACCOMODATION - Respiratory Exam Respiratory Exam: Rhonchi, NORMAL BREATHING PATTERN. absent: Accessory Muscle Use, Wheezes, Respiratory Distress - Cardiovascular Exam Cardiovascular Exam: REGULAR RHYTHM, +S1, +S2. absent: Gallop, Rubs, Systolic Murmur - GI/Abdominal Exam GI & Abdominal Exam: Normal Bowel Sounds, Soft. absent: Distended, Tenderness - Extremities Exam Extremities exam: normal inspection - Neurological Exam Neurological exam: Alert, CN II-XII Intact, Oriented x3 - Psychiatric Exam Psychiatric exam: Normal Affect, Normal Mood - Skin Skin Exam: Dry Discharge Plan - Discharge Medications Prescriptions: Acidoph/L.bulg/Bif.b/S.thermop [Bacid Caplet] 1 each PO BID #66 tablet Aspirin [Aspirin Chewable] 81 mg PO DAILY #30 chew Benzonatate [Tessalon Perles] 100 mg PO BID #60 sgl Cilostazol [Pletal] 50 mg PO BID #60 tab guaiFENesin [Robitussin] 100 mg PO Q4H PRN #1 bottle PRN Reason: Cough guaiFENesin [Mucinex LA] 600 mg PO BID #60 tab Insulin Glargine, Recombina [Lantus] 30 unit SC DAILY #30 unit Linagliptin [Tradjenta] 5 mg PO DAILY #30 tablet Metoprolol Succinate XL [Toprol XL] 25 mg PO DAILY #30 tab Montelukast [Singulair] 10 mg PO DAILY #30 tab Rosuvastatin Calcium [Crestor] 5 mg PO HS #30 tab Sevelamer Carbonate [Renvela] 1,600 mg PO TIDCC #90 tab - Follow Up Plan Condition: STABLE Disposition: REHAB FACILITY/REHAB UNIT Additional Instructions: Please follow up with Dr. Castillo your primary care physician within 1 week after discharge from rehab. Please take your medications as prescribed. If symptoms worsen, please return to the ED Take care and be well. Por favor la un seguimiento con el Dr. Castillo, day mdico de atencin primaria, dentro de becka semana despus del krysta de rehabilitacin. Por favor, tome jeannette medicamentos segn lo prescrito. Si los sntomas empeoran, por favor regrese al servicio de urgencias. Cudate y sintete julee.
--- NOTE | 2019-01-10 17:59 | CP.PCM.PN ---
Subjective - Date & Time of Evaluation Date of Evaluation: 01/10/19 Time of Evaluation: 11:20 - Subjective Subjective: Patient seen and examined during hemodialysis. Patient is doing well; states cough and breathing have improved. Afebrile. Physical Exam Gen: AAOx3 Cardio: RRR, no murmur Pulm: Decreased breath sounds Abd: Soft, non-distended A/P Influenza Pleural Effusion Pneumonia ESRD on dialysis - Continue hemodialysis - Continue antibiotics - Nasal cannula and f/u saturation - Repeat CXR; if no reaccumulation patient does not need biopsy - CXR 01/09 showed small b/l pleural effusion Objective - Vital Signs/Intake and Output Vital Signs (last 24 hours): Temp Pulse Resp BP Pulse Ox 97.9 F 99 H 22 122/72 94 L 01/10/19 15:35 01/10/19 15:35 01/10/19 15:35 01/10/19 15:35 01/10/19 15:35 Intake and Output: 01/10/19 01/10/19 06:59 18:59 Intake Total 300 300 Output Total 0 0 Balance 300 300 - Medications Medications: Current Medications Acetaminophen (Tylenol 325mg Tab) 650 mg PO Q6 PRN PRN Reason: Fever >100.4 F Albuterol/Ipratropium (Duoneb 3 Mg/0.5 Mg (3 Ml) Ud) 3 ml INH RQ4 [facility] Last Admin: 01/10/19 16:04 Dose: 3 ml Aspirin (Aspirin Chewable) 81 mg PO DAILY [facility] Last Admin: 01/10/19 14:52 Dose: 81 mg Benzonatate (Tessalon Perles) 100 mg PO Q12H [facility] Last Admin: 01/10/19 07:36 Dose: 100 mg Cilostazol (Pletal) 50 mg PO BID [facility] Last Admin: 01/10/19 17:39 Dose: 50 mg Dextrose (Dextrose 50% Inj) 0 ml IV STAT PRN; Protocol PRN Reason: Hypoglycemia Protocol Last Admin: 01/04/19 07:16 Dose: 50 ml Dextrose (Glutose 15) 0 gm PO ONCE PRN; Protocol PRN Reason: Hypoglycemia Protocol Famotidine (Pepcid) 20 mg PO DAILY [facility] Last Admin: 01/10/19 14:51 Dose: 20 mg Glucagon (Glucagen Diagnostic Kit) 0 mg IM STAT PRN; Protocol PRN Reason: Hypoglycemia Protocol Guaifenesin (Robitussin) 100 mg PO Q4H PRN PRN Reason: Cough Last Admin: 01/08/19 09:34 Dose: 100 mg Guaifenesin (Mucinex La) 600 mg PO BID [facility] Last Admin: 01/10/19 17:38 Dose: 600 mg Heparin Sodium (Porcine) (Heparin) 5,000 units SC Q8 [facility] Last Admin: 01/10/19 14:52 Dose: 5,000 units Insulin Aspart (Novolog) 0 unit SC AC [facility]; Protocol Last Admin: 01/10/19 16:43 Dose: 2 units Insulin Glargine (Lantus) 8 unit SC HS [facility] Last Admin: 01/09/19 21:32 Dose: 8 units Metoprolol Succinate (Toprol Xl) 25 mg PO DAILY [facility] Last Admin: 01/10/19 10:00 Dose: Not Given Montelukast Sodium (Singulair) 10 mg PO DAILY [facility] Last Admin: 01/10/19 14:52 Dose: 10 mg Promethazine HCl/Codeine (Phenergan/Codeine Oral Syrup) 5 ml PO Q6 PRN PRN Reason: Cough Last Admin: 01/10/19 15:20 Dose: 5 ml Rosuvastatin Calcium (Crestor) 5 mg PO HS [facility] Last Admin: 01/09/19 21:31 Dose: 5 mg Sevelamer Carbonate (Renvela) 2,400 mg PO TIDCC [facility] Last Admin: 01/10/19 16:43 Dose: 2,400 mg - Labs Labs: 01/10/19 09:49 01/10/19 09:49 PT 11.2 SECONDS (9.7-12.2) 12/30/18 09:19 INR 1.0 12/30/18 09:19 APTT 30 SECONDS (21-34) 12/30/18 09:19 Assessment and Plan (1) Influenza Status: Acute (2) Pleural effusion Status: Acute (3) Pneumonia Status: Acute (4) ESRD (end stage renal disease) on dialysis Status: Chronic
== END 2019-01-10 21:28 | DRG 193 ==
LOC: C.ER 08:34 → C.9E 10:16 → C.5S 11:30 → C.9E 11:58 → C.9I 13:21 → C.6T 01-07 18:53
PROVIDERS: ADMIT Internal Medicine; ATTEND Internal Medicine
PROC: 5A09457 Assistance with Respiratory Ventilation, 24-96 Consecutive Hours, Continuous Positive Airway Pressure (ICD-10-PCS; principal; 2018-12-30)
PROC: 5A1D70Z Performance of Urinary Filtration, Intermittent, Less than 6 Hours Per Day (ICD-10-PCS; 2018-12-30)
DX: J11.08 Influenza due to unidentified influenza virus with specified pneumonia (principal); J96.92 Respiratory failure, unspecified with hypercapnia; N18.6 End stage renal disease; I13.2 Hypertensive heart and chronic kidney disease with heart failure and with stage 5 chronic kidney disease, or end stage renal disease; E87.2 Acidosis; J44.0 Chronic obstructive pulmonary disease with (acute) lower respiratory infection; N39.0 Urinary tract infection, site not specified; Z99.2 Dependence on renal dialysis; E11.22 Type 2 diabetes mellitus with diabetic chronic kidney disease; Z87.891 Personal history of nicotine dependence; E11.319 Type 2 diabetes mellitus with unspecified diabetic retinopathy without macular edema; Z79.4 Long term (current) use of insulin; D64.9 Anemia, unspecified; M19.90 Unspecified osteoarthritis, unspecified site; E11.21 Type 2 diabetes mellitus with diabetic nephropathy; E11.51 Type 2 diabetes mellitus with diabetic peripheral angiopathy without gangrene; Z51.5 Encounter for palliative care; K21.9 Gastro-esophageal reflux disease without esophagitis; K44.9 Diaphragmatic hernia without obstruction or gangrene